=== PATIENT | female | born 1930 | race Caucasian/White ===

== ENCOUNTER 2017-02-22 18:59 | Emergency (ER) | payer MEDICARE ==
[2017-02-22] MEDS ORDERED: ASPIRIN CHEW 81 MG TABLET PO STA (19:37)
[2017-02-22] MEDS ORDERED: IPRATROPIUM/ALBUTEROL 3 ML NEB INH STA (19:37)
[2017-02-22] MEDS ORDERED: IPRATROPIUM/ALBUTEROL 3 ML NEB INH ONE (19:45)
[2017-02-22] MEDS ORDERED: ASPIRIN CHEW 81 MG TABLET ONE (19:50)
[2017-02-22] MEDS ORDERED: ALBUTEROL 8 GM INHALER INH STA (21:01)
[2017-02-22] MEDS ORDERED: ALBUTEROL 8 GM INHALER INH ONE (21:07)
== END 2017-02-22 21:19 | disposition home or self-care (01) ==
DX: J40 Bronchitis, not specified as acute or chronic (principal); I10 Essential (primary) hypertension; E78.00 Pure hypercholesterolemia, unspecified; I25.10 Atherosclerotic heart disease of native coronary artery without angina pectoris; Z95.5 Presence of coronary angioplasty implant and graft; Z79.82 Long term (current) use of aspirin
CPT/HCPCS: 36415; 71020; 80053; 81003; 83690; 83880; 84484; 85025; 93005; 93010; 94640; 94664; 99284; A9270; J7620

== ENCOUNTER 2017-04-05 08:57 | Emergency (ER) | payer MEDICARE ==
[2017-04-05 09:05] VITALS: BP 126/64
== END 2017-04-05 09:36 | disposition left against medical advice (07) ==
LOC: ED 08:57
DX: Z53.21 Procedure and treatment not carried out due to patient leaving prior to being seen by health care provider (principal)

== ENCOUNTER 2017-07-07 16:44 | Emergency (ER) | payer MEDICARE ==
[2017-07-07 17:36] LABS: BASOPHILS % (AUTO) 0.4 %; EOSINOPHILS # (AUTO) 0.1 10^3/uL (0.0-0.7); EOSINOPHILS % (AUTO) 0.5 %; HCT - HEMATOCRIT 38.8 % (37.0-47.0); HGB - HEMOGLOBIN 12.9 g/dL (12.0-16.0); LYMPHOCYTES % (AUTO) 7.6 %; MEAN CORPUSCULAR HEMOGLOBIN 31.8 pg (27.0-31.0); MEAN CORPUSCULAR HGB CONC 33.3 g/dL (32.0-36.0); MEAN CORPUSCULAR VOLUME 95.5 fL (81.0-99.0); MONOCYTES # (AUTO) 0.6 10^3/uL (0.0-1.0); MONOCYTES % (AUTO) 4.5 %; RED BLOOD COUNT 4.06 10^6/uL (4.20-5.40); UNCORRECTED WHITE BLOOD COUNT 12.7 x10^3/uL; WHITE BLOOD COUNT 12.7 x10^3/uL (4.8-10.8)
[2017-07-07 17:47] LABS: ALBUMIN/GLOBULIN RATIO 1.4 (1.0-2.2); BILIRUBIN,TOTAL 0.8 mg/dL (0.2-1.0); CALCIUM 9.4 mg/dL (8.5-10.3); CREATININE 1.2 mg/dL (0.4-1.0); POTASSIUM 4.1 mmol/L (3.5-5.0); TOTAL PROTEIN 7.4 g/dL (6.7-8.2)
--- NOTE | 2017-07-07 19:36 | ED Physician Documentation ---
History of Present Illness - Stated complaint Stated Complaint: ABD PX N/V - Chief complaint Chief Complaint: Abd Pain - Additonal information Additional information: hx from pt 87 f pshx appy c sections hyst multiple ventral hernias today noon having a BM and developed severe diffuse abd pain with NV no diarrhea no blood in vomit or BM no urinary sx no fever cough Review of Systems Constitutional: denies: Fever, Chills Cardiac: denies: Chest pain / pressure Respiratory: denies: Dyspnea GI: reports: Abdominal Pain, Nausea, Vomiting. 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, Hysterectomy Cardiovascular: Coronary stent - Present Medications Home Medications: Ambulatory Orders Medication Instructions Recorded Confirmed Aspirin [Aspir 81] 81 mg PO DAILY 01/11/14 04/05/17 Fluoxetine HCl 20 mg PO DAILY 01/11/14 04/05/17 Gabapentin [Neurontin] 300 mg PO DAILY 01/11/14 04/05/17 Metoprolol Tartrate [Lopressor] 25 mg PO DAILY 01/11/14 04/05/17 Pantoprazole Sodium [Protonix] 40 mg PO DAILY 01/11/14 04/05/17 Simvastatin 20 mg PO DAILY 01/11/14 04/05/17 amLODIPine [Norvasc] 10 mg PO ONCE 01/11/14 04/05/17 Doxazosin [Cardura] 1 mg PO DAILY 02/22/17 04/05/17 Isosorbide Dinitrate 30 mg PO DAILY 04/05/17 04/05/17 Losartan Potassium 100 mg PO DAILY 04/05/17 04/05/17 Methocarbamol 500 mg PO DAILY 04/05/17 04/05/17 Simvastatin 20 mg PO DAILY 04/05/17 04/05/17 Spironolactone 25 mg PO DAILY 04/05/17 04/05/17 Amox/Clav 500/125 [Augmentin] 1 each PO Q12H #19 tablet 07/07/17 Docusate Sodium 250Mg Capsule 250 mg PO DAILY #30 capsule 07/07/17 [Colace 250Mg Capsule] - Allergies Allergies/Adverse Reactions: Allergies Allergy/AdvReac Type Severity Reaction Status Date / Time codeine AdvReac Nausea Verified 07/07/17 16:50 - Social History Does the pt smoke?: No Smoking Status: Never smoker Does the pt drink ETOH?: No Does the pt have substance abuse?: No - Immunizations Immunizations are current?: Yes - POLST Patient has POLST: Yes POLST Status: Limited Interventions PD ED PE NORMAL - Vitals Vital signs reviewed: Yes - Cardiac Cardiac: RRR - Respiratory Respiratory: No respiratory distress, Clear bilaterally - Abdomen Abdomen: Other (dec BS, multiple scars, TTP LLQ, distended, no inguinal hernia appreciated) - Neuro Neuro: Alert and oriented X 3, No motor deficit, No sensory deficit Results - Vitals Vitals: Vital Signs - 24 hr 07/07/17 07/07/17 07/07/17 16:48 20:09 22:34 Temperature 36.1 C L 36.5 C Heart Rate 61 56 L 68 Respiratory 16 18 14 Rate Blood Pressure 100/56 L 126/60 128/62 O2 Saturation 99 100 95 Oxygen O2 Source Room air - Labs Labs: Laboratory Tests 07/07/17 07/07/17 07/07/17 17:27 17:27 20:35 WBC 12.7 H RBC 4.06 L Hgb 12.9 Hct 38.8 MCV 95.5 MCH 31.8 H MCHC 33.3 RDW 13.0 Plt Count 305 MPV 8.0 Neut # 11.0 H Lymph # 1.0 L [place] # 0.6 Eos # 0.1 Baso # 0.0 Absolute Nucleated RBC 0.00 Nucleated RBCs 0.0 Sodium 136 Potassium 4.1 Chloride 103 Carbon Dioxide 25 Anion Gap 8.0 BUN 18 Creatinine 1.2 H Estimated GFR (MDRD) 43 L Glucose 135 H Calcium 9.4 Total Bilirubin 0.8 AST 26 ALT 22 Alkaline Phosphatase 85 Total Protein 7.4 Albumin 4.3 Globulin 3.1 Albumin/Globulin Ratio 1.4 Lipase 25 Urine Color DARK YELLOW Urine Clarity HAZY Urine pH 5.5 Ur Specific [place] 1.025 Urine Protein TRACE Urine Glucose (UA) NEGATIVE Urine Ketones NEGATIVE Urine Occult Blood NEGATIVE Urine Nitrite POSITIVE H Urine Bilirubin NEGATIVE Urine Urobilinogen 1 (NORMAL) Ur Leukocyte Esterase TRACE H Urine RBC 0-5 Urine WBC 4-5 Ur Squamous Epith Cells MANY Squamous H Urine Bacteria Few Ur Microscopic Review INDICATED Urine Culture Comments NOT INDICATED - Rads (name of study) CT abd pelvis Radiology: See rad report (mild sigmoid diverticulitis) PD MEDICAL DECISION MAKING - ED course ED course: UA not a clean catch - doubt UTI, augmentin would cover anyway Departure - Departure Disposition: 01 Home, Self Care Clinical Impression: Diverticulitis of gastrointestinal tract Condition: Good Instructions: ED Diverticulitis Follow-Up: Robert Otoole MD [Primary Care Provider] - Prescriptions: Amox/Clav 500/125 [Augmentin] 1 each PO Q12H #19 tablet Docusate Sodium 250Mg Capsule [Colace 250Mg Capsule] 250 mg PO DAILY #30 capsule Comments: Your labs looked fine except for some mild renal insufficiency The CT scan showed you have a colon infection called diverticulitis Your case is not too severe - there is no perforation or abscess So it is OK to try and treat this at home as an outpatient with oral antibiotics I recommend a clear liquid diet for the next two days to rest your bowel while it starts to heal - if you get too hungry you can have BOOST or Ensure as well After that may advance your diet but start with easy to digest foods and avoid anything with small crunchy bits like popcorn and raw carrots and seeds Please follow up with your PMD for a recheck before the end of the week Some cased of diverticulitis - even if treated in the hospital with IV antibiotics - get worse and progress to a perforation or abscess. So if you feel worse, have more pain, develop a fever or see blood in your BMs, please come back to the ER
[2017-07-07 20:41] LABS: PH,URINE 5.5 PH (5.0-7.5)
[2017-07-07 20:46] LABS: BILIRUBIN,URINE NEGATIVE (NEGATIVE); UA w/ MICROSCOPIC CHARGE YES
[2017-07-07 20:55] LABS: UR CULTURE IF IND NOT INDICATED
--- NOTE | 2017-07-07 21:20 | CT Preliminary Report ---
Exam: CT Abdomen/Pelvis W/O IMPRESSION: 1. Mild sigmoid colon diverticulitis. [facility] SITE ID: [id number]
--- NOTE | 2017-07-07 21:23 | CT Report ---
EXAM: CT ABDOMEN AND PELVIS (CT KUB) EXAM DATE: 07/07/2017 09:01 PM. CLINICAL HISTORY: LLQ abd pain and distension. COMPARISONS: 12/28/2014 CT. TECHNIQUE: Routine axial helical CT imaging was performed through the abdomen and pelvis without IV c ontrast. Reconstructions: Coronal and sagittal. In accordance with CT protocol optimization, one or more of the following dose reduction techniques w ere utilized for this exam: automated exposure control, adjustment of mA and/or KV based on patient s ize, or use of iterative reconstructive technique. FINDINGS: Lung Bases: Unremarkable. Right Kidney/Ureter: No stones, hydronephrosis, or hydroureter. No perinephric fat stranding. Left Kidney/Ureter: No stones, hydronephrosis, or hydroureter. No perinephric fat stranding. Other Solid Organs: Noncontrast images of the solid organs are grossly unremarkable. Gallbladder/Bile Ducts: Unremarkable. Peritoneal Cavity: There is extensive left colon diverticulosis. Slightly increased attenuation in th e fat planes surrounding the sigmoid colon. No perforation or fluid collections. No evidence of appen dicitis. Pelvic Organs: The uterus has been removed. Urinary bladder is normal. No pelvic lymphadenopathy, mas s or fluid collections. Vasculature: Unremarkable. Other: None. IMPRESSION: 1. Mild sigmoid colon diverticulitis. [facility] Referring Provider Line: [phone] SITE ID: [id number]
[2017-07-07] MEDS ORDERED: SODIUM CHLORIDE FLUSH 0.9% 10 ML SYRINGE IVP ONE (21:30)
[2017-07-07] MEDS: SODIUM CHLORIDE 0.9% 1,000 ML IV ONE (21:35)
[2017-07-07 22:36] VITALS: BP 128/62
[2017-07-07] MEDS: AMOX/CLAV 875 MG/125 MG TABLET PO STA (22:45)
[2017-07-07] MEDS ORDERED: AMOX/CLAV 875 MG/125 MG TABLET PO ONE (22:46)
[2017-07-07] MEDS: HYDROcod/ACETAM 5/325 MG TABLET PO STA (23:15)
[2017-07-07] MEDS ORDERED: HYDROcod/ACETAM 5/325 MG TABLET ONE (23:17)
== END 2017-07-07 23:32 | disposition home or self-care (01) ==
LOC: ED 16:44
DX: K57.92 Diverticulitis of intestine, part unspecified, without perforation or abscess without bleeding (principal); I25.10 Atherosclerotic heart disease of native coronary artery without angina pectoris; I10 Essential (primary) hypertension; Z95.5 Presence of coronary angioplasty implant and graft; Z79.82 Long term (current) use of aspirin
CPT/HCPCS: 36415; 74176; 80053; 81001; 83690; 85025; 99283; 99284; A9270; 81003; 87086

== ENCOUNTER 2018-08-12 11:47 | Outpatient (CLI) | payer MEDICARE ==
--- NOTE | 2018-08-12 16:03 | XRAY Report ---
Reason: PERSISTENT L SIDED SUPIACLAVICLAR PAIN Procedure Date: 08/12/2018 Accession Number: [id number] / [id number] Procedure: XR - Chest 2 View X-Ray CPT Code: 76193 FULL RESULT: EXAM: CHEST RADIOGRAPHY EXAM DATE: 08/12/2018 12:21 PM. CLINICAL HISTORY: PERSISTENT L SIDED SUPRACLAVICULAR PAIN. COMPARISON: None. TECHNIQUE: 2 views. FINDINGS: Lungs/Pleura: No focal opacities evident. No pleural effusion. No pneumothorax. Normal volumes. Mediastinum: Heart and mediastinal contours are unremarkable. IMPRESSION: No evidence of acute thoracic process [facility]
== END 2018-08-12 11:48 | disposition home or self-care (01) ==
LOC: DI 11:47
PROVIDERS: ATTEND Internal Medicine
DX: M25.512 Pain in left shoulder (principal)
CPT/HCPCS: 71046

== ENCOUNTER 2018-10-19 21:23 | Emergency (ER) | payer MEDICARE ==
--- NOTE | 2018-10-19 22:11 | ED Physician Documentation ---
History of Present Illness - Stated complaint Stated Complaint: PAIN IN BACK SOA WEAK SHAKY - Chief complaint Chief Complaint: General - History obtained from History obtained from: Patient, Family - History of Present Illness Timing: How many weeks ago (1) - Additonal information Additional information: 88-year-old previously well female with a history of hypertension has not been feeling well over the past week. She reports feeling weak and fatigued as well as some shortness of breath and chest pressure. She has not been sick with nausea vomiting or diarrhea and she feels that she has been drinking fluids. She has been off of her diuretics. She has been checking her blood pressure over the last week and it has been elevated and today it was elevated more than she was comfortable with and she is come to the emergency department for evaluation. She denies any swelling of her extremities she does have some shortness of breath as well. Review of Systems Constitutional: reports: Fatigue. denies: Fever, Chills, Myalgias Eyes: denies: Decreased vision Ears: denies: Ear pain Nose: denies: Rhinorrhea / runny nose, Congestion Throat: denies: Sore throat Cardiac: reports: Chest pain / pressure. denies: Palpitations, Pedal edema, Calf pain Respiratory: reports: Dyspnea, Wheezing. denies: Cough GI: denies: Abdominal Pain, Nausea, Vomiting : reports: Dysuria (similar to always). denies: Frequency Skin: denies: Rash Musculoskeletal: reports: Back pain. denies: Neck pain, Extremity pain, Extremity swelling Neurologic: reports: Generalized weakness, Headache. 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, Hysterectomy Cardiovascular: Coronary stent - Present Medications Home Medications: Ambulatory Orders Medication Instructions Recorded Confirmed Aspirin [Aspir 81] 81 mg PO DAILY 01/11/14 04/05/17 Fluoxetine HCl 20 mg PO DAILY 01/11/14 04/05/17 Gabapentin [Neurontin] 300 mg PO DAILY 01/11/14 04/05/17 Metoprolol Tartrate [Lopressor] 25 mg PO DAILY 01/11/14 04/05/17 Pantoprazole Sodium [Protonix] 40 mg PO DAILY 01/11/14 04/05/17 Simvastatin 20 mg PO DAILY 01/11/14 04/05/17 amLODIPine [Norvasc] 10 mg PO ONCE 01/11/14 04/05/17 Doxazosin [Cardura] 1 mg PO DAILY 02/22/17 04/05/17 Isosorbide Dinitrate 30 mg PO DAILY 04/05/17 04/05/17 Losartan Potassium 100 mg PO DAILY 04/05/17 04/05/17 Methocarbamol 500 mg PO DAILY 04/05/17 04/05/17 Simvastatin 20 mg PO DAILY 04/05/17 04/05/17 Spironolactone 25 mg PO DAILY 04/05/17 04/05/17 Amox/Clav 500/125 [Augmentin] 1 each PO Q12H #19 tablet 07/07/17 Docusate Sodium 250Mg Capsule 250 mg PO DAILY #30 capsule 07/07/17 [Colace 250Mg Capsule] HYDROcod/ACETAM 5/325 [[place] 5/325] 1 ea PO Q6H PRN #10 tablet 07/07/17 - Allergies Allergies/Adverse Reactions: Allergies Allergy/AdvReac Type Severity Reaction Status Date / Time No Known Drug Allergies Allergy Verified 10/19/18 21:30 - Social History Does the pt smoke?: No Smoking Status: Never smoker Does the pt drink ETOH?: No Does the pt have substance abuse?: No - Immunizations Immunizations are current?: Yes - POLST Patient has POLST: Yes POLST Status: Limited Interventions PD ED PE NORMAL - Vitals Vital signs reviewed: Yes (marked systolic hypertension) - General General: Alert and oriented X 3, No acute distress, Well developed/nourished - HEENT HEENT: Atraumatic, PERRL, EOMI, Pharynx benign, Other (cerumen bilaterally dry mucous membranes ) - Neck Neck: Supple, no meningeal sign - Cardiac Cardiac: RRR, No murmur - Respiratory Respiratory: No respiratory distress, Clear bilaterally - Abdomen Abdomen: Soft, Non tender, Other (well healed surgical scars. 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, No motor deficit, No sensory deficit, Normal speech Eye Opening: Spontaneous Motor: Obeys Commands Verbal: Oriented GCS Score: 15 - Psych Psych: Normal mood, Normal affect Results - Vitals Vitals: Vital Signs - 24 hr 10/19/18 10/19/18 10/20/18 21:25 23:37 00:42 Temperature 36.3 C L Heart Rate 64 76 60 Respiratory 20 25 H 16 Rate Blood Pressure 226/81 H 172/88 H 171/77 H O2 Saturation 99 92 96 10/20/18 01:23 Temperature Heart Rate 59 L Respiratory 15 Rate Blood Pressure 163/86 H O2 Saturation 97 Oxygen O2 Source Room air - EKG (time done) 2138 Rate: Rate (enter#) (62) Rhythm: NSR Ischemia: Q waves Compare to prior EKG: Unchanged from prior EKG (02-22-17) Computer interpretation: Agree with computer - Labs Labs: Laboratory Tests 10/19/18 10/19/18 10/19/18 21:45 21:45 21:45 WBC 5.2 RBC 4.31 Hgb 13.6 Hct 40.2 MCV 93.3 MCH 31.5 H MCHC 33.8 RDW 13.7 Plt Count 261 MPV 8.2 Neut # (Auto) 2.8 Lymph # (Auto) 1.7 [place] # (Auto) 0.5 Eos # (Auto) 0.2 Baso # (Auto) 0.0 Absolute Nucleated RBC 0.00 Nucleated RBC % 0.0 Sodium 136 Potassium 3.6 Chloride 102 Carbon Dioxide 26 Anion Gap 8.0 BUN 9 Creatinine 1.0 Estimated GFR (MDRD) 53 L Glucose 105 H Calcium 9.1 Total Bilirubin 0.9 AST 24 ALT 22 Alkaline Phosphatase 104 Troponin I < 0.04 Total Protein 7.4 Albumin 4.3 Globulin 3.1 Albumin/Globulin Ratio 1.4 Lipase 24 Urine Color Urine Clarity Urine pH Ur Specific [place] Urine Protein Urine Glucose (UA) Urine Ketones Urine Occult Blood Urine Nitrite Urine Bilirubin Urine Urobilinogen Ur Leukocyte Esterase Ur Microscopic Review Urine Culture Comments 10/19/18 22:31 WBC RBC Hgb Hct MCV MCH MCHC RDW Plt Count MPV Neut # (Auto) Lymph # (Auto) [place] # (Auto) Eos # (Auto) Baso # (Auto) Absolute Nucleated RBC Nucleated RBC % Sodium Potassium Chloride Carbon Dioxide Anion Gap BUN Creatinine Estimated GFR (MDRD) Glucose Calcium Total Bilirubin AST ALT Alkaline Phosphatase Troponin I Total Protein Albumin Globulin Albumin/Globulin Ratio Lipase Urine Color YELLOW Urine Clarity CLEAR Urine pH 7.0 Ur Specific [place] 1.010 Urine Protein NEGATIVE Urine Glucose (UA) NEGATIVE Urine Ketones NEGATIVE Urine Occult Blood NEGATIVE Urine Nitrite NEGATIVE Urine Bilirubin NEGATIVE Urine Urobilinogen 0.2 (NORMAL) Ur Leukocyte Esterase NEGATIVE Ur Microscopic Review NOT INDICATED Urine Culture Comments NOT INDICATED - Rads (name of study) 1 view chest Radiology: Prelim report reviewed (Impression: Normal single view chest.), EMP read indepedently, See rad report Procedures - IVC sono (time) 2202 Bedside IVC sono: IVC measures (cm) (0.68), IVC collapsed c insp (cm) (complete), Significant dehydration (est 3 liter deficit) PD MEDICAL DECISION MAKING - ED course Complexity details: reviewed old records, reviewed results, re-evaluated patient, considered differential, d/w patient, d/w family ED course: 88-year-old female with a history of coronary disease with stenting and a historyof hypertension has developed symptoms over the past week of not feeling well with an elevated blood pressure and chest pressure associated with this. She is not currently having pain, her blood pressure is markedly elevated and she appears to have fornical organ reflex. She is found to be dehydrated on interrogation of the inferior vena cava and this amount of dehydration appears significant. She will need 2-3 L of saline to improve her volume and I suspect her blood pressure will respond by reducing. She has been taken off of her diuretics. She does have the predicted response. Her blood pressure comes down and she feels much improved. We were not, however, able to demonstrate that she was on diuretics. She denies use of diuretics and the last recorded diuretic use was Spironolactone. She has dilute urine and this does not make sense with the level of dehydration she has. Unless she was on a diuretic. I discussed these findings with the patient and she will go home and review her medications again. At the conclusion of the visit she felt that the fall she had in her head had resolved and she felt much improved. Departure - Departure Disposition: 01 Home, Self Care Clinical Impression: Dehydration Condition: Stable Instructions: ED Dehydration Follow-Up: Donell Miranda MD [Primary Care Provider] - Comments: Today it appears your symptoms were due to dehydration. It seems like you may be taking a diuretic. The medication we have listed is spironolactone. If you are taking this stop. Discharge Date/Time: 10/20/18 01:45
[2018-10-19 22:17] LABS: BASOPHILS % (AUTO) 0.8 %; EOSINOPHILS # (AUTO) 0.2 10^3/uL (0.0-0.7); EOSINOPHILS % (AUTO) 3.8 %; HGB - HEMOGLOBIN 13.6 g/dL (12.0-16.0); LYMPHOCYTES # (AUTO) 1.7 10^3/uL (1.5-3.5); LYMPHOCYTES % (AUTO) 32.5 %; MEAN CORPUSCULAR HEMOGLOBIN 31.5 pg (27.0-31.0); MEAN CORPUSCULAR HGB CONC 33.8 g/dL (32.0-36.0); MEAN CORPUSCULAR VOLUME 93.3 fL (81.0-99.0); MEAN PLATELET VOLUME 8.2 fL (7.9-10.8); MONOCYTES # (AUTO) 0.5 10^3/uL (0.0-1.0); MONOCYTES % (AUTO) 10.1 %; NEUTROPHILS # (AUTO) 2.8 10^3/uL (1.5-6.6); NEUTROPHILS % (AUTO) 52.8 %; PLT - PLATELET COUNT 261 10^3/uL (130-450); RED BLOOD COUNT 4.31 10^6/uL (4.20-5.40); RED CELL DISTRIBUTION WIDTH 13.7 % (12.0-15.0); WHITE BLOOD COUNT 5.2 x10^3/uL (4.8-10.8)
[2018-10-19 22:30] LABS: ALBUMIN 4.3 g/dL (3.2-5.5); ALBUMIN/GLOBULIN RATIO 1.4 (1.0-2.2); BILIRUBIN,TOTAL 0.9 mg/dL (0.2-1.0); CALCIUM 9.1 mg/dL (8.5-10.3); TOTAL PROTEIN 7.4 g/dL (6.7-8.2)
[2018-10-19] MEDS: SODIUM CHLORIDE 0.9% 1,000 ML IV ONE (22:31)
[2018-10-19 22:35] LABS: BILIRUBIN,URINE NEGATIVE (NEGATIVE); GLUCOSE, URINE (UA) NEGATIVE (NEGATIVE); KETONES,URINE (UA) NEGATIVE (NEGATIVE); LEUKOCYTE ESTERASE, URINE NEGATIVE (NEGATIVE); NITRITE,URINE NEGATIVE (NEGATIVE); OCCULT BLOOD,URINE NEGATIVE (NEGATIVE); PROTEIN,URINE NEGATIVE (NEGATIVE); UROBILINOGEN,URINE 0.2 (NORMAL) E.U./dL (NORMAL)
[2018-10-19 22:38] LABS: CLARITY,URINE CLEAR (CLEAR)
--- NOTE | 2018-10-19 22:41 | XRAY Report ---
Reason: chest pain Procedure Date: 10/19/2018 Accession Number: [id number] / [id number] Procedure: XR - Chest 1 View X-Ray CPT Code: 66545 FULL RESULT: EXAM: CHEST RADIOGRAPHY EXAM DATE: 10/19/2018 10:23 PM. CLINICAL HISTORY: Chest pain. COMPARISON: CHEST 2 VIEW 08/12/2018 12:12 PM. TECHNIQUE: 1 view. FINDINGS: Lungs/Pleura: No focal opacities evident. No pleural effusion. No pneumothorax. Mediastinum: Within exam limitations, the cardiomediastinal contour is normal. Other: None. IMPRESSION: Normal single view chest. [facility]
[2018-10-20] MEDS: SODIUM CHLORIDE 0.9% 1,000 ML IV ONE (00:15)
[2018-10-20 01:25] VITALS: BP 163/86
== END 2018-10-20 01:45 | disposition home or self-care (01) ==
LOC: ED 21:23
DX: E86.0 Dehydration (principal); I10 Essential (primary) hypertension; I25.10 Atherosclerotic heart disease of native coronary artery without angina pectoris; Z95.5 Presence of coronary angioplasty implant and graft
CPT/HCPCS: 36415; 71045; 80053; 81001; 81003; 83690; 84484; 85025; 87086; 93005; 96360; 96361; 99284

== ENCOUNTER 2019-05-31 19:37 | Outpatient (CLI) | payer MEDICARE | END 2019-05-31 19:38 | disposition critical access hospital (66) | LOC: EMS 19:37 | PROVIDERS: ATTEND Surgery | DX: R06.00 Dyspnea, unspecified (principal) | CPT/HCPCS: A0425; A0427 ==

== ENCOUNTER 2019-05-31 19:41 | Emergency (ER) | payer MEDICARE ==
[2019-05-31 20:08] LABS: BASOPHILS % (AUTO) 0.3 %; EOSINOPHILS # (AUTO) 0.2 10^3/uL (0.0-0.7); EOSINOPHILS % (AUTO) 2.5 %; HGB - HEMOGLOBIN 12.3 g/dL (12.0-16.0); LYMPHOCYTES # (AUTO) 1.1 10^3/uL (1.5-3.5); LYMPHOCYTES % (AUTO) 12.9 %; MEAN CORPUSCULAR HEMOGLOBIN 32.5 pg (27.0-31.0); MEAN CORPUSCULAR HGB CONC 33.8 g/dL (32.0-36.0); MEAN CORPUSCULAR VOLUME 96.3 fL (81.0-99.0); MEAN PLATELET VOLUME 9.9 fL (7.9-10.8); MONOCYTES # (AUTO) 0.6 10^3/uL (0.0-1.0); MONOCYTES % (AUTO) 7.3 %; NEUTROPHILS # (AUTO) 6.6 10^3/uL (1.5-6.6); NEUTROPHILS % (AUTO) 76.7 %; PLT - PLATELET COUNT 279 10^3/uL (130-450); RED BLOOD COUNT 3.78 10^6/uL (4.20-5.40); WHITE BLOOD COUNT 8.7 x10^3/uL (4.8-10.8)
[2019-05-31 20:23] LABS: ALBUMIN 3.9 g/dL (3.2-5.5); ALBUMIN/GLOBULIN RATIO 1.3 (1.0-2.2); CALCIUM 8.6 mg/dL (8.5-10.3); CREATININE 0.8 mg/dL (0.4-1.0)
--- NOTE | 2019-05-31 20:27 | ED Physician Documentation ---
PD HPI DYSPNEA - Stated complaint Stated Complaint: DYSPNEA - Chief complaint Chief Complaint: Resp - History obtained from History obtained from: Patient - History of Present Illness Timing - onset: Yesterday Timing - details: Gradual onset, Waxing and waning Pain level now: 3 (only when coughing) Worsened by: Coughing Associated symptoms: Cough, Chest pain / discomfort. No: Fever, Hemoptysis, Wheezing, Palpitations, Diaphoresis, Bilateral edema, Unilateral edema Recently seen: Admitted - Additional information Additional information: patient's chief complaint is cough since yesterday. Patient was discharged yesterday from [facility]. She was diagnosed with new-onset atrial fibrillation which was found on a w/u that was prompted by shortness of breath, ABPTISTE, fatigue, dizziness when standing and ambulating, and chest heaviness. She had EDUARDO which revealed a clot and thus she was started on Pradaxa with plan to reevaluate for electrocardioversion in a few weeks. While in the hospital, she also underwent cardiac angio which showed her 2 stents were patent as well as a 60% lesion which was deemed not significant (this information is per patient's daughter, who is present at bedside and ED). Patient's symptoms have all been present since before she was hospitalized and are thus not new nor worse. She is chiefly concerned about the dry cough she developed since being discharged yesterday; specifically, she is worried about possible infection as well as any detrimental effect the cough might have on her other medical problems such as the atrial fibrillation and the clot found on EDUARDO Review of Systems Constitutional: reports: Fatigue. denies: Fever, Chills, Sweats Cardiac: reports: Chest pain / pressure (with coughing). denies: Palpitations, Pedal edema, Calf pain Respiratory: reports: Dyspnea, Cough. 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: section, Hysterectomy Cardiovascular: Coronary stent - Present Medications Home Medications: Ambulatory Orders Medication Instructions Recorded Confirmed Aspirin [Aspir 81] 81 mg PO DAILY 01/11/14 05/31/19 Fluoxetine HCl 20 mg PO DAILY 01/11/14 05/31/19 Gabapentin [Neurontin] 600 mg PO BID 01/11/14 05/31/19 Metoprolol Tartrate [Lopressor] 25 mg PO DAILY 01/11/14 05/31/19 Pantoprazole Sodium [Protonix] 40 mg PO DAILY 01/11/14 05/31/19 amLODIPine [Norvasc] 10 mg PO ONCE 01/11/14 05/31/19 Losartan Potassium 50 mg PO BID 04/05/17 05/31/19 Methocarbamol 500 mg PO DAILY 04/05/17 05/31/19 Docusate Sodium 250Mg Capsule 250 mg PO DAILY #30 capsule 07/07/17 05/31/19 [Colace 250Mg Capsule] Atorvastatin Calcium 1 tab PO DAILY 05/31/19 05/31/19 Carvedilol [Coreg] 0.5 tab PO BID 05/31/19 05/31/19 Clobetasol 0.05% Oint [Temovate 05/31/19 0.05% Oint] Estrogens, Conjugated Cream 05/31/19 [Premarin Cream] Levalbuterol [Xopenex] 1 puffs INH Q4-6H #1 inhaler 05/31/19 guaiFENesin/CODEINE [Robitussin AC] 5 ml PO Q8HR PRN #30 udc 05/31/19 - Allergies Allergies/Adverse Reactions: Allergies Allergy/AdvReac Type Severity Reaction Status Date / Time No Known Drug Allergies Allergy Verified 05/31/19 19:46 - Social History Does the pt smoke?: No Smoking Status: Never smoker Does the pt drink ETOH?: No Does the pt have substance abuse?: No - Immunizations Immunizations are current?: Yes - POLST Patient has POLST: Yes POLST Status: Limited Interventions PD ED PE NORMAL - Vitals Vital signs reviewed: Yes - General General: Alert and oriented X 3, No acute distress, Well developed/nourished, Other (occasional dry cough during H+P) - HEENT HEENT: Moist mucous membranes - Neck Neck: Supple, no meningeal sign - Cardiac Cardiac: No murmur - Respiratory Respiratory: No respiratory distress, Clear bilaterally - Abdomen Abdomen: Soft, Non tender - Derm Derm: Normal color, Warm and dry - Extremities Extremities: Other (flat echymosis right wrist (cardiac cath site) without swelling or tenderness) Results - Vitals Vitals: Vital Signs - 24 hr 05/31/19 05/31/19 05/31/19 20:39 21:05 21:17 Temperature Heart Rate 80 85 84 Respiratory 30 H 14 25 H Rate Blood Pressure 142/89 H O2 Saturation 99 05/31/19 05/31/19 05/31/19 21:19 21:53 22:24 Temperature 36.6 C Heart Rate 81 83 20 L Respiratory 15 22 19 Rate Blood Pressure 154/87 H 157/91 H 139/85 H O2 Saturation 98 100 94 05/31/19 23:04 Temperature Heart Rate 91 Respiratory 18 Rate Blood Pressure 150/97 H O2 Saturation 97 Oxygen O2 Source Room air Oxygen Flow Rate 4 - EKG (time done) No standard instances Rate: Rate (enter#) (69) Rhythm: Atrial fibrillation [place]: Normal QRS: Normal Ischemia: Non specific changes (biphasic T waves V2-V5) Compare to prior EKG: Changed from prior EKG (compared to previous (10/19/18), the biphasic T waves and atrial fibrillation are new) - Labs Labs: Laboratory Tests 05/31/19 05/31/19 05/31/19 20:03 20:03 20:03 WBC 8.7 RBC 3.78 L Hgb 12.3 Hct 36.4 L MCV 96.3 MCH 32.5 H MCHC 33.8 RDW 13.0 Plt Count 279 MPV 9.9 Neut # (Auto) 6.6 Lymph # (Auto) 1.1 L [place] # (Auto) 0.6 Eos # (Auto) 0.2 Baso # (Auto) 0.0 Absolute Nucleated RBC 0.00 Nucleated RBC % 0.0 Sodium 135 Potassium 4.1 Chloride 102 Carbon Dioxide 22 Anion Gap 11.0 BUN 15 Creatinine 0.8 Estimated GFR (MDRD) 68 L Glucose 90 Calcium 8.6 Total Bilirubin 1.0 AST 19 ALT 21 Alkaline Phosphatase 112 Troponin I 0.04 B-Natriuretic Peptide Total Protein 7.0 Albumin 3.9 Globulin 3.1 Albumin/Globulin Ratio 1.3 Lipase 25 05/31/19 20:03 WBC RBC Hgb Hct MCV MCH MCHC RDW Plt Count MPV Neut # (Auto) Lymph # (Auto) [place] # (Auto) Eos # (Auto) Baso # (Auto) Absolute Nucleated RBC Nucleated RBC % Sodium Potassium Chloride Carbon Dioxide Anion Gap BUN Creatinine Estimated GFR (MDRD) Glucose Calcium Total Bilirubin AST ALT Alkaline Phosphatase Troponin I B-Natriuretic Peptide 488 H Total Protein Albumin Globulin Albumin/Globulin Ratio Lipase - Rads (name of study) chest xray Radiology: Prelim report reviewed, See rad report PD MEDICAL DECISION MAKING - ED course Complexity details: reviewed results, re-evaluated patient, considered differential, d/w patient, d/w family ED course: Elevated BNP is significantly improved compared to when she was inpatient at [facility] (records faxed and I reviewed them; BNP was over 1999). Her symptoms are not new and were the reason for her recent, extensive w/u; the exception is her cough, and there are no findings to suggest infectious source nor other emergent cause such as fluid overload or pneumothorax. Patient and family are reassured with these results and are comfortable with d/c home Departure - Departure Disposition: 01 Home, Self Care Clinical Impression: Cough Condition: Good Health Concerns: cough, shortness of breath, chest pain Plan of Treatment: continue current medications. can start albuterol as prescribed as well as cough syrup with codeine as prescribed Care Goals: control of symptoms Assessment: see diagnoses Instructions: ED Dyspnea Shortness of Breath Follow-Up: Robert Otoole MD [Primary Care Provider] - Prescriptions: guaiFENesin/CODEINE [Robitussin AC] 5 ml PO Q8HR PRN #30 udc PRN Reason: Cough Levalbuterol [Xopenex] 1 puffs INH Q4-6H #1 inhaler Discharge Date/Time: 05/31/19 23:24
--- NOTE | 2019-05-31 20:42 | XRAY Report ---
Reason: dyspnea Procedure Date: 05/31/2019 Accession Number: [id number] / [id number] Procedure: XR - Chest 1 View X-Ray CPT Code: 28898 FULL RESULT: EXAM: CHEST RADIOGRAPHY EXAM DATE: 05/31/2019 08:25 PM. CLINICAL HISTORY: Dyspnea. COMPARISON: XR CHEST 1 VIEW AP/PA 05/26/2019 1:10 PM. TECHNIQUE: 1 view. FINDINGS: Lungs/Pleura: No focal opacities evident. No pleural effusion. No pneumothorax. Mediastinum: Within exam limitations, the cardiomediastinal contour is normal. Other: None. IMPRESSION: No focal consolidation. RADIA
[2019-05-31] MEDS ORDERED: LEVALBUTEROL 1.25 MG/3 ML NEB INH STA (20:57)
[2019-05-31 23:06] VITALS: BP 150/97
[2019-05-31] MEDS ORDERED: guaiFENesin/CODEINE 5 ML UDC PO STA (23:17)
== END 2019-05-31 23:24 | disposition home or self-care (01) ==
LOC: EDUNIT# → ED 19:41
DX: R05 Cough (principal); I48.91 Unspecified atrial fibrillation; I45.81 Long QT syndrome; I25.10 Atherosclerotic heart disease of native coronary artery without angina pectoris; Z95.5 Presence of coronary angioplasty implant and graft; I10 Essential (primary) hypertension; Z79.82 Long term (current) use of aspirin
CPT/HCPCS: 36415; 71045; 80053; 83690; 83880; 84484; 85025; 93005; 94640; 99283; 99285; A9270

== ENCOUNTER 2019-06-27 14:35 | Outpatient (CLI) | payer MEDICARE | END 2019-06-27 14:36 | disposition home or self-care (01) | LOC: LAB 14:35 | PROVIDERS: ATTEND Emergency Medicine | DX: I48.91 Unspecified atrial fibrillation (principal) | CPT/HCPCS: 85610 ==

== ENCOUNTER 2019-06-30 12:55 | Outpatient (CLI) | payer MEDICARE | END 2019-06-30 12:56 | disposition home or self-care (01) | LOC: LAB 12:55 | PROVIDERS: ATTEND Emergency Medicine | DX: I48.91 Unspecified atrial fibrillation (principal) | CPT/HCPCS: 85610 ==

== ENCOUNTER 2019-07-05 13:03 | Outpatient (CLI) | payer MEDICARE | END 2019-07-05 13:04 | disposition home or self-care (01) | LOC: LAB 13:03 | PROVIDERS: ATTEND Emergency Medicine | DX: I48.91 Unspecified atrial fibrillation (principal) | CPT/HCPCS: 85610 ==

== ENCOUNTER 2019-07-11 12:56 | Outpatient (CLI) | payer MEDICARE | END 2019-07-11 12:57 | disposition home or self-care (01) | LOC: LAB 12:56 | PROVIDERS: ATTEND Emergency Medicine | DX: I48.91 Unspecified atrial fibrillation (principal) | CPT/HCPCS: 85610 ==

== ENCOUNTER 2019-07-18 10:36 | Outpatient (CLI) | payer MEDICARE | END 2019-07-18 10:37 | disposition home or self-care (01) | LOC: LAB 10:36 | PROVIDERS: ATTEND Emergency Medicine | DX: I48.91 Unspecified atrial fibrillation (principal) | CPT/HCPCS: 85610 ==

== ENCOUNTER 2019-07-26 11:48 | Outpatient (CLI) | payer MEDICARE | END 2019-07-26 11:49 | disposition home or self-care (01) | LOC: LAB 11:48 | PROVIDERS: ATTEND Emergency Medicine | DX: I48.91 Unspecified atrial fibrillation (principal) | CPT/HCPCS: 85610 ==

== ENCOUNTER 2019-08-02 11:12 | Outpatient (CLI) | payer MEDICARE | END 2019-08-02 11:13 | disposition home or self-care (01) | LOC: LAB 11:12 | PROVIDERS: ATTEND Emergency Medicine | DX: I48.91 Unspecified atrial fibrillation (principal) | CPT/HCPCS: 85610 ==

== ENCOUNTER 2019-08-09 10:54 | Outpatient (CLI) | payer MEDICARE | END 2019-08-09 10:55 | disposition home or self-care (01) | LOC: LAB 10:54 | PROVIDERS: ATTEND Emergency Medicine | DX: I48.91 Unspecified atrial fibrillation (principal) | CPT/HCPCS: 85610 ==

== ENCOUNTER 2019-08-16 14:22 | Outpatient (CLI) | payer MEDICARE | END 2019-08-16 14:23 | disposition home or self-care (01) | LOC: LAB 14:22 | PROVIDERS: ATTEND Emergency Medicine | DX: I48.91 Unspecified atrial fibrillation (principal) | CPT/HCPCS: 85610 ==

== ENCOUNTER 2019-08-23 10:57 | Outpatient (CLI) | payer MEDICARE | END 2019-08-23 10:58 | disposition home or self-care (01) | LOC: LAB 10:57 | PROVIDERS: ATTEND Emergency Medicine | DX: I48.91 Unspecified atrial fibrillation (principal) | CPT/HCPCS: 85610 ==

== ENCOUNTER 2019-08-30 14:14 | Outpatient (CLI) | payer MEDICARE | END 2019-08-30 14:15 | disposition home or self-care (01) | LOC: LAB 14:14 | PROVIDERS: ATTEND Emergency Medicine | DX: I48.91 Unspecified atrial fibrillation (principal) | CPT/HCPCS: 85610 ==

== ENCOUNTER 2019-09-06 11:00 | Outpatient (CLI) | payer MEDICARE | END 2019-09-06 11:01 | disposition home or self-care (01) | LOC: LAB 11:00 | PROVIDERS: ATTEND Emergency Medicine | DX: I48.91 Unspecified atrial fibrillation (principal) | CPT/HCPCS: 85610 ==

== ENCOUNTER 2019-09-20 15:36 | Outpatient (CLI) | payer MEDICARE | END 2019-09-20 15:37 | disposition home or self-care (01) | LOC: LAB 15:36 | PROVIDERS: ATTEND Emergency Medicine | DX: I48.91 Unspecified atrial fibrillation (principal) | CPT/HCPCS: 85610 ==

== ENCOUNTER 2019-09-27 12:33 | Outpatient (CLI) | payer MEDICARE | END 2019-09-27 12:34 | disposition home or self-care (01) | LOC: LAB 12:33 | PROVIDERS: ATTEND Emergency Medicine | DX: I48.91 Unspecified atrial fibrillation (principal) | CPT/HCPCS: 85610 ==

== ENCOUNTER 2019-11-01 15:25 | Outpatient (CLI) | payer MEDICARE | END 2019-11-01 15:26 | disposition home or self-care (01) | LOC: LAB 15:25 | PROVIDERS: ATTEND Emergency Medicine | DX: I48.91 Unspecified atrial fibrillation (principal) | CPT/HCPCS: 85610 ==

== ENCOUNTER 2019-11-17 09:18 | Outpatient (CLI) | payer MEDICARE | END 2019-11-17 09:19 | disposition home or self-care (01) | LOC: LAB 09:18 | PROVIDERS: ATTEND Emergency Medicine | DX: I48.91 Unspecified atrial fibrillation (principal) | CPT/HCPCS: 85610 ==

== ENCOUNTER 2019-12-05 16:28 | Outpatient (CLI) | payer MEDICARE | END 2019-12-05 16:29 | disposition home or self-care (01) | LOC: LAB 16:28 | PROVIDERS: ATTEND Emergency Medicine | DX: I48.91 Unspecified atrial fibrillation (principal) | CPT/HCPCS: 85610 ==

== ENCOUNTER 2019-12-12 11:47 | Outpatient (CLI) | payer MEDICARE | END 2019-12-12 11:48 | disposition home or self-care (01) | LOC: LAB 11:47 | PROVIDERS: ATTEND Emergency Medicine | DX: I48.91 Unspecified atrial fibrillation (principal) | CPT/HCPCS: 85610 ==

== ENCOUNTER 2019-12-20 15:23 | Outpatient (CLI) | payer MEDICARE | END 2019-12-20 15:24 | disposition home or self-care (01) | LOC: LAB 15:23 | PROVIDERS: ATTEND Emergency Medicine | DX: I48.91 Unspecified atrial fibrillation (principal) | CPT/HCPCS: 85610 ==

== ENCOUNTER 2019-12-23 15:51 | Outpatient (CLI) | payer MEDICARE | END 2019-12-23 15:52 | disposition home or self-care (01) | LOC: LAB 15:51 | PROVIDERS: ATTEND Emergency Medicine | DX: I48.91 Unspecified atrial fibrillation (principal) | CPT/HCPCS: 85610 ==

== ENCOUNTER 2019-12-27 13:38 | Outpatient (CLI) | payer MEDICARE | END 2019-12-27 13:39 | disposition home or self-care (01) | LOC: LAB 13:38 | PROVIDERS: ATTEND Emergency Medicine | DX: I48.91 Unspecified atrial fibrillation (principal) | CPT/HCPCS: 85610 ==

== ENCOUNTER 2019-12-30 10:23 | Outpatient (CLI) | payer MEDICARE | END 2019-12-30 10:24 | disposition home or self-care (01) | LOC: LAB 10:23 | PROVIDERS: ATTEND Emergency Medicine | DX: I48.91 Unspecified atrial fibrillation (principal) | CPT/HCPCS: 85610 ==

== ENCOUNTER 2019-12-31 15:04 | Outpatient (CLI) | payer MEDICARE ==
[2019-12-31 15:24] LABS: BASOPHILS # (AUTO) 0.1 10^3/uL (0.0-0.1); BASOPHILS % (AUTO) 0.7 %; EOSINOPHILS # (AUTO) 0.2 10^3/uL (0.0-0.7); EOSINOPHILS % (AUTO) 3.1 %; LYMPHOCYTES # (AUTO) 1.2 10^3/uL (1.5-3.5); MEAN CORPUSCULAR HEMOGLOBIN 32.1 pg (27.0-31.0); MEAN CORPUSCULAR HGB CONC 33.3 g/dL (32.0-36.0); MEAN CORPUSCULAR VOLUME 96.4 fL (81.0-99.0); MEAN PLATELET VOLUME 9.6 fL (7.9-10.8); MONOCYTES # (AUTO) 0.7 10^3/uL (0.0-1.0); MONOCYTES % (AUTO) 10.8 %; NEUTROPHILS # (AUTO) 4.6 10^3/uL (1.5-6.6); NEUTROPHILS % (AUTO) 67.1 %; PLT - PLATELET COUNT 341 10^3/uL (130-450); RED BLOOD COUNT 4.67 10^6/uL (4.20-5.40); RED CELL DISTRIBUTION WIDTH 13.8 % (12.0-15.0); WHITE BLOOD COUNT 6.8 x10^3/uL (4.8-10.8)
[2019-12-31 15:32] LABS: CREATININE 1.2 mg/dL (0.4-1.0)
[2019-12-31 15:36] LABS: PT - PROTHROMBIN TIME 53.4 secs (9.9-12.6)
[2019-12-31 15:54] LABS: INR 5.1 (0.8-1.2)
== END 2019-12-31 15:05 | disposition home or self-care (01) ==
LOC: LAB 15:04
PROVIDERS: ATTEND Nurse Practitioner Family
DX: R30.9 Painful micturition, unspecified (principal); I48.91 Unspecified atrial fibrillation
CPT/HCPCS: 36415; 80048; 85025; 85610; 87086

== ENCOUNTER 2020-01-05 11:28 | Outpatient (CLI) | payer MEDICARE | END 2020-01-05 11:29 | disposition home or self-care (01) | LOC: LAB 11:28 | PROVIDERS: ATTEND Emergency Medicine | DX: I48.91 Unspecified atrial fibrillation (principal) | CPT/HCPCS: 85610 ==

== ENCOUNTER 2020-01-10 11:16 | Outpatient (CLI) | payer MEDICARE | END 2020-01-10 11:17 | disposition home or self-care (01) | LOC: LAB 11:16 | PROVIDERS: ATTEND Emergency Medicine | DX: I48.91 Unspecified atrial fibrillation (principal) | CPT/HCPCS: 85610 ==

== ENCOUNTER 2020-01-17 11:24 | Outpatient (CLI) | payer MEDICARE | END 2020-01-17 11:25 | disposition home or self-care (01) | LOC: LAB 11:24 | PROVIDERS: ATTEND Emergency Medicine | DX: I48.91 Unspecified atrial fibrillation (principal) | CPT/HCPCS: 85610 ==

== ENCOUNTER 2020-01-24 13:33 | Outpatient (CLI) | payer MEDICARE | END 2020-01-24 13:34 | disposition home or self-care (01) | LOC: LAB 13:33 | PROVIDERS: ATTEND Emergency Medicine | DX: I48.91 Unspecified atrial fibrillation (principal) | CPT/HCPCS: 85610 ==

== ENCOUNTER 2020-01-25 20:31 | Observation (INO) | payer MEDICARE ==
--- NOTE | 2020-01-25 20:56 | ED Physician Documentation ---
History of Present Illness - Stated complaint Stated Complaint: RECTAL BLEEDING - Chief complaint Chief Complaint: Abd Pain - History obtained from History obtained from: Patient - History of Present Illness Quality: DULL Radiates to: NONE Improved by: NOTHING Worsened by: NOTHING - Additonal information Additional information: 89 YEAR OLD FEMALE WITH HX OF ATRIAL FIBRILLATION ON COUAMDIN, HX OF DIVERTICULOSIS, IBS WHO TAKES MIRALAX EVERY OTHER DAY, PRESENTS TO THE ED WITH BRIGHT RED BLOOD PER RECTUM SINCE 5:30 PM. SHE REPORTED OF ASSOCIATED LEFT LOWER QUADRANT ABDOMINAL PAIN. SHE DENIES ANY NAUSEA, VOMITING. SHE WAS PASSING SOME BLOOD CLOTS WELL. PATIENT DENIES CHEST PAIN, SHORTNESS OF BREATH, DIZZINESS, SYNCOPE OR NEAR SYNCOPE. PATIENT AND DAUGHTER REPORTED THAT THE PATIENT HAD A SIMILAR EPISODE ABOUT 2 YEARS AGO AND WAS FLOWN TO [facility] FOR TREATMENT. IT WAS UNCLEAR IF THE PATIENT HAD A COLONOSCOPY DONE AT THAT TIME PER PATIENT AND DAUGHTER. Review of Systems Constitutional: denies: Fever, Chills Eyes: denies: Discharge, Irritation Nose: denies: Rhinorrhea / runny nose, Foreign Body Cardiac: denies: Chest pain / pressure, Palpitations Respiratory: denies: Dyspnea, Cough GI: reports: Abdominal Pain, Bloody / black stool Skin: denies: Rash Musculoskeletal: denies: Neck pain, Back pain, Extremity pain PD PAST MEDICAL HISTORY - Past Medical History Cardiovascular: Hypertension, High cholesterol, Coronary artery disease, Atrial fibrillation Respiratory: Sleep apnea Neuro: Peripheral neuropathy GI: GI bleed, Diverticulitis : None HEENT: None Psych: Depression Musculoskeletal: Fatigue, Other - Past Surgical History Past Surgical History: Yes General: Appendectomy, Hiatal hernia 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, Hysterectomy Cardiovascular: Coronary stent - Present Medications Home Medications: Ambulatory Orders Medication Instructions Recorded Confirmed Aspirin [Aspir 81] 81 mg PO DAILY 01/11/14 05/31/19 Fluoxetine HCl 20 mg PO DAILY 01/11/14 05/31/19 Gabapentin [Neurontin] 600 mg PO BID 01/11/14 05/31/19 Metoprolol Tartrate [Lopressor] 25 mg PO DAILY 01/11/14 05/31/19 Pantoprazole Sodium [Protonix] 40 mg PO DAILY 01/11/14 05/31/19 amLODIPine [Norvasc] 10 mg PO ONCE 01/11/14 05/31/19 Losartan Potassium 50 mg PO BID 04/05/17 05/31/19 methocarbamoL [Methocarbamol] 500 mg PO DAILY 04/05/17 05/31/19 Docusate Sodium 250Mg Capsule 250 mg PO DAILY #30 capsule 07/07/17 05/31/19 [Colace 250Mg Capsule] Atorvastatin Calcium 1 tab PO DAILY 05/31/19 05/31/19 Carvedilol [Coreg] 0.5 tab PO BID 05/31/19 05/31/19 Clobetasol 0.05% Oint [Temovate 05/31/19 0.05% Oint] Estrogens, Conjugated Cream 05/31/19 [Premarin Cream] Levalbuterol [Xopenex] 1 puffs INH Q4-6H #1 inhaler 05/31/19 guaiFENesin/CODEINE [Robitussin AC] 5 ml PO Q8HR PRN #30 udc 05/31/19 - Allergies Allergies/Adverse Reactions: Allergies Allergy/AdvReac Type Severity Reaction Status Date / Time No Known Drug Allergies Allergy Verified 01/25/20 20:36 - Social History Does the pt smoke?: No Smoking Status: Never smoker Does the pt drink ETOH?: No Does the pt have substance abuse?: No - Immunizations Immunizations are current?: Yes - POLST Patient has POLST: Yes POLST Status: Limited Interventions PD ED PE NORMAL - Vitals Vital signs reviewed: Yes - General General: Alert and oriented X 3 - HEENT HEENT: Atraumatic - Neck Neck: Supple, no meningeal sign - Cardiac Cardiac: RRR - Respiratory Respiratory: No respiratory distress - Abdomen Abdomen: Normal bowel sounds, Soft, Non distended, Other (MILD LEFT LOWER QUADRANT TENDERNESS WITHOUT REBOUND OR GUARDING. ) - Derm Derm: Normal color, Warm and dry, No rash - Extremities Extremities: No deformity, No tenderness to palpate, Normal ROM s pain, No edema, No calf tenderness / cord - Neuro Neuro: Alert and oriented X 3, No motor deficit, No sensory deficit Eye Opening: Spontaneous Motor: Obeys Commands Verbal: Oriented GCS Score: 15 Results - Vitals Vitals: Vital Signs - 24 hr 01/25/20 01/25/20 20:36 21:22 Temperature 36.5 C Heart Rate 106 H 101 H Respiratory 14 19 Rate Blood Pressure 166/100 H 158/102 H O2 Saturation 100 96 Oxygen O2 Source Room air - EKG (time done) 3 Rate: Rate (enter#) (92) Rhythm: Atrial fibrillation Intervals: Prolonged QT, Wide QRS QRS: LVH Ischemia: Non specific changes - Labs Labs: Laboratory Tests 01/25/20 01/25/20 01/25/20 20:57 20:57 20:57 WBC 8.9 RBC 4.11 L Hgb 13.1 Hct 39.7 MCV 96.6 MCH 31.9 H MCHC 33.0 RDW 13.4 Plt Count 322 MPV 9.7 Neut # (Auto) 6.8 H Lymph # (Auto) 1.2 L [place] # (Auto) 0.7 Eos # (Auto) 0.3 Baso # (Auto) 0.0 Absolute Nucleated RBC 0.00 Nucleated RBC % 0.0 PT 25.4 H INR 2.3 H APTT 40.4 H Sodium 134 L Potassium 4.2 Chloride 99 L Carbon Dioxide 24 Anion Gap 11.0 BUN 16 Creatinine 1.2 H Estimated GFR (MDRD) 42 L Glucose 124 H Calcium 8.7 Total Bilirubin 1.0 AST 23 ALT 21 Alkaline Phosphatase 112 Total Protein 7.1 Albumin 3.8 Globulin 3.3 Albumin/Globulin Ratio 1.2 Lipase 25 Blood Type Antibody Screen 01/25/20 21:15 WBC RBC Hgb Hct MCV MCH MCHC RDW Plt Count MPV Neut # (Auto) Lymph # (Auto) [place] # (Auto) Eos # (Auto) Baso # (Auto) Absolute Nucleated RBC Nucleated RBC % PT INR APTT Sodium Potassium Chloride Carbon Dioxide Anion Gap BUN Creatinine Estimated GFR (MDRD) Glucose Calcium Total Bilirubin AST ALT Alkaline Phosphatase Total Protein Albumin Globulin Albumin/Globulin Ratio Lipase Blood Type A POSITIVE Antibody Screen NEGATIVE PD MEDICAL DECISION MAKING - ED course Complexity details: re-evaluated patient, d/w patient ED course: 89 YEAR OLD FEMALE PRESENTS TO THE EMERGENCY DEPARTMENT BECAUSE OF BRIGHT RED BLOOD PER RECTUM. SHE HAS A HX OF ATRIAL FIBRILLATION AND TAKES COUMADIN. INR WAS 2.3 TODAY. PATIENT REMAINED HEMODYNAMICALLY STABLE. PATIENT PASSED ABOUT 6- 7 MAROON COLORED CLOTS. ABDOMINAL EXAM REMAINED BENIGH. CASE WAS DISCUSSED WITH DR. AQUINO, GENERAL SURGEON. SHE REOCMMENDED TO HOLD COUMADIN AND WAIT FOR THE INR TO COME DOWN. SHE WILL PLAN ON PERFORMING A COLONOSCOPY ON THE PATIENT DURING THIS HOSPITALIZATION. CASE WAS DISCUSSED WITH HOSPITALIST WHO HAS ACCEPTED THE PATIENT FOR ADMISSION. PATIENT WAS KEPT NPO. Departure - Departure Disposition: 66 [facility] DC/Xfer Clinical Impression: Abdominal pain, Lower gastrointestinal bleed Condition: Serious Discharge Date/Time: 01/25/20 23:02
[2020-01-25 21:05] LABS: BASOPHILS % (AUTO) 0.4 %; EOSINOPHILS # (AUTO) 0.3 10^3/uL (0.0-0.7); HGB - HEMOGLOBIN 13.1 g/dL (12.0-16.0); LYMPHOCYTES # (AUTO) 1.2 10^3/uL (1.5-3.5); LYMPHOCYTES % (AUTO) 12.9 %; MEAN CORPUSCULAR HEMOGLOBIN 31.9 pg (27.0-31.0); MEAN CORPUSCULAR VOLUME 96.6 fL (81.0-99.0); MEAN PLATELET VOLUME 9.7 fL (7.9-10.8); MONOCYTES # (AUTO) 0.7 10^3/uL (0.0-1.0); MONOCYTES % (AUTO) 7.6 %; NEUTROPHILS # (AUTO) 6.8 10^3/uL (1.5-6.6); NEUTROPHILS % (AUTO) 75.8 %; PLT - PLATELET COUNT 322 10^3/uL (130-450); RED BLOOD COUNT 4.11 10^6/uL (4.20-5.40); RED CELL DISTRIBUTION WIDTH 13.4 % (12.0-15.0); WHITE BLOOD COUNT 8.9 x10^3/uL (4.8-10.8)
[2020-01-25 21:09] LABS: INR 2.3 (0.8-1.2); PT - PROTHROMBIN TIME 25.4 secs (9.9-12.6)
[2020-01-25 21:17] LABS: PARTIAL THROMBOPLASTIN TIME 40.4 secs (24.9-33.3)
[2020-01-25 21:18] LABS: ALBUMIN 3.8 g/dL (3.2-5.5); ALBUMIN/GLOBULIN RATIO 1.2 (1.0-2.2); CALCIUM 8.7 mg/dL (8.5-10.3); CREATININE 1.2 mg/dL (0.4-1.0); TOTAL PROTEIN 7.1 g/dL (6.7-8.2)
--- NOTE | 2020-01-25 21:32 | XRAY Report ---
Reason: Chest Pain Procedure Date: 01/25/2020 Accession Number: [id number] / [id number] Procedure: XR - Chest 1 View X-Ray CPT Code: 51534 Final Report FULL RESULT: EXAM: CHEST RADIOGRAPHY EXAM DATE: 01/25/2020 09:27 PM. CLINICAL HISTORY: Chest Pain. COMPARISON: CHEST 1 VIEW 05/31/2019 8:13 PM. TECHNIQUE: 1 view. FINDINGS: Lungs/Pleura: No change. No consolidative process or focal airspace opacity. Negative for pulmonary edema and pneumothorax. Mediastinum: Within exam limitations, the cardiomediastinal contour is normal. Other: None. IMPRESSION: Negative for an acute cardiopulmonary abnormality. RADIA
--- NOTE | 2020-01-25 22:34 | HISTORY & PHYSICAL EXAMINATION ---
Chief Complaint - Chief Complaint Chief Complaint: GI Bleed History of Present Illness - Admitted From Admitted From:: [facility] - History Obtained From Records Reviewed: yes History obtained from: patient and her daughter - History of Present Illness HPI Comment/Other: Patient is an 89 y/o female with Hx of atrial fibrillation on coumadin who pres ented to the ED with complain of bright red blood per rectum. This started around 5pm. From onset to time of presentation to the ED she had changed 5 diapers. She denied any black stools. She had a non-bloody diarrhea the previous day. Prior to experiencing diarrhea she had been constipated and took some miralax. She reports a previous episode of GI bleed three years ago for which she was airlifted to [place] and transfused 5 units of PRBC. It is unclear if she underwent a colonoscopy then. Records have been requested from [place] and are pending. She denied dizziness, chest pain, dyspnea, fever or chills. She complains of left lower quadrant abdominal pain. The patient has undergone cardioversions X2 with the last one being in April of 2019. They have been unsuccessful. She was told that her INR goal is in a range of 2.5 to 3.5. It is reported that she was on pradaxa for a couple weeks but was found to have a clot in her heart which did not change despite 2 weeks of pradaxa so she was changed to coumadin by her human resources executive assistant Dr Eduin Cates with [facility]. She is also on carvedilol 3.125mg bid and amiodarone 20mg daily. She has been using amiodarone for about 1 month now. She used to be on diltiazem which was discontinue around time the time of her last cardioversion. Her hemoglobin in the ED was 13 and her INR was 2.3. As a result of her presentation she is being admitted for further evaluation and management. Dr Flores was contacted by the ED physician and is agreeable to see the patient. 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, Hysterectomy Cardiovascular: reports: Coronary stent, Other (EDUARDO) - Family & Social History Family History: Mother: , MA, Parkinson's Disease, Father: , [place] Social History Notes: She denies alcohol, tobacco or illicit drug use - POLST Patient has POLST: Yes POLST Status: Full Code Meds/Allgy - Home Medications Home Medications: Ambulatory Orders Medication Instructions Recorded Confirmed Aspirin [Aspir 81] 81 mg PO DAILY 01/11/14 05/31/19 Fluoxetine HCl 20 mg PO DAILY 01/11/14 05/31/19 Gabapentin [Neurontin] 600 mg PO BID 01/11/14 05/31/19 Metoprolol Tartrate [Lopressor] 25 mg PO DAILY 01/11/14 05/31/19 Pantoprazole Sodium [Protonix] 40 mg PO DAILY 01/11/14 05/31/19 amLODIPine [Norvasc] 10 mg PO ONCE 01/11/14 05/31/19 Losartan Potassium 50 mg PO BID 04/05/17 05/31/19 methocarbamoL [Methocarbamol] 500 mg PO DAILY 04/05/17 05/31/19 Docusate Sodium 250Mg Capsule 250 mg PO DAILY #30 capsule 07/07/17 05/31/19 [Colace 250Mg Capsule] Atorvastatin Calcium 1 tab PO DAILY 05/31/19 05/31/19 Carvedilol [Coreg] 0.5 tab PO BID 05/31/19 05/31/19 Clobetasol 0.05% Oint [Temovate 05/31/19 0.05% Oint] Estrogens, Conjugated Cream 05/31/19 [Premarin Cream] Levalbuterol [Xopenex] 1 puffs INH Q4-6H #1 inhaler 05/31/19 guaiFENesin/CODEINE [Robitussin AC] 5 ml PO Q8HR PRN #30 udc 05/31/19 - Allergies Allergies/Adverse Reactions: Allergies Allergy/AdvReac Type Severity Reaction Status Date / Time No Known Drug Allergies Allergy Verified 01/25/20 20:36 Review of Systems - Constitutional Constitutional: denies: Fatigue, Fever, Chills - Eyes Eyes: denies: Blurred vision, Dipolpia - Ears, Nose & Throat Ears, Nose & Throat: denies: Vertigo, Sore throat - Cardiovascular Cariovascular: reports: Irregular heart rate. denies: Chest pain, Edema, Lightheadedness, Exertional dyspnea, Decr. exercise tolerance - Respiratory Respiratory: denies: Cough, Wheezing, Hemoptysis, Orthopnea, SOB at rest, SOB with exertion - Gastrointestinal Gastrointestinal: reports: Abdominal pain, Constipation, Diarrhea, Rectal bleeding, Bloody stools, Reflux/heartburn. denies: Abdominal distention, Black stools, Nausea, Vomiting, Bile emesis, [place] blood emesis, Coffee grounds emesis - Genitourinary Genitourinary: denies: Dysuria, Frequency, Urgency, Hematuria - Musculoskeletal Musculoskeletal: denies: Muscle pain, Back pain, Muscle aches, Stiffness - Integumentary Integumentary: denies: Rash, Pruritis, Lesions, Dryness - Neurological Neurological: denies: General weakness, Focal weakness, Headache, Dizziness - Psychiatric Psychiatric: denies: Depression, Anxiety - Endocrine Endocrine: denies: Polyuria, Polydypsia - Hematologic/Lymphatic Hematologic/Lymphatic: denies: Anemia, Bruising, Petechiae Prior Level of Functionality: She is independent of activities of daily living Exam - Vital Signs Vital Signs: Vital Signs x48h Temp Pulse Resp BP Pulse Ox 01/25/20 21:22 101 H 19 158/102 H 96 01/25/20 20:36 36.5 C 106 H 14 166/100 H 100 - Physical Exam General Appearance: positive: Alert, Mild distress Eyes Bilateral: positive: Normal inspection, PERRL, EOMI ENT: positive: ENT inspection nml, No signs of dehydration Neck: positive: Nml inspection, No JVD, Trachea midline Respiratory: positive: Chest non-tender, No respiratory distress, Breath sounds nml. negative: Wheezes, Rales, Rhonchi Cardiovascular: positive: Irregularly irregular Abdomen: positive: No organomegaly, No distention, Tenderness (left lower quadrant). negative: Guarding, Rebound Rectal: positive: Bloody stool Back: positive: Nml inspection Skin: positive: Color nml, No rash, Warm, Dry Extremities: positive: Non-tender, Full ROM, Nml appearance, No pedal edema Neurologic/Psychiatric: positive: Oriented x3, CN's nml (2-12), Motor nml, Sensation nml, Mood/affect nml Conclusion/Plan - Problem List (1) Lower gastrointestinal bleed Conclusion/Plan: ?2/2 coumadin vs divertivular bleed vs AVM Will hold coumadin. Monitor INR. Trend H&H q8hrs Patient type and screened IV hydration with normal saline. NPO except for meds, chip and sips Dr Flores consulted (2) Atrial fibrillation Conclusion/Plan: On amiodarone and carvedilol Will resume once verified Coumadin held Qualifiers: Atrial fibrillation type: unspecified chronic Qualified Code(s): I48.20 - Chronic atrial fibrillation, unspecified; I48.2 - Chronic atrial fibrillation (3) Hypertension Conclusion/Plan: On carvedilol and losartan (4) Hyperlipidemia Conclusion/Plan: On atorvastatin (5) Peripheral neuropathy Conclusion/Plan: On gabapentin (6) Depression Conclusion/Plan: On effexor (7) GERD (gastroesophageal reflux disease) Conclusion/Plan: On protonix - Lab Results Fish Bones: 01/25/20 22:43 01/25/20 20:57 Core Measures - Anticipated LOS I expect patient to be DC'd or transferred within 96 hours.: Yes - DVT/VTE - Prophylaxis VTE/DVT Device ordered at admit?: Yes VTE/DVT Prophylaxis med ordered at admit?: No Not Ordered - Medical Reason: Contraindicated
[2020-01-25 22:48] LABS: BASOPHILS % (AUTO) 0.5 %; EOSINOPHILS # (AUTO) 0.3 10^3/uL (0.0-0.7); EOSINOPHILS % (AUTO) 3.4 %; HGB - HEMOGLOBIN 12.3 g/dL (12.0-16.0); LYMPHOCYTES % (AUTO) 12.5 %; MEAN CORPUSCULAR HEMOGLOBIN 31.7 pg (27.0-31.0); MEAN CORPUSCULAR HGB CONC 32.5 g/dL (32.0-36.0); MEAN CORPUSCULAR VOLUME 97.4 fL (81.0-99.0); MEAN PLATELET VOLUME 9.7 fL (7.9-10.8); MONOCYTES # (AUTO) 0.7 10^3/uL (0.0-1.0); MONOCYTES % (AUTO) 8.1 %; NEUTROPHILS # (AUTO) 6.1 10^3/uL (1.5-6.6); NEUTROPHILS % (AUTO) 75.1 %; PLT - PLATELET COUNT 315 10^3/uL (130-450); RED BLOOD COUNT 3.88 10^6/uL (4.20-5.40); RED CELL DISTRIBUTION WIDTH 13.5 % (12.0-15.0); WHITE BLOOD COUNT 8.1 x10^3/uL (4.8-10.8)
[2020-01-25] MEDS: SODIUM CHLORIDE 0.9% 1,000 ML IV SCH (23:21)
[2020-01-25] MEDS: SODIUM CHLORIDE FLUSH 0.9% 10 ML SYRINGE IVP SCH (23:21)
[2020-01-25] MEDS: PANTOPRAZOLE 40 MG VIAL IVP SCH (23:21)
[2020-01-26] MEDS ORDERED: GABAPENTIN 400 MG CAPSULE PO SCH (00:36)
[2020-01-26] MEDS: traZODone 50 MG TABLET PO SCH ×2 (01:11→20:36)
[2020-01-26] MEDS: GABAPENTIN 400 MG CAPSULE PO SCH ×2 (01:11→20:35)
[2020-01-26 05:10] LABS: BASOPHILS % (AUTO) 0.5 %; EOSINOPHILS # (AUTO) 0.3 10^3/uL (0.0-0.7); EOSINOPHILS % (AUTO) 3.6 %; HGB - HEMOGLOBIN 11.6 g/dL (12.0-16.0); LYMPHOCYTES # (AUTO) 1.8 10^3/uL (1.5-3.5); LYMPHOCYTES % (AUTO) 23.2 %; MEAN CORPUSCULAR HEMOGLOBIN 30.9 pg (27.0-31.0); MEAN CORPUSCULAR HGB CONC 32.3 g/dL (32.0-36.0); MEAN CORPUSCULAR VOLUME 95.7 fL (81.0-99.0); MEAN PLATELET VOLUME 10.2 fL (7.9-10.8); MONOCYTES # (AUTO) 0.6 10^3/uL (0.0-1.0); MONOCYTES % (AUTO) 7.4 %; NEUTROPHILS # (AUTO) 5.1 10^3/uL (1.5-6.6); NEUTROPHILS % (AUTO) 64.9 %; PLT - PLATELET COUNT 326 10^3/uL (130-450); RED BLOOD COUNT 3.75 10^6/uL (4.20-5.40); RED CELL DISTRIBUTION WIDTH 13.6 % (12.0-15.0); WHITE BLOOD COUNT 7.8 x10^3/uL (4.8-10.8)
[2020-01-26 05:16] LABS: CALCIUM 8.5 mg/dL (8.5-10.3); CREATININE 1.1 mg/dL (0.4-1.0)
[2020-01-26 05:40] LABS: INR 2.4 (0.8-1.2); PT - PROTHROMBIN TIME 25.6 secs (9.9-12.6)
[2020-01-26] MEDS ORDERED: LEVALBUTEROL 1.25 MG/3 ML NEB INH PRN (07:37)
[2020-01-26] MEDS: SODIUM CHLORIDE FLUSH 0.9% 10 ML SYRINGE IVP SCH ×2 (07:47→16:00)
[2020-01-26] MEDS: VENLAFAXINE ER 75 MG CAPSULE PO SCH (08:37)
[2020-01-26] MEDS: SODIUM CHLORIDE 0.9% 1,000 ML IV SCH ×2 (08:37→18:54)
[2020-01-26] MEDS: PANTOPRAZOLE 40 MG VIAL IVP SCH ×2 (08:37→20:36)
[2020-01-26] MEDS: AMIODARONE 200 MG TABLET PO SCH (08:37)
[2020-01-26] MEDS: SODIUM CHLORIDE FLUSH 0.9% 10 ML SYRINGE IVP PRN (08:38)
[2020-01-26] MEDS ORDERED: LOSARTAN 50 MG TABLET PO SCH ×2 (09:00)
[2020-01-26] MEDS ORDERED: carvediloL 3.125 MG TABLET PO SCH (09:00)
--- NOTE | 2020-01-26 10:19 | CONSULTATION NOTE ---
Referring Provider Name of Referring Provider:: Dr. Nevin Rivera Consult Date: 01/26/20 Chief Complaint - Chief Complaint Chief Complaint: Abdominal pain and rectal bleeding History of Present Illness - Admitted From Admitted From:: Emergency department - History Obtained From Records Reviewed: Providers notes History obtained from: Patient Exam Limitations: None - History of Present Illness HPI Comment/Other: Carey is a very pleasant 89-year-old lady who presented the emergency room last evening complaining of abdominal pain and rectal bleeding. She has a personal history of diverticulitis and she was reports that she had a similar episode associated with bleeding and pain approximately 3 years ago. She says she takes MiraLAX every other day or every third day to be sure she has a soft bowel movement. Over the last 2 weeks she has been on varying doses of amiodarone in preparation for cardioversion which was just completed. She says that she was warned that amiodarone would constipate her but she did not anticipate the degree to which it would be a problem. She reports that she became very constipated and subsequently developed this pain in her left side associated with bleeding. Since her admission, she is only had one additional bowel m ovement. Her biggest concern is that she has significant abdominal pain. She does not have any fever now nor did she have any at home. She does not desire narcotic pain medications currently.Been asked to evaluate her regarding the possibility of a colonoscopy.In addition, she is on Coumadin for atrial fibrillation and her INR this morning was 2.4. History - Past Medical History Cardiovascular: reports: Hypertension, High cholesterol, Coronary artery disease, Atrial fibrillation Respiratory: reports: Sleep apnea Neuro: reports: Peripheral neuropathy GI: reports: GI bleed, Diverticulitis : reports: None HEENT: reports: None Psych: reports: Depression Musculoskeletal: reports: Fatigue, Other MRSA Hx?: No Other Past Medical History: PNA, rheumatic fever as child - Past Surgical History General: reports: Appendectomy, Hiatal hernia repair /VARIETY [employer]: reports: section, Hysterectomy Cardiovascular: reports: Coronary stent Derm: reports: Skin cancer surgery - Family & Social History Family History: Mother: , [place], Parkinson's Disease, Father: , [place] Social History Notes: She denies alcohol, tobacco or illicit drug use - POLST Patient has POLST: Yes POLST Status: Limited Interventions Meds/Allgy - Home Medications Home Medications: Ambulatory Orders Medication Instructions Recorded Confirmed Aspirin [Aspir 81] 81 mg PO DAILY 01/11/14 05/31/19 Fluoxetine HCl 20 mg PO DAILY 01/11/14 05/31/19 Gabapentin [Neurontin] 600 mg PO BID 01/11/14 05/31/19 Metoprolol Tartrate [Lopressor] 25 mg PO DAILY 01/11/14 05/31/19 Pantoprazole Sodium [Protonix] 40 mg PO DAILY 01/11/14 05/31/19 amLODIPine [Norvasc] 10 mg PO ONCE 01/11/14 05/31/19 Losartan Potassium 50 mg PO BID 04/05/17 05/31/19 methocarbamoL [Methocarbamol] 500 mg PO DAILY 04/05/17 05/31/19 Docusate Sodium 250Mg Capsule 250 mg PO DAILY #30 capsule 07/07/17 05/31/19 [Colace 250Mg Capsule] Atorvastatin Calcium 1 tab PO DAILY 05/31/19 05/31/19 Carvedilol [Coreg] 0.5 tab PO BID 05/31/19 05/31/19 Clobetasol 0.05% Oint [Temovate 05/31/19 0.05% Oint] Estrogens, Conjugated Cream 05/31/19 [Premarin Cream] Levalbuterol [Xopenex] 1 puffs INH Q4-6H #1 inhaler 05/31/19 guaiFENesin/CODEINE [Robitussin AC] 5 ml PO Q8HR PRN #30 udc 05/31/19 - Allergies Allergies/Adverse Reactions: Allergies Allergy/AdvReac Type Severity Reaction Status Date / Time No Known Drug Allergies Allergy Verified 01/25/20 20:36 Review of Systems - Constitutional Constitutional: reports: Fatigue, Malaise, Poor appetite. denies: Fever, Chills - Eyes Eyes: denies: Pain, Irritation, Blurred vision - Ears, Nose & Throat Ears, Nose & Throat: denies: Hearing loss, Hearing aids, Tinnitus, Vertigo - Cardiovascular Cariovascular: reports: Irregular heart rate (See history of present illness), Decr. exercise tolerance. denies: Chest pain - Respiratory Respiratory: denies: Cough, Sputum production, Wheezing, Snoring - Gastrointestinal Gastrointestinal: reports: Abdominal pain, Constipation, Rectal bleeding. denies: Nausea, Vomiting - Genitourinary Genitourinary: denies: Dysuria - Musculoskeletal Musculoskeletal: reports: Muscle pain, Stiffness. denies: Back pain - Neurological Neurological: denies: Focal weakness - Hematologic/Lymphatic Hematologic/Lymphatic: denies: Anemia, Bruising - All Other Systems All Other Systems: reports: Reviewed and negative Exam - Vital Signs Reviewed Vital Signs: Yes Vital Signs: Vital Signs x48h Temp Pulse Pulse Resp BP Pulse Ox 01/26/20 08:03 36.7 C 89 17 115/67 98 01/26/20 04:50 77 119/70 96 01/26/20 04:47 36.3 C L 76 17 95 01/26/20 04:26 76 17 109/55 L 95 01/26/20 04:22 36.3 C L 80 18 97/53 L 96 - Physical Exam General Appearance: positive: Alert, Mild distress Eyes Bilateral: positive: Normal inspection, PERRL, EOMI ENT: positive: ENT inspection nml, Pharynx nml, No signs of dehydration Neck: positive: Nml inspection, Thyroid nml, No JVD, Trachea midline, Thyromegaly Respiratory: positive: Chest non-tender, No respiratory distress, Breath sounds nml Cardiovascular: positive: Regular rate & rhythm, No murmur Peripheral Pulses: positive: 0 Abdomen: positive: Tenderness (Tender to palpation in the left lower quadrant with voluntary guarding. No true peritoneal signs.), Guarding, Rebound, Other (Hypoactive bowel tones) Rectal: positive: Bloody stool Skin: positive: Color nml Neurologic/Psychiatric: positive: Oriented x3 Conclusion and Plan - Lab Results Laboratory Results 01/26/20 04:20: Sodium 139, Potassium 4.2, Chloride 106, Carbon Dioxide 23, Anion Gap 10.0, BUN 16, Creatinine 1.1 H, Estimated GFR (MDRD) 47 L, Glucose 117 H, Calcium 8.5 01/26/20 04:20: PT 25.6 H, INR 2.4 H 01/26/20 04:20: WBC 7.8, RBC 3.75 L, Hgb 11.6 L, Hct 35.9 L, MCV 95.7, MCH 30.9, MCHC 32.3, RDW 13.6, Plt Count 326, MPV 10.2, Neut # (Auto) 5.1, Lymph # (Auto) 1.8, [place] # (Auto) 0.6, Eos # (Auto) 0.3, Baso # (Auto) 0.0, Absolute Nucleated RBC 0.00, Nucleated RBC % 0.0 01/25/20 22:43: WBC 8.1, RBC 3.88 L, Hgb 12.3, Hct 37.8, MCV 97.4, MCH 31.7 H, MCHC 32.5, RDW 13.5, Plt Count 315, MPV 9.7, Neut # (Auto) 6.1, Lymph # (Auto) 1.0 L, [place] # (Auto) 0.7, Eos # (Auto) 0.3, Baso # (Auto) 0.0, Absolute Nucleated RBC 0.00, Nucleated RBC % 0.0 01/25/20 21:15: Blood Type A POSITIVE, Antibody Screen NEGATIVE 01/25/20 20:57: Sodium 134 L, Potassium 4.2, Chloride 99 L, Carbon Dioxide 24, Anion Gap 11.0, BUN 16, Creatinine 1.2 H, Estimated GFR (MDRD) 42 L, Glucose 124 H, Calcium 8.7, Total Bilirubin 1.0, AST 23, ALT 21, Alkaline Phosphatase 112, Total Protein 7.1, Albumin 3.8, Globulin 3.3, Albumin/Globulin Ratio 1.2, Lipase 25 01/25/20 20:57: PT 25.4 H, INR 2.3 H, APTT 40.4 H 01/25/20 20:57: WBC 8.9, RBC 4.11 L, Hgb 13.1, Hct 39.7, MCV 96.6, MCH 31.9 H, MCHC 33.0, RDW 13.4, Plt Count 322, MPV 9.7, Neut # (Auto) 6.8 H, Lymph # (Auto) 1.2 L, [place] # (Auto) 0.7, Eos # (Auto) 0.3, Baso # (Auto) 0.0, Absolute Nucleated RBC 0.00, Nucleated RBC % 0.0 - Diagnostic Imaging Results Diagnostic Imaging Results Comments: No CT done during this admission - Diagnosis Diagnosis: Recurrent diverticulitis in the setting of an 89-year-old lady with a history of the same. This is been associated with rectal bleeding. She is on Coumadin for atrial fibrillation but has been recently cardioverted. I have discussed all of the above with the patient and her family as well as the hospitalist service. I have recommended IV antibiotic therapy for the current inflammatory process. She should be scheduled for an outpatient colonoscopy when the acute infection has resolved. From a surgical perspective she can stay on her Coumadin unless the bleeding does not stop in which case that should be held until her pain resolves and then can be restarted.
[2020-01-26] MEDS: AMOX/CLAV 500 MG/125 MG TABLET PO SCH ×3 (11:31→21:06)
[2020-01-26] MEDS: oxyCODONE 5 MG TABLET PO PRN ×2 (11:31→16:00)
--- NOTE | 2020-01-26 11:41 | ADVANCE CARE PLANNING NOTE ---
Advance Care Planning - Planning Encounter Date: 01/26/20 Time: 11:30 Purpose: To explain specific question she has as she and daughter are completing the POLST form. Parties in Attendance: I spoke to the patient in her room, and daughter was at bedside. Decisional Capacity of the Patient: She has full decisional capacity. - Diagnosis for Encounter (1) Acute diverticulitis Summary: The diagnosis and plan were discussed. - Encounter Subjective/Patient's Story: This patient has a history of atrial fibrillation and has undergone several unsuccessful cardioversions. She had been on a DOAC but a clot was found by [facility]UARDO and DOAC was changed to Coumadin. She is also now on amiodarone. She has a history of CHF and is on Coreg and Losartan. Patient has a history of 5 prior ER visits/hospitalizations for diverticuli or lower GI bleeding. With one of the ER visits, she needed to be airlifted to [facility] and needed blood transfusion, we do not have the records to know the final diagnosis or findings on colonoscopy. Objective/Medical Story: Patient presented to the hospital yesterday with clots passed in her bowel movements. She has been placed in observation for managing her diverticulitis, GI blood loss anemia and low blood pressures which started today. Goals of Care: If she has a cardiac arrest she wants to be resuscitated with all measures used but then if she is in a vegetative state she would want support withdrawn. Plan: I helped explain the different locations on the POLST form to indicate the above. A new POLST form will be signed by the patient and/or DPOA and by myself today. Code Status: Attempt Resuscitation Time spent on advance care plannin min
[2020-01-26 13:16] LABS: BASOPHILS % (AUTO) 0.3 %; EOSINOPHILS # (AUTO) 0.2 10^3/uL (0.0-0.7); EOSINOPHILS % (AUTO) 4.1 %; HGB - HEMOGLOBIN 10.4 g/dL (12.0-16.0); LYMPHOCYTES # (AUTO) 1.4 10^3/uL (1.5-3.5); LYMPHOCYTES % (AUTO) 23.1 %; MEAN CORPUSCULAR HEMOGLOBIN 30.5 pg (27.0-31.0); MEAN CORPUSCULAR HGB CONC 31.4 g/dL (32.0-36.0); MEAN CORPUSCULAR VOLUME 97.1 fL (81.0-99.0); MONOCYTES # (AUTO) 0.4 10^3/uL (0.0-1.0); MONOCYTES % (AUTO) 6.5 %; NEUTROPHILS # (AUTO) 3.8 10^3/uL (1.5-6.6); NEUTROPHILS % (AUTO) 65.7 %; PLT - PLATELET COUNT 289 10^3/uL (130-450); RED BLOOD COUNT 3.41 10^6/uL (4.20-5.40); RED CELL DISTRIBUTION WIDTH 13.6 % (12.0-15.0); WHITE BLOOD COUNT 5.8 x10^3/uL (4.8-10.8)
[2020-01-26 15:32] LABS: HGB - HEMOGLOBIN 10.9 g/dL (12.0-16.0)
--- NOTE | 2020-01-26 16:13 | PROVIDER PROGRESS NOTE ---
Assessment/Plan - Problem List (1) Acute diverticulitis Assessment/Plan: The exam and the history is most consistent with diverticulitis. The patient and daughter at bedside reprt that the pt has had about 5 bouts of diverticulitis in her l;angie, and gets bloody diarrhea. Her bloody BMs have decreased to have just trace blood. Consult from surgeon appreciated. No colonoscopy to be done during acute divert iculitis. Start antibiotics, will use Augmentin tid. Add meds for pain control. Resume a low-fiber diet. (2) Orthostatic dizziness Assessment/Plan: Her systolic BP is 98-105 today, in a patient who was admitted with BP 160/100, despite no Losartan and no Coreg given today. At 0430, when she got up to bedside commode, she was near-syncopal, per the RN entry. She was put back to bed. She is borderline orthostatic this afternoon, despite iv saline going at 100 cc/hr sinbce admissionb and NPO was cancelled and she can eat and drink. Will not discharge today. This was discussed with the patient and daughter, and the patient agrees since she feels "wiped out". Continue volume replacement, follow H/H to see if she needs a blood transfusion, continue to hold BP meds (3) Atrial fibrillation Qualifiers: Atrial fibrillation type: unspecified chronic Qualified Code(s): I48.20 - Chronic atrial fibrillation, unspecified; I48.2 - Chronic atrial fibrillation Assessment/Plan: Rate is controlled. Will continue Amio As per the surgical consult, will restart Coumadin. Follow INR daily. (4) Hyperlipidemia Assessment/Plan: On atorvastatin (5) Peripheral neuropathy Assessment/Plan: On gabapentin (6) Depression Assessment/Plan: On Effexor (7) GERD (gastroesophageal reflux disease) Assessment/Plan: On protonix (8) CKD (chronic kidney disease), stage III Assessment/Plan: Her creat was 1.2 in the past and GFR is in the 40's. - Current Meds Current Meds: Current Medications Generic Name Dose Route Start Last Admin Trade Name Freq PRN Reason Stop Dose Admin Amiodarone HCl 200 mg 01/26/20 09:00 01/26/20 08:37 Pacerone PO 200 mg DAILY RAISA Administration Amoxicillin/Clavulanate Potassium 1 tab 01/26/20 10:30 01/26/20 16:00 Augmentin 500/125 PO 1 tab TID RAISA Administration Gabapentin 400 mg 01/26/20 01:00 01/26/20 01:11 Neurontin PO 400 mg QPM RAISA Administration Sodium Chloride 1,000 mls @ 100 mls/hr 01/25/20 23:00 01/26/20 08:37 Normal Saline 0.9% IV 100 mls/hr .Q10H RAISA Administration Oxycodone HCl 5 mg 01/26/20 11:26 01/26/20 16:00 Roxicodone PO 5 mg Q6HR PRN Administration PAIN Pantoprazole Sodium 40 mg 01/25/20 23:00 01/26/20 08:37 Protonix IVP 40 mg BID RAISA Administration Sodium Chloride 10 ml 01/25/20 22:25 01/26/20 08:38 Normal Saline Flush 0.9% IVP 10 ml PRN PRN Administration NEEDED PER PROVIDER ORDERS Sodium Chloride 10 ml 01/26/20 01:00 01/26/20 16:00 Normal Saline Flush 0.9% IVP Not Given 0100,0900,1700 RAISA Trazodone HCl 50 mg 01/26/20 00:35 01/26/20 01:11 Desyrel PO 50 mg QPM RAISA Administration Venlafaxine HCl 75 mg 01/26/20 09:00 01/26/20 08:37 Effexor Er PO 75 mg DAILY RAISA Administration - Lab Result Fish Bone Diagrams: 01/26/20 15:20 01/26/20 04:20 - Additional Planning My Orders: My Active Orders 01/26/20 10:30 Amox/Clav 500/125 [Augmentin 500/125] 1 tab PO TID 01/26/20 11:26 oxyCODONE [Roxicodone] 5 mg PO Q6HR PRN 01/26/20 13:57 Orthostatic [Vital Signs - Orthostatic] [RC] QSHIFT 01/26/20 17:00 Warfarin [Coumadin] 1.25 mg PO 1700 01/26/20 Lunch DIET [Soft (Low Fiber) Diet] [DIET] Subjective - Subjective Patient Reports: Pain (7/10 LLQ pain, only improved to 5/10 after oxycodone) Objective Vital Signs: Vital Signs - 24 hr 0201/25/20 01/25/20 20:36 21:22 22:43 Temperature 36.5 C Heart Rate 106 H 101 H 93 Heart Rate [ Brachial] Heart Rate [ Sitting (After 1 Minute)] Heart Rate [ Standing (After 1 Minute)] Heart Rate [ Supine] Respiratory 14 19 16 Rate Blood Pressure 166/100 H 158/102 H 153/94 H Blood Pressure [Right Brachial artery] Blood Pressure [Sitting (After 1 Minute)] Blood Pressure [Standing ( After 1 Minute) ] Blood Pressure [Supine] O2 Saturation 100 96 100 01/25/20 01/26/20 01/26/20 23:30 04:22 04:26 Temperature 36.4 C L 36.3 C L Heart Rate Heart Rate [ 100 80 76 Brachial] Heart Rate [ Sitting (After 1 Minute)] Heart Rate [ Standing (After 1 Minute)] Heart Rate [ Supine] Respiratory 20 18 17 Rate Blood Pressure Blood Pressure 160/95 H 97/53 L 109/55 L [Right Brachial artery] Blood Pressure [Sitting (After 1 Minute)] Blood Pressure [Standing ( After 1 Minute) ] Blood Pressure [Supine] O2 Saturation 98 96 95 01/26/20 01/26/20 01/26/20 04:47 04:50 08:03 Temperature 36.3 C L 36.7 C Heart Rate 76 Heart Rate [ 77 89 Brachial] Heart Rate [ Sitting (After 1 Minute)] Heart Rate [ Standing (After 1 Minute)] Heart Rate [ Supine] Respiratory 17 17 Rate Blood Pressure Blood Pressure 119/70 115/67 [Right Brachial artery] Blood Pressure [Sitting (After 1 Minute)] Blood Pressure [Standing ( After 1 Minute) ] Blood Pressure [Supine] O2 Saturation 95 96 98 01/26/20 01/26/20 01/26/20 13:00 13:30 15:00 Temperature 36.3 C L 36.5 C Heart Rate Heart Rate [ 85 88 88 Brachial] Heart Rate [ Sitting (After 1 Minute)] Heart Rate [ Standing (After 1 Minute)] Heart Rate [ Supine] Respiratory 17 18 Rate Blood Pressure Blood Pressure 93/64 102/62 107/55 L [Right Brachial artery] Blood Pressure [Sitting (After 1 Minute)] Blood Pressure [Standing ( After 1 Minute) ] Blood Pressure [Supine] O2 Saturation 93 93 01/26/20 01/26/20 15:51 15:53 Temperature 36.4 C L Heart Rate Heart Rate [ 84 Brachial] Heart Rate [ 86 Sitting (After 1 Minute)] Heart Rate [ 95 Standing (After 1 Minute)] Heart Rate [ 79 Supine] Respiratory 16 Rate Blood Pressure Blood Pressure 119/58 L [Right Brachial artery] Blood Pressure 112/62 [Sitting (After 1 Minute)] Blood Pressure 98/61 [Standing ( After 1 Minute) ] Blood Pressure 112/63 [Supine] O2 Saturation 95 Oxygen O2 Source Room air I&O (Last 24 Hrs): Intake and Output Totals x24h 01/24/20 01/25/20 01/26/20 23:59 23:59 23:59 Intake Total 1166.667 Output Total 400 Balance 766.667 General: Alert, Oriented x3 HEENT: Mucous membr. moist/pink Neck: Supple, No JVD Neuro: Alert, Non Focal Cardiovascular: No murmurs, Other (Irreg) Respiratory: No respiratory distress, Breath sounds nml Abdomen: Normal bowel sounds, Soft, Other (Tender in LLQ, no guarding or r ebound) Extremities: No edema - Results Results: Laboratory Results WBC 5.8 x10^3/uL (4.8-10.8) 01/26/20 13:07 RBC 3.41 10^6/uL (4.20-5.40) L 01/26/20 13:07 Hgb 10.9 g/dL (12.0-16.0) L 01/26/20 15:20 Hct 33.5 % (37.0-47.0) L 01/26/20 15:20 MCV 97.1 fL (81.0-99.0) 01/26/20 13:07 MCH 30.5 pg (27.0-31.0) 01/26/20 13:07 MCHC 31.4 g/dL (32.0-36.0) L 01/26/20 13:07 RDW 13.6 % (12.0-15.0) 01/26/20 13:07 Plt Count 289 10^3/uL (130-450) 01/26/20 13:07 MPV 10.0 fL (7.9-10.8) 01/26/20 13:07 Neut # (Auto) 3.8 10^3/uL (1.5-6.6) 01/26/20 13:07 Lymph # (Auto) 1.4 10^3/uL (1.5-3.5) L 01/26/20 13:07 [place] # (Auto) 0.4 10^3/uL (0.0-1.0) 01/26/20 13:07 Eos # (Auto) 0.2 10^3/uL (0.0-0.7) 01/26/20 13:07 Baso # (Auto) 0.0 10^3/uL (0.0-0.1) 01/26/20 13:07 Absolute Nucleated RBC 0.00 x10^3/uL 01/26/20 13:07 Nucleated RBC % 0.0 /100WBC 01/26/20 13:07 PT 25.6 secs (9.9-12.6) H 01/26/20 04:20 INR 2.4 (0.8-1.2) H 01/26/20 04:20 APTT 40.4 secs (24.9-33.3) H 01/25/20 20:57 Sodium 139 mmol/L (135-145) 01/26/20 04:20 Potassium 4.2 mmol/L (3.5-5.0) 01/26/20 04:20 Chloride 106 mmol/L (101-111) 01/26/20 04:20 Carbon Dioxide 23 mmol/L (21-32) 01/26/20 04:20 Anion Gap 10.0 (6-13) 01/26/20 04:20 BUN 16 mg/dL (6-20) 01/26/20 04:20 Creatinine 1.1 mg/dL (0.4-1.0) H 01/26/20 04:20 Estimated GFR (MDRD) 47 (>89) L 01/26/20 04:20 Glucose 117 mg/dL (70-100) H 01/26/20 04:20 Calcium 8.5 mg/dL (8.5-10.3) 01/26/20 04:20 Total Bilirubin 1.0 mg/dL (0.2-1.0) 01/25/20 20:57 AST 23 IU/L (10-42) 01/25/20 20:57 ALT 21 IU/L (10-60) 01/25/20 20:57 Alkaline Phosphatase 112 IU/L (42-121) 01/25/20 20:57 Total Protein 7.1 g/dL (6.7-8.2) 01/25/20 20:57 Albumin 3.8 g/dL (3.2-5.5) 01/25/20 20:57 Globulin 3.3 g/dL (2.1-4.2) 01/25/20 20:57 Albumin/Globulin Ratio 1.2 (1.0-2.2) 01/25/20 20:57 Lipase 25 U/L (22-51) 01/25/20 20:57 Blood Type A POSITIVE 01/25/20 21:15 Antibody Screen NEGATIVE 01/25/20 21:15
[2020-01-26] MEDS: WARFARIN 2.5 MG TABLET PO SCH (16:47)
[2020-01-26] MEDS: HYDROmorphone 0.5 MG/0.5 ML SYRINGE IVP PRN ×2 (17:12→20:36)
[2020-01-26] MEDS: ATORVASTATIN 40 MG TABLET PO SCH (20:35)
[2020-01-26 21:29] LABS: BASOPHILS % (AUTO) 0.4 %; EOSINOPHILS # (AUTO) 0.3 10^3/uL (0.0-0.7); HGB - HEMOGLOBIN 10.5 g/dL (12.0-16.0); LYMPHOCYTES # (AUTO) 1.2 10^3/uL (1.5-3.5); LYMPHOCYTES % (AUTO) 12.4 %; MEAN CORPUSCULAR HEMOGLOBIN 32.2 pg (27.0-31.0); MEAN CORPUSCULAR HGB CONC 32.4 g/dL (32.0-36.0); MEAN CORPUSCULAR VOLUME 99.4 fL (81.0-99.0); MEAN PLATELET VOLUME 9.6 fL (7.9-10.8); MONOCYTES # (AUTO) 0.9 10^3/uL (0.0-1.0); MONOCYTES % (AUTO) 9.2 %; NEUTROPHILS # (AUTO) 7.1 10^3/uL (1.5-6.6); NEUTROPHILS % (AUTO) 74.6 %; PLT - PLATELET COUNT 288 10^3/uL (130-450); RED BLOOD COUNT 3.26 10^6/uL (4.20-5.40); RED CELL DISTRIBUTION WIDTH 13.6 % (12.0-15.0); WHITE BLOOD COUNT 9.5 x10^3/uL (4.8-10.8)
[2020-01-27] MEDS: SODIUM CHLORIDE FLUSH 0.9% 10 ML SYRINGE IVP SCH ×3 (01:21→17:54)
[2020-01-27] MEDS: SODIUM CHLORIDE 0.9% 1,000 ML IV SCH ×2 (04:42→19:26)
[2020-01-27 04:43] LABS: BASOPHILS % (AUTO) 0.4 %; EOSINOPHILS # (AUTO) 0.2 10^3/uL (0.0-0.7); HGB - HEMOGLOBIN 10.2 g/dL (12.0-16.0); MEAN CORPUSCULAR HEMOGLOBIN 31.9 pg (27.0-31.0); MEAN CORPUSCULAR HGB CONC 31.8 g/dL (32.0-36.0); MEAN CORPUSCULAR VOLUME 100.3 fL (81.0-99.0); MONOCYTES # (AUTO) 0.7 10^3/uL (0.0-1.0); MONOCYTES % (AUTO) 9.6 %; NEUTROPHILS # (AUTO) 5.6 10^3/uL (1.5-6.6); NEUTROPHILS % (AUTO) 73.6 %; PLT - PLATELET COUNT 265 10^3/uL (130-450); RED CELL DISTRIBUTION WIDTH 13.8 % (12.0-15.0); WHITE BLOOD COUNT 7.6 x10^3/uL (4.8-10.8)
[2020-01-27 04:47] LABS: INR 2.9 (0.8-1.2); PT - PROTHROMBIN TIME 30.7 secs (9.9-12.6)
[2020-01-27 04:52] LABS: CREATININE 1.1 mg/dL (0.4-1.0)
[2020-01-27] MEDS: AMOX/CLAV 500 MG/125 MG TABLET PO SCH ×3 (05:31→21:33)
[2020-01-27 08:20] LABS: % IRON SATURATION 10 % (20-50); IRON 31 ug/dL (28-170); TOTAL IRON BINDING CAPACITY 322 ug/dL (250-450); TRANSFERRIN 230 mg/dL (192-382)
[2020-01-27 08:45] LABS: FOLATE 7.63 ng/mL (5.90 - >24.8)
[2020-01-27] MEDS: AMIODARONE 200 MG TABLET PO SCH (10:13)
[2020-01-27] MEDS: oxyCODONE 5 MG TABLET PO PRN (10:13)
[2020-01-27] MEDS: VENLAFAXINE ER 75 MG CAPSULE PO SCH (10:13)
[2020-01-27] MEDS: PANTOPRAZOLE 40 MG VIAL IVP SCH ×2 (10:14→21:33)
--- NOTE | 2020-01-27 10:40 | PROVIDER PROGRESS NOTE ---
Assessment/Plan - Problem List (1) Acute diverticulitis Assessment/Plan: She continues to have uncontrolled pain but states that the Dilaudid was better than the oxycodone. She has increased gas today. Diarrhea with blood has stopped, the last BM was 18 hours ago. Will try to start walking with PT later today (after blood transfusion) to improve gassiness. Will increase her Dilaudid dose slightly for pain control. Continue with p.o. Augmentin. Continue to watch for diarrhea and blood in the stools. Continue with IV hydration. Continue with low fiber diet which she tolerates, has no nausea. (2) Orthostatic hypotension Assessment/Plan: 2 nights ago the patient had a marked hypotensive drop when she was standing to go to the bedside commode. She was put immediately in bed and blood pressure documented was 87 systolic and she was put in Trendelenburg. Yesterday her blood pressure has been "soft". Yesterday her Losartan and Coreg were put on hold. The only med she gets that drops her blood pressure is amiodarone. Today she has a 20 mmHg drop in BP with standing with a compensatory tachycardia. Continue checking orthostatic vital signs every shift. Continue with IV hydration, NS at 100 cc/hr. Because of symptomatic low blood pressure, will treat the underlying cause which is her GI blood loss anemia, with a transfusion. She is not ready for [facility] home today. (3) Anemia due to GI blood loss Assessment/Plan: Because of symptomatic low blood pressure, will treat the underlying cause which is her GI blood loss anemia, with a transfusion. Start daily Iron replacement Follow CBC q12h. Watch for recurrence of bleeding in stools. (4) Atrial fibrillation Qualifiers: Atrial fibrillation type: unspecified chronic Qualified Code(s): I48.20 - Chronic atrial fibrillation, unspecified; I48.2 - Chronic atrial fibrillation Assessment/Plan: Amiodarone is being continued since her Correction Officer Head had made various recent adjustments, probably to see if she could be pharmacologically cardioverted with oral Amio. The Coumadin continues, since bloody diarrhea stopped, and since no colonoscopy is planned. At home she gets Coumadin at dinnertime, 2.5 mg alternating with 1.25 mg daily. The target INR is 2.5-3.5, according to the admission notes, because a clot was seen on EDUARDO. Follow INR daily. (5) Hx of essential hypertension Assessment/Plan: She has low BP, despite her Losartan and Coreg being on hold for 2 days. (6) CKD (chronic kidney disease), stage III Assessment/Plan: Stable GFR. Continue iv hydration. (7) Depression Assessment/Plan: Continue her home meds (8) GERD (gastroesophageal reflux disease) Assessment/Plan: Continue her home meds - Current Meds Current Meds: Current Medications Generic Name Dose Route Start Last Admin Trade Name Freq PRN Reason Stop Dose Admin Amiodarone HCl 200 mg 01/26/20 09:00 01/27/20 10:13 Pacerone PO 200 mg DAILY RAISA Administration Amoxicillin/Clavulanate Potassium 1 tab 01/26/20 10:30 01/27/20 05:31 Augmentin 500/125 PO 1 tab TID RAISA Administration Atorvastatin Calcium 20 mg 01/26/20 21:00 01/26/20 20:35 Lipitor PO 20 mg QPM RAISA Administration Gabapentin 400 mg 01/26/20 01:00 01/26/20 20:35 Neurontin PO 400 mg QPM RAISA Administration Sodium Chloride 1,000 mls @ 100 mls/hr 01/25/20 23:00 01/27/20 04:42 Normal Saline 0.9% IV 100 mls/hr .Q10H RAISA Administration Oxycodone HCl 5 mg 01/26/20 11:26 01/27/20 10:13 Roxicodone PO 5 mg Q6HR PRN Administration PAIN Pantoprazole Sodium 40 mg 01/25/20 23:00 01/27/20 10:14 Protonix IVP 40 mg BID RAISA Administration Sodium Chloride 10 ml 01/25/20 22:25 01/26/20 08:38 Normal Saline Flush 0.9% IVP 10 ml PRN PRN Administration NEEDED PER PROVIDER ORDERS Sodium Chloride 10 ml 01/26/20 01:00 01/27/20 10:14 Normal Saline Flush 0.9% IVP 10 ml 0100,0900,1700 RAISA Administration Trazodone HCl 50 mg 01/26/20 00:35 01/26/20 20:36 Desyrel PO 50 mg QPM RAISA Administration Venlafaxine HCl 75 mg 01/26/20 09:00 01/27/20 10:13 Effexor Er PO 75 mg DAILY RAISA Administration Warfarin Sodium 1.25 mg 01/26/20 17:00 01/26/20 16:47 Coumadin PO 1.25 mg 1700 RAISA Administration - Lab Result Fish Bone Diagrams: 01/27/20 04:20 01/27/20 04:20 - Additional Planning My Orders: My Active Orders 01/26/20 10:30 Amox/Clav 500/125 [Augmentin 500/125] 1 tab PO TID 01/26/20 11:26 oxyCODONE [Roxicodone] 5 mg PO Q6HR PRN 01/26/20 13:57 Orthostatic [Vital Signs - Orthostatic] [RC] Q4H 01/26/20 17:00 Warfarin [Coumadin] 1.25 mg PO 1700 01/26/20 Lunch DIET [Soft (Low Fiber) Diet] [DIET] 01/27/20 RBC, LEUKOREDUCED Stat TYPE AND SCREEN Stat 01/27/20 10:33 Transfuse RBCs Leukoreduced [RC] .ONCE 01/27/20 10:36 HYDROmorphone INJ SYRINGE [Dilaudid Inj Syringe] 1 mg IVP Q3H PRN 01/27/20 12:00 Ferrous Gluconate [Fergon] 324 mg PO DAILYWM 01/27/20 18:00 HEMOGLOBIN AND HEMATOCRIT [HEME] Timed Subjective - Subjective Patient Reports: Pain, Other (Last BM was yesterday afternoon, had no bloody BMs since then. Yesterday, was passing gas. Abdomen is more distended today.) Objective Vital Signs: Vital Signs - 24 hr 01/26/20 01/26/20 01/26/20 13:00 13:30 15:00 Temperature 36.3 C L 36.5 C Heart Rate [ 85 88 88 Brachial] Heart Rate [ Sitting (After 1 Minute)] Heart Rate [ Standing (After 1 Minute)] Heart Rate [ Supine] Respiratory 17 18 Rate Blood Pressure 93/64 102/62 107/55 L [Right Brachial artery] Blood Pressure [Sitting (After 1 Minute)] Blood Pressure [Standing ( After 1 Minute) ] Blood Pressure [Supine] O2 Saturation 93 93 01/26/20 01/26/20 01/26/20 15:51 15:53 16:50 Temperature 36.4 C L 36.3 C L Heart Rate [ 84 90 Brachial] Heart Rate [ 86 Sitting (After 1 Minute)] Heart Rate [ 95 Standing (After 1 Minute)] Heart Rate [ 79 Supine] Respiratory 16 18 Rate Blood Pressure 119/58 L 127/68 [Right Brachial artery] Blood Pressure 112/62 [Sitting (After 1 Minute)] Blood Pressure 98/61 [Standing ( After 1 Minute) ] Blood Pressure 112/63 [Supine] O2 Saturation 95 96 01/26/20 01/26/20 01/26/20 18:57 21:00 22:53 Temperature 36.4 C L 36.5 C 36.5 C Heart Rate [ 94 101 H 88 Brachial] Heart Rate [ Sitting (After 1 Minute)] Heart Rate [ Standing (After 1 Minute)] Heart Rate [ Supine] Respiratory 16 16 14 Rate Blood Pressure 106/60 130/75 102/64 [Right Brachial artery] Blood Pressure [Sitting (After 1 Minute)] Blood Pressure [Standing ( After 1 Minute) ] Blood Pressure [Supine] O2 Saturation 95 94 92 01/27/20 01/27/20 01/27/20 00:44 03:00 04:56 Temperature 36.8 C 36.6 C 36.8 C Heart Rate [ 94 95 92 Brachial] Heart Rate [ 98 Sitting (After 1 Minute)] Heart Rate [ 123 H Standing (After 1 Minute)] Heart Rate [ 92 Supine] Respiratory 16 20 16 Rate Blood Pressure 97/66 107/63 123/64 [Right Brachial artery] Blood Pressure 93/71 [Sitting (After 1 Minute)] Blood Pressure 107/63 [Standing ( After 1 Minute) ] Blood Pressure 123/64 [Supine] O2 Saturation 94 94 92 01/27/20 01/27/20 06:54 09:00 Temperature 36.7 C 36.4 C L Heart Rate [ 97 78 Brachial] Heart Rate [ Sitting (After 1 Minute)] Heart Rate [ Standing (After 1 Minute)] Heart Rate [ Supine] Respiratory 16 16 Rate Blood Pressure 107/64 126/69 [Right Brachial artery] Blood Pressure [Sitting (After 1 Minute)] Blood Pressure [Standing ( After 1 Minute) ] Blood Pressure [Supine] O2 Saturation 94 94 Oxygen O2 Source Room air I&O (Last 24 Hrs): Intake and Output Totals x24h 01/25/20 01/26/20 01/27/20 23:59 23:59 23:59 Intake Total 2867.000 800 Output Total 550 800 Balance 2317.000 0 General: Alert, Oriented x3 HEENT: Mucous membr. moist/pink, Other (Pale lips) Neck: Supple, No JVD Neuro: Alert, Non Focal Cardiovascular: No murmurs, Other (Irreg) Respiratory: No respiratory distress, Breath sounds nml Abdomen: Other (Distended, firm, hypertympanic in all quadrants, no tenderness) Extremities: No edema - Results Results: Laboratory Results WBC 7.6 x10^3/uL (4.8-10.8) 01/27/20 04:20 RBC 3.20 10^6/uL (4.20-5.40) L 01/27/20 04:20 Hgb 10.2 g/dL (12.0-16.0) L 01/27/20 04:20 Hct 32.1 % (37.0-47.0) L 01/27/20 04:20 MCV 100.3 fL (81.0-99.0) H 01/27/20 04:20 MCH 31.9 pg (27.0-31.0) H 01/27/20 04:20 MCHC 31.8 g/dL (32.0-36.0) L 01/27/20 04:20 RDW 13.8 % (12.0-15.0) 01/27/20 04:20 Plt Count 265 10^3/uL (130-450) 01/27/20 04:20 MPV 10.0 fL (7.9-10.8) 01/27/20 04:20 Neut # (Auto) 5.6 10^3/uL (1.5-6.6) 01/27/20 04:20 Lymph # (Auto) 1.0 10^3/uL (1.5-3.5) L 01/27/20 04:20 Knott # (Auto) 0.7 10^3/uL (0.0-1.0) 01/27/20 04:20 Eos # (Auto) 0.2 10^3/uL (0.0-0.7) 01/27/20 04:20 Baso # (Auto) 0.0 10^3/uL (0.0-0.1) 01/27/20 04:20 Absolute Nucleated RBC 0.00 x10^3/uL 01/27/20 04:20 Nucleated RBC % 0.0 /100WBC 01/27/20 04:20 PT 30.7 secs (9.9-12.6) H 01/27/20 04:20 INR 2.9 (0.8-1.2) H 01/27/20 04:20 APTT 40.4 secs (24.9-33.3) H 01/25/20 20:57 Sodium 137 mmol/L (135-145) 01/27/20 04:20 Potassium 4.2 mmol/L (3.5-5.0) 01/27/20 04:20 Chloride 108 mmol/L (101-111) 01/27/20 04:20 Carbon Dioxide 24 mmol/L (21-32) 01/27/20 04:20 Anion Gap 5.0 (6-13) L 01/27/20 04:20 BUN 14 mg/dL (6-20) 01/27/20 04:20 Creatinine 1.1 mg/dL (0.4-1.0) H 01/27/20 04:20 Estimated GFR (MDRD) 47 (>89) L 01/27/20 04:20 Glucose 120 mg/dL (70-100) H 01/27/20 04:20 Calcium 8.0 mg/dL (8.5-10.3) L 01/27/20 04:20 Iron 31 ug/dL (28-170) 01/27/20 04:25 TIBC 322 ug/dL (250-450) 01/27/20 04:25 % Saturation 10 % (20-50) L 01/27/20 04:25 Transferrin 230 mg/dL (192-382) 01/27/20 04:25 Total Bilirubin 1.0 mg/dL (0.2-1.0) 01/25/20 20:57 AST 23 IU/L (10-42) 01/25/20 20:57 ALT 21 IU/L (10-60) 01/25/20 20:57 Alkaline Phosphatase 112 IU/L (42-121) 01/25/20 20:57 Total Protein 7.1 g/dL (6.7-8.2) 01/25/20 20:57 Albumin 3.8 g/dL (3.2-5.5) 01/25/20 20:57 Globulin 3.3 g/dL (2.1-4.2) 01/25/20 20:57 Albumin/Globulin Ratio 1.2 (1.0-2.2) 01/25/20 20:57 Lipase 25 U/L (22-51) 01/25/20 20:57 Vitamin B12 160 pg/mL (180-914) L 01/27/20 04:25 Folate 7.63 ng/mL (5.90 - >24.8) 01/27/20 04:25 Blood Type A POSITIVE 01/25/20 21:15 Antibody Screen NEGATIVE 01/25/20 21:15
[2020-01-27] MEDS ORDERED: SODIUM CHLORIDE 0.9% 500 ML ONE (13:01)
[2020-01-27] MEDS: FERROUS GLUCONATE 324 MG TABLET PO SCH (14:01)
[2020-01-27] MEDS: HYDROmorphone 1 MG/ML SYRINGE IVP PRN ×2 (17:51→21:33)
[2020-01-27] MEDS: WARFARIN 2.5 MG TABLET PO SCH (17:52)
[2020-01-27 18:34] LABS: HGB - HEMOGLOBIN 11.6 g/dL (12.0-16.0)
[2020-01-27] MEDS: SODIUM CHLORIDE FLUSH 0.9% 10 ML SYRINGE IVP PRN (21:33)
[2020-01-27] MEDS: GABAPENTIN 400 MG CAPSULE PO SCH (21:33)
[2020-01-27] MEDS: ATORVASTATIN 40 MG TABLET PO SCH (21:33)
[2020-01-27] MEDS: traZODone 50 MG TABLET PO SCH (21:34)
[2020-01-27] MEDS ORDERED: SIMETHICONE CHEW 80 MG TABLET PO PRN (22:44)
[2020-01-28] MEDS: SODIUM CHLORIDE FLUSH 0.9% 10 ML SYRINGE IVP SCH ×2 (03:12→08:27)
[2020-01-28] MEDS: AMOX/CLAV 500 MG/125 MG TABLET PO SCH (05:07)
[2020-01-28] MEDS: SODIUM CHLORIDE 0.9% 1,000 ML IV SCH (05:09)
[2020-01-28 05:23] LABS: BASOPHILS % (AUTO) 0.3 %; EOSINOPHILS # (AUTO) 0.3 10^3/uL (0.0-0.7); EOSINOPHILS % (AUTO) 3.5 %; HGB - HEMOGLOBIN 10.5 g/dL (12.0-16.0); LYMPHOCYTES % (AUTO) 12.8 %; MEAN CORPUSCULAR HEMOGLOBIN 30.7 pg (27.0-31.0); MEAN CORPUSCULAR VOLUME 95.9 fL (81.0-99.0); MEAN PLATELET VOLUME 10.2 fL (7.9-10.8); MONOCYTES # (AUTO) 0.8 10^3/uL (0.0-1.0); MONOCYTES % (AUTO) 10.1 %; NEUTROPHILS # (AUTO) 5.7 10^3/uL (1.5-6.6); PLT - PLATELET COUNT 239 10^3/uL (130-450); RED BLOOD COUNT 3.42 10^6/uL (4.20-5.40); RED CELL DISTRIBUTION WIDTH 15.4 % (12.0-15.0); WHITE BLOOD COUNT 7.8 x10^3/uL (4.8-10.8)
[2020-01-28 05:31] LABS: CALCIUM 8.1 mg/dL (8.5-10.3); CREATININE 1.1 mg/dL (0.4-1.0); INR 3.7 (0.8-1.2); PT - PROTHROMBIN TIME 39.2 secs (9.9-12.6)
[2020-01-28] MEDS: AMIODARONE 200 MG TABLET PO SCH (08:26)
[2020-01-28] MEDS: VENLAFAXINE ER 75 MG CAPSULE PO SCH (08:26)
[2020-01-28] MEDS: PANTOPRAZOLE 40 MG VIAL IVP SCH (08:26)
[2020-01-28] MEDS: FERROUS GLUCONATE 324 MG TABLET PO SCH (08:26)
[2020-01-28] MEDS: oxyCODONE 5 MG TABLET PO PRN (08:35)
[2020-01-28] MEDS ORDERED: carvediloL 3.125 MG TABLET PO SCH (10:00)
--- NOTE | 2020-01-28 11:41 | Discharge Plan ---
Discharge Plan Problem Reviewed?: Yes Disposition: Home, Self Care Condition: Stable Prescriptions: Amox/Clav 500/125 [Augmentin 500/125] 1 tab PO TID #12 tablet Ferrous Gluconate 240 mg PO DAILY #30 tablet Oxycodone HCl/Acetaminophen [Oxycodone-Acetaminophen 5-325] 1 each PO Q12H PRN #6 tablet PRN Reason: Severe Pain Diet: Regular (Avoid high-fiber food, avoid nuts, avoid ground beef.) Activity Restrictions: Activity as Tolerated Shower Restrictions: No Instruction Topics: Diverticulosis Diverticulitis, Constipation Ch Health Concerns: You were in the hospital for bleeding related to acute diverticulitis and the anemia from the bleeding, plus diarrhea, caused volume depletion and low blood pressures. You did not need a colonoscopy. You did need a blood transfusion. Some of your medications have been changed. Follow the new list of medications to take now. Take your warfarin 1.25 mg for the next several days until you have your INR checked this coming Thursday. After that check with your PCP or Vendor Relationship Manager regarding dosing. Finish the oral antibiotic Augmentin for the diverticulitis. A prescription for several narcotic pills is being ordered in case of severe abdominal pain. If possible, take just Tylenol to control pain. A new prescription for daily iron replacement has been ordered. Since that may make you constipated, use MiraLAX every single day, at least for the next week. Resume all your other locations except do not take Losartan, because of your low blood pressure. You should see your PCP in the next 5 to 10 days for hospital follow-up, for adjustment of medications, and any lab tests. The Physical Therapist advised that you attend outpatient physical therapy for muscle strengthening. The referral to Physical Therapy should come from your PCP. We have Physical [facility] available [facility] at [facility] Plan of Treatment: As above. All your new prescriptions were electronically sent to your pharmacyAll your new prescriptions were electronically sent to your [facility] pharmacy in [place]. Care Goals: Improvement in symptoms and stabilization of the goals. Assessment: Patient and daughter agree and understand the plan. Additional Instructions or Follow Up instructions: If you have new or worsening symptoms, call your PCP for advice or come to the ER. Follow-Up Care: Outpatient Rehab - PT No Smoking: If you smoke, Please STOP! Call for help. Follow-up with: Robert Otoole MD [Primary Care Provider] -
--- NOTE | 2020-01-28 11:55 | DISCHARGE SUMMARY ---
Discharge Summary Admit Date: 01/25/20 Discharge Date: 01/28/20 Discharging Provider: Dr Nevin Gordon Primary Care Provider: Dr Taz Otoole Code Status: Attempt Resuscitation Condition at Discharge: Stable Discharge Disposition: 01 Home, Self Care - DIAGNOSES Admission Diagnoses: (1) Lower gastrointestinal bleed (2) Atrial fibrillation (3) Hypertension (4) Hyperlipidemia (5) Peripheral neuropathy (6) Depression (7) GERD (gastroesophageal reflux disease) Discharge Diagnoses with Status of Each Condition: See below - HPI History of Present Illness: From the admission H&P of Dr. Asia Dempsey: Patient is an 89 y/o female with Hx of atrial fibrillation on coumadin who presented to the ED with complain of bright red blood per rectum. This started around 5pm. From onset to time of presentation to the ED she had changed 5 diapers. She denied any black stools. She had a non-bloody diarrhea the previous day. Prior to experiencing diarrhea she had been constipated and took some miralax. She reports a previous episode of GI bleed three years ago for which she was airlifted to [place] and transfused 5 units of PRBC. It is unclear if she underwent a colonoscopy then. Records have been requested from [place] and are pending. She denied dizziness, chest pain, dyspnea, fever or chills. She complains of left lower quadrant abdominal pain. The patient has undergone cardioversions X2 with the last one being in April of 2019. They have been unsuccessful. She was told that her INR goal is in a range of 2.5 to 3.5. It is reported that she was on pradaxa for a couple weeks but was found to have a clot in her heart which did not change despite 2 weeks of pradaxa so she was changed to coumadin by her planning and analysis manager Dr Eduin Cates with [facility]. She is also on carvedilol 3.125mg bid and amiodarone 20mg daily. She has been using amiodarone for about 1 month now. She used to be on diltiazem which was discontinue around time the time of her last cardioversion. Her hemoglobin in the ED was 13 and her INR was 2.3. As a result of her presentation she is being admitted for further evaluation and management. Dr Flores was contacted by the ED physician and is agreeable to see the patient. - CONSULTS | PROCEDURES Consultations: Dr Janneth Flores on 01/26/20 - HOSPITAL COURSE Hospital Course: (1) Acute diverticulitis She was seen in consult by the General Surgeon who's impression was that the patient was having a bout of acute diverticulitis, and that she did not need a colonoscopy. The daughter reported there have been 4 previous very similar events. The bloody diarrhea stopped after 1 and a half days. The patient was treated with iv hydration, slow advancement of her diet to a low-fiber diet, oral Augmentin antibiotic, and required iv Dilaudid for pain management and was discharged with several tablets of oxycodone. (2) Orthostatic hypotension During one night, the patient had a marked hypotensive drop when she was standing to go to the bedside commode. She was put immediately in bed and blood pressure documented was 87 systolic and she was put in Trendelenburg. Following that, her blood pressure was "soft" and her Losartan and Coreg were put on hold. Orthostatic vital sign checks showed a 20 mmHg drop in BP during standing with a compensatory tachycardia. She continued to get IV hydration with NS at 100 cc/hr. Because of symptomatic low blood pressure, she received a blood transfusion. At the time of discharge, she was advised to remain off Losartan, until seen by her PCP in hospital follow-up. (3) Anemia due to GI blood loss After 1 and a half days, her BMs were no longer bloody. The Hgb was followed and went from 13.1>> 12.3>> 11.6>> 10.4>> 10.2. Because of symptomatic low blood pressure even after stopping her Coreg and Losartan and giving iv fluids, we treated the underlying cause which was her GI blood loss anemia, with a transfusion of 1U of packed red cells. The Hgb improved to 11.6 and she felt better. At discharge, the Hgb was 10.5 and she was prescribed oral Iron replacement. (4) Atrial fibrillation Amiodarone was continued while here, since her Sheet Rock Installation Helper had made various recent adjustments, probably to see if she could be pharmacologically cardioverted with oral Amio. The Coumadin was resumed after 1 day off, since bloody diarrhea stopped, and since no colonoscopy is planned. (5) Hx of essential hypertension She had low BP, despite her Losartan and Coreg being on hold for 2 days, likely due to blood loss/volume depletion. (6) CKD (chronic kidney disease), stage III Stable GFR. Continue iv hydration. (7) Depression She was continued her home meds (8) GERD (gastroesophageal reflux disease) She was continued her home meds - ALLERGIES Allergies/Adverse Reactions: Allergies Allergy/AdvReac Type Severity Reaction Status Date / Time No Known Drug Allergies Allergy Verified 01/25/20 20:36 - MEDICATIONS Home Medications: Ambulatory Orders Medication Instructions Recorded Confirmed Aspirin [Aspir 81] 81 mg PO DAILY 01/11/14 01/26/20 Pantoprazole Sodium [Protonix] 40 mg PO DAILY 01/11/14 01/26/20 Docusate Sodium 250Mg Capsule 250 mg PO DAILY #30 capsule 07/07/17 01/26/20 [Colace 250Mg Capsule] Atorvastatin Calcium 20 tab PO QPM 05/31/19 01/26/20 Carvedilol [Coreg] 6.25 mg PO BID 05/31/19 05/31/19 Estrogens, Conjugated Cream 0.5 g VG .[id number] 05/31/19 01/26/20 [Premarin Cream] Amiodarone [Pacerone] 200 mg PO DAILY 01/26/20 01/26/20 Diltiazem HCl [Diltiazem 24Hr ER] 120 mg PO DAILY 01/26/20 Gabapentin [Neurontin] 600 mg PO BID 01/26/20 01/26/20 Levalbuterol [Xopenex] 2 puffs INH Q4H PRN 01/26/20 01/26/20 Venlafaxine ER [Effexor ER] 75 mg PO DAILY 01/26/20 01/26/20 carvediloL [Coreg] 3.125 mg PO BID 01/26/20 01/26/20 Amox/Clav 500/125 [Augmentin 1 tab PO TID #12 tablet 01/28/20 500/125] Ferrous Gluconate 240 mg PO DAILY #30 tablet 01/28/20 Oxycodone HCl/Acetaminophen 1 each PO Q12H PRN #6 tablet 01/28/20 [Oxycodone-Acetaminophen 5-325] Warfarin [Coumadin] 1.25 mg PO 1700 tablet 01/28/20 Warfarin [Coumadin] 2.5 mg PO SUWEFR #0 01/28/20 - PHYSICAL EXAM AT DISCHARGE General Appearance: positive: No acute distress, Alert Eyes Bilateral: positive: Normal inspection, EOMI ENT: positive: ENT inspection nml, No signs of dehydration Neck: positive: Nml inspection, No JVD Respiratory: positive: No respiratory distress, Breath sounds nml Cardiovascular: positive: No murmur, Irregularly irregular Abdomen: positive: Non-tender, No distention Extremities: positive: Non-tender, No pedal edema Neurologic/Psychiatric: positive: Oriented x3 - LABS Result Diagrams: 01/28/20 04:25 01/28/20 04:25 - DIAGNOSTIC IMAGING Diagnostic Imaging Results: Final report reviewed - FOLLOW UP Follow Up: See PCP in 5-7 days for a hospital follow-up. - TIME SPENT Time Spent in Discharge (Minutes): 60
[2020-01-28 12:01] VITALS: BP 132/74
== END 2020-01-28 12:42 | disposition home or self-care (01) ==
LOC: ED 20:31 → INTOOBSV 22:25 → MS2 22:25 → UNDOADMOB 22:25 → MS2 01-26 08:55
PROVIDERS: ADMIT Internal Medicine; ATTEND Internal Medicine
DX: K57.33 Diverticulitis of large intestine without perforation or abscess with bleeding (principal); I95.1 Orthostatic hypotension; D50.0 Iron deficiency anemia secondary to blood loss (chronic); I48.20 Chronic atrial fibrillation, unspecified; I12.9 Hypertensive chronic kidney disease with stage 1 through stage 4 chronic kidney disease, or unspecified chronic kidney disease; K59.00 Constipation, unspecified; N18.3 Chronic kidney disease, stage 3 (moderate); F32.9 Major depressive disorder, single episode, unspecified; K21.9 Gastro-esophageal reflux disease without esophagitis; G62.9 Polyneuropathy, unspecified; E78.5 Hyperlipidemia, unspecified; I25.10 Atherosclerotic heart disease of native coronary artery without angina pectoris; G47.30 Sleep apnea, unspecified; H53.8 Other visual disturbances; H91.90 Unspecified hearing loss, unspecified ear; Z95.5 Presence of coronary angioplasty implant and graft; Z79.82 Long term (current) use of aspirin
CPT/HCPCS: 36415; 36430; 71045; 80048; 80053; 82607; 82746; 83540; 83690; 84466; 85014; 85018; 85025; 85610; 85730; 86850; 86900; 86901; 86920; 93005; 96361; 96374; 96375; 96376; 97162; 99284; 99285; A9270; G0378; J1170; P9016

== ENCOUNTER 2020-01-31 15:40 | Outpatient (CLI) | payer MEDICARE | END 2020-01-31 15:41 | disposition home or self-care (01) | LOC: LAB 15:40 | PROVIDERS: ATTEND Emergency Medicine | DX: I48.91 Unspecified atrial fibrillation (principal) | CPT/HCPCS: 85610 ==

== ENCOUNTER 2020-02-07 09:38 | Outpatient (CLI) | payer MEDICARE ==
[2020-02-07 10:12] LABS: BASOPHILS % (AUTO) 0.5 %; EOSINOPHILS # (AUTO) 0.4 10^3/uL (0.0-0.7); EOSINOPHILS % (AUTO) 4.5 %; HGB - HEMOGLOBIN 11.7 g/dL (12.0-16.0); LYMPHOCYTES # (AUTO) 1.1 10^3/uL (1.5-3.5); LYMPHOCYTES % (AUTO) 14.3 %; MEAN CORPUSCULAR HEMOGLOBIN 31.3 pg (27.0-31.0); MEAN CORPUSCULAR HGB CONC 32.3 g/dL (32.0-36.0); MEAN CORPUSCULAR VOLUME 96.8 fL (81.0-99.0); MEAN PLATELET VOLUME 9.1 fL (7.9-10.8); MONOCYTES # (AUTO) 0.6 10^3/uL (0.0-1.0); MONOCYTES % (AUTO) 8.1 %; NEUTROPHILS # (AUTO) 5.6 10^3/uL (1.5-6.6); NEUTROPHILS % (AUTO) 72.2 %; PLT - PLATELET COUNT 424 10^3/uL (130-450); RED BLOOD COUNT 3.74 10^6/uL (4.20-5.40); RED CELL DISTRIBUTION WIDTH 14.3 % (12.0-15.0); WHITE BLOOD COUNT 7.8 x10^3/uL (4.8-10.8)
== END 2020-02-07 09:39 | disposition home or self-care (01) ==
LOC: LAB 09:38
PROVIDERS: ATTEND Emergency Medicine
DX: K92.2 Gastrointestinal hemorrhage, unspecified (principal); I48.91 Unspecified atrial fibrillation
CPT/HCPCS: 36415; 85025; 85610

== ENCOUNTER 2020-02-15 10:17 | Outpatient (CLI) | payer MEDICARE | END 2020-02-15 10:18 | disposition home or self-care (01) | LOC: LAB 10:17 | PROVIDERS: ATTEND Emergency Medicine | DX: I48.91 Unspecified atrial fibrillation (principal) | CPT/HCPCS: 85610 ==

== ENCOUNTER 2020-02-29 12:36 | Outpatient (CLI) | payer MEDICARE | END 2020-02-29 12:37 | disposition home or self-care (01) | LOC: LAB 12:36 | PROVIDERS: ATTEND Emergency Medicine | DX: I48.91 Unspecified atrial fibrillation (principal) | CPT/HCPCS: 85610 ==

== ENCOUNTER 2020-03-20 19:43 | Inpatient (IN) | payer MEDICARE ==
--- NOTE | 2020-03-20 20:15 | ED Physician Documentation ---
History of Present Illness - Stated complaint Stated Complaint: FEMALE - Chief complaint Chief Complaint: Abd Pain - Additonal information Additional information: This is an 89-year-old female presents with left lower quadrant pain and bright red blood per rectum. Patient has a history of atrial fibrillation on warfarin, she has also had past lower GI bleeds which have been caused by diverticulosis/diverticulitis. She was admitted on 01/25/2020 and discharged on 01/28/2020 with a lower GI bleed which was thought to be due to diverticulitis, she was monitored and her bloody diarrhea stopped, she was transfused 1 unit of packed red blood cells during that stay for symptomatic anemia. She states that the most recent episode began several days ago began with some left lower quadrant pain and then she began having diarrhea and in the last 24 hours she began passing bloody clots and bright red blood with each of her bowel movements. She denies any chest pain, fever, vomiting. She states this feels identical to her last episodes of diverticulitis. She has had hernia repairs with mesh, and sections in the past. Review of Systems Constitutional: denies: Fever Nose: denies: Rhinorrhea / runny nose Throat: denies: Dental pain / toothache Cardiac: denies: Chest pain / pressure Respiratory: denies: Dyspnea GI: reports: Abdominal Pain Skin: denies: Rash Neurologic: denies: Generalized weakness Immunocompromised: denies: Immunocompromised PD PAST MEDICAL HISTORY - Past Medical History Cardiovascular: Hypertension, High cholesterol, Coronary artery disease, Atrial fibrillation Respiratory: Sleep apnea Neuro: Peripheral neuropathy GI: GI bleed, Diverticulitis : None HEENT: None Psych: Depression Musculoskeletal: Fatigue, Other - Past Surgical History Past Surgical History: Yes General: Appendectomy, 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, Hysterectomy Cardiovascular: Coronary stent Derm: Skin cancer surgery - Present Medications Home Medications: Ambulatory Orders Medication Instructions Recorded Confirmed Aspirin [Aspir 81] 81 mg PO DAILY 01/11/14 03/20/20 Pantoprazole Sodium [Protonix] 40 mg PO DAILY 01/11/14 03/20/20 Docusate Sodium 250Mg Capsule 250 mg PO DAILY #30 capsule 07/07/17 03/20/20 [Colace 250Mg Capsule] Atorvastatin Calcium 20 tab PO QPM 05/31/19 03/20/20 Carvedilol [Coreg] 6.25 mg PO BID 05/31/19 03/20/20 Estrogens, Conjugated Cream 0.5 g VG .3XWEEKLY 05/31/19 03/20/20 [Premarin Cream] Amiodarone [Pacerone] 200 mg PO DAILY 01/26/20 03/20/20 Diltiazem HCl [Diltiazem 24Hr ER] 120 mg PO DAILY 01/26/20 03/20/20 Gabapentin [Neurontin] 600 mg PO BID 01/26/20 03/20/20 Levalbuterol [Xopenex] 2 puffs INH Q4H PRN 01/26/20 03/20/20 Venlafaxine ER [Effexor ER] 75 mg PO DAILY 01/26/20 03/20/20 carvediloL [Coreg] 3.125 mg PO BID 01/26/20 03/20/20 Amox/Clav 500/125 [Augmentin 1 tab PO TID #12 tablet 01/28/20 03/20/20 500/125] Ferrous Gluconate 240 mg PO DAILY #30 tablet 01/28/20 03/20/20 Oxycodone HCl/Acetaminophen 1 each PO Q12H PRN #6 tablet 01/28/20 03/20/20 [Oxycodone-Acetaminophen 5-325] Warfarin [Coumadin] 1.25 mg PO 1700 tablet 01/28/20 03/20/20 Warfarin [Coumadin] 2.5 mg PO SUWEFR #0 01/28/20 03/20/20 - Allergies Allergies/Adverse Reactions: Allergies Allergy/AdvReac Type Severity Reaction Status Date / Time No Known Drug Allergies Allergy Verified 03/20/20 20:06 - Social History Does the pt smoke?: No Smoking Status: Never smoker Does the pt drink ETOH?: No Does the pt have substance abuse?: No - Immunizations Immunizations are current?: Yes - POLST Patient has POLST: Yes POLST Status: Limited Interventions PD ED PE NORMAL - Vitals Vital signs reviewed: Yes - General General: Alert and oriented X 3, No acute distress - HEENT HEENT: PERRL - Neck Neck: Supple, no meningeal sign - Cardiac Cardiac: No murmur, Other (Irregularly irregular rhythm, normal rate) - Respiratory Respiratory: Clear bilaterally - Abdomen Abdomen: Normal bowel sounds, Soft, Non distended, Other (Well-healed vertical incisional scar as well as the right lower quadrant incisional scar. Focal left lower quadrant tenderness to palpation. ) - Rectal Rectal: Other (Chaperoned by NICHOLAS Palomino. There is dried blood around the rectum and legs, there is bright red blood on rectal exam, no hemorrhoids or external abnormalities.) - Derm Derm: Warm and dry - Extremities Extremities: No deformity - Neuro Neuro: Alert and oriented X 3 - Psych Psych: Normal mood, Normal affect Results - Vitals Vitals: Vital Signs - 24 hr 03/20/20 03/20/20 03/20/20 19:57 20:06 20:46 Temperature 36.3 C L Heart Rate 106 H 90 86 Respiratory 20 16 22 Rate Blood Pressure 145/78 H 157/84 H 126/76 O2 Saturation 91 L 98 98 Oxygen O2 Source [With Activity] Room air O2 Source Room air - Labs Labs: Laboratory Tests 03/20/20 03/20/20 03/20/20 20:06 20:06 20:06 WBC 9.0 RBC 4.11 L Hgb 12.3 Hct 38.3 MCV 93.2 MCH 29.9 MCHC 32.1 RDW 13.5 Plt Count 427 MPV 9.3 Neut # (Auto) 7.3 H Lymph # (Auto) 1.0 L Mcmullen # (Auto) 0.5 Eos # (Auto) 0.2 Baso # (Auto) 0.0 Absolute Nucleated RBC 0.00 Nucleated RBC % 0.0 PT 36.1 H INR 3.4 H Sodium 130 L Potassium 3.5 Chloride 96 L Carbon Dioxide 25 Anion Gap 9.0 BUN 17 Creatinine 1.3 H Estimated GFR (MDRD) 39 L Glucose 143 H Calcium 8.9 Total Bilirubin 0.9 AST 18 ALT 12 Alkaline Phosphatase 124 H Total Protein 7.6 Albumin 3.7 Globulin 3.9 Albumin/Globulin Ratio 0.9 L Lipase 22 Blood Type Antibody Screen 03/20/20 20:06 WBC RBC Hgb Hct MCV MCH MCHC RDW Plt Count MPV Neut # (Auto) Lymph # (Auto) Mcmullen # (Auto) Eos # (Auto) Baso # (Auto) Absolute Nucleated RBC Nucleated RBC % PT INR Sodium Potassium Chloride Carbon Dioxide Anion Gap BUN Creatinine Estimated GFR (MDRD) Glucose Calcium Total Bilirubin AST ALT Alkaline Phosphatase Total Protein Albumin Globulin Albumin/Globulin Ratio Lipase Blood Type A POSITIVE Antibody Screen NEGATIVE - Rads (name of study) Ct abd/pelvis W Radiology: Other (Moderate severity proximal sigmoid diverticulitis, severe sigmoid colonic and moderate descending colonic diverticulosis, moderate to large amount of retained colonic fecal matter suggesting constipation) PD MEDICAL DECISION MAKING - ED course Complexity details: considered differential (Hemorrhoids, diverticulosis, diverticulitis, colitis, coagulopathy, supratherapeutic INR, anemia, upper GI bleed, electrolyte abnormality, bowel perforation, abscess) ED course: On arrival patient has mild tachycardia which resolved spontaneously. She has focal tenderness in the left lower quadrant of her abdomen, and she had vladislav red blood on rectal exam. Her labs show a normal hemoglobin, a INR within her goal range at 3.4, hyponatremia of 130, and mildly elevated creatinine at 1.3, her baseline appears to be 1.1-1.2. Given her abdominal pain CT was performed and shows diverticulitis along with diverticulosis, no perforation or abscess. She was started on Zosyn IV. After pain meds and antibiotics patient is feeling somewhat improved. Given that she is having gastrointestinal bleeding while on a blood thinner, she Does require observation in the hospital. This is likely from her diverticulitis, she has had multiple episodes of very similar presentations. Given her stable hemoglobin we will hold her warfarin for now, I do not see an indication for emergent reversal with FFP or PCC. Further anticoagulation reversal will be deferred to the admitting hospitalist team. Pt's blood pressure and heart rate are stable, she is well-appearing at the time of admission Departure - Departure Disposition: ED Place in Observation Clinical Impression: Warfarin anticoagulation, Diverticulitis GI bleed Qualifiers: GI bleed type/associated pathology: diverticulosis Qualified Code(s): K57.91 - Diverticulosis of intestine, part unspecified, without perforation or abscess with bleeding Condition: Stable Discharge Date/Time: 03/20/20 23:20
[2020-03-20] MEDS ORDERED: MORPHINE 2 MG/ML CARPUJECT IVP STA (20:16)
[2020-03-20 20:18] LABS: BASOPHILS % (AUTO) 0.4 %; EOSINOPHILS # (AUTO) 0.2 10^3/uL (0.0-0.7); EOSINOPHILS % (AUTO) 2.3 %; HGB - HEMOGLOBIN 12.3 g/dL (12.0-16.0); LYMPHOCYTES % (AUTO) 11.1 %; MEAN CORPUSCULAR HEMOGLOBIN 29.9 pg (27.0-31.0); MEAN CORPUSCULAR HGB CONC 32.1 g/dL (32.0-36.0); MEAN CORPUSCULAR VOLUME 93.2 fL (81.0-99.0); MEAN PLATELET VOLUME 9.3 fL (7.9-10.8); MONOCYTES # (AUTO) 0.5 10^3/uL (0.0-1.0); MONOCYTES % (AUTO) 5.4 %; NEUTROPHILS # (AUTO) 7.3 10^3/uL (1.5-6.6); NEUTROPHILS % (AUTO) 80.5 %; PLT - PLATELET COUNT 427 10^3/uL (130-450); RED BLOOD COUNT 4.11 10^6/uL (4.20-5.40); RED CELL DISTRIBUTION WIDTH 13.5 % (12.0-15.0)
[2020-03-20 20:23] LABS: INR 3.4 (0.8-1.2); PT - PROTHROMBIN TIME 36.1 secs (9.9-12.6)
[2020-03-20 20:31] LABS: ALBUMIN 3.7 g/dL (3.2-5.5); ALBUMIN/GLOBULIN RATIO 0.9 (1.0-2.2); BILIRUBIN,TOTAL 0.9 mg/dL (0.2-1.0); CALCIUM 8.9 mg/dL (8.5-10.3); CREATININE 1.3 mg/dL (0.4-1.0); TOTAL PROTEIN 7.6 g/dL (6.7-8.2)
[2020-03-20] MEDS ORDERED: IOVERSOL 320 100 ML VIAL IVP ONE ×2 (20:57→21:26)
--- NOTE | 2020-03-20 22:01 | CT Report ---
Reason: LLQ abdominal pain and BRB per rectum Procedure Date: 03/20/2020 Accession Number: [id number] / [id number] Procedure: CT - Abdomen/Pelvis W CPT Code: Final Report FULL RESULT: EXAM: CT ABDOMEN AND PELVIS EXAM DATE: 03/20/2020 09:22 PM. CLINICAL HISTORY: Left lower quadrant abdominal pain, bright red blood per rectum. COMPARISONS: ABDOMEN/PELVIS W/O 07/07/2017 8:56 PM. TECHNIQUE: Routine helical CT imaging was performed through the abdomen and pelvis. IV contrast: Opti 320 90 mL. Enteric contrast: No. Reconstructions: Coronal and sagittal. In accordance with CT protocol optimization, one or more of the following dose reduction techniques were utilized for this exam: automated exposure control, adjustment of mA and/or KV based on patient size, or use of iterative reconstructive technique. FINDINGS: ABDOMEN: Liver: No significant abnormality. Stomach/Distal Esophagus: Prior hiatal hernia repair. Gallbladder: No significant abnormality. Bile Ducts: No significant abnormality. Pancreas: No significant abnormality. Spleen: No significant abnormality. Kidneys: No suspicious solid appearing lesion. No hydronephrosis. Adrenals: No significant abnormality. Bowel: Short segment wall thickening as well as moderate pericolic inflammatory stranding noted around the proximal sigmoid colon. There is severe sigmoid colonic diverticulosis. No pericolonic fluid collection noted. Moderate descending as well as mild pancolonic diverticulosis noted. There is moderate to large amount of retained colonic fecal matter, suggesting constipation in the appropriate clinical setting. Appendix: The appendix could not be identified with certainty. However, there are no secondary signs of appendicitis demonstrated at this time. Lymph Nodes: No pathologically enlarged nodes. Vasculature: Normal caliber aorta. Fluid: No significant free fluid. Abdominal Wall: No significant abnormality. Other: No significant abnormality. PELVIS: Uterus and Ovaries: Surgically absent uterus. Ovaries are not visualized, possibly surgically absent as well. Bladder: No significant abnormality. Lymph Nodes: No pathologically enlarged nodes. Fluid: No significant free fluid. Other: None. BONES: No suspicious bony lesions. However, bones are moderate to severely osteopenic. This reduces exam sensitivity and specificity for detection of subtle bony lesions and/or fractures. Degenerative appearing stable slight retrolisthesis of L4 relative to L5. LOWER CHEST: No significant consolidation or effusion. IMPRESSION: 1. Moderate severity proximal sigmoid diverticulitis. This is in a similar location compared to the prior study. 2. Severe sigmoid colonic and moderate descending colonic diverticulosis. Mild proximal pancolonic diverticulosis. 3. Moderate to large amount of retained colonic fecal matter, suggesting constipation. RADIA
[2020-03-20] MEDS ORDERED: PIPERACILLIN/TAZOBACTAM 3.375 GM in SODIUM CHLORIDE 0.9% MINIBAG 100 ML IV STA (22:20)
[2020-03-20] MEDS ORDERED: PROCHLORPERAZINE 10 MG/2 ML VIAL IVP PRN (22:29)
[2020-03-20] MEDS ORDERED: ONDANSETRON 4 MG/2 ML VIAL IVP PRN (22:29)
[2020-03-20] MEDS ORDERED: LEVALBUTEROL 1.25 MG/3 ML NEB INH STA (22:35)
--- NOTE | 2020-03-20 23:08 | HISTORY & PHYSICAL EXAMINATION ---
Chief Complaint - Chief Complaint Chief Complaint: Bright red blood per rectum GI Bleed Admit Template - Admitted From Admitted from: ED - History Obtained From Records Reviewed: RN notes reviewed, Old records reviewed History obtained from: Patient Exam limitations: No limitations - History of Present Illness Severity at the worst: reports: Moderate Bleeding quality: reports: Taran blood stool Context-bleeding started w/: reports: Bowel movement Timing: reports: Abrupt onset Duration: reports: Days: (4) Improved with: reports: Nothing Worsened by: reports: Nothing Associated symptoms: reports: Nausea, Other (Left lower quadrant abdominal pain) HPI Comment/Other: Patient had a similar episode of lower GI bleed and was admitted on 01/26/2020. Previous to that she also had 4 other episodes of bright red blood per rectum. In each case, it appears that it has been associated with acute diverticulitis, and certainly on the last hospital admission this is the clinical picture with which she presented. She was treated conservatively with medical management for the treatment of acute diverticulitis, during which time the GI bleed with self- limiting and although surgical consult was obtained, no procedures were p erformed and the patient was discharged home in stable medical condition. 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 She had 1 daughter who 1 month ago who is her primary caregiver, and now gets help from another daughter.She does not drive but is otherwise fairly independent and does not require the assistance of a device for ambulati on.) - Social History Does the pt smoke?: No Smoking Status: Never smoker Does the pt drink ETOH?: No Does the pt have substance abuse?: No - POLST Patient has POLST: Yes POLST Status: DNR - Family History Family History Comment/Other: Patient states that everyone in her family has heart disease Meds/Allgy - Home Medications Home Medications: Ambulatory Orders Medication Instructions Recorded Confirmed Aspirin [Aspir 81] 81 mg PO DAILY 01/11/14 03/20/20 Pantoprazole Sodium [Protonix] 40 mg PO DAILY 01/11/14 03/20/20 Docusate Sodium 250Mg Capsule 250 mg PO DAILY #30 capsule 07/07/17 03/20/20 [Colace 250Mg Capsule] Atorvastatin Calcium 20 tab PO QPM 05/31/19 03/20/20 Carvedilol [Coreg] 6.25 mg PO BID 05/31/19 03/20/20 Estrogens, Conjugated Cream 0.5 g VG .3XWEEKLY 05/31/19 03/20/20 [Premarin Cream] Amiodarone [Pacerone] 200 mg PO DAILY 01/26/20 03/20/20 Diltiazem HCl [Diltiazem 24Hr ER] 120 mg PO DAILY 01/26/20 03/20/20 Gabapentin [Neurontin] 600 mg PO BID 01/26/20 03/20/20 Levalbuterol [Xopenex] 2 puffs INH Q4H PRN 01/26/20 03/20/20 Venlafaxine ER [Effexor ER] 75 mg PO DAILY 01/26/20 03/20/20 carvediloL [Coreg] 3.125 mg PO BID 01/26/20 03/20/20 Amox/Clav 500/125 [Augmentin 1 tab PO TID #12 tablet 01/28/20 03/20/20 500/125] Ferrous Gluconate 240 mg PO DAILY #30 tablet 01/28/20 03/20/20 Oxycodone HCl/Acetaminophen 1 each PO Q12H PRN #6 tablet 01/28/20 03/20/20 [Oxycodone-Acetaminophen 5-325] Warfarin [Coumadin] 1.25 mg PO 1700 tablet 01/28/20 03/20/20 Warfarin [Coumadin] 2.5 mg PO SUWEFR #0 01/28/20 03/20/20 - Allergies Allergies/Adverse Reactions: Allergies Allergy/AdvReac Type Severity Reaction Status Date / Time No Known Drug Allergies Allergy Verified 03/20/20 20:06 Review of Systems - Constitutional Constitutional: reports: Fatigue. 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 denies: Vomiting - Genitourinary Genitourinary: denies: Dysuria - Musculoskeletal Musculoskeletal: reports: Back pain - Neurological Neurological: reports: General weakness Prior Level of Functionality: Patient lives alone, gets assistance from 1 of her adult daughters. She does not require a device for ambulation, but she does not drive. Exam - Vital Signs Reviewed Vital Signs: Yes Vital Signs: Vital Signs x48h Temp Pulse Resp BP Pulse Ox 03/20/20 22:54 82 16 157/97 H 99 03/20/20 20:46 86 22 126/76 98 03/20/20 20:06 90 16 157/84 H 98 03/20/20 19:57 36.3 C L 106 H 20 145/78 H 91 L - Physical Exam General Appearance: positive: No acute distress Eyes Bilateral: positive: Normal inspection Neck: positive: Nml inspection, Thyroid nml, No JVD Respiratory: positive: Chest non-tender, No respiratory distress, Breath sounds nml Cardiovascular: positive: No murmur, No gallop, Irregularly irregular Peripheral Pulses: positive: 2+ Abdomen: positive: Tenderness (Moderately distended, left lower quadrant tenderness, mild suprapubic tenderness). negative: No distention, Guarding Skin: positive: Color nml, No rash Extremities: positive: Nml appearance, No pedal edema Neurologic/Psychiatric: positive: Oriented x3, CN's nml (2-12) Results - Lab Results Lab results reviewed: Yes Fish Bones: 03/20/20 20:06 03/20/20 20:06 Other Lab Results: Lab Results x24hrs 03/20/20 03/20/20 03/20/20 Range/Units 20:06 20:06 20:06 WBC (4.8-10.8) x10^3/uL RBC (4.20-5.40) 10^6/uL Hgb (12.0-16.0) g/dL Hct (37.0-47.0) % MCV (81.0-99.0) fL MCH (27.0-31.0) pg MCHC (32.0-36.0) g/dL RDW (12.0-15.0) % Plt Count (130-450) 10^3/uL MPV (7.9-10.8) fL Neut # (Auto) (1.5-6.6) 10^3/uL Lymph # (Auto) (1.5-3.5) 10^3/uL [place] # (Auto) (0.0-1.0) 10^3/uL Eos # (Auto) (0.0-0.7) 10^3/uL Baso # (Auto) (0.0-0.1) 10^3/uL Absolute Nucleated RBC x10^3/uL Nucleated RBC % /100WBC PT 36.1 H (9.9-12.6) secs INR 3.4 H (0.8-1.2) Sodium 130 L (135-145) mmol/L Potassium 3.5 (3.5-5.0) mmol/L Chloride 96 L (101-111) mmol/L Carbon Dioxide 25 (21-32) mmol/L Anion Gap 9.0 (6-13) BUN 17 (6-20) mg/dL Creatinine 1.3 H (0.4-1.0) mg/dL Estimated GFR (MDRD) 39 L (>89) Glucose 143 H (70-100) mg/dL Calcium 8.9 (8.5-10.3) mg/dL Total Bilirubin 0.9 (0.2-1.0) mg/dL AST 18 (10-42) IU/L ALT 12 (10-60) IU/L Alkaline Phosphatase 124 H (42-121) IU/L Total Protein 7.6 (6.7-8.2) g/dL Albumin 3.7 (3.2-5.5) g/dL Globulin 3.9 (2.1-4.2) g/dL Albumin/Globulin Ratio 0.9 L (1.0-2.2) Lipase 22 (22-51) U/L Blood Type A POSITIVE Antibody Screen NEGATIVE 03/20/20 Range/Units 20:06 WBC 9.0 (4.8-10.8) x10^3/uL RBC 4.11 L (4.20-5.40) 10^6/uL Hgb 12.3 (12.0-16.0) g/dL Hct 38.3 (37.0-47.0) % MCV 93.2 (81.0-99.0) fL MCH 29.9 (27.0-31.0) pg MCHC 32.1 (32.0-36.0) g/dL RDW 13.5 (12.0-15.0) % Plt Count 427 (130-450) 10^3/uL MPV 9.3 (7.9-10.8) fL Neut # (Auto) 7.3 H (1.5-6.6) 10^3/uL Lymph # (Auto) 1.0 L (1.5-3.5) 10^3/uL [place] # (Auto) 0.5 (0.0-1.0) 10^3/uL Eos # (Auto) 0.2 (0.0-0.7) 10^3/uL Baso # (Auto) 0.0 (0.0-0.1) 10^3/uL Absolute Nucleated RBC 0.00 x10^3/uL Nucleated RBC % 0.0 /100WBC PT (9.9-12.6) secs INR (0.8-1.2) Sodium (135-145) mmol/L Potassium (3.5-5.0) mmol/L Chloride (101-111) mmol/L Carbon Dioxide (21-32) mmol/L Anion Gap (6-13) BUN (6-20) mg/dL Creatinine (0.4-1.0) mg/dL Estimated GFR (MDRD) (>89) Glucose (70-100) mg/dL Calcium (8.5-10.3) mg/dL Total Bilirubin (0.2-1.0) mg/dL AST (10-42) IU/L ALT (10-60) IU/L Alkaline Phosphatase (42-121) IU/L Total Protein (6.7-8.2) g/dL Albumin (3.2-5.5) g/dL Globulin (2.1-4.2) g/dL Albumin/Globulin Ratio (1.0-2.2) Lipase (22-51) U/L Blood Type Antibody Screen - Diagnostic Imaging Results Diagnostic Imaging Results: positive: Final report reviewed Sepsis Event Note (H) - Evaluation Current Stage of Sepsis: Ruled out Impression/Plan - Problem List Problem List: 1. Lower GI bleed with bright red blood per rectum Clinically stable, no shortness of breath, no chest pain Hemodynamically stable, normal blood pressure, initially mildly tachycardic, now resolved H&H within normal limits I suspect this is related to the acute diverticulitis, in the setting of anti coagulation with warfarin. Likely she will have a similar hospital course as she did last month, with conservative management allowing for temporary cessation of anticoagulation to allow spontaneous resolution of the GI bleed. However, we will keep her monitored closely with H&H in the morning, monitoring vital signs, evaluating for further bleeding, and pending clinical course consider GI consult for colonoscopy versus continued medical management. 2. Acute diverticulitis Reviewed CT scan, showing sigmoid diverticulitis and moderate severity. No abscess, no perforation visible on CT scan. Initiate antibiotic therapy with IV Zosyn, could potentially transition to oral antibiotics within 24 hours if she shows clinical improvement given that she has a normal white count, afebrile, and has not had vomiting. Seems to be associated with constipation, so we will provide MiraLAX and bowel regimen. 3. Atrial fibrillation on oral anticoagulation INR is 3.4, slightly supratherapeutic. Hold warfarin given acute lower GI bleed. We will have to determine risk-benefit ratio with patient given the recurrence of her GI bleeds, not sure if she would be a candidate for a watchman procedure given her advanced age but this could be potentially entertained with her building drafting officer given that she has failed multiple cardioversions. Most likely, will continue anticoagulation at discharge and further decision making to be made by patient's building drafting officer 4. Hypertension Blood pressure fairly well controlled, continue home medications watching closely for hypotension given the setting of acute GI bleed. 5. Hyperlipidemia Continue home medications 6. Chronic low back pain Continue oral PRN medication, oxycodone and gabapentin 7. Peripheral neuropathy Continue gabapentin 8. Asthma No sign of respiratory distress PRN Xopenex 9. GERD Protonix IV, consider switching to p.o. if clinically improved tomorrow 10. Depression Continue home Effexor I did ask and patient would like to be DO NOT RESUSCITATE DO NOT INTUBATE Core Measures - Anticipated LOS I expect patient to be DC'd or transferred within 96 hours.: Yes - DVT/VTE - Prophylaxis VTE/DVT Prophylaxis med ordered at admit?: No Not Ordered - Medical Reason: Contraindicated (Supratherapeutic INR with a lower GI bleed)
[2020-03-20] MEDS ORDERED: polyethylene glycoL 3350 17 GM PACKET PO PRN (23:11)
[2020-03-21] MEDS: SODIUM CHLORIDE FLUSH 0.9% 10 ML SYRINGE IVP SCH ×4 (02:02→23:43)
[2020-03-21 05:40] LABS: BILIRUBIN,URINE NEGATIVE (NEGATIVE); GLUCOSE, URINE (UA) NEGATIVE (NEGATIVE); KETONES,URINE (UA) NEGATIVE (NEGATIVE); LEUKOCYTE ESTERASE, URINE TRACE (NEGATIVE); NITRITE,URINE NEGATIVE (NEGATIVE); OCCULT BLOOD,URINE MODERATE (NEGATIVE); PH,URINE 6.5 PH (5.0-7.5); PROTEIN,URINE NEGATIVE (NEGATIVE); UROBILINOGEN,URINE 0.2 (NORMAL) E.U./dL (NORMAL)
[2020-03-21 05:47] LABS: BACTERIA,URINE Few /HPF (None Seen); CLARITY,URINE CLEAR (CLEAR); RBC,URINE 0-5 /HPF (0-5); SQUAMOUS EPITHELIAL CELL,UR FEW Squamous (<= Few)
[2020-03-21 05:49] LABS: HGB - HEMOGLOBIN 10.8 g/dL (12.0-16.0); MEAN CORPUSCULAR HEMOGLOBIN 30.3 pg (27.0-31.0); MEAN CORPUSCULAR HGB CONC 32.6 g/dL (32.0-36.0); MEAN PLATELET VOLUME 9.5 fL (7.9-10.8); RED BLOOD COUNT 3.56 10^6/uL (4.20-5.40); RED CELL DISTRIBUTION WIDTH 13.4 % (12.0-15.0); WHITE BLOOD COUNT 9.1 x10^3/uL (4.8-10.8)
[2020-03-21 05:58] LABS: CALCIUM 8.8 mg/dL (8.5-10.3); CREATININE 1.2 mg/dL (0.4-1.0)
[2020-03-21] MEDS: PANTOPRAZOLE 40 MG VIAL IVP SCH (06:12)
[2020-03-21] MEDS: PIPERACILLIN/TAZOBACTAM 3.375 GM in SODIUM CHLORIDE 0.9% MINIBAG 100 ML IV SCH ×3 (06:18→22:43)
[2020-03-21] MEDS: MORPHINE 2 MG/ML CARPUJECT IVP PRN ×3 (06:20→21:01)
--- NOTE | 2020-03-21 07:39 | PROVIDER PROGRESS NOTE ---
Assessment/Plan - Problem List (1) GI bleed Qualifiers: GI bleed type/associated pathology: diverticulosis Qualified Code(s): K57.91 - Diverticulosis of intestine, part unspecified, without perforation or abscess with bleeding Assessment/Plan: Stable. Patient has not had any episodes of bright red blood per rectum since admission. This is likely related to her diverticulitis. Her Coumadin has been held. Her INR this morning was 2.6. Patient was recently admitted with similar presentation. At the time the decision for a colonoscopy was deferred. (2) Acute diverticulitis Assessment/Plan: We will continue Zosyn. (3) Atrial fibrillation Qualifiers: Atrial fibrillation type: unspecified chronic Qualified Code(s): I48.20 - Chronic atrial fibrillation, unspecified; I48.2 - Chronic atrial fibrillation Assessment/Plan: INR today is 2.6. Coumadin is on hold due to GI bleed. We will continue patient's home medications which include diltiazem, amiodarone and Coreg (4) Chest pain Assessment/Plan: Etiology undetermined. Patient was given nitroglycerin sublingual which did not relief her pain. She reported improvement in the pain when morphine was given. EKG showed atrial fibrillation. There was no significant change when compared to an EKG done in December 2019. Patient's initial troponin was 14.1 which was in the normal range. Will trend . BNP was 164. Patient's INR is 2.6 Suspicion for coronary event is low. We will also administer Tums as needed in the event that this is as a result of acid reflux. (5) Hypertension Assessment/Plan: Patient was hypotensive after administration of nitroglycerin. We will monitor blood pressure closely. We will continue Coreg and diltiazem when safe to do so (6) Hyperlipidemia Assessment/Plan: We will continue atorvastatin (7) Depression Assessment/Plan: On Effexor - Current Meds Current Meds: Current Medications Generic Name Dose Route Start Last Admin Trade Name Freq PRN Reason Stop Dose Admin Piperacillin Sod/Tazobactam 100 mls @ 25 mls/hr 03/21/20 06:00 03/21/20 06:18 Sod 3.375 gm/ Sodium Chloride IV 25 mls/hr Q8H RAISA Administration Morphine Sulfate 2 mg 03/20/20 22:29 03/21/20 06:20 Morphine (Carpuject) IVP 2 mg Q2HR PRN Administration Pain 8 to 10 Ondansetron HCl 4 mg 03/20/20 22:29 03/21/20 06:07 Zofran Inj IVP 4 mg Q6HR PRN Administration Nausea / Vomiting Pantoprazole Sodium 40 mg 03/21/20 07:00 03/21/20 06:12 Protonix IVP 40 mg QDAC RAISA Administration Sodium Chloride 10 ml 03/21/20 01:00 03/21/20 02:02 Normal Saline Flush 0.9% IVP Not Given 0100,0900,1700 RAISA - Lab Result Fish Bone Diagrams: 03/21/20 05:15 03/21/20 05:15 Subjective - Subjective Patient Reports: Other (Singh seen and examined this morning. She was awake yet to be comfortable at the time of my exam. She has not had any more episodes of bright red blood per rectum today. She denied any significant abdominal pain. A couple of hours after seeing her this morning he was brought to my attention by the nurse that she was experiencing substernal chest pain with radiation to her back. She was given sublingual nitroglycerin and then morphine. She reported improvement in the pain. EKG shows NSR, no ST elevation or depression, and no arrhythmias. No significant T-wave inversions. , Troponin and BNP levels were ordered.) Objective Vital Signs: Vital Signs - 24 hr 03/20/20 03/20/20 03/20/20 19:57 20:06 20:46 Temperature 36.3 C L Heart Rate 106 H 90 86 Heart Rate [ Brachial] Respiratory 20 16 22 Rate Blood Pressure 145/78 H 157/84 H 126/76 Blood Pressure [Right Brachial artery] O2 Saturation 91 L 98 98 03/20/20 03/21/20 03/21/20 22:54 00:00 05:40 Temperature 36.3 C L 36.7 C Heart Rate 82 Heart Rate [ 88 85 Brachial] Respiratory 16 20 18 Rate Blood Pressure 157/97 H Blood Pressure 145/82 H 146/90 H [Right Brachial artery] O2 Saturation 99 100 98 Oxygen O2 Source [With Activity] Room air O2 Source Room air I&O (Last 24 Hrs): Intake and Output Totals x24h 03/19/20 03/20/20 03/21/20 23:59 23:59 23:59 Intake Total 100 Output Total 700 450 Balance -700 -350 General: Alert, Oriented x3, Mild distress HEENT: PERRLA, EOMI Neck: Supple, No JVD Neuro: Alert, Oriented Times 3 Cardiovascular: Other (irregularly irregular) Abdomen: Normal bowel sounds, Soft, No tenderness Extremities: No clubbing, No cyanosis, No edema Skin: No rashes - Results Results: Laboratory Results WBC 9.1 x10^3/uL (4.8-10.8) 03/21/20 05:15 RBC 3.56 10^6/uL (4.20-5.40) L 03/21/20 05:15 Hgb 10.8 g/dL (12.0-16.0) L 03/21/20 05:15 Hct 33.1 % (37.0-47.0) L 03/21/20 05:15 MCV 93.0 fL (81.0-99.0) 03/21/20 05:15 MCH 30.3 pg (27.0-31.0) 03/21/20 05:15 MCHC 32.6 g/dL (32.0-36.0) 03/21/20 05:15 RDW 13.4 % (12.0-15.0) 03/21/20 05:15 Plt Count 374 10^3/uL (130-450) 03/21/20 05:15 MPV 9.5 fL (7.9-10.8) 03/21/20 05:15 Neut # (Auto) 7.3 10^3/uL (1.5-6.6) H 03/20/20 20:06 Lymph # (Auto) 1.0 10^3/uL (1.5-3.5) L 03/20/20 20:06 [place] # (Auto) 0.5 10^3/uL (0.0-1.0) 03/20/20 20:06 Eos # (Auto) 0.2 10^3/uL (0.0-0.7) 03/20/20 20:06 Baso # (Auto) 0.0 10^3/uL (0.0-0.1) 03/20/20 20:06 Absolute Nucleated RBC 0.00 x10^3/uL 03/20/20 20:06 Nucleated RBC % 0.0 /100WBC 03/20/20 20:06 PT 36.1 secs (9.9-12.6) H 03/20/20 20:06 INR 3.4 (0.8-1.2) H 03/20/20 20:06 Sodium 135 mmol/L (135-145) 03/21/20 05:15 Potassium 4.3 mmol/L (3.5-5.0) 03/21/20 05:15 Chloride 99 mmol/L (101-111) L 03/21/20 05:15 Carbon Dioxide 26 mmol/L (21-32) 03/21/20 05:15 Anion Gap 10.0 (6-13) 03/21/20 05:15 BUN 16 mg/dL (6-20) 03/21/20 05:15 Creatinine 1.2 mg/dL (0.4-1.0) H 03/21/20 05:15 Estimated GFR (MDRD) 42 (>89) L 03/21/20 05:15 Glucose 106 mg/dL (70-100) H 03/21/20 05:15 Calcium 8.8 mg/dL (8.5-10.3) 03/21/20 05:15 Total Bilirubin 0.9 mg/dL (0.2-1.0) 03/20/20 20:06 AST 18 IU/L (10-42) 03/20/20 20:06 ALT 12 IU/L (10-60) 03/20/20 20:06 Alkaline Phosphatase 124 IU/L (42-121) H 03/20/20 20:06 Total Protein 7.6 g/dL (6.7-8.2) 03/20/20 20:06 Albumin 3.7 g/dL (3.2-5.5) 03/20/20 20:06 Globulin 3.9 g/dL (2.1-4.2) 03/20/20 20:06 Albumin/Globulin Ratio 0.9 (1.0-2.2) L 03/20/20 20:06 Lipase 22 U/L (22-51) 03/20/20 20:06 Urine Color YELLOW 03/21/20 05:04 Urine Clarity CLEAR (CLEAR) 03/21/20 05:04 Urine pH 6.5 PH (5.0-7.5) 03/21/20 05:04 Ur Specific [place] <=1.005 (1.002-1.030) 03/21/20 05:04 Urine Protein NEGATIVE mg/dL (NEGATIVE) 03/21/20 05:04 Urine Glucose (UA) NEGATIVE mg/dL (NEGATIVE) 03/21/20 05:04 Urine Ketones NEGATIVE mg/dL (NEGATIVE) 03/21/20 05:04 Urine Occult Blood MODERATE (NEGATIVE) H 03/21/20 05:04 Urine Nitrite NEGATIVE (NEGATIVE) 03/21/20 05:04 Urine Bilirubin NEGATIVE (NEGATIVE) 03/21/20 05:04 Urine Urobilinogen 0.2 (NORMAL) E.U./dL (NORMAL) 03/21/20 05:04 Ur Leukocyte Esterase TRACE (NEGATIVE) H 03/21/20 05:04 Urine RBC 0-5 /HPF (0-5) 03/21/20 05:04 Urine WBC 4-5 /HPF (0-5) 03/21/20 05:04 Ur Squamous Epith Cells FEW Squamous (<= Few) 03/21/20 05:04 Urine Bacteria Few /HPF (None Seen) 03/21/20 05:04 Ur Microscopic Review INDICATED 03/21/20 05:04 Urine Culture Comments INDICATED 03/21/20 05:04 Blood Type A POSITIVE 03/20/20 20:06 Antibody Screen NEGATIVE 03/20/20 20:06 Sepsis Event Note (H) - Evaluation Current Stage of Sepsis: Ruled out ABX Reporting Has patient been on IV antibiotics over the past 48 hours?: Yes
[2020-03-21] MEDS: GABAPENTIN 300 MG CAPSULE PO SCH ×2 (08:33→20:41)
[2020-03-21] MEDS: FERROUS GLUCONATE 324 MG TABLET PO SCH (08:33)
[2020-03-21] MEDS: AMIODARONE 200 MG TABLET PO SCH (08:33)
[2020-03-21] MEDS: carvediloL 3.125 MG TABLET PO SCH ×2 (08:33→20:41)
[2020-03-21] MEDS: diltiaZEM CD 120 MG CAPSULE PO SCH (08:34)
[2020-03-21] MEDS: VENLAFAXINE ER 75 MG CAPSULE PO SCH (08:34)
[2020-03-21] MEDS: SODIUM CHLORIDE FLUSH 0.9% 10 ML SYRINGE IVP PRN ×4 (10:36→21:02)
[2020-03-21] MEDS ORDERED: MORPHINE 2 MG/ML CARPUJECT IVP PRN (11:34)
[2020-03-21] MEDS: NITROGLYCERIN SL 0.4 MG TABLET SL PRN ×2 (11:37→11:42)
--- NOTE | 2020-03-21 12:47 | PHARMACY PROGRESS NOTE ---
- Best Possible Medication History Admit Date and Time: 03/20/202228 Processed by: Nursing Medication History completed: Yes Patient Interview: Completed As the person ultimately responsible for medication therapy, providers are able to order a medication from an existing home medication list in [facility] via the "Reconcile Routine" prior to Confirmation of that medication by ground crewman aircraft support. Such practice is discouraged except when the physician, in their clinical judg ment, deems that a medical need exists for a medication without regard to previous use.
[2020-03-21] MEDS: CALCIUM CARBONATE CHEW 500 MG TABLET PO PRN ×2 (16:15→23:46)
[2020-03-21] MEDS: ACETAMINOPHEN 325 MG TABLET PO PRN (16:15)
[2020-03-21] MEDS ORDERED: SODIUM CHLORIDE 0.9% 500 ML IV ONE (17:34)
[2020-03-21] MEDS ORDERED: IOVERSOL 320 100 ML VIAL IVP ONE (17:39)
[2020-03-21] MEDS: ATORVASTATIN 10 MG TABLET PO SCH (20:41)
[2020-03-21] MEDS: ESTROGENS CONJUGATED VG SCH (20:41)
--- NOTE | 2020-03-21 20:56 | CT Report ---
Reason: substernal chest pain w rad to back ?Dissection,PE Procedure Date: 03/21/2020 Accession Number: [id number] / [id number] Procedure: CT - ANGIO CHEST W/WO CPT Code: Final Report FULL RESULT: EXAM: CT ANGIOGRAM CHEST EXAM DATE: 03/21/2020 06:50 PM. CLINICAL HISTORY: Substernal chest pain w rad to back ?Dissection, PE. COMPARISON: CHEST ANGIO 07/04/2016 6:07 PM ABDOMEN/PELVIS W/O 07/07/2017 8:56 PM CHEST 1 VIEW 01/25/2020 9:08 PM. TECHNIQUE: Routine helical imaging was performed through the chest in the pulmonary arterial phase. IV Contrast: 80 mL of Optiray 320.. Reconstructions: Coronal 3-D MIP reconstructions. Sagittal and coronal. In accordance with CT protocol optimization, one or more of the following dose reduction techniques were utilized for this exam: automated exposure control, adjustment of mA and/or KV based on patient size, or use of iterative reconstructive technique. FINDINGS: Pulmonary Arteries: Diagnostic quality: Adequate through the segmental arteries. No evidence for acute or chronic pulmonary emboli. RV/LV is within normal limits. There is no interventricular septal bowing. There is no reflux of contrast material in the IVC. Lungs/Pleura: Biapical scarring. No infiltrates. No pleural effusions or pneumothorax. No suspicious masses or nodules. Mediastinum: Mild cardiomegaly. No currently effusions. No mediastinal or hilar lymphadenopathy. Thoracic Aorta: Unremarkable. Upper Abdomen: Please see dedicated CT scan of the abdomen/pelvis or abdominal/pelvic findings. Other: None. IMPRESSION: 1. No acute findings in the chest including no evidence of pulmonary embolism or aortic dissection. 2. Mild cardiomegaly. 3. Please see dedicated CT scan of the abdomen/pelvis report for abdominal/pelvic findings. RADIA
[2020-03-22 04:38] LABS: HGB - HEMOGLOBIN 9.5 g/dL (12.0-16.0); MEAN CORPUSCULAR HGB CONC 30.9 g/dL (32.0-36.0); MEAN CORPUSCULAR VOLUME 96.8 fL (81.0-99.0); MEAN PLATELET VOLUME 9.4 fL (7.9-10.8); RED BLOOD COUNT 3.17 10^6/uL (4.20-5.40); RED CELL DISTRIBUTION WIDTH 13.7 % (12.0-15.0); WHITE BLOOD COUNT 10.7 x10^3/uL (4.8-10.8)
[2020-03-22 04:45] LABS: CALCIUM 8.5 mg/dL (8.5-10.3); CREATININE 1.1 mg/dL (0.4-1.0)
[2020-03-22] MEDS: PIPERACILLIN/TAZOBACTAM 3.375 GM in SODIUM CHLORIDE 0.9% MINIBAG 100 ML IV SCH ×3 (05:56→21:11)
[2020-03-22] MEDS: SODIUM CHLORIDE FLUSH 0.9% 10 ML SYRINGE IVP PRN (05:56)
[2020-03-22] MEDS: PANTOPRAZOLE 40 MG VIAL IVP SCH (05:56)
[2020-03-22] MEDS: AMIODARONE 200 MG TABLET PO SCH (09:06)
[2020-03-22] MEDS: diltiaZEM CD 120 MG CAPSULE PO SCH (09:06)
[2020-03-22] MEDS: carvediloL 3.125 MG TABLET PO SCH ×2 (09:06→21:11)
[2020-03-22] MEDS: FERROUS GLUCONATE 324 MG TABLET PO SCH (09:06)
[2020-03-22] MEDS: VENLAFAXINE ER 75 MG CAPSULE PO SCH (09:06)
[2020-03-22] MEDS: GABAPENTIN 300 MG CAPSULE PO SCH ×2 (09:06→21:11)
[2020-03-22] MEDS: SODIUM CHLORIDE FLUSH 0.9% 10 ML SYRINGE IVP SCH ×2 (09:07→19:49)
--- NOTE | 2020-03-22 10:44 | PROVIDER PROGRESS NOTE ---
Assessment/Plan - Problem List (1) Anemia due to GI blood loss Assessment/Plan: Hgb has dropped since admission from 12 to 10.8 to 9.5. Follow H/H q 12-24 h. Transfuse if Hgb <7. Continue oral Iron replacement. (2) GI bleed Qualifiers: GI bleed type/associated pathology: diverticulosis Qualified Code(s): K57.91 - Diverticulosis of intestine, part unspecified, without perforation or abscess with bleeding Assessment/Plan: No scope since this is very likely a recurrence of diverticulitis, per imaging. Hold Coumadin until bleeding stops. (3) Acute diverticulitis Assessment/Plan: Continue Zosyn Continue clear liquid diet for bowel rest. (4) Atrial fibrillation Qualifiers: Atrial fibrillation type: unspecified chronic Qualified Code(s): I48.20 - Chronic atrial fibrillation, unspecified; I48.2 - Chronic atrial fibrillation Assessment/Plan: HR is controlled on home doses of Amio, Dilt and B-mandie. Coumadin is on hold until bleeding stops, but no vitamin K was given. Following INR daily. (5) Atypical chest pain Assessment/Plan: Two sl NTG gave no relief last evening. Trops were neg x2 yesterday. A CT of chest was done last night and this was essentially unremarkable. Presumptive Dx is referred pain from abdomen. (6) Hypertension Assessment/Plan: Stable on current meds (7) Hyperlipidemia Assessment/Plan: Continue home meds (8) Depression Assessment/Plan: Pt on Effexor - Current Meds Current Meds: Current Medications Generic Name Dose Route Start Last Admin Trade Name Freq PRN Reason Stop Dose Admin Acetaminophen 650 mg 03/20/20 22:29 03/21/20 16:15 Tylenol PO 650 mg Q4HR PRN Administration Pain 1 to 4 Amiodarone HCl 200 mg 03/21/20 09:00 03/22/20 09:06 Pacerone PO 200 mg DAILY RAISA Administration Atorvastatin Calcium 20 mg 03/21/20 21:00 03/21/20 20:41 Lipitor PO 20 mg QPM RAISA Administration Calcium Carbonate/Glycine 500 mg 03/21/20 11:29 03/21/20 23:46 Tums PO 500 mg TID PRN Administration Heartburn Carvedilol 3.125 mg 03/21/20 09:00 03/22/20 09:06 Coreg PO 3.125 mg BID RAISA Administration Diltiazem HCl 120 mg 03/21/20 09:00 03/22/20 09:06 Cardizem Cd PO 120 mg DAILY RAISA Administration Ferrous Gluconate 324 mg 03/21/20 08:00 03/22/20 09:06 Fergon PO Not Given DAILYWM RAISA Gabapentin 600 mg 03/21/20 09:00 03/22/20 09:06 Neurontin PO 600 mg BID RAISA Administration Piperacillin Sod/Tazobactam 100 mls @ 25 mls/hr 03/21/20 06:00 03/22/20 10:04 Sod 3.375 gm/ Sodium Chloride IV Infused Q8H RAISA Infusion Morphine Sulfate 2 mg 03/20/20 22:29 03/21/20 21:01 Morphine (Carpuject) IVP 2 mg Q2HR PRN Administration Pain 8 to 10 Morphine Sulfate 2 mg 03/21/20 11:34 03/21/20 11:51 Morphine (Carpuject) IVP 03/28/20 11:33 2 mg ONCE PRN Administration Chest Pain Nitroglycerin 0.4 mg 03/21/20 11:33 03/21/20 11:42 Nitrostat SL 0.4 mg Q5MIN PRN Administration Chest Pain Non-Formulary Medication 0.5 g 03/21/20 21:00 03/21/20 20:41 Estrogens, Conjugated Cream [Premarin Cream] VG Not Given [id number] [facility] Ondansetron HCl 4 mg 03/20/20 22:29 03/21/20 06:07 Zofran Inj IVP 4 mg Q6HR PRN Administration Nausea / Vomiting Pantoprazole Sodium 40 mg 03/21/20 07:00 03/22/20 05:56 Protonix IVP 40 mg QDAC RAISA Administration Sodium Chloride 10 ml 03/20/20 22:29 03/22/20 05:56 Normal Saline Flush 0.9% IVP 10 ml PRN PRN Administration NEEDED PER PROVIDER ORDERS Sodium Chloride 10 ml 03/21/20 01:00 03/22/20 09:07 Normal Saline Flush 0.9% IVP 10 ml 0100,0900,1700 RAISA Administration Venlafaxine HCl 75 mg 03/21/20 09:00 03/22/20 09:06 Effexor Er PO 75 mg DAILY RAISA Administration - Lab Result Fish Bone Diagrams: 03/22/20 04:15 03/22/20 04:15 Subjective - Subjective Patient Reports: Feeling Better Nursing Reports: Other (Small clot with morning stool) Objective Vital Signs: Vital Signs - 24 hr 03/21/20 03/21/20 03/21/20 11:36 11:37 11:42 Temperature Heart Rate 78 84 Heart Rate [ 78 Brachial] Respiratory Rate Blood Pressure 120/74 114/71 Blood Pressure 120/74 [Right Brachial artery] O2 Saturation 03/21/20 03/21/20 03/21/20 11:48 12:09 12:13 Temperature Heart Rate Heart Rate [ 80 80 83 Brachial] Respiratory Rate Blood Pressure Blood Pressure 100/54 L 75/48 L 92/50 L [Right Brachial artery] O2 Saturation 03/21/20 03/21/20 03/21/20 13:00 16:00 20:11 Temperature 36.5 C 36.5 C Heart Rate Heart Rate [ 77 84 65 Brachial] Respiratory 18 16 Rate Blood Pressure Blood Pressure 103/54 L 120/60 132/67 H [Right Brachial artery] O2 Saturation 94 99 03/21/20 03/22/20 03/22/20 23:41 04:58 07:50 Temperature 36.4 C L 36.6 C 36.5 C Heart Rate Heart Rate [ 68 81 90 Brachial] Respiratory 17 18 16 Rate Blood Pressure Blood Pressure 136/73 H 125/62 118/73 [Right Brachial artery] O2 Saturation 98 93 92 Oxygen O2 Source [With Activity] Room air O2 Source Room air I&O (Last 24 Hrs): Intake and Output Totals x24h 03/20/20 03/21/20 03/22/20 23:59 23:59 23:59 Intake Total 1662 1360 Output Total 700 750 750 Balance -700 912 610 General: Alert, Oriented x3 HEENT: Mucous membr. moist/pink Neck: Supple Neuro: Alert, Non Focal Cardiovascular: Regular rate Respiratory: No respiratory distress Abdomen: Soft Extremities: No edema - Results Results: Laboratory Results WBC 10.7 x10^3/uL (4.8-10.8) 03/22/20 04:15 RBC 3.17 10^6/uL (4.20-5.40) L 03/22/20 04:15 Hgb 9.5 g/dL (12.0-16.0) L 03/22/20 04:15 Hct 30.7 % (37.0-47.0) L 03/22/20 04:15 MCV 96.8 fL (81.0-99.0) 03/22/20 04:15 MCH 30.0 pg (27.0-31.0) 03/22/20 04:15 MCHC 30.9 g/dL (32.0-36.0) L 03/22/20 04:15 RDW 13.7 % (12.0-15.0) 03/22/20 04:15 Plt Count 345 10^3/uL (130-450) 03/22/20 04:15 MPV 9.4 fL (7.9-10.8) 03/22/20 04:15 Neut # (Auto) 7.3 10^3/uL (1.5-6.6) H 03/20/20 20:06 Lymph # (Auto) 1.0 10^3/uL (1.5-3.5) L 03/20/20 20:06 [place] # (Auto) 0.5 10^3/uL (0.0-1.0) 03/20/20 20:06 Eos # (Auto) 0.2 10^3/uL (0.0-0.7) 03/20/20 20:06 Baso # (Auto) 0.0 10^3/uL (0.0-0.1) 03/20/20 20:06 Absolute Nucleated RBC 0.00 x10^3/uL 03/20/20 20:06 Nucleated RBC % 0.0 /100WBC 03/20/20 20:06 PT 36.1 secs (9.9-12.6) H 03/20/20 20:06 INR 3.4 (0.8-1.2) H 03/20/20 20:06 Whole Blood INR 3.4 (0.8-1.2) H 03/22/20 09:00 Sodium 133 mmol/L (135-145) L 03/22/20 04:15 Potassium 4.2 mmol/L (3.5-5.0) 03/22/20 04:15 Chloride 99 mmol/L (101-111) L 03/22/20 04:15 Carbon Dioxide 26 mmol/L (21-32) 03/22/20 04:15 Anion Gap 8.0 (6-13) 03/22/20 04:15 BUN 15 mg/dL (6-20) 03/22/20 04:15 Creatinine 1.1 mg/dL (0.4-1.0) H 03/22/20 04:15 Estimated GFR (MDRD) 47 (>89) L 03/22/20 04:15 Glucose 126 mg/dL (70-100) H 03/22/20 04:15 Calcium 8.5 mg/dL (8.5-10.3) 03/22/20 04:15 Total Bilirubin 0.9 mg/dL (0.2-1.0) 03/20/20 20:06 AST 18 IU/L (10-42) 03/20/20 20:06 ALT 12 IU/L (10-60) 03/20/20 20:06 Alkaline Phosphatase 124 IU/L (42-121) H 03/20/20 20:06 Troponin I High Sens 15.4 ng/L (2.3-14.8) H* 03/21/20 23:35 B-Natriuretic Peptide 191 pg/mL (5-100) H 03/21/20 11:45 Total Protein 7.6 g/dL (6.7-8.2) 03/20/20 20:06 Albumin 3.7 g/dL (3.2-5.5) 03/20/20 20:06 Globulin 3.9 g/dL (2.1-4.2) 03/20/20 20:06 Albumin/Globulin Ratio 0.9 (1.0-2.2) L 03/20/20 20:06 Lipase 22 U/L (22-51) 03/20/20 20:06 Urine Color YELLOW 03/21/20 05:04 Urine Clarity CLEAR (CLEAR) 03/21/20 05:04 Urine pH 6.5 PH (5.0-7.5) 03/21/20 05:04 Ur Specific [place] <=1.005 (1.002-1.030) 03/21/20 05:04 Urine Protein NEGATIVE mg/dL (NEGATIVE) 03/21/20 05:04 Urine Glucose (UA) NEGATIVE mg/dL (NEGATIVE) 03/21/20 05:04 Urine Ketones NEGATIVE mg/dL (NEGATIVE) 03/21/20 05:04 Urine Occult Blood MODERATE (NEGATIVE) H 03/21/20 05:04 Urine Nitrite NEGATIVE (NEGATIVE) 03/21/20 05:04 Urine Bilirubin NEGATIVE (NEGATIVE) 03/21/20 05:04 Urine Urobilinogen 0.2 (NORMAL) E.U./dL (NORMAL) 03/21/20 05:04 Ur Leukocyte Esterase TRACE (NEGATIVE) H 03/21/20 05:04 Urine RBC 0-5 /HPF (0-5) 03/21/20 05:04 Urine WBC 4-5 /HPF (0-5) 03/21/20 05:04 Ur Squamous Epith Cells FEW Squamous (<= Few) 03/21/20 05:04 Urine Bacteria Few /HPF (None Seen) 03/21/20 05:04 Ur Microscopic Review INDICATED 03/21/20 05:04 Urine Culture Comments INDICATED 03/21/20 05:04 Blood Type A POSITIVE 03/20/20 20:06 Antibody Screen NEGATIVE 03/20/20 20:06 Sepsis Event Note (H) - Evaluation Current Stage of Sepsis: Ruled out
[2020-03-22] MEDS: ACETAMINOPHEN 325 MG TABLET PO PRN (16:27)
[2020-03-22] MEDS: CALCIUM CARBONATE CHEW 500 MG TABLET PO PRN (16:27)
[2020-03-22] MEDS: ATORVASTATIN 10 MG TABLET PO SCH (21:11)
[2020-03-23] MEDS: SODIUM CHLORIDE FLUSH 0.9% 10 ML SYRINGE IVP SCH ×3 (01:06→16:21)
[2020-03-23 05:36] LABS: MEAN CORPUSCULAR HEMOGLOBIN 30.2 pg (27.0-31.0); MEAN CORPUSCULAR HGB CONC 31.8 g/dL (32.0-36.0); MEAN PLATELET VOLUME 9.8 fL (7.9-10.8); RED BLOOD COUNT 2.98 10^6/uL (4.20-5.40); RED CELL DISTRIBUTION WIDTH 13.4 % (12.0-15.0); WHITE BLOOD COUNT 10.5 x10^3/uL (4.8-10.8)
[2020-03-23 05:47] LABS: CALCIUM 8.6 mg/dL (8.5-10.3)
[2020-03-23] MEDS: PIPERACILLIN/TAZOBACTAM 3.375 GM in SODIUM CHLORIDE 0.9% MINIBAG 100 ML IV SCH ×3 (06:02→21:18)
[2020-03-23] MEDS: PANTOPRAZOLE 40 MG VIAL IVP SCH (06:02)
[2020-03-23] MEDS: VENLAFAXINE ER 75 MG CAPSULE PO SCH (08:39)
[2020-03-23] MEDS: FERROUS GLUCONATE 324 MG TABLET PO SCH (08:39)
[2020-03-23] MEDS: GABAPENTIN 300 MG CAPSULE PO SCH ×2 (08:39→21:18)
[2020-03-23] MEDS: diltiaZEM CD 120 MG CAPSULE PO SCH (08:39)
[2020-03-23] MEDS: carvediloL 3.125 MG TABLET PO SCH ×2 (08:39→21:18)
[2020-03-23] MEDS: AMIODARONE 200 MG TABLET PO SCH (08:40)
--- NOTE | 2020-03-23 12:43 | PROVIDER PROGRESS NOTE ---
Assessment/Plan - Problem List (1) Anemia due to GI blood loss Assessment/Plan: Hgb stable at 8 for several days, after transfused at admission Follow H/H daily (2) GI bleed Qualifiers: GI bleed type/associated pathology: diverticulosis Qualified Code(s): K57.91 - Diverticulosis of intestine, part unspecified, without perforation or a bscess with bleeding Assessment/Plan: Bright red blood per rectum seeemed to have stopped this morning, with a brown BM, then she had a large bloody BM this afternoon. The Coumadin has been on hold since admission. INR today is excessive at 5.1. Will give po vitamin K due to active bleeding still happening. She is not stable for [facility], will make her an Inpatient. (3) Acute diverticulitis Assessment/Plan: She still has mild abdominal pain, but less than at admission. Will start to advance diet from clears this evening, and decrease IV fluid rate. Continue iv antibx. Continue prn pain meds. Will start more OOB with PT and OT. She still needs hospitalization, therefore will admit to Inpatient status from Observation status. (4) Atrial fibrillation Qualifiers: Atrial fibrillation type: unspecified chronic Qualified Code(s): I48.20 - Chronic atrial fibrillation, unspecified; I48.2 - Chronic atrial fibrillation Assessment/Plan: HR is controlled on her home meds. INR is excessive today at 5.1; will give vitamin K po today, due to recurrence of bloody BMs. Follow INR daily. (5) Atypical chest pain Assessment/Plan: Resolved, it was likely radfiating pain from abdomen. (6) Hypertension Assessment/Plan: Controlled on home meds (7) Hyperlipidemia Assessment/Plan: On her home med (8) Depression Assessment/Plan: Her home Effexor dose continues - Current Meds Current Meds: Current Medications Generic Name Dose Route Start Last Admin Trade Name Freq PRN Reason Stop Dose Admin Acetaminophen 650 mg 03/20/20 22:29 03/22/20 16:27 Tylenol PO 650 mg Q4HR PRN Administration Pain 1 to 4 Amiodarone HCl 200 mg 03/21/20 09:00 03/23/20 08:40 Pacerone PO 200 mg DAILY RAISA Administration Atorvastatin Calcium 20 mg 03/21/20 21:00 03/22/20 21:11 Lipitor PO 20 mg QPM RAISA Administration Calcium Carbonate/Glycine 500 mg 03/21/20 11:29 03/22/20 16:27 Tums PO 500 mg TID PRN Administration Heartburn Carvedilol 3.125 mg 03/21/20 09:00 03/23/20 08:39 Coreg PO 3.125 mg BID RAISA Administration Diltiazem HCl 120 mg 03/21/20 09:00 03/23/20 08:39 Cardizem Cd PO 120 mg DAILY RAISA Administration Ferrous Gluconate 324 mg 03/21/20 08:00 03/23/20 08:39 Fergon PO 324 mg DAILYWM RAISA Administration Gabapentin 600 mg 03/21/20 09:00 03/23/20 08:39 Neurontin PO 600 mg BID [facility] Administration Piperacillin Sod/Tazobactam 100 mls @ 25 mls/hr 03/21/20 06:00 03/23/20 10:53 Sod 3.375 gm/ Sodium Chloride IV Infused Q8H [facility] Infusion Morphine Sulfate 2 mg 03/20/20 22:29 03/21/20 21:01 Morphine (Carpuject) IVP 2 mg Q2HR PRN Administration Pain 8 to 10 Morphine Sulfate 2 mg 03/21/20 11:34 03/21/20 11:51 Morphine (Carpuject) IVP 03/28/20 11:33 2 mg ONCE PRN Administration Chest Pain Nitroglycerin 0.4 mg 03/21/20 11:33 03/21/20 11:42 Nitrostat SL 0.4 mg Q5MIN PRN Administration Chest Pain Non-Formulary Medication 0.5 g 03/21/20 21:00 03/21/20 20:41 Estrogens, Conjugated Cream [Premarin Cream] VG Not Given MoWeFr@2100 [facility] Ondansetron HCl 4 mg 03/20/20 22:29 03/21/20 06:07 Zofran Inj IVP 4 mg Q6HR PRN Administration Nausea / Vomiting Pantoprazole Sodium 40 mg 03/21/20 07:00 03/23/20 06:02 Protonix IVP 40 mg QDAC RAISA Administration Sodium Chloride 10 ml 03/20/20 22:29 03/22/20 05:56 Normal Saline Flush 0.9% IVP 10 ml PRN PRN Administration NEEDED PER PROVIDER ORDERS Sodium Chloride 10 ml 03/21/20 01:00 03/23/20 08:43 Normal Saline Flush 0.9% IVP 10 ml 0100,0900,1700 RAISA Administration Venlafaxine HCl 75 mg 03/21/20 09:00 03/23/20 08:39 Effexor Er PO 75 mg DAILY RAISA Administration - Lab Result Fish Bone Diagrams: 03/23/20 04:40 03/23/20 04:40 - Additional Planning My Orders: My Active Orders 03/23/20 Evaluate and Treat OT [OT] Routine Evaluate and Treat PT [PT] Routine Subjective - Subjective Patient Reports: Other (Less abdominal distension and abdomen is softer she reports, no further epigastric pain radiating to chest) Nursing Reports: Other (Had a tiny, formed, brown BM) Objective Vital Signs: Vital Signs - 24 hr 03/22/20 03/22/20 03/23/20 15:47 21:00 01:00 Temperature 36.7 C 36.6 C 36.2 C L Heart Rate [ 91 83 86 Brachial] Respiratory 18 14 16 Rate Blood Pressure 102/58 L [Left Brachial artery] Blood Pressure 120/64 114/60 [Right Brachial artery] O2 Saturation 85 L 93 97 03/23/20 03/23/20 04:41 08:18 Temperature 37.1 C 36.9 C Heart Rate [ 97 90 Brachial] Respiratory 16 18 Rate Blood Pressure [Left Brachial artery] Blood Pressure 109/58 L 130/60 [Right Brachial artery] O2 Saturation 98 97 Oxygen O2 Source [With Activity] Room air O2 Source Room air I&O (Last 24 Hrs): Intake and Output Totals x24h 03/21/20 03/22/20 03/23/20 23:59 23:59 23:59 Intake Total 1662 2560 780 Output Total 750 1450 675 Balance 912 1110 105 General: Alert, Oriented x3 HEENT: Mucous membr. moist/pink Neck: Supple Neuro: Alert, Non Focal Cardiovascular: Regular rate Respiratory: No respiratory distress Abdomen: Soft, No tenderness, Other (Distended, less than yesterday) Extremities: No edema - Results Results: Laboratory Results WBC 10.5 x10^3/uL (4.8-10.8) 03/23/20 04:40 RBC 2.98 10^6/uL (4.20-5.40) L 03/23/20 04:40 Hgb 9.0 g/dL (12.0-16.0) L 03/23/20 04:40 Hct 28.3 % (37.0-47.0) L 03/23/20 04:40 MCV 95.0 fL (81.0-99.0) 03/23/20 04:40 MCH 30.2 pg (27.0-31.0) 03/23/20 04:40 MCHC 31.8 g/dL (32.0-36.0) L 03/23/20 04:40 RDW 13.4 % (12.0-15.0) 03/23/20 04:40 Plt Count 319 10^3/uL (130-450) 03/23/20 04:40 MPV 9.8 fL (7.9-10.8) 03/23/20 04:40 Neut # (Auto) 7.3 10^3/uL (1.5-6.6) H 03/20/20 20:06 Lymph # (Auto) 1.0 10^3/uL (1.5-3.5) L 03/20/20 20:06 [place] # (Auto) 0.5 10^3/uL (0.0-1.0) 03/20/20 20:06 Eos # (Auto) 0.2 10^3/uL (0.0-0.7) 03/20/20 20:06 Baso # (Auto) 0.0 10^3/uL (0.0-0.1) 03/20/20 20:06 Absolute Nucleated RBC 0.00 x10^3/uL 03/20/20 20:06 Nucleated RBC % 0.0 /100WBC 03/20/20 20:06 PT 36.1 secs (9.9-12.6) H 03/20/20 20:06 INR 3.4 (0.8-1.2) H 03/20/20 20:06 Whole Blood INR 3.4 (0.8-1.2) H 03/22/20 09:00 Sodium 135 mmol/L (135-145) 03/23/20 04:40 Potassium 3.9 mmol/L (3.5-5.0) 03/23/20 04:40 Chloride 99 mmol/L (101-111) L 03/23/20 04:40 Carbon Dioxide 27 mmol/L (21-32) 03/23/20 04:40 Anion Gap 9.0 (6-13) 03/23/20 04:40 BUN 13 mg/dL (6-20) 03/23/20 04:40 Creatinine 1.0 mg/dL (0.4-1.0) 03/23/20 04:40 Estimated GFR (MDRD) 52 (>89) L 03/23/20 04:40 Glucose 120 mg/dL (70-100) H 03/23/20 04:40 Calcium 8.6 mg/dL (8.5-10.3) 03/23/20 04:40 Total Bilirubin 0.9 mg/dL (0.2-1.0) 03/20/20 20:06 AST 18 IU/L (10-42) 03/20/20 20:06 ALT 12 IU/L (10-60) 03/20/20 20:06 Alkaline Phosphatase 124 IU/L (42-121) H 03/20/20 20:06 Troponin I High Sens 15.4 ng/L (2.3-14.8) H* 03/21/20 23:35 B-Natriuretic Peptide 191 pg/mL (5-100) H 03/21/20 11:45 Total Protein 7.6 g/dL (6.7-8.2) 03/20/20 20:06 Albumin 3.7 g/dL (3.2-5.5) 03/20/20 20:06 Globulin 3.9 g/dL (2.1-4.2) 03/20/20 20:06 Albumin/Globulin Ratio 0.9 (1.0-2.2) L 03/20/20 20:06 Lipase 22 U/L (22-51) 03/20/20 20:06 Urine Color YELLOW 03/21/20 05:04 Urine Clarity CLEAR (CLEAR) 03/21/20 05:04 Urine pH 6.5 PH (5.0-7.5) 03/21/20 05:04 Ur Specific [place] <=1.005 (1.002-1.030) 03/21/20 05:04 Urine Protein NEGATIVE mg/dL (NEGATIVE) 03/21/20 05:04 Urine Glucose (UA) NEGATIVE mg/dL (NEGATIVE) 03/21/20 05:04 Urine Ketones NEGATIVE mg/dL (NEGATIVE) 03/21/20 05:04 Urine Occult Blood MODERATE (NEGATIVE) H 03/21/20 05:04 Urine Nitrite NEGATIVE (NEGATIVE) 03/21/20 05:04 Urine Bilirubin NEGATIVE (NEGATIVE) 03/21/20 05:04 Urine Urobilinogen 0.2 (NORMAL) E.U./dL (NORMAL) 03/21/20 05:04 Ur Leukocyte Esterase TRACE (NEGATIVE) H 03/21/20 05:04 Urine RBC 0-5 /HPF (0-5) 03/21/20 05:04 Urine WBC 4-5 /HPF (0-5) 03/21/20 05:04 Ur Squamous Epith Cells FEW Squamous (<= Few) 03/21/20 05:04 Urine Bacteria Few /HPF (None Seen) 03/21/20 05:04 Ur Microscopic Review INDICATED 03/21/20 05:04 Urine Culture Comments INDICATED 03/21/20 05:04 Blood Type A POSITIVE 03/20/20 20:06 Antibody Screen NEGATIVE 03/20/20 20:06 Sepsis Event Note (H) - Evaluation Current Stage of Sepsis: Ruled out
[2020-03-23 14:05] LABS: INR 5.1 (0.8-1.2)
[2020-03-23] MEDS ORDERED: PHYTONADIONE 10 MG/ML AMP PO SCH (14:48)
[2020-03-23] MEDS ORDERED: CHERRY SYRUP 10 ML UDC PO SCH (14:48)
[2020-03-23] MEDS: ATORVASTATIN 10 MG TABLET PO SCH (21:18)
[2020-03-23] MEDS: ESTROGENS CONJUGATED VG SCH (21:18)
[2020-03-24] MEDS: SODIUM CHLORIDE FLUSH 0.9% 10 ML SYRINGE IVP SCH ×3 (01:30→17:13)
[2020-03-24 05:16] LABS: BASOPHILS % (AUTO) 0.2 %; EOSINOPHILS # (AUTO) 0.2 10^3/uL (0.0-0.7); EOSINOPHILS % (AUTO) 1.8 %; HGB - HEMOGLOBIN 8.7 g/dL (12.0-16.0); LYMPHOCYTES % (AUTO) 11.6 %; MEAN CORPUSCULAR HEMOGLOBIN 29.9 pg (27.0-31.0); MEAN CORPUSCULAR HGB CONC 31.8 g/dL (32.0-36.0); MEAN CORPUSCULAR VOLUME 94.2 fL (81.0-99.0); MEAN PLATELET VOLUME 9.6 fL (7.9-10.8); MONOCYTES # (AUTO) 0.7 10^3/uL (0.0-1.0); MONOCYTES % (AUTO) 8.3 %; NEUTROPHILS # (AUTO) 6.4 10^3/uL (1.5-6.6); NEUTROPHILS % (AUTO) 77.7 %; PLT - PLATELET COUNT 323 10^3/uL (130-450); RED BLOOD COUNT 2.91 10^6/uL (4.20-5.40); RED CELL DISTRIBUTION WIDTH 13.7 % (12.0-15.0); WHITE BLOOD COUNT 8.2 x10^3/uL (4.8-10.8)
[2020-03-24 05:19] LABS: INR 2.1 (0.8-1.2)
[2020-03-24 05:24] LABS: CALCIUM 8.6 mg/dL (8.5-10.3); CREATININE 0.9 mg/dL (0.4-1.0)
[2020-03-24] MEDS: PANTOPRAZOLE 40 MG VIAL IVP SCH (06:06)
[2020-03-24] MEDS: SODIUM CHLORIDE FLUSH 0.9% 10 ML SYRINGE IVP PRN ×2 (06:07→06:22)
[2020-03-24] MEDS: PIPERACILLIN/TAZOBACTAM 3.375 GM in SODIUM CHLORIDE 0.9% MINIBAG 100 ML IV SCH ×3 (06:22→21:17)
[2020-03-24] MEDS: GABAPENTIN 300 MG CAPSULE PO SCH ×2 (10:06→21:17)
[2020-03-24] MEDS: FERROUS GLUCONATE 324 MG TABLET PO SCH (10:06)
[2020-03-24] MEDS: AMIODARONE 200 MG TABLET PO SCH (10:07)
[2020-03-24] MEDS: carvediloL 3.125 MG TABLET PO SCH ×3 (10:07→21:24)
[2020-03-24] MEDS: VENLAFAXINE ER 75 MG CAPSULE PO SCH (10:07)
[2020-03-24] MEDS: diltiaZEM CD 120 MG CAPSULE PO SCH (10:07)
[2020-03-24] MEDS: MORPHINE 2 MG/ML CARPUJECT IVP PRN ×2 (12:52→16:44)
--- NOTE | 2020-03-24 14:09 | PROVIDER PROGRESS NOTE ---
Assessment/Plan - Problem List (1) Anemia due to GI blood loss Assessment/Plan: Slight drop in Hgb to 8.7 today, but VSS. Continue to watch CBC daily (2) GI bleed Qualifiers: GI bleed type/associated pathology: diverticulitis Qualified Code(s): K57.93 - Diverticulitis of intestine, part unspecified, without perforation or abscess with bleeding Assessment/Plan: Etiology is her acute diverticulitis which is being treated. Yesterday she needed 1 dose of oral vitamin K because of a large bloody BM Coumadin is on hold (3) Acute diverticulitis Assessment/Plan: She is not on empiric antibiotics IV and bowel rest. She has had very slow improvement in her symptoms of bloating and abdominal discomfort Will slowly start to advance her diet. (4) Atrial fibrillation Qualifiers: Atrial fibrillation type: unspecified chronic Qualified Code(s): I48.20 - Chronic atrial fibrillation, unspecified; I48.2 - Chronic atrial fibrillation Assessment/Plan: Heart rate is under good control on her home management of amiodarone, Cardizem and beta-mandie. The Coumadin is still on hold because she had a large bloody BM yesterday, when INR was 5. Follow INR daily (5) Hypertension Assessment/Plan: Stable on current meds (6) Hyperlipidemia Assessment/Plan: She remains on her statin (7) Depression Assessment/Plan: Stable on Effexor (8) Atypical chest pain Assessment/Plan: Resolved. This was referred pain from the abdomen. Troponins were flat and her EKG was unremarkable. - Current Meds Current Meds: Current Medications Generic Name Dose Route Start Last Admin Trade Name Sanjayq PRN Reason Stop Dose Admin Acetaminophen 650 mg 03/20/20 22:29 03/22/20 16:27 Tylenol PO 650 mg Q4HR PRN Administration Pain 1 to 4 Amiodarone HCl 200 mg 03/21/20 09:00 03/24/20 10:07 Pacerone PO 200 mg DAILY RAISA Administration Atorvastatin Calcium 20 mg 03/21/20 21:00 03/23/20 21:18 Lipitor PO 20 mg QPM RAISA Administration Calcium Carbonate/Glycine 500 mg 03/21/20 11:29 03/22/20 16:27 Tums PO 500 mg TID PRN Administration Heartburn Carvedilol 3.125 mg 03/21/20 09:00 03/24/20 10:07 Coreg PO 3.125 mg BID RAISA Administration Diltiazem HCl 120 mg 03/21/20 09:00 03/24/20 10:07 Cardizem Cd PO 120 mg DAILY RAISA Administration Ferrous Gluconate 324 mg 03/21/20 08:00 03/24/20 10:06 Fergon PO 324 mg DAILYWM RAISA Administration Gabapentin 600 mg 03/21/20 09:00 03/24/20 10:06 Neurontin PO 600 mg BID RAISA Administration Piperacillin Sod/Tazobactam 100 mls @ 25 mls/hr 03/21/20 06:00 03/24/20 12:53 Sod 3.375 gm/ Sodium Chloride IV 25 mls/hr Q8H RAISA Administration Morphine Sulfate 2 mg 03/20/20 22:29 03/24/20 12:52 Morphine (Carpuject) IVP 2 mg Q2HR PRN Administration Pain 8 to 10 Morphine Sulfate 2 mg 03/21/20 11:34 03/21/20 11:51 Morphine (Carpuject) IVP 03/28/20 11:33 2 mg ONCE PRN Administration Chest Pain Nitroglycerin 0.4 mg 03/21/20 11:33 03/21/20 11:42 Nitrostat SL 0.4 mg Q5MIN PRN Administration Chest Pain Non-Formulary Medication 0.5 g 03/21/20 21:00 03/23/20 21:18 Estrogens, Conjugated Cream [Premarin Cream] VG Not Given MoWeFr@2100 RAISA Ondansetron HCl 4 mg 03/20/20 22:29 03/21/20 06:07 Zofran Inj IVP 4 mg Q6HR PRN Administration Nausea / Vomiting Pantoprazole Sodium 40 mg 03/21/20 07:00 03/24/20 06:06 Protonix IVP 40 mg QDAC RAISA Administration Sodium Chloride 10 ml 03/20/20 22:29 03/24/20 06:22 Normal Saline Flush 0.9% IVP 10 ml PRN PRN Administration NEEDED PER PROVIDER ORDERS Sodium Chloride 10 ml 03/21/20 01:00 03/24/20 10:08 Normal Saline Flush 0.9% IVP 10 ml 0100,0900,1700 RAISA Administration Venlafaxine HCl 75 mg 03/21/20 09:00 03/24/20 10:07 Effexor Er PO 75 mg DAILY RAISA Administration - Lab Result Fish Bone Diagrams: 03/24/20 04:40 03/24/20 04:40 - Additional Planning My Orders: My Active Orders 03/24/20 Dinner DIET [Soft (Low Fiber) Diet] [DIET] 03/25/20 05:00 BMP - BASIC METABOLIC PANEL [CHEM] DAILYLAB CBC - COMP BLD CT W/AUTO DIFF [HEME] DAILYLAB PT WITH INR [COAG] DAILYLAB 03/26/20 05:00 BMP - BASIC METABOLIC PANEL [CHEM] DAILYLAB CBC - COMP BLD CT W/AUTO DIFF [HEME] DAILYLAB PT WITH INR [COAG] DAILYLAB 03/27/20 05:00 PT WITH INR [COAG] DAILYLAB Subjective - Subjective Patient Reports: Other (Gassiness continues. She can hear abdominal "gurgling" she states) Nursing Reports: Other (She had a brown BM today) Objective Vital Signs: Vital Signs - 24 hr 03/23/20 03/23/20 03/23/20 16:10 21:00 23:40 Temperature 36.9 C 36.8 C 36.9 C Heart Rate [ 82 83 77 Brachial] Respiratory 18 18 16 Rate Blood Pressure 122/62 141/66 H 120/59 L [Right Brachial artery] O2 Saturation 95 96 95 03/24/20 03/24/20 03/24/20 04:45 07:55 12:10 Temperature 36.6 C 36.5 C 36.3 C L Heart Rate [ 76 71 70 Brachial] Respiratory 16 16 16 Rate Blood Pressure 131/57 H 117/56 L 113/59 L [Right Brachial artery] O2 Saturation 97 93 94 Oxygen O2 Source [With Activity] Room air O2 Source Room air I&O (Last 24 Hrs): Intake and Output Totals x24h 03/22/20 03/23/20 03/24/20 23:59 23:59 23:59 Intake Total 2560 1150 800 Output Total 1450 1325 1500 Balance 1110 -175 -700 General: Alert, Oriented x3 HEENT: Mucous membr. moist/pink Neck: Supple Neuro: Alert, Non Focal Cardiovascular: No murmurs Respiratory: No respiratory distress Abdomen: Soft, Other (Mildly distended, diminished but present bowel sounds) Extremities: No edema - Results Results: Laboratory Results WBC 8.2 x10^3/uL (4.8-10.8) 03/24/20 04:40 RBC 2.91 10^6/uL (4.20-5.40) L 03/24/20 04:40 Hgb 8.7 g/dL (12.0-16.0) L 03/24/20 04:40 Hct 27.4 % (37.0-47.0) L 03/24/20 04:40 MCV 94.2 fL (81.0-99.0) 03/24/20 04:40 MCH 29.9 pg (27.0-31.0) 03/24/20 04:40 MCHC 31.8 g/dL (32.0-36.0) L 03/24/20 04:40 RDW 13.7 % (12.0-15.0) 03/24/20 04:40 Plt Count 323 10^3/uL (130-450) 03/24/20 04:40 MPV 9.6 fL (7.9-10.8) 03/24/20 04:40 Neut # (Auto) 6.4 10^3/uL (1.5-6.6) 03/24/20 04:40 Lymph # (Auto) 1.0 10^3/uL (1.5-3.5) L 03/24/20 04:40 [place] # (Auto) 0.7 10^3/uL (0.0-1.0) 03/24/20 04:40 Eos # (Auto) 0.2 10^3/uL (0.0-0.7) 03/24/20 04:40 Baso # (Auto) 0.0 10^3/uL (0.0-0.1) 03/24/20 04:40 Absolute Nucleated RBC 0.00 x10^3/uL 03/24/20 04:40 Nucleated RBC % 0.0 /100WBC 03/24/20 04:40 PT 23.0 secs (9.9-12.6) H 03/24/20 04:40 INR 2.1 (0.8-1.2) H 03/24/20 04:40 Whole Blood INR 3.4 (0.8-1.2) H 03/22/20 09:00 Sodium 137 mmol/L (135-145) 03/24/20 04:40 Potassium 3.6 mmol/L (3.5-5.0) 03/24/20 04:40 Chloride 102 mmol/L (101-111) 03/24/20 04:40 Carbon Dioxide 25 mmol/L (21-32) 03/24/20 04:40 Anion Gap 10.0 (6-13) 03/24/20 04:40 BUN 12 mg/dL (6-20) 03/24/20 04:40 Creatinine 0.9 mg/dL (0.4-1.0) 03/24/20 04:40 Estimated GFR (MDRD) 59 (>89) L 03/24/20 04:40 Glucose 111 mg/dL (70-100) H 03/24/20 04:40 Calcium 8.6 mg/dL (8.5-10.3) 03/24/20 04:40 Total Bilirubin 0.9 mg/dL (0.2-1.0) 03/20/20 20:06 AST 18 IU/L (10-42) 03/20/20 20:06 ALT 12 IU/L (10-60) 03/20/20 20:06 Alkaline Phosphatase 124 IU/L (42-121) H 03/20/20 20:06 Troponin I High Sens 15.4 ng/L (2.3-14.8) H* 03/21/20 23:35 B-Natriuretic Peptide 191 pg/mL (5-100) H 03/21/20 11:45 Total Protein 7.6 g/dL (6.7-8.2) 03/20/20 20:06 Albumin 3.7 g/dL (3.2-5.5) 03/20/20 20:06 Globulin 3.9 g/dL (2.1-4.2) 03/20/20 20:06 Albumin/Globulin Ratio 0.9 (1.0-2.2) L 03/20/20 20:06 Lipase 22 U/L (22-51) 03/20/20 20:06 Urine Color YELLOW 03/21/20 05:04 Urine Clarity CLEAR (CLEAR) 03/21/20 05:04 Urine pH 6.5 PH (5.0-7.5) 03/21/20 05:04 Ur Specific [place] <=1.005 (1.002-1.030) 03/21/20 05:04 Urine Protein NEGATIVE mg/dL (NEGATIVE) 03/21/20 05:04 Urine Glucose (UA) NEGATIVE mg/dL (NEGATIVE) 03/21/20 05:04 Urine Ketones NEGATIVE mg/dL (NEGATIVE) 03/21/20 05:04 Urine Occult Blood MODERATE (NEGATIVE) H 03/21/20 05:04 Urine Nitrite NEGATIVE (NEGATIVE) 03/21/20 05:04 Urine Bilirubin NEGATIVE (NEGATIVE) 03/21/20 05:04 Urine Urobilinogen 0.2 (NORMAL) E.U./dL (NORMAL) 03/21/20 05:04 Ur Leukocyte Esterase TRACE (NEGATIVE) H 03/21/20 05:04 Urine RBC 0-5 /HPF (0-5) 03/21/20 05:04 Urine WBC 4-5 /HPF (0-5) 03/21/20 05:04 Ur Squamous Epith Cells FEW Squamous (<= Few) 03/21/20 05:04 Urine Bacteria Few /HPF (None Seen) 03/21/20 05:04 Ur Microscopic Review INDICATED 03/21/20 05:04 Urine Culture Comments INDICATED 03/21/20 05:04 Blood Type A POSITIVE 03/20/20 20:06 Antibody Screen NEGATIVE 03/20/20 20:06 Sepsis Event Note (H) - Evaluation Current Stage of Sepsis: Ruled out
[2020-03-24] MEDS ORDERED: IOVERSOL 320 100 ML VIAL IVP ONE ×2 (18:20→18:53)
--- NOTE | 2020-03-24 20:21 | CT Report ---
Reason: F/U diverticulitis, worse abd pain Procedure Date: 03/24/2020 Accession Number: [id number] / [id number] Procedure: CT - Abdomen/Pelvis W CPT Code: Final Report FULL RESULT: EXAM: CT ABDOMEN AND PELVIS EXAM DATE: 03/24/2020 06:55 PM. CLINICAL HISTORY: Diverticulitis. Worse abdomen pain. COMPARISONS: ABDOMEN/PELVIS W 03/20/2020 9:10 PM. TECHNIQUE: Routine helical CT imaging was performed through the abdomen and pelvis. IV contrast: 90 cc of OPTIRAY 320. Enteric contrast: No. Reconstructions: Coronal and sagittal. In accordance with CT protocol optimization, one or more of the following dose reduction techniques were utilized for this exam: automated exposure control, adjustment of mA and/or KV based on patient size, or use of iterative reconstructive technique. FINDINGS: Lung Bases: Hiatal hernia repair noted. Liver: Normal. No masses. Gallbladder/Bile Ducts: Distended gallbladder with dilated ducts. No calcified stones identified. Spleen: Normal. Pancreas: Normal. Adrenal Glands: Normal. Kidneys: Normal. No masses or hydronephrosis. Peritoneal Cavity/Bowel: Diverticulosis with persistent wall thickening and adjacent fat stranding involving the upper sigmoid colon. No free fluid, free air or adenopathy. No masses. Nonvisualized appendix. Pelvic Organs: Hysterectomy. Unremarkable bladder. Vasculature: No aortic dilatation. Mild atherosclerotic calcification. Bones: Degenerative disk disease at L4-L5. Other: None. IMPRESSION: 1. Persistent sigmoid diverticulitis without complication. 2. Distended gallbladder with dilated ducts. RADIA
[2020-03-24] MEDS: ATORVASTATIN 10 MG TABLET PO SCH (21:17)
[2020-03-25] MEDS: SODIUM CHLORIDE FLUSH 0.9% 10 ML SYRINGE IVP SCH ×3 (00:49→15:45)
[2020-03-25 05:12] LABS: BASOPHILS % (AUTO) 0.3 %; EOSINOPHILS # (AUTO) 0.2 10^3/uL (0.0-0.7); EOSINOPHILS % (AUTO) 1.5 %; HGB - HEMOGLOBIN 8.5 g/dL (12.0-16.0); LYMPHOCYTES # (AUTO) 1.1 10^3/uL (1.5-3.5); LYMPHOCYTES % (AUTO) 10.4 %; MEAN CORPUSCULAR HEMOGLOBIN 29.5 pg (27.0-31.0); MEAN CORPUSCULAR HGB CONC 30.9 g/dL (32.0-36.0); MEAN CORPUSCULAR VOLUME 95.5 fL (81.0-99.0); MEAN PLATELET VOLUME 9.4 fL (7.9-10.8); MONOCYTES # (AUTO) 0.9 10^3/uL (0.0-1.0); MONOCYTES % (AUTO) 7.9 %; NEUTROPHILS # (AUTO) 8.7 10^3/uL (1.5-6.6); NEUTROPHILS % (AUTO) 79.5 %; PLT - PLATELET COUNT 328 10^3/uL (130-450); RED BLOOD COUNT 2.88 10^6/uL (4.20-5.40); RED CELL DISTRIBUTION WIDTH 13.9 % (12.0-15.0); WHITE BLOOD COUNT 10.9 x10^3/uL (4.8-10.8)
[2020-03-25 05:21] LABS: CALCIUM 8.6 mg/dL (8.5-10.3); INR 1.4 (0.8-1.2); PT - PROTHROMBIN TIME 15.2 secs (9.9-12.6)
[2020-03-25] MEDS: PANTOPRAZOLE 40 MG VIAL IVP SCH (05:47)
[2020-03-25] MEDS: SODIUM CHLORIDE FLUSH 0.9% 10 ML SYRINGE IVP PRN ×2 (05:47→21:31)
[2020-03-25] MEDS: PIPERACILLIN/TAZOBACTAM 3.375 GM in SODIUM CHLORIDE 0.9% MINIBAG 100 ML IV SCH (05:48)
[2020-03-25 08:31] LABS: ALBUMIN 2.8 g/dL (3.2-5.5); BILIRUBIN,DIRECT 0.2 mg/dL (0.1-0.5); BILIRUBIN,TOTAL 0.5 mg/dL (0.2-1.0); TOTAL PROTEIN 6.5 g/dL (6.7-8.2)
[2020-03-25] MEDS: AMIODARONE 200 MG TABLET PO SCH (08:56)
[2020-03-25] MEDS: FERROUS GLUCONATE 324 MG TABLET PO SCH (08:56)
[2020-03-25] MEDS: carvediloL 3.125 MG TABLET PO SCH ×2 (08:56→21:31)
[2020-03-25] MEDS: GABAPENTIN 300 MG CAPSULE PO SCH ×2 (08:56→21:31)
[2020-03-25] MEDS: VENLAFAXINE ER 75 MG CAPSULE PO SCH (08:56)
[2020-03-25] MEDS: diltiaZEM CD 120 MG CAPSULE PO SCH (08:58)
[2020-03-25] MEDS: metroNIDAZOLE 500 MG/100 ML 500 MG/100 ML BAG IV SCH ×2 (09:04→15:45)
[2020-03-25] MEDS: CIPROFLOXACIN 400 MG/200 ML 400 MG/200 ML BAG IV SCH ×2 (10:41→21:31)
--- NOTE | 2020-03-25 15:36 | PROVIDER PROGRESS NOTE ---
Assessment/Plan - Problem List (1) Anemia due to GI blood loss Assessment/Plan: The hemoglobin has drifted down to 8.5 today, 8.7 yesterday, 9.0 previous day. This is likely from hemodilution since she is still requiring IV fluids. Follow CBC daily (2) GI bleed Qualifiers: GI bleed type/associated pathology: diverticulitis Qualified Code(s): K57.93 - Diverticulitis of intestine, part unspecified, without perforation or abscess with bleeding Assessment/Plan: She has had brown BMs for the last 2 days. Will resume Coumadin today, let it build up to a therapeutic INR in the next 48 to 72 hours. (3) Acute diverticulitis Assessment/Plan: Yesterday's abdominal pain was worse requiring more morphine, therefore she underwent a CT of the abdomen last evening. This showed unchanged findings of diverticulitis, no improvement was reported, but no abscess or perforation. We will change her antibiotic coverage since there has been no significant improvement clinically: will start iv Flagyl and iv Cipro and stop Zosyn. Continue with the clear liquid diet for bowel rest. (4) Atrial fibrillation Qualifiers: Atrial fibrillation type: unspecified chronic Qualified Code(s): I48.20 - Chronic atrial fibrillation, unspecified; I48.2 - Chronic atrial fibrillation Assessment/Plan: Heart rate is controlled on her home combination of meds. INR is 1.4 today. Brown BMs for the last 2 days therefore we will start Coumadin back up to let it slowly return to a therapeutic range in the next 48 to 72 hours. (5) Hypertension Assessment/Plan: BP controlled on current combination of meds (6) Hyperlipidemia Assessment/Plan: She is on her home statin dose (7) Depression Assessment/Plan: She is on her home Effexor dose - Current Meds Current Meds: Current Medications Generic Name Dose Route Start Last Admin Trade Name Freq PRN Reason Stop Dose Admin Acetaminophen 650 mg 03/20/20 22:29 03/22/20 16:27 Tylenol PO 650 mg Q4HR PRN Administration Pain 1 to 4 Amiodarone HCl 200 mg 03/21/20 09:00 03/25/20 08:56 Pacerone PO 200 mg DAILY RAISA Administration Atorvastatin Calcium 20 mg 03/21/20 21:00 03/24/20 21:17 Lipitor PO 20 mg QPM RAISA Administration Calcium Carbonate/Glycine 500 mg 03/21/20 11:29 03/22/20 16:27 Tums PO 500 mg TID PRN Administration Heartburn Carvedilol 3.125 mg 03/21/20 09:00 03/25/20 08:56 Coreg PO 3.125 mg BID RAISA Administration Diltiazem HCl 120 mg 03/21/20 09:00 03/25/20 08:58 Cardizem Cd PO 120 mg DAILY RAISA Administration Ferrous Gluconate 324 mg 03/21/20 08:00 03/25/20 08:56 Fergon PO 324 mg DAILYWM RAISA Administration Gabapentin 600 mg 03/21/20 09:00 03/25/20 08:56 Neurontin PO 600 mg BID RAISA Administration Metronidazole 500 mg in 100 mls @ 100 mls/hr 03/25/20 08:00 03/25/20 10:44 Flagyl 500 Mg/100 Ml IV Infused Q8H RAISA Infusion Ciprofloxacin 400 mg in 200 mls @ 200 mls/hr 03/25/20 09:00 03/25/20 12:01 Cipro 400 Mg/200 Ml IV Infused Q12H RAISA Infusion Morphine Sulfate 2 mg 03/20/20 22:29 03/24/20 16:44 Morphine (Carpuject) IVP 2 mg Q2HR PRN Administration Pain 8 to 10 Morphine Sulfate 2 mg 03/21/20 11:34 03/21/20 11:51 Morphine (Carpuject) IVP 03/28/20 11:33 2 mg ONCE PRN Administration Chest Pain Nitroglycerin 0.4 mg 03/21/20 11:33 03/21/20 11:42 Nitrostat SL 0.4 mg Q5MIN PRN Administration Chest Pain Non-Formulary Medication 0.5 g 03/21/20 21:00 03/23/20 21:18 Estrogens, Conjugated Cream [Premarin Cream] VG Not Given [id number]@2100 RAISA Ondansetron HCl 4 mg 03/20/20 22:29 03/21/20 06:07 Zofran Inj IVP 4 mg Q6HR PRN Administration Nausea / Vomiting Pantoprazole Sodium 40 mg 03/21/20 07:00 03/25/20 05:47 Protonix IVP 40 mg QDAC RAISA Administration Sodium Chloride 10 ml 03/20/20 22:29 03/25/20 05:47 Normal Saline Flush 0.9% IVP 10 ml PRN PRN Administration NEEDED PER PROVIDER ORDERS Sodium Chloride 10 ml 03/21/20 01:00 03/25/20 10:41 Normal Saline Flush 0.9% IVP 10 ml 0100,0900,1700 RAISA Administration Venlafaxine HCl 75 mg 03/21/20 09:00 03/25/20 08:56 Effexor Er PO 75 mg DAILY RAISA Administration - Lab Result Fish Bone Diagrams: 03/25/20 04:45 03/25/20 04:45 - Additional Planning My Orders: My Active Orders 03/25/20 08:00 metroNIDAZOLE 500 MG/100 ML [Flagyl 500 mg/100 ml] 500 mg in 100 ml IV Q8H 03/25/20 09:00 Ciprofloxacin 400 mg/200 ml [Cipro 400 mg/200 ml] 400 mg in 200 ml IV Q12H 03/25/20 Breakfast Clear Liquid Diet [DIET] 03/26/20 05:00 BMP - BASIC METABOLIC PANEL [CHEM] DAILYLAB CBC - COMP BLD CT W/AUTO DIFF [HEME] DAILYLAB PT WITH INR [COAG] DAILYLAB 03/27/20 05:00 PT WITH INR [COAG] DAILYLAB Subjective - Subjective Patient Reports: Other (Her abdominal pain, distention and gassiness and "gurgling" is always worse in the afternoon, she feels better every morning for the last 3 days.) Objective Vital Signs: Vital Signs - 24 hr 03/24/20 03/24/20 03/24/20 15:36 21:00 23:35 Temperature 37.0 C 37.0 C 36.9 C Heart Rate [ 71 79 75 Brachial] Respiratory 18 18 16 Rate Blood Pressure 108/58 L 121/70 118/63 [Right Brachial artery] O2 Saturation 95 94 92 03/25/20 03/25/20 03/25/20 04:30 08:52 12:07 Temperature 36.8 C 36.5 C 36.3 C L Heart Rate [ 83 75 69 Brachial] Respiratory 16 18 18 Rate Blood Pressure 106/58 L 108/76 125/68 [Right Brachial artery] O2 Saturation 94 97 98 Oxygen O2 Source [With Activity] Room air O2 Source Room air I&O (Last 24 Hrs): Intake and Output Totals x24h 03/23/20 03/24/20 03/25/20 23:59 23:59 23:59 Intake Total 1150 1400 961.66 Output Total 1325 1575 1000 Balance -175 -175 -38.34 General: Other (Currently sleeping) HEENT: Mucous membr. moist/pink Neck: Supple, No JVD Neuro: Non Focal Cardiovascular: Regular rate Respiratory: No respiratory distress Abdomen: Normal bowel sounds, Soft Extremities: No edema - Results Results: Laboratory Results WBC 10.9 x10^3/uL (4.8-10.8) H 03/25/20 04:45 RBC 2.88 10^6/uL (4.20-5.40) L 03/25/20 04:45 Hgb 8.5 g/dL (12.0-16.0) L 03/25/20 04:45 Hct 27.5 % (37.0-47.0) L 03/25/20 04:45 MCV 95.5 fL (81.0-99.0) 03/25/20 04:45 MCH 29.5 pg (27.0-31.0) 03/25/20 04:45 MCHC 30.9 g/dL (32.0-36.0) L 03/25/20 04:45 RDW 13.9 % (12.0-15.0) 03/25/20 04:45 Plt Count 328 10^3/uL (130-450) 03/25/20 04:45 MPV 9.4 fL (7.9-10.8) 03/25/20 04:45 Neut # (Auto) 8.7 10^3/uL (1.5-6.6) H 03/25/20 04:45 Lymph # (Auto) 1.1 10^3/uL (1.5-3.5) L 03/25/20 04:45 [place] # (Auto) 0.9 10^3/uL (0.0-1.0) 03/25/20 04:45 Eos # (Auto) 0.2 10^3/uL (0.0-0.7) 03/25/20 04:45 Baso # (Auto) 0.0 10^3/uL (0.0-0.1) 03/25/20 04:45 Absolute Nucleated RBC 0.00 x10^3/uL 03/25/20 04:45 Nucleated RBC % 0.0 /100WBC 03/25/20 04:45 PT 15.2 secs (9.9-12.6) H 03/25/20 04:45 INR 1.4 (0.8-1.2) H 03/25/20 04:45 Whole Blood INR 3.4 (0.8-1.2) H 03/22/20 09:00 Sodium 134 mmol/L (135-145) L 03/25/20 04:45 Potassium 3.3 mmol/L (3.5-5.0) L 03/25/20 04:45 Chloride 97 mmol/L (101-111) L 03/25/20 04:45 Carbon Dioxide 28 mmol/L (21-32) 03/25/20 04:45 Anion Gap 9.0 (6-13) 03/25/20 04:45 BUN 10 mg/dL (6-20) 03/25/20 04:45 Creatinine 1.0 mg/dL (0.4-1.0) 03/25/20 04:45 Estimated GFR (MDRD) 52 (>89) L 03/25/20 04:45 Glucose 109 mg/dL (70-100) H 03/25/20 04:45 Calcium 8.6 mg/dL (8.5-10.3) 03/25/20 04:45 Total Bilirubin 0.5 mg/dL (0.2-1.0) 03/25/20 04:45 Direct Bilirubin 0.2 mg/dL (0.1-0.5) 03/25/20 04:45 AST 14 IU/L (10-42) 03/25/20 04:45 ALT 13 IU/L (10-60) 03/25/20 04:45 Alkaline Phosphatase 112 IU/L (42-121) 03/25/20 04:45 Troponin I High Sens 15.4 ng/L (2.3-14.8) H* 03/21/20 23:35 B-Natriuretic Peptide 191 pg/mL (5-100) H 03/21/20 11:45 Total Protein 6.5 g/dL (6.7-8.2) L 03/25/20 04:45 Albumin 2.8 g/dL (3.2-5.5) L 03/25/20 04:45 Globulin 3.7 g/dL (2.1-4.2) 03/25/20 04:45 Albumin/Globulin Ratio 0.9 (1.0-2.2) L 03/20/20 20:06 Lipase 22 U/L (22-51) 03/20/20 20:06 Urine Color YELLOW 03/21/20 05:04 Urine Clarity CLEAR (CLEAR) 03/21/20 05:04 Urine pH 6.5 PH (5.0-7.5) 03/21/20 05:04 Ur Specific [place] <=1.005 (1.002-1.030) 03/21/20 05:04 Urine Protein NEGATIVE mg/dL (NEGATIVE) 03/21/20 05:04 Urine Glucose (UA) NEGATIVE mg/dL (NEGATIVE) 03/21/20 05:04 Urine Ketones NEGATIVE mg/dL (NEGATIVE) 03/21/20 05:04 Urine Occult Blood MODERATE (NEGATIVE) H 03/21/20 05:04 Urine Nitrite NEGATIVE (NEGATIVE) 03/21/20 05:04 Urine Bilirubin NEGATIVE (NEGATIVE) 03/21/20 05:04 Urine Urobilinogen 0.2 (NORMAL) E.U./dL (NORMAL) 03/21/20 05:04 Ur Leukocyte Esterase TRACE (NEGATIVE) H 03/21/20 05:04 Urine RBC 0-5 /HPF (0-5) 03/21/20 05:04 Urine WBC 4-5 /HPF (0-5) 03/21/20 05:04 Ur Squamous Epith Cells FEW Squamous (<= Few) 03/21/20 05:04 Urine Bacteria Few /HPF (None Seen) 03/21/20 05:04 Ur Microscopic Review INDICATED 03/21/20 05:04 Urine Culture Comments INDICATED 03/21/20 05:04 Blood Type A POSITIVE 03/20/20 20:06 Antibody Screen NEGATIVE 03/20/20 20:06 Sepsis Event Note (H) - Evaluation Current Stage of Sepsis: Ruled out
[2020-03-25] MEDS: WARFARIN 2.5 MG TABLET PO SCH (15:50)
[2020-03-25] MEDS: ATORVASTATIN 10 MG TABLET PO SCH (21:31)
[2020-03-26] MEDS: SODIUM CHLORIDE FLUSH 0.9% 10 ML SYRINGE IVP SCH ×4 (00:02→23:57)
[2020-03-26] MEDS: metroNIDAZOLE 500 MG/100 ML 500 MG/100 ML BAG IV SCH ×4 (00:02→23:55)
[2020-03-26 05:48] LABS: BASOPHILS % (AUTO) 0.3 %; EOSINOPHILS # (AUTO) 0.1 10^3/uL (0.0-0.7); EOSINOPHILS % (AUTO) 1.4 %; HGB - HEMOGLOBIN 8.4 g/dL (12.0-16.0); LYMPHOCYTES # (AUTO) 0.7 10^3/uL (1.5-3.5); LYMPHOCYTES % (AUTO) 9.1 %; MEAN CORPUSCULAR HEMOGLOBIN 29.4 pg (27.0-31.0); MEAN CORPUSCULAR HGB CONC 31.2 g/dL (32.0-36.0); MEAN CORPUSCULAR VOLUME 94.1 fL (81.0-99.0); MEAN PLATELET VOLUME 9.2 fL (7.9-10.8); MONOCYTES # (AUTO) 0.6 10^3/uL (0.0-1.0); MONOCYTES % (AUTO) 7.5 %; NEUTROPHILS # (AUTO) 6.4 10^3/uL (1.5-6.6); NEUTROPHILS % (AUTO) 81.3 %; PLT - PLATELET COUNT 344 10^3/uL (130-450); RED BLOOD COUNT 2.86 10^6/uL (4.20-5.40); RED CELL DISTRIBUTION WIDTH 13.8 % (12.0-15.0); WHITE BLOOD COUNT 7.9 x10^3/uL (4.8-10.8)
[2020-03-26 05:56] LABS: INR 1.4 (0.8-1.2); PT - PROTHROMBIN TIME 15.2 secs (9.9-12.6)
[2020-03-26 05:58] LABS: CALCIUM 8.5 mg/dL (8.5-10.3); CREATININE 0.8 mg/dL (0.4-1.0)
[2020-03-26] MEDS: PANTOPRAZOLE 40 MG VIAL IVP SCH (06:04)
[2020-03-26] MEDS: SODIUM CHLORIDE FLUSH 0.9% 10 ML SYRINGE IVP PRN ×2 (06:05→06:11)
[2020-03-26] MEDS: AMIODARONE 200 MG TABLET PO SCH (08:58)
[2020-03-26] MEDS: VENLAFAXINE ER 75 MG CAPSULE PO SCH (08:58)
[2020-03-26] MEDS: diltiaZEM CD 120 MG CAPSULE PO SCH (08:58)
[2020-03-26] MEDS: carvediloL 3.125 MG TABLET PO SCH ×2 (08:58→20:48)
[2020-03-26] MEDS: FERROUS GLUCONATE 324 MG TABLET PO SCH (08:58)
[2020-03-26] MEDS: GABAPENTIN 300 MG CAPSULE PO SCH ×2 (08:58→20:49)
[2020-03-26] MEDS: CIPROFLOXACIN 400 MG/200 ML 400 MG/200 ML BAG IV SCH ×2 (10:05→22:16)
[2020-03-26] MEDS: LORazepam 2 MG/ML VIAL IVP PRN ×2 (10:32→20:49)
[2020-03-26] MEDS: WARFARIN 2.5 MG TABLET PO SCH (16:38)
--- NOTE | 2020-03-26 17:07 | PROVIDER PROGRESS NOTE ---
Assessment/Plan - Problem List (1) Anemia due to GI blood loss Assessment/Plan: Her hemoglobin has trended down very slowly secondary to hemodilution. Hgb is plateauting at 8.5. She has had brown BMs for the last 3 days. Continue to treat the diverticulitis with antibiotics and a slow advancement of diet and pain meds as needed. Coumadin was restarted yesterday with the plan to have it slowly go up into a therapeutic INR range. (2) GI bleed Qualifiers: GI bleed type/associated pathology: diverticulitis Qualified Code(s): K57.93 - Diverticulitis of intestine, part unspecified, without perforation or abscess with bleeding Assessment/Plan: Brown BMs for 3 days. Coumadin restarted yesterday. Watch for recurrence of bleeding as the INR becomes therapeutic. (3) Acute diverticulitis Assessment/Plan: She was first put on Zosyn. She had continued distention and diffuse abdominal pain for approximately 5 days. Re: Imaging CT showed no changes at all, no improvement but no areas of abscesses. Her antibiotics were changed to Flagyl and Cipro yesterday. Today she reports passing a lot of gas which is giving her relief from the bloating and abdominal distention. Has been on clear liquid diet and reports today being hungry. Will slowly advance her diet, next to a pured diet. (4) Depression Assessment/Plan: She is on her home antidepressant dose. Ativan today added as needed for anxiety. Social work consult requested regarding possible anxiety related to grief reaction, she experienced of her daughter about 3 weeks ago. (5) Hypokalemia Assessment/Plan: Will give potassium runners. Will avoid p.o. potassium replacement since this may cause stomach upset. Follow BMP daily. (6) Atrial fibrillation Qualifiers: Atrial fibrillation type: unspecified chronic Qualified Code(s): I48.20 - Chronic atrial fibrillation, unspecified; I48.2 - Chronic atrial fibrillation Assessment/Plan: She has been on her home meds for rate control. There is a chance her Amiodarone could be discontinued, since it is not maintaining normal sinus rhythm. Coumadin restarted as described above. Her [employer] did not want her on a NOAC, she told me today (7) Hypertension Assessment/Plan: BP is stable on current combination of medicines. (8) Hyperlipidemia Assessment/Plan: She is on her home statin dose - Current Meds Current Meds: Current Medications Generic Name Dose Route Start Last Admin Trade Name Freq PRN Reason Stop Dose Admin Acetaminophen 650 mg 03/20/20 22:29 03/22/20 16:27 Tylenol PO 650 mg Q4HR PRN Administration Pain 1 to 4 Amiodarone HCl 200 mg 03/21/20 09:00 03/26/20 08:58 Pacerone PO 200 mg DAILY RAISA Administration Atorvastatin Calcium 20 mg 03/21/20 21:00 03/25/20 21:31 Lipitor PO 20 mg QPM RAISA Administration Calcium Carbonate/Glycine 500 mg 03/21/20 11:29 03/22/20 16:27 Tums PO 500 mg TID PRN Administration Heartburn Carvedilol 3.125 mg 03/21/20 09:00 03/26/20 08:58 Coreg PO 3.125 mg BID RAISA Administration Diltiazem HCl 120 mg 03/21/20 09:00 03/26/20 08:58 Cardizem Cd PO 120 mg DAILY RAISA Administration Ferrous Gluconate 324 mg 03/21/20 08:00 03/26/20 08:58 Fergon PO 324 mg DAILYWM RAISA Administration Gabapentin 600 mg 03/21/20 09:00 03/26/20 08:58 Neurontin PO 600 mg BID RAISA Administration Metronidazole 500 mg in 100 mls @ 100 mls/hr 03/25/20 08:00 03/26/20 16:37 Flagyl 500 Mg/100 Ml IV 100 mls/hr Q8H RAISA Administration Ciprofloxacin 400 mg in 200 mls @ 200 mls/hr 03/25/20 09:00 03/26/20 11:06 Cipro 400 Mg/200 Ml IV Infused Q12H RAISA Infusion Lorazepam 0.5 mg 03/26/20 10:17 03/26/20 10:32 Ativan Inj (Vial) IVP 0.5 mg Q3H PRN Administration Anxiety Morphine Sulfate 2 mg 03/20/20 22:29 03/24/20 16:44 Morphine (Carpuject) IVP 2 mg Q2HR PRN Administration Pain 8 to 10 Morphine Sulfate 2 mg 03/21/20 11:34 03/21/20 11:51 Morphine (Carpuject) IVP 03/28/20 11:33 2 mg ONCE PRN Administration Chest Pain Nitroglycerin 0.4 mg 03/21/20 11:33 03/21/20 11:42 Nitrostat SL 0.4 mg Q5MIN PRN Administration Chest Pain Non-Formulary Medication 0.5 g 03/21/20 21:00 03/23/20 21:18 Estrogens, Conjugated Cream [Premarin Cream] VG Not Given [id number] [facility] Ondansetron HCl 4 mg 03/20/20 22:29 03/21/20 06:07 Zofran Inj IVP 4 mg Q6HR PRN Administration Nausea / Vomiting Pantoprazole Sodium 40 mg 03/21/20 07:00 03/26/20 06:04 Protonix IVP 40 mg QDAC RAISA Administration Sodium Chloride 10 ml 03/20/20 22:29 03/26/20 06:11 Normal Saline Flush 0.9% IVP 10 ml PRN PRN Administration NEEDED PER PROVIDER ORDERS Sodium Chloride 10 ml 03/21/20 01:00 03/26/20 16:37 Normal Saline Flush 0.9% IVP 10 ml 0100,0900,1700 RAISA Administration Venlafaxine HCl 75 mg 03/21/20 09:00 03/26/20 08:58 Effexor Er PO 75 mg DAILY RAISA Administration Warfarin Sodium 2.5 mg 03/25/20 16:00 03/26/20 16:38 Coumadin PO 2.5 mg 1600 RAISA Administration - Lab Result Fish Bone Diagrams: 03/26/20 05:30 03/26/20 05:30 - Additional Planning My Orders: My Active Orders 03/26/20 Social Work Consult [CONS] Routine 03/26/20 10:17 LORazepam INJ [Ativan Inj (Vial)] 0.5 mg IVP Q3H PRN 03/26/20 Dinner DIET [Dysphagia Puree Diet] [DIET] 03/27/20 05:00 PT WITH INR [COAG] DAILYLAB Subjective - Subjective Patient Reports: Other (Feels very anxious since last night and this morning, after she started thinking about how she is not making any progress, and also that since her last hospitalization for the same problem, her daughter .) Objective Vital Signs: Vital Signs - 24 hr 03/25/20 03/25/20 03/26/20 21:00 23:45 05:40 Temperature 36.9 C 36.7 C 36.8 C Heart Rate [ 83 76 83 Brachial] Respiratory 16 16 16 Rate Blood Pressure 140/69 H 135/77 H 149/66 H [Right Brachial artery] O2 Saturation 93 97 96 03/26/20 03/26/20 03/26/20 08:12 12:40 15:41 Temperature 36.7 C 36.8 C 36.9 C Heart Rate [ 85 83 82 Brachial] Respiratory 18 20 16 Rate Blood Pressure 150/74 H 111/62 140/69 H [Right Brachial artery] O2 Saturation 95 94 96 Oxygen O2 Source [With Activity] Room air O2 Source Room air I&O (Last 24 Hrs): Intake and Output Totals x24h 03/24/20 03/25/20 03/26/20 23:59 23:59 23:59 Intake Total 1400 1761.66 1220 Output Total 1575 1000 Balance -175 761.66 1220 General: Alert, Oriented x3 HEENT: Mucous membr. moist/pink Neck: Supple, No JVD Neuro: Alert, Non Focal Cardiovascular: No murmurs Respiratory: No respiratory distress Abdomen: Soft, Other (Slightly distended, less tympanic than the last 3 days, no rebound.) Extremities: No edema - Results Results: Laboratory Results WBC 7.9 x10^3/uL (4.8-10.8) 03/26/20 05:30 RBC 2.86 10^6/uL (4.20-5.40) L 03/26/20 05:30 Hgb 8.4 g/dL (12.0-16.0) L 03/26/20 05:30 Hct 26.9 % (37.0-47.0) L 03/26/20 05:30 MCV 94.1 fL (81.0-99.0) 03/26/20 05:30 MCH 29.4 pg (27.0-31.0) 03/26/20 05:30 MCHC 31.2 g/dL (32.0-36.0) L 03/26/20 05:30 RDW 13.8 % (12.0-15.0) 03/26/20 05:30 Plt Count 344 10^3/uL (130-450) 03/26/20 05:30 MPV 9.2 fL (7.9-10.8) 03/26/20 05:30 Neut # (Auto) 6.4 10^3/uL (1.5-6.6) 03/26/20 05:30 Lymph # (Auto) 0.7 10^3/uL (1.5-3.5) L 03/26/20 05:30 [place] # (Auto) 0.6 10^3/uL (0.0-1.0) 03/26/20 05:30 Eos # (Auto) 0.1 10^3/uL (0.0-0.7) 03/26/20 05:30 Baso # (Auto) 0.0 10^3/uL (0.0-0.1) 03/26/20 05:30 Absolute Nucleated RBC 0.00 x10^3/uL 03/26/20 05:30 Nucleated RBC % 0.0 /100WBC 03/26/20 05:30 PT 15.2 secs (9.9-12.6) H 03/26/20 05:30 INR 1.4 (0.8-1.2) H 03/26/20 05:30 Whole Blood INR 3.4 (0.8-1.2) H 03/22/20 09:00 Sodium 137 mmol/L (135-145) 03/26/20 05:30 Potassium 3.2 mmol/L (3.5-5.0) L 03/26/20 05:30 Chloride 101 mmol/L (101-111) 03/26/20 05:30 Carbon Dioxide 27 mmol/L (21-32) 03/26/20 05:30 Anion Gap 9.0 (6-13) 03/26/20 05:30 BUN 8 mg/dL (6-20) 03/26/20 05:30 Creatinine 0.8 mg/dL (0.4-1.0) 03/26/20 05:30 Estimated GFR (MDRD) 68 (>89) L 03/26/20 05:30 Glucose 107 mg/dL (70-100) H 03/26/20 05:30 Calcium 8.5 mg/dL (8.5-10.3) 03/26/20 05:30 Total Bilirubin 0.5 mg/dL (0.2-1.0) 03/25/20 04:45 Direct Bilirubin 0.2 mg/dL (0.1-0.5) 03/25/20 04:45 AST 14 IU/L (10-42) 03/25/20 04:45 ALT 13 IU/L (10-60) 03/25/20 04:45 Alkaline Phosphatase 112 IU/L (42-121) 03/25/20 04:45 Troponin I High Sens 15.4 ng/L (2.3-14.8) H* 03/21/20 23:35 B-Natriuretic Peptide 191 pg/mL (5-100) H 03/21/20 11:45 Total Protein 6.5 g/dL (6.7-8.2) L 03/25/20 04:45 Albumin 2.8 g/dL (3.2-5.5) L 03/25/20 04:45 Globulin 3.7 g/dL (2.1-4.2) 03/25/20 04:45 Albumin/Globulin Ratio 0.9 (1.0-2.2) L 03/20/20 20:06 Lipase 22 U/L (22-51) 03/20/20 20:06 Urine Color YELLOW 03/21/20 05:04 Urine Clarity CLEAR (CLEAR) 03/21/20 05:04 Urine pH 6.5 PH (5.0-7.5) 03/21/20 05:04 Ur Specific [place] <=1.005 (1.002-1.030) 03/21/20 05:04 Urine Protein NEGATIVE mg/dL (NEGATIVE) 03/21/20 05:04 Urine Glucose (UA) NEGATIVE mg/dL (NEGATIVE) 03/21/20 05:04 Urine Ketones NEGATIVE mg/dL (NEGATIVE) 03/21/20 05:04 Urine Occult Blood MODERATE (NEGATIVE) H 03/21/20 05:04 Urine Nitrite NEGATIVE (NEGATIVE) 03/21/20 05:04 Urine Bilirubin NEGATIVE (NEGATIVE) 03/21/20 05:04 Urine Urobilinogen 0.2 (NORMAL) E.U./dL (NORMAL) 03/21/20 05:04 Ur Leukocyte Esterase TRACE (NEGATIVE) H 03/21/20 05:04 Urine RBC 0-5 /HPF (0-5) 03/21/20 05:04 Urine WBC 4-5 /HPF (0-5) 03/21/20 05:04 Ur Squamous Epith Cells FEW Squamous (<= Few) 03/21/20 05:04 Urine Bacteria Few /HPF (None Seen) 03/21/20 05:04 Ur Microscopic Review INDICATED 03/21/20 05:04 Urine Culture Comments INDICATED 03/21/20 05:04 Blood Type A POSITIVE 03/20/20 20:06 Antibody Screen NEGATIVE 03/20/20 20:06 Sepsis Event Note (H) - Evaluation Current Stage of Sepsis: Ruled out
[2020-03-26] MEDS: POTASSIUM CHLOR 10 MEQ/100 ML 10 MEQ/100 ML BAG IV SCH ×3 (18:07→20:58)
[2020-03-26] MEDS: ATORVASTATIN 10 MG TABLET PO SCH (20:48)
[2020-03-26] MEDS: ESTROGENS CONJUGATED VG SCH (20:49)
[2020-03-27 05:56] LABS: BASOPHILS % (AUTO) 0.2 %; EOSINOPHILS # (AUTO) 0.1 10^3/uL (0.0-0.7); EOSINOPHILS % (AUTO) 0.6 %; HGB - HEMOGLOBIN 8.2 g/dL (12.0-16.0); LYMPHOCYTES # (AUTO) 0.6 10^3/uL (1.5-3.5); MEAN CORPUSCULAR HEMOGLOBIN 29.8 pg (27.0-31.0); MEAN CORPUSCULAR HGB CONC 31.9 g/dL (32.0-36.0); MEAN CORPUSCULAR VOLUME 93.5 fL (81.0-99.0); MEAN PLATELET VOLUME 9.3 fL (7.9-10.8); MONOCYTES # (AUTO) 0.7 10^3/uL (0.0-1.0); MONOCYTES % (AUTO) 7.6 %; NEUTROPHILS # (AUTO) 7.6 10^3/uL (1.5-6.6); NEUTROPHILS % (AUTO) 84.2 %; PLT - PLATELET COUNT 349 10^3/uL (130-450); RED BLOOD COUNT 2.75 10^6/uL (4.20-5.40); RED CELL DISTRIBUTION WIDTH 13.8 % (12.0-15.0)
[2020-03-27 06:01] LABS: INR 1.5 (0.8-1.2); PT - PROTHROMBIN TIME 16.2 secs (9.9-12.6)
[2020-03-27 06:05] LABS: CALCIUM 8.4 mg/dL (8.5-10.3); CREATININE 0.8 mg/dL (0.4-1.0)
[2020-03-27] MEDS: PANTOPRAZOLE 40 MG VIAL IVP SCH (06:14)
[2020-03-27] MEDS: SODIUM CHLORIDE FLUSH 0.9% 10 ML SYRINGE IVP PRN ×2 (06:14→06:17)
[2020-03-27] MEDS ORDERED: POTASSIUM CHLORIDE 20 MEQ TABLET PO SCH (08:02)
[2020-03-27 08:19] LABS: ABSOLUTE RETICS # AUTO 0.07 10^6/uL (0.020-0.110); RED BLOOD COUNT 2.74 10^6/uL (4.20-5.40)
[2020-03-27 08:53] LABS: % IRON SATURATION 6 % (20-50); FERRITIN 43.5 ng/mL (11.0-306.8); IRON 17 ug/dL (28-170); TOTAL IRON BINDING CAPACITY 276 ug/dL (250-450); TRANSFERRIN 197 mg/dL (192-382)
[2020-03-27] MEDS: GABAPENTIN 300 MG CAPSULE PO SCH ×2 (09:10→21:23)
[2020-03-27] MEDS: FERROUS GLUCONATE 324 MG TABLET PO SCH (09:10)
[2020-03-27] MEDS: carvediloL 3.125 MG TABLET PO SCH ×2 (09:10→21:24)
[2020-03-27] MEDS: AMIODARONE 200 MG TABLET PO SCH (09:10)
[2020-03-27] MEDS: diltiaZEM CD 120 MG CAPSULE PO SCH (09:11)
[2020-03-27] MEDS: VENLAFAXINE ER 75 MG CAPSULE PO SCH (09:11)
[2020-03-27] MEDS: SODIUM CHLORIDE FLUSH 0.9% 10 ML SYRINGE IVP SCH ×2 (09:11→15:54)
[2020-03-27] MEDS: metroNIDAZOLE 500 MG/100 ML 500 MG/100 ML BAG IV SCH ×2 (09:11→15:54)
[2020-03-27] MEDS: CIPROFLOXACIN 400 MG/200 ML 400 MG/200 ML BAG IV SCH ×2 (09:11→21:24)
[2020-03-27] MEDS ORDERED: WARFARIN 2.5 MG TABLET PO ONE (11:00)
[2020-03-27] MEDS ORDERED: CYANOCOBALAMIN 1,000 MCG/ML VIAL IM ONE (11:00)
--- NOTE | 2020-03-27 11:03 | PROVIDER PROGRESS NOTE ---
Subjective - Prog Note Date Prog Note Date: 03/27/20 - Subjective Pt reports feeling: Improved Subjective: pt report she still feel some discomfort to his abdomen but is better than before. she state she had "really meal" on yesterday. she still feel weakness. she denies GI bleed, rectal bleeding," I always check my stool first, no blood, and normal". she denies fever, chill, shortness of breath, chest pain. pt's HGB is 8.2, slight down from yesterday 8.4. will order anemia test. her INR is still low 1.5 today, consideration of her GI bleed before, which was likely from diverticulitis, antibiotic usage now, but also no GI bleeding. will add 2.5 mg Coumadin once. continue check PT/INR. Current Medications - Current Medications Current Medications: Active Medications Acetaminophen (Tylenol) 650 mg PO Q4HR PRN PRN Reason: Pain 1 to 4 Last Admin: 03/22/20 16:27 Dose: 650 mg Amiodarone HCl (Pacerone) 200 mg PO DAILY [facility] Last Admin: 03/27/20 09:10 Dose: 200 mg Atorvastatin Calcium (Lipitor) 20 mg PO QPM [facility] Last Admin: 03/26/20 20:48 Dose: 20 mg Calcium Carbonate/Glycine (Tums) 500 mg PO TID PRN PRN Reason: Heartburn Last Admin: 03/22/20 16:27 Dose: 500 mg Carvedilol (Coreg) 3.125 mg PO BID [facility] Last Admin: 03/27/20 09:10 Dose: 3.125 mg Diltiazem HCl (Cardizem Cd) 120 mg PO DAILY [facility] Last Admin: 03/27/20 09:11 Dose: 120 mg Ferrous Gluconate (Fergon) 324 mg PO DAILYWM [facility] Last Admin: 03/27/20 09:10 Dose: 324 mg Gabapentin (Neurontin) 600 mg PO BID [facility] Last Admin: 03/27/20 09:10 Dose: 600 mg Metronidazole (Flagyl 500 Mg/100 Ml) 500 mg in 100 mls @ 100 mls/hr IV Q8H [facility] Last Admin: 03/27/20 09:11 Dose: 100 mls/hr Ciprofloxacin (Cipro 400 Mg/200 Ml) 400 mg in 200 mls @ 200 mls/hr IV Q12H [facility] Last Admin: 03/27/20 09:11 Dose: 200 mls/hr Lorazepam (Ativan Inj (Vial)) 0.5 mg IVP Q3H PRN PRN Reason: Anxiety Last Admin: 03/26/20 20:49 Dose: 0.5 mg Morphine Sulfate (Morphine (Carpuject)) 2 mg IVP Q2HR PRN PRN Reason: Pain 8 to 10 Last Admin: 03/24/20 16:44 Dose: 2 mg Morphine Sulfate (Morphine (Carpuject)) 2 mg IVP ONCE PRN PRN Reason: Chest Pain Stop: 03/28/20 11:33 Last Admin: 03/21/20 11:51 Dose: 2 mg Nitroglycerin (Nitrostat) 0.4 mg SL Q5MIN PRN PRN Reason: Chest Pain Last Admin: 03/21/20 11:42 Dose: 0.4 mg Non-Formulary Medication (Estrogens, Conjugated Cream [Premarin Cream]) 0.5 g VG [id number]@2100 [facility] Last Admin: 03/26/20 20:49 Dose: Not Given Ondansetron HCl (Zofran Inj) 4 mg IVP Q6HR PRN PRN Reason: Nausea / Vomiting Last Admin: 03/21/20 06:07 Dose: 4 mg Pantoprazole Sodium (Protonix) 40 mg IVP QDAC [facility] Last Admin: 03/27/20 06:14 Dose: 40 mg Polyethylene Glycol (Miralax) 17 gm PO DAILY PRN PRN Reason: Bowel Protocol Prochlorperazine Edisylate (Compazine Inj) 10 mg IVP Q6HR PRN PRN Reason: Nausea / Vomiting Sodium Chloride (Normal Saline Flush 0.9%) 10 ml IVP PRN PRN PRN Reason: NEEDED PER PROVIDER ORDERS Last Admin: 03/27/20 06:17 Dose: 10 ml Sodium Chloride (Normal Saline Flush 0.9%) 10 ml IVP 0100,0900,1700 [facility] Last Admin: 03/27/20 09:11 Dose: 10 ml Venlafaxine HCl (Effexor Er) 75 mg PO DAILY [facility] Last Admin: 03/27/20 09:11 Dose: 75 mg Warfarin Sodium (Coumadin) 2.5 mg PO 1600 [facility] Last Admin: 03/26/20 16:38 Dose: 2.5 mg Aspirin [Aspir 81] 81 mg PO DAILY 01/11/14 Pantoprazole Sodium [Protonix] 40 mg PO DAILY 01/11/14 Atorvastatin Calcium 20 tab PO QPM 05/31/19 Carvedilol [Coreg] 6.25 mg PO BID 05/31/19 Estrogens, Conjugated Cream [Premarin Cream] 0.5 g VG .3XWEEKLY 05/31/19 Amiodarone [Pacerone] 200 mg PO DAILY 01/26/20 Diltiazem HCl [Diltiazem 24Hr ER] 120 mg PO DAILY 01/26/20 Gabapentin [Neurontin] 600 mg PO BID 01/26/20 Levalbuterol [Xopenex] 2 puffs INH Q4H PRN 01/26/20 Venlafaxine ER [Effexor ER] 75 mg PO DAILY 01/26/20 carvediloL [Coreg] 3.125 mg PO BID 01/26/20 Objective - Vital Signs/Intake & Output Vital Signs: Vital Signs x48h Temp Pulse Resp BP Pulse Ox 03/27/20 09:00 36.5 C 86 18 139/70 H 97 03/27/20 03:55 37.1 C 87 17 127/77 93 Intake & Output: Intake & Output 03/24/20 03/25/20 03/26/20 03/27/20 23:59 23:59 23:59 23:59 Intake Total 1400 1761.66 2260 370 Output Total 1575 1000 Balance -175 761.66 2260 370 - Objective General Appearance: positive: No acute distress, Alert. negative: Lethargic Eyes Bilateral: positive: Normal inspection, PERRL, No lid inflammation ENT: positive: ENT inspection nml, Pharynx nml, No signs of dehydration. negative: Dry mucous membranes Neck: positive: Nml inspection, Thyroid nml, Trachea midline. negative: Thyromegaly, Stiff neck, Tracheal deviation Respiratory: positive: Chest non-tender, No respiratory distress, Breath sounds nml. negative: Wheezes, Rales, Rhonchi Cardiovascular: positive: No murmur, No gallop, Irregularly irregular. nega tive: Extrasystoles, Tachycardia, Bradycardia, Systolic murmur, Diastolic murmur Peripheral Pulses: 2+ Radial (R), 2+ Radial (L), 2+ Dorsalis pedis (R), 2+ Dorsalis pedis (L) Abdomen: positive: Non-tender, Nml bowel sounds, No distention. negative: Tenderness, Guarding, Rebound Back: positive: Nml inspection. negative: CVA tenderness (R), CVA tenderness (L) Skin: positive: Color nml, No rash, Warm, Dry. negative: Cyanosis, Diaphoresis, Pallor Extremities: positive: Non-tender, Full ROM, Nml appearance. negative: Calf tenderness, Sarah's sign/cords Neurologic/Psychiatric: positive: Oriented x3, Motor nml, Sensation nml. negative: Weakness, Sensory loss, Facial droop, Slurred/abnml speech, Depressed mood/affect - Lab Results Fish Bones: 03/27/20 05:12 03/27/20 05:12 Other Labs: Lab Results x24hrs 03/27/20 03/27/20 03/27/20 Range/Units 05:12 05:12 05:12 WBC (4.8-10.8) x10^3/uL RBC (4.20-5.40) 10^6/uL Hgb (12.0-16.0) g/dL Hct (37.0-47.0) % MCV (81.0-99.0) fL MCH (27.0-31.0) pg MCHC (32.0-36.0) g/dL RDW (12.0-15.0) % Plt Count (130-450) 10^3/uL MPV (7.9-10.8) fL Reticulocyte % (Auto) (0.5-2.3) % Neut # (Auto) (1.5-6.6) 10^3/uL Lymph # (Auto) (1.5-3.5) 10^3/uL [place] # (Auto) (0.0-1.0) 10^3/uL Eos # (Auto) (0.0-0.7) 10^3/uL Baso # (Auto) (0.0-0.1) 10^3/uL Absolute Nucleated RBC x10^3/uL Nucleated RBC % /100WBC Absolute Retic (0.020-0.110) 10^6/uL PT (9.9-12.6) secs INR (0.8-1.2) Sodium (135-145) mmol/L Potassium (3.5-5.0) mmol/L Chloride (101-111) mmol/L Carbon Dioxide (21-32) mmol/L Anion Gap (6-13) BUN (6-20) mg/dL Creatinine (0.4-1.0) mg/dL Estimated GFR (MDRD) (>89) Glucose (70-100) mg/dL Calcium (8.5-10.3) mg/dL Iron 17 L (28-170) ug/dL TIBC 276 (250-450) ug/dL % Saturation 6 L (20-50) % Transferrin 197 (192-382) mg/dL Ferritin 43.5 (11.0-306.8) ng/mL Lactate Dehydrogenase 117 (91-225) IU/L Vitamin B12 173 L (180-914) pg/mL 03/27/20 03/27/20 03/27/20 Range/Units 05:12 05:12 05:12 WBC 9.0 (4.8-10.8) x10^3/uL RBC 2.74 L 2.75 L (4.20-5.40) 10^6/uL Hgb 8.2 L (12.0-16.0) g/dL Hct 25.7 L (37.0-47.0) % MCV 93.5 (81.0-99.0) fL MCH 29.8 (27.0-31.0) pg MCHC 31.9 L (32.0-36.0) g/dL RDW 13.8 (12.0-15.0) % Plt Count 349 (130-450) 10^3/uL MPV 9.3 (7.9-10.8) fL Reticulocyte % (Auto) 2.54 H (0.5-2.3) % Neut # (Auto) 7.6 H (1.5-6.6) 10^3/uL Lymph # (Auto) 0.6 L (1.5-3.5) 10^3/uL [place] # (Auto) 0.7 (0.0-1.0) 10^3/uL Eos # (Auto) 0.1 (0.0-0.7) 10^3/uL Baso # (Auto) 0.0 (0.0-0.1) 10^3/uL Absolute Nucleated RBC 0.00 x10^3/uL Nucleated RBC % 0.0 /100WBC Absolute Retic 0.070 (0.020-0.110) 10^6/uL PT (9.9-12.6) secs INR (0.8-1.2) Sodium 134 L (135-145) mmol/L Potassium 3.4 L (3.5-5.0) mmol/L Chloride 98 L (101-111) mmol/L Carbon Dioxide 24 (21-32) mmol/L Anion Gap 12.0 (6-13) BUN 8 (6-20) mg/dL Creatinine 0.8 (0.4-1.0) mg/dL Estimated GFR (MDRD) 68 L (>89) Glucose 130 H (70-100) mg/dL Calcium 8.4 L (8.5-10.3) mg/dL Iron (28-170) ug/dL TIBC (250-450) ug/dL % Saturation (20-50) % Transferrin (192-382) mg/dL Ferritin (11.0-306.8) ng/mL Lactate Dehydrogenase (91-225) IU/L Vitamin B12 (180-914) pg/mL 03/27/20 Range/Units 05:12 WBC (4.8-10.8) x10^3/uL RBC (4.20-5.40) 10^6/uL Hgb (12.0-16.0) g/dL Hct (37.0-47.0) % MCV (81.0-99.0) fL MCH (27.0-31.0) pg MCHC (32.0-36.0) g/dL RDW (12.0-15.0) % Plt Count (130-450) 10^3/uL MPV (7.9-10.8) fL Reticulocyte % (Auto) (0.5-2.3) % Neut # (Auto) (1.5-6.6) 10^3/uL Lymph # (Auto) (1.5-3.5) 10^3/uL [place] # (Auto) (0.0-1.0) 10^3/uL Eos # (Auto) (0.0-0.7) 10^3/uL Baso # (Auto) (0.0-0.1) 10^3/uL Absolute Nucleated RBC x10^3/uL Nucleated RBC % /100WBC Absolute Retic (0.020-0.110) 10^6/uL PT 16.2 H (9.9-12.6) secs INR 1.5 H (0.8-1.2) Sodium (135-145) mmol/L Potassium (3.5-5.0) mmol/L Chloride (101-111) mmol/L Carbon Dioxide (21-32) mmol/L Anion Gap (6-13) BUN (6-20) mg/dL Creatinine (0.4-1.0) mg/dL Estimated GFR (MDRD) (>89) Glucose (70-100) mg/dL Calcium (8.5-10.3) mg/dL Iron (28-170) ug/dL TIBC (250-450) ug/dL % Saturation (20-50) % Transferrin (192-382) mg/dL Ferritin (11.0-306.8) ng/mL Lactate Dehydrogenase (91-225) IU/L Vitamin B12 (180-914) pg/mL ABX Reporting Has patient been on IV antibiotics over the past 48 hours?: Yes Sepsis Event Note (H) - Evaluation Current Stage of Sepsis: Ruled out Assessment/Plan - Problem List (1) Diverticulitis Impression: pt report her abdominal pain is better, still mild discomfort, denies N/V/D. her WBC is normal, and no fever, chill. pt was switched to new antibiotics before. continue Cipro and Flagyl keep puree diet, slowly advance her diet (2) Anemia pt denies GI bleed for couples of days. pt did not have colonoscopy or EGD in this hospital stay. anemia study reveals pt is iron deficiency plus low B12. continue iron pill and order B12 IM once continue CBC, and watch if pt has GI bleed (3) GI bleed pt report Brown BMs for 4 days. today pt report she has no GI bleed Coumadin restarted before yesterday. Since pt has no GI bleed, add Coumadin 2.5 mg once. pt is in hospital for 7 days. we will closely Watch for recurrence of bleeding as the INR becomes therapeutic. (4) Depression Assessment/Plan: stable, continue current management plan, continue home antidepressant, ativan PRN. continue Social work consult requested regarding possible anxiety related to grief reaction, she experienced of her daughter about 3 weeks ago. (5) Hypokalemia Assessment/Plan: add once potassium Follow BMP daily. (6) Atrial fibrillation stable, continue home meds Coreg, cardizem and Amiodarone. 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 continue tele and vital monitor continue PT/INR check (7) Hypertension Assessment/Plan: BP is stable on current combination of medicines. (8) Hyperlipidemia Assessment/Plan: She is on her home statin dose
[2020-03-27] MEDS: WARFARIN 2.5 MG TABLET PO SCH (12:06)
[2020-03-27] MEDS: ATORVASTATIN 10 MG TABLET PO SCH (21:23)
[2020-03-27 22:11] LABS: HGB - HEMOGLOBIN 8.6 g/dL (12.0-16.0)
[2020-03-27] MEDS: ACETAMINOPHEN 325 MG TABLET PO PRN (22:26)
[2020-03-28] MEDS: metroNIDAZOLE 500 MG/100 ML 500 MG/100 ML BAG IV SCH ×3 (00:21→16:23)
[2020-03-28] MEDS: SODIUM CHLORIDE FLUSH 0.9% 10 ML SYRINGE IVP SCH ×3 (00:22→16:23)
[2020-03-28 05:00] LABS: BASOPHILS % (AUTO) 0.4 %; EOSINOPHILS # (AUTO) 0.2 10^3/uL (0.0-0.7); EOSINOPHILS % (AUTO) 1.8 %; HGB - HEMOGLOBIN 8.2 g/dL (12.0-16.0); LYMPHOCYTES # (AUTO) 0.9 10^3/uL (1.5-3.5); LYMPHOCYTES % (AUTO) 10.9 %; MEAN CORPUSCULAR HEMOGLOBIN 28.7 pg (27.0-31.0); MEAN CORPUSCULAR HGB CONC 30.6 g/dL (32.0-36.0); MEAN CORPUSCULAR VOLUME 93.7 fL (81.0-99.0); MEAN PLATELET VOLUME 9.1 fL (7.9-10.8); MONOCYTES # (AUTO) 0.7 10^3/uL (0.0-1.0); MONOCYTES % (AUTO) 8.2 %; NEUTROPHILS # (AUTO) 6.6 10^3/uL (1.5-6.6); NEUTROPHILS % (AUTO) 78.2 %; PLT - PLATELET COUNT 365 10^3/uL (130-450); RED BLOOD COUNT 2.86 10^6/uL (4.20-5.40); WHITE BLOOD COUNT 8.4 x10^3/uL (4.8-10.8)
[2020-03-28 05:07] LABS: CALCIUM 8.4 mg/dL (8.5-10.3); CREATININE 0.9 mg/dL (0.4-1.0)
[2020-03-28] MEDS: PANTOPRAZOLE 40 MG VIAL IVP SCH (06:55)
[2020-03-28] MEDS ORDERED: POTASSIUM CHLORIDE 20 MEQ TABLET PO SCH (07:12)
[2020-03-28] MEDS: FERROUS GLUCONATE 324 MG TABLET PO SCH (08:13)
[2020-03-28] MEDS: carvediloL 3.125 MG TABLET PO SCH ×2 (08:14→20:42)
[2020-03-28] MEDS: AMIODARONE 200 MG TABLET PO SCH (08:14)
[2020-03-28] MEDS: VENLAFAXINE ER 75 MG CAPSULE PO SCH (08:14)
[2020-03-28] MEDS: GABAPENTIN 300 MG CAPSULE PO SCH ×2 (08:15→20:42)
[2020-03-28] MEDS: diltiaZEM CD 120 MG CAPSULE PO SCH (08:16)
[2020-03-28 08:34] LABS: INR 1.8 (0.8-1.2)
[2020-03-28] MEDS: CIPROFLOXACIN 400 MG/200 ML 400 MG/200 ML BAG IV SCH ×2 (10:37→20:43)
[2020-03-28] MEDS ORDERED: GI COCKTAIL 120 ML BOTTLE PO PRN (11:29)
[2020-03-28] MEDS ORDERED: IOVERSOL 320 50 ML VIAL ONE (11:31)
[2020-03-28] MEDS ORDERED: IOVERSOL 320 100 ML VIAL IVP ONE ×2 (11:31→14:15)
--- NOTE | 2020-03-28 13:33 | PROVIDER PROGRESS NOTE ---
Subjective - Prog Note Date Prog Note Date: 03/28/20 - Subjective Pt reports feeling: Improved Subjective: pt report chest pain, located at upper gastric area. pt denies shortness of breath, nausea or vomiting, diaphoresis. pt still complain of left lower quadrant pain, but she report it is better than before. I called pt's daughter Payton Evans at [phone]. she hope pt continue to have Coumadin in hospital. I explained the reason why we hold Coumadin, pt is still positive for GI bleeding, occult test is still positive, and slightly reduced HGB to 8.2 today from 8.6 on yesterday. I explained to pt and pt's daughter. pt can be assessed again to resume Coumadin by her PCP or carriage dogger when pt is discharged from hospital. Now she has GI bleeding, having Coumadin now is contraindication to her GI bleeding. I explained the benefit and risk to have Coumadin now. Pt and her daughter agreed to hold Coumadin now. pt refuse to have EGD or colonoscopy. pt state her carriage dogger did not recommend she has EGD or Colonoscopy. pt also report she had a bad experience in previous, she did not want to have it again. Current Medications - Current Medications Current Medications: Active Medications Acetaminophen (Tylenol) 650 mg PO Q4HR PRN PRN Reason: Pain 1 to 4 Last Admin: 03/27/20 22:26 Dose: 650 mg Amiodarone HCl (Pacerone) 200 mg PO DAILY [facility] Last Admin: 03/28/20 08:14 Dose: 200 mg Atorvastatin Calcium (Lipitor) 20 mg PO QPM [facility] Last Admin: 03/27/20 21:23 Dose: 20 mg Calcium Carbonate/Glycine (Tums) 500 mg PO TID PRN PRN Reason: Heartburn Last Admin: 03/22/20 16:27 Dose: 500 mg Carvedilol (Coreg) 3.125 mg PO BID [facility] Last Admin: 03/28/20 08:14 Dose: 3.125 mg Diltiazem HCl (Cardizem Cd) 120 mg PO DAILY [facility] Last Admin: 03/28/20 08:16 Dose: 120 mg Ferrous Gluconate (Fergon) 324 mg PO DAILYWM [facility] Last Admin: 03/28/20 08:13 Dose: 324 mg Gabapentin (Neurontin) 600 mg PO BID [facility] Last Admin: 04/29/20 08:15 Dose: 600 mg Metronidazole (Flagyl 500 Mg/100 Ml) 500 mg in 100 mls @ 100 mls/hr IV Q8H [facility] Last Infusion: 03/28/20 10:38 Dose: Infused Ciprofloxacin (Cipro 400 Mg/200 Ml) 400 mg in 200 mls @ 200 mls/hr IV Q12H [facility] Last Infusion: 03/28/20 11:39 Dose: Infused Lorazepam (Ativan Inj (Vial)) 0.5 mg IVP Q3H PRN PRN Reason: Anxiety Last Admin: 03/26/20 20:49 Dose: 0.5 mg Morphine Sulfate (Morphine (Carpuject)) 2 mg IVP Q2HR PRN PRN Reason: Pain 8 to 10 Last Admin: 03/24/20 16:44 Dose: 2 mg Multi-Ingredient Mouthwash/Gargle () 30 ml PO Q4H PRN PRN Reason: Abdominal Pain Nitroglycerin (Nitrostat) 0.4 mg SL Q5MIN PRN PRN Reason: Chest Pain Last Admin: 03/21/20 11:42 Dose: 0.4 mg Non-Formulary Medication (Estrogens, Conjugated Cream [Premarin Cream]) 0.5 g VG MoWeFr@2100 [facility] Last Admin: 03/26/20 20:49 Dose: Not Given Ondansetron HCl (Zofran Inj) 4 mg IVP Q6HR PRN PRN Reason: Nausea / Vomiting Last Admin: 03/21/20 06:07 Dose: 4 mg Pantoprazole Sodium (Protonix) 40 mg IVP QDAC [facility] Last Admin: 03/28/20 06:55 Dose: 40 mg Polyethylene Glycol (Miralax) 17 gm PO DAILY PRN PRN Reason: Bowel Protocol Prochlorperazine Edisylate (Compazine Inj) 10 mg IVP Q6HR PRN PRN Reason: Nausea / Vomiting Sodium Chloride (Normal Saline Flush 0.9%) 10 ml IVP PRN PRN PRN Reason: NEEDED PER PROVIDER ORDERS Last Admin: 03/27/20 06:17 Dose: 10 ml Sodium Chloride (Normal Saline Flush 0.9%) 10 ml IVP 0100,0900,1700 [facility] Last Admin: 03/28/20 09:22 Dose: 10 ml Venlafaxine HCl (Effexor Er) 75 mg PO DAILY [facility] Last Admin: 03/28/20 08:14 Dose: 75 mg Aspirin [Aspir 81] 81 mg PO DAILY 01/11/14 Pantoprazole Sodium [Protonix] 40 mg PO DAILY 01/11/14 Atorvastatin Calcium 20 tab PO QPM 05/31/19 Carvedilol [Coreg] 6.25 mg PO BID 05/31/19 Estrogens, Conjugated Cream [Premarin Cream] 0.5 g VG .3XWEEKLY 05/31/19 Amiodarone [Pacerone] 200 mg PO DAILY 01/26/20 Diltiazem HCl [Diltiazem 24Hr ER] 120 mg PO DAILY 01/26/20 Gabapentin [Neurontin] 600 mg PO BID 01/26/20 Levalbuterol [Xopenex] 2 puffs INH Q4H PRN 01/26/20 Venlafaxine ER [Effexor ER] 75 mg PO DAILY 01/26/20 carvediloL [Coreg] 3.125 mg PO BID 01/26/20 Objective - Vital Signs/Intake & Output Vital Signs: Vital Signs x48h Temp Pulse Resp BP Pulse Ox 03/28/20 12:49 36.7 C 76 18 146/74 H 95 03/28/20 07:56 36.6 C 73 18 152/86 H 96 Intake & Output: Intake & Output 03/25/20 03/26/20 03/27/20 03/28/20 23:59 23:59 23:59 23:59 Intake Total 1761.66 2260 1841 640.000 Output Total 1000 Balance 761.66 2260 1841 640.000 - Objective General Appearance: positive: Alert, Mild distress. negative: Lethargic Eyes Bilateral: positive: Normal inspection, PERRL ENT: positive: ENT inspection nml, Pharynx nml, No signs of dehydration. negative: Purulent nasal drainage Neck: positive: Nml inspection, Thyroid nml, Trachea midline. negative: Thyromegaly, Stiff neck, Tracheal deviation Respiratory: positive: Chest non-tender, No respiratory distress, Breath sounds nml. negative: Wheezes, Rales, Rhonchi Cardiovascular: positive: No murmur, Irregularly irregular. negative: Tachycardia, Bradycardia, Systolic murmur, Diastolic murmur Peripheral Pulses: 2+ Radial (R), 2+ Radial (L) Abdomen: positive: Non-tender, No organomegaly, Nml bowel sounds, No distention. negative: Tenderness, Guarding, Rebound Back: positive: Nml inspection. negative: CVA tenderness (R), CVA tenderness (L) Skin: positive: Color nml, No rash, Warm, Dry. negative: Cyanosis, Diaphoresis, Pallor Extremities: positive: Non-tender, Nml appearance. negative: Calf tenderness, Sarah's sign/cords Neurologic/Psychiatric: positive: Oriented x3, Sensation nml. negative: Weakness, Sensory loss, Facial droop, Slurred/abnml speech, Depressed mood/affect - Lab Results Fish Bones: 03/28/20 04:35 03/28/20 04:35 Other Labs: Lab Results x24hrs 03/28/20 03/28/20 03/28/20 Range/Units 11:36 08:03 04:35 WBC (4.8-10.8) x10^3/uL RBC (4.20-5.40) 10^6/uL Hgb (12.0-16.0) g/dL Hct (37.0-47.0) % MCV (81.0-99.0) fL MCH (27.0-31.0) pg MCHC (32.0-36.0) g/dL RDW (12.0-15.0) % Plt Count (130-450) 10^3/uL MPV (7.9-10.8) fL Neut # (Auto) (1.5-6.6) 10^3/uL Lymph # (Auto) (1.5-3.5) 10^3/uL [place] # (Auto) (0.0-1.0) 10^3/uL Eos # (Auto) (0.0-0.7) 10^3/uL Baso # (Auto) (0.0-0.1) 10^3/uL Absolute Nucleated RBC x10^3/uL Nucleated RBC % /100WBC PT 20.0 H (9.9-12.6) secs INR 1.8 H (0.8-1.2) Sodium 134 L (135-145) mmol/L Potassium 3.3 L (3.5-5.0) mmol/L Chloride 100 L (101-111) mmol/L Carbon Dioxide 27 (21-32) mmol/L Anion Gap 7.0 (6-13) BUN 8 (6-20) mg/dL Creatinine 0.9 (0.4-1.0) mg/dL Estimated GFR (MDRD) 59 L (>89) Glucose 135 H (70-100) mg/dL Calcium 8.4 L (8.5-10.3) mg/dL Troponin I High Sens 19.4 H* (2.3-14.8) ng/L 03/28/20 03/27/20 Range/Units 04:35 22:05 WBC 8.4 (4.8-10.8) x10^3/uL RBC 2.86 L (4.20-5.40) 10^6/uL Hgb 8.2 L 8.6 L (12.0-16.0) g/dL Hct 26.8 L 26.6 L (37.0-47.0) % MCV 93.7 (81.0-99.0) fL MCH 28.7 (27.0-31.0) pg MCHC 30.6 L (32.0-36.0) g/dL RDW 14.0 (12.0-15.0) % Plt Count 365 (130-450) 10^3/uL MPV 9.1 (7.9-10.8) fL Neut # (Auto) 6.6 (1.5-6.6) 10^3/uL Lymph # (Auto) 0.9 L (1.5-3.5) 10^3/uL [place] # (Auto) 0.7 (0.0-1.0) 10^3/uL Eos # (Auto) 0.2 (0.0-0.7) 10^3/uL Baso # (Auto) 0.0 (0.0-0.1) 10^3/uL Absolute Nucleated RBC 0.00 x10^3/uL Nucleated RBC % 0.0 /100WBC PT (9.9-12.6) secs INR (0.8-1.2) Sodium (135-145) mmol/L Potassium (3.5-5.0) mmol/L Chloride (101-111) mmol/L Carbon Dioxide (21-32) mmol/L Anion Gap (6-13) BUN (6-20) mg/dL Creatinine (0.4-1.0) mg/dL Estimated GFR (MDRD) (>89) Glucose (70-100) mg/dL Calcium (8.5-10.3) mg/dL Troponin I High Sens (2.3-14.8) ng/L ABX Reporting Has patient been on IV antibiotics over the past 48 hours?: Yes Sepsis Event Note (H) - Evaluation Current Stage of Sepsis: Ruled out Assessment/Plan - Problem List (1) Chest pain Impression: 03/28 pt complain of chest pain, which located at upper gastric area. pt denies SOB, nausea, vomiting or diaphoresis. order troponin, EKG and ECHO order gastric-cock tail for GERD, it is more likely atypical (2) Diverticulitis 03/28 pt still complain of left lower quadrant abdomen pain. pt report she had this problem for long period of time, and every time it is the same location to have abdominal pain. Pt had a second CT of abdomen which did not show improved. order a new CT to r/o any obstruction, or other complications. continue antibiotics, continue pain control pt report her abdominal pain is better, still mild discomfort, denies N/V/D. her WBC is normal, and no fever, chill. pt was switched to new antibiotics before. continue Cipro and Flagyl keep puree diet, slowly advance her diet (3) GI bleed 03/28 occult test is positive. HGB is 8.2 today. discussed with pt and her family , agree to hold her Coumadin today, continue H&H. it is likely caused by her diverticulitis. pt refused to have EGD or colonoscopy. pt report Brown BMs for 4 days. today pt report she has no GI bleed Coumadin restarted before yesterday. Since pt has no GI bleed, add Coumadin 2.5 mg once. pt is in hospital for 7 days. we will closely Watch for recurrence of bleeding as the INR becomes therapeutic. (4) anemia 03/28 HGB is 8.2, it is likely caused acute blood loss plus iron deficiency. continue H&H, iron pill. pt was given IM of B12. pt denies GI bleed for couples of days. pt did not have colonoscopy or EGD in this hospital stay. anemia study reveals pt is iron deficiency plus low B12. continue iron pill and order B12 IM once continue CBC, and watch if pt has GI bleed (5) Depression Assessment/Plan: stable, continue current management plan, continue home antidepressant, ativan PRN. continue Social work consult requested regarding possible anxiety related to grief reaction, she experienced of her daughter about 3 weeks ago. (6) Hypokalemia Assessment/Plan: 03/28 p is 3.3 today, replacement of potassium and continue lab monitor add once potassium Follow BMP daily. (7) Atrial fibrillation stable, continue home meds Coreg, cardizem and Amiodarone. 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 continue tele and vital monitor continue PT/INR check (8) Hypertension Assessment/Plan: BP is stable on current combination of medicines. (9) Hyperlipidemia Assessment/Plan: She is on her home statin dose
[2020-03-28] MEDS ORDERED: IOVERSOL 320 50 ML VIAL PO ONE (14:16)
--- NOTE | 2020-03-28 15:16 | CT Report ---
Reason: persistent left lower abdomen pain Procedure Date: 03/28/2020 Accession Number: [id number] / [id number] Procedure: CT - Abdomen/Pelvis W CPT Code: Final Report FULL RESULT: EXAM: CT ABDOMEN AND PELVIS EXAM DATE: 03/28/2020 01:54 PM. CLINICAL HISTORY: Persistent left lower abdomen pain. COMPARISONS: ABDOMEN/PELVIS W 03/24/2020 6:47 PM. TECHNIQUE: Routine helical CT imaging was performed through the abdomen and pelvis. IV contrast: 100 cc OPTIRAY 320. Enteric contrast: No. Reconstructions: Coronal and sagittal. In accordance with CT protocol optimization, one or more of the following dose reduction techniques were utilized for this exam: automated exposure control, adjustment of mA and/or KV based on patient size, or use of iterative reconstructive technique. FINDINGS: Lung Bases: Small bilateral pleural effusions and bilateral dependent atelectasis and scarring. As Liver: Normal. No masses. Gallbladder/Bile Ducts: Unremarkable. Spleen: Normal. Pancreas: Normal. Adrenal Glands: Normal. Kidneys: Normal. No masses or hydronephrosis. Peritoneal Cavity/Bowel: Diffuse diverticulosis noted involving sigmoid colon. There is suggestion of asymmetrical wall thickening involving proximal sigmoid colon (image 55 and series 5). This asymmetric thickening measures 1.8 x 1.2 cm. Underlying colonic mass cannot be excluded. Very faint pericolonic fat stranding is noted as well, early colonic diverticulitis with abscess formation is also included in the differentials. To be correlated clinically. Appendix is not visualized in right lower quadrant, however there is no inflammation in right lower quadrant. Pelvic Organs: Normal. The bladder and visualized pelvic organs are within normal limits. Vasculature: No aneurysms or other significant abnormality. Bones: Grade 1 retrolisthesis of L4 over L5. Other: None. IMPRESSION: Diffuse diverticulosis involving sigmoid colon with suggestion of asymmetric wall thickening involving proximal sigmoid colon, measuring 1.8 x 1.2 cm. Underlying colonic mass cannot be excluded. Very faint pericolonic fat stranding, early colonic diverticulitis with abscess formation is also included in the differentials. To be correlated clinically. [facility]
[2020-03-28] MEDS ORDERED: ZOLPIDEM 5 MG TABLET PO PRN (18:52)
[2020-03-28] MEDS ORDERED: LORazepam 0.5 MG TABLET PO PRN (18:53)
[2020-03-28 20:32] LABS: HGB - HEMOGLOBIN 8.9 g/dL (12.0-16.0)
[2020-03-28] MEDS: ATORVASTATIN 10 MG TABLET PO SCH (20:42)
[2020-03-28] MEDS: ESTROGENS CONJUGATED VG SCH (20:43)
[2020-03-29] MEDS: metroNIDAZOLE 500 MG/100 ML 500 MG/100 ML BAG IV SCH ×2 (00:56→07:53)
[2020-03-29] MEDS: SODIUM CHLORIDE FLUSH 0.9% 10 ML SYRINGE IVP SCH ×2 (00:57→06:22)
[2020-03-29] MEDS ORDERED: SODIUM CHLORIDE 0.9% 1,000 ML IV SCH (01:00)
[2020-03-29 05:03] LABS: BASOPHILS % (AUTO) 0.3 %; EOSINOPHILS # (AUTO) 0.2 10^3/uL (0.0-0.7); EOSINOPHILS % (AUTO) 2.6 %; HGB - HEMOGLOBIN 8.4 g/dL (12.0-16.0); LYMPHOCYTES # (AUTO) 0.8 10^3/uL (1.5-3.5); LYMPHOCYTES % (AUTO) 10.7 %; MEAN CORPUSCULAR HEMOGLOBIN 29.9 pg (27.0-31.0); MEAN CORPUSCULAR HGB CONC 31.6 g/dL (32.0-36.0); MEAN CORPUSCULAR VOLUME 94.7 fL (81.0-99.0); MEAN PLATELET VOLUME 8.9 fL (7.9-10.8); MONOCYTES # (AUTO) 0.5 10^3/uL (0.0-1.0); MONOCYTES % (AUTO) 7.4 %; NEUTROPHILS # (AUTO) 5.6 10^3/uL (1.5-6.6); NEUTROPHILS % (AUTO) 78.4 %; PLT - PLATELET COUNT 376 10^3/uL (130-450); RED BLOOD COUNT 2.81 10^6/uL (4.20-5.40); WHITE BLOOD COUNT 7.2 x10^3/uL (4.8-10.8)
[2020-03-29 05:09] LABS: CALCIUM 8.4 mg/dL (8.5-10.3); CREATININE 0.8 mg/dL (0.4-1.0)
[2020-03-29 05:13] LABS: INR 2.3 (0.8-1.2); PT - PROTHROMBIN TIME 24.7 secs (9.9-12.6)
[2020-03-29] MEDS: PANTOPRAZOLE 40 MG VIAL IVP SCH (06:22)
[2020-03-29] MEDS: FERROUS GLUCONATE 324 MG TABLET PO SCH (07:50)
[2020-03-29] MEDS: CIPROFLOXACIN 400 MG/200 ML 400 MG/200 ML BAG IV SCH (10:09)
[2020-03-29] MEDS: AMIODARONE 200 MG TABLET PO SCH (10:10)
[2020-03-29] MEDS: carvediloL 3.125 MG TABLET PO SCH (10:13)
--- NOTE | 2020-03-29 10:14 | CONSULTATION NOTE ---
Referring Provider Consult Date: 03/29/20 Chief Complaint - Chief Complaint Chief Complaint: Diverticulitis/GI bleed/abnormal CT abd History of Present Illness - History Obtained From Records Reviewed: current and past medical records History obtained from: patient, daughter Payton, and Hospitalist provider Exam Limitations: none - History of Present Illness HPI Comment/Other: Carey is a very pleasant 89 yo who has a sig PMH of heart diesase with clots and on chronic anti-coagulation was admitted for GI bleed and found to have diverticulitis on imaging. She was started on Zosyn and seem to not respond optimally and was switched to Cipro/flagyl. Since that time her GI bleed has been stable and her WBC and clinical status have improved. However repeat CT scan shows questionable mass/inflammation from diverticulitis and I was asked to consult to discuss possible colonoscopy. Carey reports she has been feeling better over the last few days but not back to herself and still has some soreness and discomfort as well as small amount of blood with some of her bowel movements. She also has little appetite and has a metallic like taste in her mouth and no food tastes or sounds good. Tolerates food/drink nothing is good. She is having bm's and passing gas and although she is tired over all feels better than upon admission. Her daughter Payton is at the bedside and confirms her history and adds that she has had short episodes of LLQ pain over the last 5 years, but not had the bleeding or this level of pain like on admission. History - Past Medical History Cardiovascular: reports: Hypertension, High cholesterol, Coronary artery disease, Atrial fibrillation Respiratory: reports: Sleep apnea Neuro: reports: Peripheral neuropathy GI: reports: GI bleed, Diverticulitis : reports: None HEENT: reports: None Psych: reports: Depression Musculoskeletal: reports: Fatigue, Other MRSA Hx?: No Other Past Medical History: GI bleed, diverticulitis, sleep apnea. - Past Surgical History General: reports: Appendectomy, Hiatal hernia repair /[employer]: reports: section, Hysterectomy Cardiovascular: reports: Coronary stent Derm: reports: Skin cancer surgery - Family & Social History Family History: Mother: , [place], Parkinson's Disease, Father: , [place] Living arrangement: At home Living Situation: Alone (She lives alone, but gets assistance from her daughter. She had 1 daughter who 1 month ago who is her primary caregiver, and now gets help from another daughter.She does not drive but is otherwise fairly independent and does not require the assistance of a device for ambulation.) Social History Notes: She denies alcohol, tobacco or illicit drug use - POLST Patient has POLST: Yes POLST Status: Limited Interventions Meds/Allgy - Home Medications Home Medications: Ambulatory Orders Medication Instructions Recorded Confirmed Aspirin [Aspir 81] 81 mg PO DAILY 01/11/14 03/20/20 Pantoprazole Sodium [Protonix] 40 mg PO DAILY 01/11/14 03/20/20 Docusate Sodium 250Mg Capsule 250 mg PO DAILY #30 capsule 07/07/17 03/20/20 [Colace 250Mg Capsule] Atorvastatin Calcium 20 tab PO QPM 05/31/19 03/20/20 Carvedilol [Coreg] 6.25 mg PO BID 05/31/19 03/20/20 Estrogens, Conjugated Cream 0.5 g VG .3XWEEKLY 05/31/19 03/20/20 [Premarin Cream] Amiodarone [Pacerone] 200 mg PO DAILY 01/26/20 03/20/20 Diltiazem HCl [Diltiazem 24Hr ER] 120 mg PO DAILY 01/26/20 03/20/20 Gabapentin [Neurontin] 600 mg PO BID 01/26/20 03/20/20 Levalbuterol [Xopenex] 2 puffs INH Q4H PRN 01/26/20 03/20/20 Venlafaxine ER [Effexor ER] 75 mg PO DAILY 01/26/20 03/20/20 carvediloL [Coreg] 3.125 mg PO BID 01/26/20 03/20/20 Amox/Clav 500/125 [Augmentin 1 tab PO TID #12 tablet 01/28/20 03/20/20 500/125] Ferrous Gluconate 240 mg PO DAILY #30 tablet 01/28/20 03/20/20 Oxycodone HCl/Acetaminophen 1 each PO Q12H PRN #6 tablet 01/28/20 03/20/20 [Oxycodone-Acetaminophen 5-325] Warfarin [Coumadin] 1.25 mg PO 1700 tablet 01/28/20 03/20/20 Warfarin [Coumadin] 2.5 mg PO SUWEFR #0 01/28/20 03/20/20 - Allergies Allergies/Adverse Reactions: Allergies Allergy/AdvReac Type Severity Reaction Status Date / Time No Known Drug Allergies Allergy Verified 03/20/20 20:06 Review of Systems - Constitutional Constitutional: reports: Fatigue, Poor appetite. denies: Fever, Chills - Eyes Eyes: denies: Pain, Irritation - Cardiovascular Cariovascular: denies: Irregular heart rate, Palpitations, Chest pain - Respiratory Respiratory: denies: Cough, Sputum production, Wheezing - Gastrointestinal Gastrointestinal: reports: Abdominal pain (per HPI) - Genitourinary Genitourinary: denies: Dysuria, Frequency - Musculoskeletal Musculoskeletal: reports: Muscle aches - Integumentary Integumentary: denies: Rash - Hematologic/Lymphatic Hematologic/Lymphatic: reports: Anemia, Blood clots (on chronic anti- coagulation) - All Other Systems All Other Systems: reports: Reviewed and negative Exam - Vital Signs Reviewed Vital Signs: Yes Vital Signs: Vital Signs x48h Temp Pulse Resp BP Pulse Ox 03/29/20 07:38 36.8 C 97 16 142/89 H 95 03/29/20 05:00 36.8 C 87 16 139/80 H 95 - Physical Exam General Appearance: positive: No acute distress (resting comfortably in bed able to move herself in the bed without discomfort or distress) Eyes Bilateral: positive: Normal inspection, No scleral icterus ENT: positive: ENT inspection nml Neck: positive: Nml inspection Respiratory: positive: No respiratory distress, Breath sounds nml Cardiovascular: positive: Irregularly irregular Abdomen: positive: Other (soft, non-distended, mild discomfort in the LLQ with deep palpation, no peritoneal signs no r/g/r BS present) Skin: positive: Color nml, No rash Extremities: positive: Full ROM, Nml appearance Neurologic/Psychiatric: positive: Oriented x3, Mood/affect nml Conclusion and Plan - Lab Results Microbiology Results 03/27/20 18:18 Stool Occult Blood - Final Laboratory Results 03/29/20 04:35: PT 24.7 H, INR 2.3 H 03/29/20 04:35: Sodium 133 L, Potassium 3.6, Chloride 101, Carbon Dioxide 23, Anion Gap 9.0, BUN 6, Creatinine 0.8, Estimated GFR (MDRD) 68 L, Glucose 118 H, Calcium 8.4 L 03/29/20 04:35: WBC 7.2, RBC 2.81 L, Hgb 8.4 L, Hct 26.6 L, MCV 94.7, MCH 29.9, MCHC 31.6 L, RDW 14.0, Plt Count 376, MPV 8.9, Neut # (Auto) 5.6, Lymph # (Auto) 0.8 L, [place] # (Auto) 0.5, Eos # (Auto) 0.2, Baso # (Auto) 0.0, Absolute Nucleated RBC 0.00, Nucleated RBC % 0.0 03/28/20 20:24: Hgb 8.9 L, Hct 27.6 L 03/28/20 18:18: Troponin I High Sens 17.9 H* 03/28/20 11:36: Troponin I High Sens 19.4 H* 03/28/20 08:03: PT 20.0 H, INR 1.8 H 03/28/20 04:35: Sodium 134 L, Potassium 3.3 L, Chloride 100 L, Carbon Dioxide 27, Anion Gap 7.0, BUN 8, Creatinine 0.9, Estimated GFR (MDRD) 59 L, Glucose 135 H, Calcium 8.4 L 03/28/20 04:35: WBC 8.4, RBC 2.86 L, Hgb 8.2 L, Hct 26.8 L, MCV 93.7, MCH 28.7, MCHC 30.6 L, RDW 14.0, Plt Count 365, MPV 9.1, Neut # (Auto) 6.6, Lymph # (Auto) 0.9 L, [place] # (Auto) 0.7, Eos # (Auto) 0.2, Baso # (Auto) 0.0, Absolute Nucleated RBC 0.00, Nucleated RBC % 0.0 03/27/20 22:05: Hgb 8.6 L, Hct 26.6 L - Diagnostic Imaging Results Diagnostic Imaging Results: positive: Final report reviewed, Read independently - Diagnosis Diagnosis: diverticulitis with associated GI bleed - Plan Plan: Carey is a very pleasant 89 yo WF with a-fib on chronic anti-coagulation who developed diverticulitis with associated GI bleed who is stable and responding well to IV cipro/flagyl with a CT scan that report is possible mass/ small abscess. In depth, discussion with the patient and her daughter Payton was held using drawings and pictures. We went through the normal anatomy and physiology; we then discussed the pathophysiology of the disease both of diverticulosis and diverticulitis and lastly the possible etiologies. We discussed their specific clinical, laboratory and imaging findings. We then went through the indications for the procedural intervention with endoscopy and preferred timing and the alternatives including repeat CT scan and observation. We reviewed the risks, the benefits and potential short term and long-term complications of each of the options. WE discussed the recommendation since she is currently responding well to treatment for 14 days abx and follow up in 6-8 weeks in outpatient setting to discuss at that time next step in care of repeat imaging to re-exam t his area of thickening, which is most likely secondary to the acute episode of diverticulitis with associated GI bleed; however, if it persists consideration of endoscopic evaluation at that time. The patient and her daughter understand this plan of care. Their questions were answered to their satisfaction. At this time the hospitalist team could consider transitioning to oral ABX and wean off IVF and if she tolerates and does well she would be ok to D/C home with outpatient follow up from a surgical perspective. All other healthcare issues per the hospitalist team. This was discussed with the RN, hospitalist team, patient and family. (48 minutes was spent with the patent and her daughter over 50% was counseling and coordination of care)
[2020-03-29] MEDS: diltiaZEM CD 120 MG CAPSULE PO SCH (10:24)
[2020-03-29] MEDS: GABAPENTIN 300 MG CAPSULE PO SCH (10:24)
[2020-03-29] MEDS: VENLAFAXINE ER 75 MG CAPSULE PO SCH (10:27)
--- NOTE | 2020-03-29 12:11 | Discharge Plan ---
Discharge Plan Problem Reviewed?: Yes Disposition: Home, Self Care Condition: Stable Prescriptions: Ciprofloxacin [Cipro] 500 mg PO BID #28 tablet metroNIDAZOLE [Flagyl] 250 mg PO Q8H 14 Days #42 tablet Diet: Soft Activity Restrictions: Activity as Tolerated Shower Restrictions: No (fall precaution) Instruction Topics: Diverticulosis Diverticulitis, Bleeding Gastrointestinal, Metronidazole tablets or capsules, Ciprofloxacin tablets, Coumadin Health Concerns: GI bleeding, acute on chronic diverticulosis/diverticulitis Plan of Treatment: Your HGB is stable. advise you hold your Coumadin now for your GI bleeding until you see your PCP to assess you, then determine if you will continue to use Coumadin. discussed with you and your daughter about the benefit and risk of using of Coumadin, and answered your questions and concerns. Surgeon recommended you continue to have antibiotics Cipro and Flagyl for 14 d ays, followup in 6-[address] of abdomen/pelvis to continue monitor. Antibiotics Cipro and Flagyl are prescribed for you. Care Goals: stabilization and improvement of your medical conditions Assessment: discussed with you an your daughter for the care plan, you understood. Additional Instructions or Follow Up instructions: you may followup your PCP in one week, may have CT of abdomen/pelvis in 6-8 week. Should your symptoms return or worsen, you may present ER or call 911 for help No Smoking: If you smoke, Please STOP! Call for help. Follow-up with: Robert Otoole MD [Primary Care Provider] -
--- NOTE | 2020-03-29 12:30 | DISCHARGE SUMMARY ---
"Discharge Summary Admit Date: 03/20/20 Discharge Date: 03/29/20 Discharging Provider: Uriah Braden Primary Care Provider: Robert Love Condition at Discharge: Stable Discharge Disposition: 01 Home, Self Care Discharge Facility Name: home - DIAGNOSES Admission Diagnoses: 1. Lower GI bleed with bright red blood per rectum 2. Acute diverticulitis 3. Atrial fibrillation on oral anticoagulation 4. Hypertension 5. Hyperlipidemia 6. Chronic low back pain 7. Peripheral neuropathy 8. Asthma 9. GERD 10. Depression 11 CKD Discharge Diagnoses with Status of Each Condition: 1. Acute on chronic diverticulitis stable/improved. pt report she felt better and ready to go to home. pt report she had diverticulitis/diverticulosis for her long period time. consulted with surgeon for pt's new CT, suspicious possible mass and abscess. surgeon recommend pt can be d/c to home with antibiotics for two weeks, followup PCP, and have CT scan in 6-8 weeks as out-pt to monitor the healing or determine if need EGD/Colonoscopy, or as early needed. pt is prescribed Cipro and Flagyl to finish the treatment course, continue home Protonix as scheduled 2. anemia stable. it is likely secondary to acute diverticulitis infection plus pt took Coumadin. pt and pt's daughter agreed to hold Coumadin now until pt is evaluated by her PCP in one week. discussed with pt and her daughter the benefit and risk to have Coumadin, they understood and agreed the care plan. continue home iron pill. 3. Atrial fibrillation stable/chronic 4. Hypertension stable/chronic 5. Hyperlipidemia stable/chronic 6. Chronic low back pain stable/chronic 7. Peripheral neuropathy stable/chronic 8. Asthma stable/chronic 9. GERD stable/chronic 10. Depression stable/chronic 11 CKD improved/stable 12 GI bleed HGB is stable. pt denies any more GI bleed, she state normal color stool. it is likely from pt's acute diverticulitis plus Coumadin intake. advise pt followup with her PCP in one week, evaluation again and determine if continue Coumadin. discussed with pt and her daughter the benefit and risk to have Coumadin, pt and pt's daughter agreed the care plan. - HPI History of Present Illness: refer from Dr. Dc's HPI on 03/20/2020 Patient had a similar episode of lower GI bleed and was admitted on 01/26/2020. Previous to that she also had 4 other episodes of bright red blood per rectum. In each case, it appears that it has been associated with acute diverticulitis, and certainly on the last hospital admission this is the clinical picture with which she presented. She was treated conservatively with medical management for the treatment of acute diverticulitis, during which time the GI bleed with self- limiting and although surgical consult was obtained, no procedures were performed and the patient was discharged home in stable medical condition. - CONSULTS | PROCEDURES Consultations: Dr. Coe Procedures: no procedure. - HOSPITAL COURSE Hospital Course: pt was admitted for GI bleed. pt was found to have acute on her chronic diverticulitis. pt was initially treated with Zosyn, it seems not working well. then pt's antibiotics was switched to Cipro and Flagyl. These regimen worked for pt. Pt's HGB has been stable now. pt and pt's daughter agreed to hold Coumadin now until pt is evaluated by her PCP in one week. discussed with pt and her daughter the benefit and risk to have Coumadin, they understood and agreed the care plan. Surgeon was consulted for pt's new image study which indicate possible mass and abscess. After surgeon's review, surgeon did not believe pt need urgent procedure, agreed to be d/c, and recommended [address] of abdomen/pelvis in 6-8weeks for followup as out-pt. The detail hospital course as the below. 1. Acute on chronic diverticulitis stable/improved. pt report she felt better and ready to go to home. pt report she had diverticulitis/diverticulosis for her long period time. consulted with surgeon for pt's new CT, suspicious possible mass and abscess. surgeon recommend pt can be d/c to home with antibiotics for two weeks, followup PCP, and have CT scan in 6-8 weeks as out-pt to monitor the healing or determine if need EGD/Colonoscopy, or as early needed. pt is prescribed Cipro and Flagyl to finish the treatment course, continue home Protonix as scheduled 2. anemia stable. it is likely secondary to acute diverticulitis infection plus pt took Coumadin. pt and pt's daughter agreed to hold Coumadin now until pt is evaluated by her PCP in one week. discussed with pt and her daughter the benefit and risk to have Coumadin, they understood and agreed the care plan. continue home iron pill. 3. Atrial fibrillation stable/chronic 4. Hypertension stable/chronic 5. Hyperlipidemia stable/chronic 6. Chronic low back pain stable/chronic 7. Peripheral neuropathy stable/chronic 8. Asthma stable/chronic 9. GERD stable/chronic 10. Depression stable/chronic 11 CKD improved/stable 12 GI bleed HGB is stable. pt denies any more GI bleed, she state normal color stool. it is likely from pt's acute diverticulitis plus Coumadin intake. advise pt followup with her PCP in one week, evaluation again and determine if continue Coumadin. discussed with pt and her daughter the benefit and risk to have Coumadin, pt and pt's daughter agreed the care plan. - ALLERGIES Allergies/Adverse Reactions: Allergies Allergy/AdvReac Type Severity Reaction Status Date / Time No Known Drug Allergies Allergy Verified 03/20/20 20:06 - MEDICATIONS Home Medications: Ambulatory Orders Medication Instructions Recorded Confirmed Aspirin [Aspir 81] 81 mg PO DAILY 01/11/14 03/20/20 Pantoprazole Sodium [Protonix] 40 mg PO DAILY 01/11/14 03/20/20 Docusate Sodium 250Mg Capsule 250 mg PO DAILY #30 capsule 07/07/17 03/20/20 [Colace 250Mg Capsule] Atorvastatin Calcium 20 tab PO QPM 05/31/19 03/20/20 Carvedilol [Coreg] 6.25 mg PO BID 05/31/19 03/20/20 Estrogens, Conjugated Cream 0.5 g VG .3XWEEKLY 05/31/19 03/20/20 [Premarin Cream] Amiodarone [Pacerone] 200 mg PO DAILY 01/26/20 03/20/20 Diltiazem HCl [Diltiazem 24Hr ER] 120 mg PO DAILY 01/26/20 03/20/20 Gabapentin [Neurontin] 600 mg PO BID 01/26/20 03/20/20 Levalbuterol [Xopenex] 2 puffs INH Q4H PRN 01/26/20 03/20/20 Venlafaxine ER [Effexor ER] 75 mg PO DAILY 01/26/20 03/20/20 carvediloL [Coreg] 3.125 mg PO BID 01/26/20 03/20/20 Amox/Clav 500/125 [Augmentin 1 tab PO TID #12 tablet 01/28/20 03/20/20 500/125] Ferrous Gluconate 240 mg PO DAILY #30 tablet 01/28/20 03/20/20 Oxycodone HCl/Acetaminophen 1 each PO Q12H PRN #6 tablet 01/28/20 03/20/20 [Oxycodone-Acetaminophen 5-325] Ciprofloxacin [Cipro] 500 mg PO BID #28 tablet 03/29/20 metroNIDAZOLE [Flagyl] 250 mg PO Q8H 14 Days #42 tablet 03/29/20 - PHYSICAL EXAM AT DISCHARGE General Appearance: positive: No acute distress, Alert. negative: Lethargic Eyes Bilateral: positive: Normal inspection, PERRL, No lid inflammation ENT: positive: ENT inspection nml, Pharynx nml, No signs of dehydration. negative: Purulent nasal drainage Neck: positive: Nml inspection, Thyroid nml, No JVD, Trachea midline. negative: Thyromegaly, Stiff neck, Tracheal deviation Respiratory: positive: Chest non-tender, No respiratory distress, Breath sounds nml. negative: Wheezes, Rales, Rhonchi Cardiovascular: positive: No murmur, No gallop, Irregularly irregular. neg ative: Tachycardia, Bradycardia, Systolic murmur, Diastolic murmur Peripheral Pulses: positive: 2+ Abdomen: positive: Non-tender, No organomegaly, Nml bowel sounds, No distention. negative: Tenderness, Guarding, Rebound Back: positive: Nml inspection. negative: CVA tenderness (R), CVA tenderness (L) Skin: positive: Color nml, No rash, Warm, Dry. negative: Cyanosis, Diaphoresis, Pallor Extremities: positive: Non-tender, Full ROM, Nml appearance. negative: Calf tenderness, Sarah's sign/cords Neurologic/Psychiatric: positive: Oriented x3, Motor nml, Sensation nml, Mood/affect nml. negative: Weakness, Sensory loss, Facial droop, Slurred/abnml speech, Depressed mood/affect - LABS Result Diagrams: 03/29/20 04:35 03/29/20 04:35 - SEPSIS Current Stage of Sepsis: Ruled out - FOLLOW UP Follow Up: Your HGB is stable. advise you hold your Coumadin now for your GI bleeding until you see your PCP to assess you, then determine if you will continue to use Coumadin. discussed with you and your daughter about the benefit and risk of using of Coumadin, and answered your questions and concerns. Surgeon recommended you continue to have antibiotics Cipro and Flagyl for 14 days, followup in 6-[address] of abdomen/pelvis to continue monitor. Antibiotics Cipro and Flagyl are prescribed for you. you may followup your PCP in one week, may have CT of abdomen/pelvis in 6-8 week. Should your symptoms return or worsen, you may present ER or call 911 for help - TIME SPENT Time Spent in Discharge (Minutes): 30"
[2020-03-29 12:49] VITALS: BP 121/76
[2020-03-29] MEDS ORDERED: metroNIDAZOLE 250 MG TABLET PO SCH (14:00)
[2020-03-29] MEDS ORDERED: CIPROFLOXACIN 250 MG TABLET PO SCH (21:00)
[2020-03-30] MEDS ORDERED: FERROUS GLUCONATE 324 MG TABLET PO SCH (12:00)
== END 2020-03-29 12:59 | disposition home or self-care (01) | DRG 813 ==
LOC: ED 19:43 → MS2 22:29 → OBSVTOIN 03-23 09:53
PROVIDERS: ADMIT Family Medicine Sports Medicine; ATTEND Nurse Practitioner Gerontology
DX: D68.32 Hemorrhagic disorder due to extrinsic circulating anticoagulants (principal); K57.33 Diverticulitis of large intestine without perforation or abscess with bleeding; I48.20 Chronic atrial fibrillation, unspecified; T45.515A Adverse effect of anticoagulants, initial encounter; Y92.009 Unspecified place in unspecified non-institutional (private) residence as the place of occurrence of the external cause; D50.0 Iron deficiency anemia secondary to blood loss (chronic); I12.9 Hypertensive chronic kidney disease with stage 1 through stage 4 chronic kidney disease, or unspecified chronic kidney disease; N18.9 Chronic kidney disease, unspecified; E87.6 Hypokalemia; R93.3 Abnormal findings on diagnostic imaging of other parts of digestive tract; R07.89 Other chest pain; E78.5 Hyperlipidemia, unspecified; G62.9 Polyneuropathy, unspecified; J45.909 Unspecified asthma, uncomplicated; K21.9 Gastro-esophageal reflux disease without esophagitis; F32.9 Major depressive disorder, single episode, unspecified; I25.10 Atherosclerotic heart disease of native coronary artery without angina pectoris; G47.30 Sleep apnea, unspecified; Z66 Do not resuscitate; H54.7 Unspecified visual loss; G89.29 Other chronic pain; M54.5 Low back pain; Z79.82 Long term (current) use of aspirin; Z79.891 Long term (current) use of opiate analgesic; Z95.5 Presence of coronary angioplasty implant and graft
CPT/HCPCS: 36415; 71275; 74177; 80048; 80053; 80076; 81001; 82272; 82607; 82728; 83540; 83615; 83690; 83880; 84466; 84484; 85014; 85018; 85025; 85027; 85045; 85610; 86850; 86900; 86901; 87086; 93005; 93306; 96361; 96365; 96366; 96375; 96376; 97116; 97161; 97166; 97530; 99284; 99285; A9270; G0378; J2060; Q9967; 81003

== ENCOUNTER 2020-04-24 14:51 | Outpatient (CLI) | payer MEDICARE | END 2020-04-24 14:52 | disposition home or self-care (01) | LOC: LAB 14:51 | PROVIDERS: ATTEND Emergency Medicine | DX: I48.91 Unspecified atrial fibrillation (principal) | CPT/HCPCS: 85610 ==

== ENCOUNTER 2020-06-19 12:06 | Emergency (ER) | payer MEDICARE ==
[2020-06-19 12:25] VITALS: BP 150/76
[2020-06-19 12:50] LABS: GLUCOSE, URINE (UA) NEGATIVE (NEGATIVE); KETONES,URINE (UA) TRACE mg/dL (NEGATIVE); LEUKOCYTE ESTERASE, URINE LARGE (NEGATIVE); NITRITE,URINE NEGATIVE (NEGATIVE); OCCULT BLOOD,URINE LARGE (NEGATIVE); PROTEIN,URINE 100 mg/dL (NEGATIVE); UROBILINOGEN,URINE 1 (NORMAL) E.U./dL (NORMAL)
[2020-06-19 13:04] LABS: BACTERIA,URINE None Seen /HPF (None Seen); BILIRUBIN,URINE NEGATIVE (NEGATIVE); CLARITY,URINE TURBID (CLEAR); ICTOTEST,URINE NEGATIVE; RBC,URINE TNTC /HPF (0-5); SQUAMOUS EPITHELIAL CELL,UR NONE SEEN (<= Few); WBC CLUMPS,URINE PRESENT
== END 2020-06-19 13:42 | disposition left against medical advice (07) ==
LOC: ED 12:06
DX: Z53.21 Procedure and treatment not carried out due to patient leaving prior to being seen by health care provider (principal)
CPT/HCPCS: 81001; 81003; 87086; 87181

== ENCOUNTER 2020-06-28 12:45 | Outpatient (CLI) | payer MEDICARE | END 2020-06-28 12:46 | disposition home or self-care (01) | LOC: LAB 12:45 | PROVIDERS: ATTEND Emergency Medicine | DX: I48.91 Unspecified atrial fibrillation (principal) | CPT/HCPCS: 36415; 85610 ==

== ENCOUNTER 2020-07-12 14:17 | Outpatient (CLI) | payer MEDICARE | END 2020-07-12 14:18 | disposition home or self-care (01) | LOC: LAB 14:17 | PROVIDERS: ATTEND Emergency Medicine | DX: I48.91 Unspecified atrial fibrillation (principal) | CPT/HCPCS: 85610 ==

== ENCOUNTER 2020-07-25 12:57 | Outpatient (CLI) | payer MEDICARE | END 2020-07-25 12:58 | disposition home or self-care (01) | LOC: LAB 12:57 | PROVIDERS: ATTEND Emergency Medicine | DX: I48.91 Unspecified atrial fibrillation (principal) | CPT/HCPCS: 85610 ==

== ENCOUNTER 2020-07-30 12:33 | Outpatient (CLI) | payer MEDICARE ==
[2020-07-30 13:02] LABS: CALCIUM 9.1 mg/dL (8.5-10.3); CREATININE 1.3 mg/dL (0.4-1.0)
== END 2020-07-30 12:34 | disposition home or self-care (01) ==
LOC: LAB 12:33
PROVIDERS: ATTEND Internal Medicine Cardiovascular Disease
DX: I10 Essential (primary) hypertension (principal)
CPT/HCPCS: 36415; 80048

== ENCOUNTER 2020-08-02 13:14 | Outpatient (CLI) | payer MEDICARE | END 2020-08-02 13:15 | disposition home or self-care (01) | LOC: LAB 13:14 | PROVIDERS: ATTEND Emergency Medicine | DX: I48.91 Unspecified atrial fibrillation (principal) | CPT/HCPCS: 85610 ==

== ENCOUNTER 2020-08-15 12:15 | Outpatient (CLI) | payer MEDICARE | END 2020-08-15 12:16 | disposition home or self-care (01) | LOC: LAB 12:15 | PROVIDERS: ATTEND Emergency Medicine | DX: I48.91 Unspecified atrial fibrillation (principal) | CPT/HCPCS: 85610 ==

== ENCOUNTER 2020-08-22 12:13 | Outpatient (CLI) | payer MEDICARE | END 2020-08-22 12:14 | disposition home or self-care (01) | LOC: LAB 12:13 | PROVIDERS: ATTEND Emergency Medicine | DX: I48.91 Unspecified atrial fibrillation (principal) | CPT/HCPCS: 85610 ==

== ENCOUNTER 2020-09-03 11:42 | Outpatient (CLI) | payer MEDICARE | END 2020-09-03 11:43 | disposition home or self-care (01) | LOC: LAB 11:42 | PROVIDERS: ATTEND Emergency Medicine | DX: I48.91 Unspecified atrial fibrillation (principal) | CPT/HCPCS: 85610 ==

== ENCOUNTER 2020-09-11 11:20 | Outpatient (CLI) | payer MEDICARE | END 2020-09-11 11:21 | disposition home or self-care (01) | LOC: LAB 11:20 | PROVIDERS: ATTEND Emergency Medicine | DX: I48.91 Unspecified atrial fibrillation (principal) | CPT/HCPCS: 85610 ==

== ENCOUNTER 2020-09-18 13:01 | Outpatient (CLI) | payer MEDICARE ==
[2020-09-18 13:22] LABS: BASOPHILS % (AUTO) 0.4 %; EOSINOPHILS # (AUTO) 0.2 10^3/uL (0.0-0.7); EOSINOPHILS % (AUTO) 2.8 %; HGB - HEMOGLOBIN 10.4 g/dL (12.0-16.0); LYMPHOCYTES # (AUTO) 0.7 10^3/uL (1.5-3.5); LYMPHOCYTES % (AUTO) 9.5 %; MEAN CORPUSCULAR VOLUME 83.4 fL (81.0-99.0); MEAN PLATELET VOLUME 9.2 fL (7.9-10.8); MONOCYTES # (AUTO) 0.9 10^3/uL (0.0-1.0); NEUTROPHILS # (AUTO) 5.8 10^3/uL (1.5-6.6); NEUTROPHILS % (AUTO) 74.9 %; PLT - PLATELET COUNT 355 10^3/uL (130-450); RED BLOOD COUNT 4.16 10^6/uL (4.20-5.40); RED CELL DISTRIBUTION WIDTH 17.3 % (12.0-15.0); WHITE BLOOD COUNT 7.8 x10^3/uL (4.8-10.8)
[2020-09-18 13:33] LABS: CREATININE 1.3 mg/dL (0.4-1.0)
== END 2020-09-18 13:02 | disposition home or self-care (01) ==
LOC: LAB 13:01
PROVIDERS: ATTEND Emergency Medicine
DX: I48.21 Permanent atrial fibrillation (principal)
CPT/HCPCS: 36415; 82565; 85025; 85610

== ENCOUNTER 2020-09-26 13:26 | Inpatient (IN) | payer MEDICARE ==
--- NOTE | 2020-09-26 13:52 | ED Physician Documentation ---
History of Present Illness - Stated complaint Stated Complaint: FEMALE - Chief complaint Chief Complaint: Abd Pain - History obtained from History obtained from: Patient - History of Present Illness Timing: How many weeks ago (1) - Additonal information Additional information: 89-year-old female presents to the emergency department for evaluation of abdominal pain and abdominal swelling. She reports that pain began on the left side of her belly about 1 week ago and she suspected it was likely a diverticulitis attack. However over the last week the pain has gotten progressively worse. She reports that last night she had bloody stools. She denies any fevers or persistent nausea. She reports vomiting one time. She denies dysuria, urgency or frequency. at baseline she has dyspnea, this is not new. She does report to me that her pcp has requested urology referral for her "lady parts" Patient is unsure why She does have a history of atrial fibrillation. She reports that last week her primary care provider took her off of the Coumadin and may have started her on Pradaxa. Patient is however unsure if Pradaxa is the anticoagulant she was pre scribed. She is also unsure of the routine prescriptions that she takes. Past surgical history includes ventral hernia repair. Patient does have a history of previous GI bleed associated with diverticulitis and was admitted to the hospital in January 2020 for similar Review of Systems Constitutional: denies: Fever Eyes: reports: Reviewed and negative Ears: reports: Reviewed and negative Cardiac: denies: Chest pain / pressure, Palpitations, Pedal edema, Calf pain Respiratory: reports: Dyspnea. denies: Cough, Hemoptysis, Wheezing GI: reports: Abdominal Pain, Abdominal Swelling, Vomiting, Bloody / black stool. denies: Nausea, Constipation, Diarrhea, Hematemesis : denies: Dysuria, Frequency Skin: reports: Reviewed and negative Musculoskeletal: reports: Reviewed and negative Neurologic: denies: Focal weakness, Syncope, Confused, Headache, LOC PD PAST MEDICAL HISTORY - Past Medical History Cardiovascular: Hypertension, High cholesterol, Coronary artery disease, Atrial fibrillation Respiratory: Sleep apnea Neuro: Peripheral neuropathy GI: GI bleed, Diverticulitis : None HEENT: None Psych: Depression Musculoskeletal: Fatigue, Other - Past Surgical History Past Surgical History: Yes General: Appendectomy, Hiatal hernia repair /NEUROLOGICAL SURGEON: section, Hysterectomy Cardiovascular: Coronary stent Derm: Skin cancer surgery - Present Medications Home Medications: Ambulatory Orders Medication Instructions Recorded Confirmed Aspirin [Aspir 81] 81 mg PO DAILY 01/11/14 03/20/20 Pantoprazole Sodium [Protonix] 40 mg PO DAILY 01/11/14 03/20/20 Docusate Sodium 250Mg Capsule 250 mg PO DAILY #30 capsule 07/07/17 03/20/20 [Colace 250Mg Capsule] Atorvastatin Calcium 20 tab PO QPM 05/31/19 03/20/20 Carvedilol [Coreg] 6.25 mg PO BID 05/31/19 03/20/20 Estrogens, Conjugated Cream 0.5 g VG .3XWEEKLY 05/31/19 03/20/20 [Premarin Cream] Amiodarone [Pacerone] 200 mg PO DAILY 01/26/20 03/20/20 Diltiazem HCl [Diltiazem 24Hr ER] 120 mg PO DAILY 01/26/20 03/20/20 Gabapentin [Neurontin] 600 mg PO BID 01/26/20 03/20/20 Levalbuterol [Xopenex] 2 puffs INH Q4H PRN 01/26/20 03/20/20 Venlafaxine ER [Effexor ER] 75 mg PO DAILY 01/26/20 03/20/20 carvediloL [Coreg] 3.125 mg PO BID 01/26/20 03/20/20 Amox/Clav 500/125 [Augmentin 1 tab PO TID #12 tablet 01/28/20 03/20/20 500/125] Ferrous Gluconate 240 mg PO DAILY #30 tablet 01/28/20 03/20/20 Oxycodone HCl/Acetaminophen 1 each PO Q12H PRN #6 tablet 01/28/20 03/20/20 [Oxycodone-Acetaminophen 5-325] Ciprofloxacin [Cipro] 500 mg PO BID #28 tablet 03/29/20 metroNIDAZOLE [Flagyl] 250 mg PO Q8H 14 Days #42 tablet 03/29/20 - Allergies Allergies/Adverse Reactions: Allergies Allergy/AdvReac Type Severity Reaction Status Date / Time No Known Drug Allergies Allergy Verified 09/26/20 13:39 - Social History Does the pt smoke?: No Smoking Status: Never smoker Does the pt drink ETOH?: No Does the pt have substance abuse?: No - Immunizations Immunizations are current?: Yes - POLST Patient has POLST: Yes POLST Status: Limited Interventions PD ED PE EXPANDED - General General: Alert, No acute distress - Cardiac Cardiac: Regular Rate, Irregularly irregular, Murmur Present, Radial strong equal, Pedal strong equal, Cap refill < 2 sec - Respiratory Respiratory: Clear to ausultation roger. No: Distress, Labored - Abdomen Abdomen: Generalized/diffuse, Surgical scars (Midline vertical incision well- healed), Other (Grossly distended abdomen with general tympany and tenderness mild guarding.) - Rectal Rectal: Normal Tone, Marquetry Worker present (Beth RN), Other (Moderate amount of loose brown stool without obvious blood seen) - Derm Derm: Normal color. No: Rash - Extremities Extremities: Normal, Pedal Pulses Present. No: Pedal edema bilateral - Neuro Neuro: Alert and Oriented X 3, CNII-XII intact - GCS Eye Opening: Spontaneous Motor: Obeys Commands Verbal: Oriented Total: 15 Results - Vitals Vitals: Vital Signs - 24 hr 09/26/20 09/26/20 13:31 15:13 Temperature 36.6 C 37 C Heart Rate 96 86 Respiratory 18 14 Rate Blood Pressure 114/92 H 136/66 H O2 Saturation 99 96 Oxygen O2 Source [] Room air O2 Source Room air - EKG (time done) 1358 Rate: Rate (enter#) (82) Rhythm: Atrial fibrillation Intervals: LBBB QRS: Normal Compare to prior EKG: Unchanged from prior EKG Computer interpretation: Agree with computer - Labs Labs: Microbiology 09/26/20 14:21 Occult Blood - Final Stool Laboratory Tests 09/26/20 09/26/20 09/26/20 14:05 14:05 14:05 WBC 13.0 H RBC 4.43 Hgb 11.0 L Hct 36.6 L MCV 82.6 MCH 24.8 L MCHC 30.1 L RDW 17.8 H Plt Count 418 MPV 9.8 Neut # (Auto) 11.2 H Lymph # (Auto) 0.8 L Treasure # (Auto) 0.8 Eos # (Auto) 0.1 Baso # (Auto) 0.0 Absolute Nucleated RBC 0.00 Nucleated RBC % 0.0 PT 38.7 H INR 3.8 H APTT 34.8 H Sodium 132 L Potassium 4.2 Chloride 87 L Carbon Dioxide 31 Anion Gap 14.0 H BUN 36 H Creatinine 2.1 H Estimated GFR (MDRD) 22 L Glucose 150 H Lactic Acid Calcium 8.9 Total Bilirubin 1.1 H AST 23 ALT 12 Alkaline Phosphatase 73 Troponin I High Sens Total Protein 7.1 Albumin 3.4 Globulin 3.7 Albumin/Globulin Ratio 0.9 L Lipase 25 Urine Color Urine Clarity Urine pH Ur Specific [place] Urine Protein Urine Glucose (UA) Urine Ketones Urine Occult Blood Urine Nitrite Urine Bilirubin Urine Urobilinogen Ur Leukocyte Esterase Urine RBC Urine WBC Ur Squamous Epith Cells Urine Bacteria Ur Microscopic Review Urine Culture Comments 09/26/20 09/26/20 09/26/20 14:05 14:05 14:21 WBC RBC Hgb Hct MCV MCH MCHC RDW Plt Count MPV Neut # (Auto) Lymph # (Auto) Treasure # (Auto) Eos # (Auto) Baso # (Auto) Absolute Nucleated RBC Nucleated RBC % PT INR APTT Sodium Potassium Chloride Carbon Dioxide Anion Gap BUN Creatinine Estimated GFR (MDRD) Glucose Lactic Acid 1.3 Calcium Total Bilirubin AST ALT Alkaline Phosphatase Troponin I High Sens 30.8 H* Total Protein Albumin Globulin Albumin/Globulin Ratio Lipase Urine Color YELLOW Urine Clarity CLOUDY Urine pH 7.0 Ur Specific [place] 1.015 Urine Protein TRACE Urine Glucose (UA) NEGATIVE Urine Ketones TRACE Urine Occult Blood LARGE H Urine Nitrite NEGATIVE Urine Bilirubin NEGATIVE Urine Urobilinogen 0.2 (NORMAL) Ur Leukocyte Esterase LARGE H Urine RBC 0-5 Urine WBC 4-5 Ur Squamous Epith Cells NONE SEEN Urine Bacteria Moderate H Ur Microscopic Review INDICATED Urine Culture Comments INDICATED - Rads (name of study) CT abd Radiology: Final report received (Ileus pattern within the small bowel and right colon, mechanical source of bowel distention is not seen. Note is made of sigmoid diverticulosis that is moderate and mild sigmoid acute diverticulitis appearing by mild edema in the pericolonic fat adjacent to the posterior third of the sigmoid bowel) PD MEDICAL DECISION MAKING - ED course Complexity details: reviewed old records, reviewed results, re-evaluated patient, considered differential, d/w patient ED course: 89-year-old female presents to the emergency department for evaluation of abdominal pain and swelling getting progressively worse over the last week. She does have a history of diverticulitis as well as GI bleed associated with this. Her last admission for similar was in January 2020 - Exam patient has a very distended abdomen that is generally tender. Her labs today reveal a mild leukocytosis of 13,000. Lactic acid is not elevated. She is normotensive without fever tachycardia. She does not present as septic or in septic shock. In addition patient has developed new renal insufficiency/ISABEL. Baseline creatinine seems to be less than 1.5 and today it is 2.1. Her GFR is less than 30. The CT of the abdomen reveals a small bowel ileus with associated diverticulitis of the sigmoid colon. Cipro and flagyl ordered empirically - 1541: I have spoken with Dr. Dayana Gottlieb hospitalist who has agreed to bring pt into the hospital for further management of her diverticulitis, ISABEL and small bowel illeus. - Departure - Departure Disposition: 66 [facility] DC/Xfer Clinical Impression: Diverticulitis, Dynamic ileus Acute renal failure Qualifiers: Acute renal failure type: unspecified Qualified Code(s): N17.9 - Acute kidney failure, unspecified
[2020-09-26] MEDS ORDERED: IOVERSOL 320 100 ML VIAL IVP ONE (14:02)
[2020-09-26 14:17] LABS: BASOPHILS % (AUTO) 0.3 %; EOSINOPHILS # (AUTO) 0.1 10^3/uL (0.0-0.7); EOSINOPHILS % (AUTO) 0.8 %; LYMPHOCYTES # (AUTO) 0.8 10^3/uL (1.5-3.5); LYMPHOCYTES % (AUTO) 5.8 %; MEAN CORPUSCULAR HEMOGLOBIN 24.8 pg (27.0-31.0); MEAN CORPUSCULAR HGB CONC 30.1 g/dL (32.0-36.0); MEAN CORPUSCULAR VOLUME 82.6 fL (81.0-99.0); MEAN PLATELET VOLUME 9.8 fL (7.9-10.8); MONOCYTES # (AUTO) 0.8 10^3/uL (0.0-1.0); MONOCYTES % (AUTO) 6.3 %; NEUTROPHILS # (AUTO) 11.2 10^3/uL (1.5-6.6); NEUTROPHILS % (AUTO) 86.2 %; PLT - PLATELET COUNT 418 10^3/uL (130-450); RED BLOOD COUNT 4.43 10^6/uL (4.20-5.40); RED CELL DISTRIBUTION WIDTH 17.8 % (12.0-15.0)
[2020-09-26] MEDS ORDERED: SODIUM CHLORIDE 0.9% 1,000 ML IV STA (14:21)
[2020-09-26 14:25] LABS: INR 3.8 (0.8-1.2); PT - PROTHROMBIN TIME 38.7 secs (9.9-12.6)
[2020-09-26 14:30] LABS: GLUCOSE, URINE (UA) NEGATIVE (NEGATIVE); KETONES,URINE (UA) TRACE mg/dL (NEGATIVE); LEUKOCYTE ESTERASE, URINE LARGE (NEGATIVE); NITRITE,URINE NEGATIVE (NEGATIVE); OCCULT BLOOD,URINE LARGE (NEGATIVE); PROTEIN,URINE TRACE mg/dL (NEGATIVE); UROBILINOGEN,URINE 0.2 (NORMAL) E.U./dL (NORMAL)
[2020-09-26 14:32] LABS: PARTIAL THROMBOPLASTIN TIME 34.8 secs (24.9-33.3)
[2020-09-26 14:33] LABS: ALBUMIN 3.4 g/dL (3.2-5.5); ALBUMIN/GLOBULIN RATIO 0.9 (1.0-2.2); BILIRUBIN,TOTAL 1.1 mg/dL (0.2-1.0); CALCIUM 8.9 mg/dL (8.5-10.3); CREATININE 2.1 mg/dL (0.4-1.0); TOTAL PROTEIN 7.1 g/dL (6.7-8.2)
[2020-09-26 14:34] LABS: BILIRUBIN,URINE NEGATIVE (NEGATIVE); CLARITY,URINE CLOUDY (CLEAR); ICTOTEST,URINE NEGATIVE
[2020-09-26 14:44] LABS: BACTERIA,URINE Moderate /HPF (None Seen); RBC,URINE 0-5 /HPF (0-5); SQUAMOUS EPITHELIAL CELL,UR NONE SEEN (<= Few)
--- NOTE | 2020-09-26 15:05 | CT Report ---
PROCEDURE: Abdomen/Pelvis WO INDICATIONS: diverticulitis; abdominal swelling TECHNIQUE: Noncontrast 5 mm thick sections acquired from the diaphragms to the symphysis. 5 mm coronal and sagi ttal reformats were then performed. For radiation dose reduction, the following was used: automated exposure control, adjustment of mA and/or kV according to patient size. COMPARISON: None. FINDINGS: Image quality: Reduced by the absence of both oral and intravenous contrast. ABDOMEN: Lung bases: Lung bases are clear. Heart size is normal. Solid organs: Liver and spleen are normal in size. Gallbladder is free of inflammation Pancreas is normal in contours. No adrenal nodules. Kidneys are normal in size, without hydronephrosis or neph rolithiasis. Peritoneum and bowel: Unenhanced small bowel loops demonstrate normal wall thickness but generally i ncreased caliber and this pattern extends to the cecum which also is fluid-filled and mildly distende d. The colon caliber tapers to a more normal value at the left colon, and there is diverticulosis inv olving the sigmoid colon. No free fluid or air. Nodes and vessels: No retroperitoneal or mesenteric adenopathy by size criteria. Aorta and inferior vena cava are normal in caliber. Miscellaneous: No ventral hernias. PELVIS: Genitourinary: Bladder wall thickness is normal. Miscellaneous: No inguinal hernias or adenopathy. Abnormal small bowel fluid moderate distention is present, and at the right colon inferiorly the cecum is fluid-filled and mildly distended with the d istention of the small bowel extending contiguously into this area. Independently, on the left, there is sigmoid diverticulosis and what appears to be focal acute diverticulitis that is mild, without pe ridiverticular abscess, within the right posterior cul-de-sac area near the rectosigmoid junction. Mi ld edema is present in this area of the pericolonic fat. Bones: No suspicious bony lesions. No vertebral body compression fractures. IMPRESSION: Ileus pattern within the small bowel and right colon, a mechanical source of bowel distention is not seen. Note is made of sigmoid diverticulosis that is moderate and mild sigmoid acute diverticulitis a ppears present as indicated by asymmetric mild edema in the pericolonic fat adjacent to the posterior third of the sigmoid bowel. A peridiverticular abscess is not suspected. Reviewed by: Robson Sheehan MD on 09/26/2020 3:04 PM PDT Approved by: Robson Sheehan MD on 09/26/2020 3:04 PM PDT Station ID: [id number]
[2020-09-26] MEDS ORDERED: metroNIDAZOLE 500 MG/100 ML 500 MG/100 ML BAG IV ONE (15:31)
[2020-09-26] MEDS ORDERED: CIPROFLOXACIN 400 MG/200 ML 400 MG/200 ML BAG IV STA (15:34)
[2020-09-26] MEDS ORDERED: CIPROFLOXACIN 400 MG/200 ML 400 MG/200 ML BAG IV SCH (16:00)
[2020-09-26] MEDS ORDERED: MORPHINE 2 MG/ML CARPUJECT IVP PRN ×3 (16:01→17:07)
[2020-09-26] MEDS ORDERED: SODIUM CHLORIDE FLUSH 0.9% 10 ML SYRINGE IVP PRN ×2 (16:01→17:07)
[2020-09-26] MEDS ORDERED: ACETAMINOPHEN 325 MG TABLET PO PRN ×2 (16:01→17:07)
[2020-09-26] MEDS ORDERED: oxyCODONE 5 MG TABLET PO PRN ×2 (16:01→17:07)
[2020-09-26] MEDS ORDERED: ONDANSETRON 4 MG/2 ML VIAL IVP PRN ×2 (16:01→17:07)
[2020-09-26] MEDS ORDERED: SODIUM CHLORIDE 0.9% 1,000 ML IV SCH ×2 (17:00)
[2020-09-26] MEDS ORDERED: SODIUM CHLORIDE FLUSH 0.9% 10 ML SYRINGE IVP SCH ×2 (17:00)
[2020-09-26] MEDS ORDERED: PANTOPRAZOLE 40 MG VIAL IVP SCH ×2 (17:00)
--- NOTE | 2020-09-26 17:13 | HISTORY & PHYSICAL EXAMINATION ---
Chief Complaint - Chief Complaint Chief Complaint: abdominal pain History of Present Illness - Admitted From Admitted From:: ER - History Obtained From Records Reviewed: [facility], note History obtained from: Pt Exam Limitations: no - History of Present Illness HPI Comment/Other: Patient is an 89 y/o female with Hx of atrial fibrillation on coumadin which was Switched to Pradaxa 7 days ago By her PCP, GI bleed, diverticulitis, hypertension, hyperlipidemia, CAD with coronary stent, atrial fibrillation, sleep apnea, peripheral neuropathy, who presented to the ED with complain of Abdominal pain. Patient reported she started to have abdominal pain on last Thursday then abdominal pain pain become worsening, not better. today morning she had nausea and vomiting, Watery diarrhea. Specially she had nausea and vomiting when she take the pills. also she report she had a one-time black stool on last night. She denied fever, cough, shortness of breathing, chest pain. Patient report she had a previous GI bleed associated with diverticulitis and she was admitted to the hospital in January 2020. CAT scan of the abdomen/pelvis Show ileus pattern in small bowel and right colon. There is sigmoid diverticulosis and mild acute sigmoid diverticulitis, peridiverticular abscess is not suspected. Routine laboratory tests show patient had a elevated WBC at 13, hemoglobin 11,BUN 36, creatinine 2.1, troponin of 31.Urinalysis indicated possible UTI. occult stool test is positive. GI surgeon was called and consulted. Discussed care goal with the patient, patient stated clearly she want to be DNR, she reported she always asked for DNR, she signed a new POLST form to state comfortable measure and DNR. History - Past Medical History Cardiovascular: reports: Hypertension, High cholesterol, Coronary artery disease, Atrial fibrillation Respiratory: reports: Sleep apnea Neuro: reports: Peripheral neuropathy GI: reports: GI bleed, Diverticulitis : reports: None HEENT: reports: None Psych: reports: Depression Musculoskeletal: reports: Fatigue, Other MRSA Hx?: No - Past Surgical History General: reports: Appendectomy, Hiatal hernia repair /IT SECURITY CONSULTANT: reports: section, Hysterectomy Cardiovascular: reports: Coronary stent Derm: reports: Skin cancer surgery - Family & Social History Family History: Mother: , [place], Parkinson's Disease, Father: , [place] Family History Comment/Other: Patient reported her father from heart attack at age 70. Her mother at age 94. Patient had a 2 girls, one at age 64 from heart attack, young daughter when she was 32 years old, she had heart attack but she managed well so far. Social History Notes: She denies alcohol, tobacco or illicit drug use - POLST Patient has POLST: Yes POLST Status: DNR Meds/Allgy - Home Medications Home Medications: Ambulatory Orders Medication Instructions Recorded Confirmed Aspirin [Aspir 81] 81 mg PO DAILY 01/11/14 03/20/20 Pantoprazole Sodium [Protonix] 40 mg PO DAILY 01/11/14 03/20/20 Docusate Sodium 250Mg Capsule 250 mg PO DAILY #30 capsule 07/07/17 03/20/20 [Colace 250Mg Capsule] Atorvastatin Calcium 20 tab PO QPM 05/31/19 03/20/20 Carvedilol [Coreg] 6.25 mg PO BID 05/31/19 03/20/20 Estrogens, Conjugated Cream 0.5 g VG .3XWEEKLY 05/31/19 03/20/20 [Premarin Cream] Amiodarone [Pacerone] 200 mg PO DAILY 01/26/20 03/20/20 Diltiazem HCl [Diltiazem 24Hr ER] 120 mg PO DAILY 01/26/20 03/20/20 Gabapentin [Neurontin] 600 mg PO BID 01/26/20 03/20/20 Levalbuterol [Xopenex] 2 puffs INH Q4H PRN 01/26/20 03/20/20 Venlafaxine ER [Effexor ER] 75 mg PO DAILY 01/26/20 03/20/20 carvediloL [Coreg] 3.125 mg PO BID 01/26/20 03/20/20 Amox/Clav 500/125 [Augmentin 1 tab PO TID #12 tablet 01/28/20 03/20/20 500/125] Ferrous Gluconate 240 mg PO DAILY #30 tablet 01/28/20 03/20/20 Oxycodone HCl/Acetaminophen 1 each PO Q12H PRN #6 tablet 01/28/20 03/20/20 [Oxycodone-Acetaminophen 5-325] Ciprofloxacin [Cipro] 500 mg PO BID #28 tablet 03/29/20 metroNIDAZOLE [Flagyl] 250 mg PO Q8H 14 Days #42 tablet 03/29/20 - Allergies Allergies/Adverse Reactions: Allergies Allergy/AdvReac Type Severity Reaction Status Date / Time No Known Drug Allergies Allergy Verified 09/26/20 13:39 Review of Systems - Constitutional Constitutional: denies: Fever, Chills, Diaphoresis, Night sweats - Eyes Eyes: denies: Pain, Blurred vision, Field loss, Vision loss - Ears, Nose & Throat Ears, Nose & Throat: denies: Ear pain, Nosebleeds, Nasal congestion, Bleeding gums - Cardiovascular Cariovascular: denies: Irregular heart rate, Palpitations, Chest pain, Light headedness, Syncope, Exertional dyspnea - Respiratory Respiratory: denies: Cough, Wheezing, Hemoptysis, Orthopnea, SOB at rest, SOB with exertion - Gastrointestinal Gastrointestinal: reports: Abdominal pain, Diarrhea, Black stools, Nausea, Vomiting. denies: Constipation, Rectal bleeding, Bloody stools, Taran blood emesis, Coffee grounds emesis - Genitourinary Genitourinary: denies: Dysuria, Incontinence, Flank pain - Musculoskeletal Musculoskeletal: denies: Muscle pain, Limited range of motion - Integumentary Integumentary: denies: Rash, Lumps - Neurological Neurological: denies: General weakness, Focal weakness, Headache, Dizziness, Numbness, Memory problems, Pre-existing deficit, Abnormal gait, Seizures, Incoordination, Slurred speech - Psychiatric Psychiatric: denies: Suicidal, Delusions, Hallucinations - Endocrine Endocrine: denies: Polyuria - Hematologic/Lymphatic Hematologic/Lymphatic: denies: Anemia, Petechiae Exam - Vital Signs Vital Signs: Vital Signs x48h Temp Pulse Resp BP Pulse Ox 09/26/20 16:30 80 12 143/84 H 96 09/26/20 16:00 80 16 144/130 H 09/26/20 15:30 78 12 128/76 96 09/26/20 15:13 37 C 86 14 136/66 H 96 09/26/20 13:31 36.6 C 96 18 114/92 H 99 - Physical Exam General Appearance: positive: No acute distress, Alert. negative: Lethargic Eyes Bilateral: positive: Normal inspection, PERRL, No lid inflammation ENT: positive: ENT inspection nml. negative: Purulent nasal drainage, Oral lesions Neck: positive: Nml inspection, Thyroid nml. negative: Thyromegaly, Swelling/bruising, Tracheal deviation Respiratory: positive: Chest non-tender, No respiratory distress, Breath sounds nml. negative: Wheezes, Rales, Rhonchi Cardiovascular: positive: Regular rate & rhythm, No murmur. negative: Tachycardia, Bradycardia, Systolic murmur, Diastolic murmur Peripheral Pulses: positive: 2+ Abdomen: positive: Non-tender, Nml bowel sounds. negative: Tenderness, Guarding, Rebound Back: positive: Nml inspection. negative: CVA tenderness (R), CVA tenderness (L) Skin: positive: Color nml, No rash, Warm, Dry. negative: Cyanosis, Diaphoresis, Pallor Extremities: positive: Non-tender, Nml appearance. negative: Calf tenderness Neurologic/Psychiatric: positive: Oriented x3, Motor nml, Sensation nml, Mood/affect nml. negative: Weakness, Sensory loss, Facial droop, Slurred/abnml speech, Depressed mood/affect Conclusion/Plan - Problem List (1) Acute diverticulitis Conclusion/Plan: Patient has a history of diverticulitis, patient presented abdominal pain, CAT scan showed patient had a acute mild diverticulitis, patient was give the Rocephin and Flagyl, Continue pain control (2) Black stool Conclusion/Plan: Patient reported she had a black stool, occult stool tested positive in the ER, patient had a hemoglobin 11.1 now. Patient reported she take Pradaxa in the home for her a fibrillation. will hold blood thinner Pradaxa, consult with general surgeon, H&H to monitor hemoglobin and Protonix intravenous. (3) ISABEL (acute kidney injury) Conclusion/Plan: Patient creatinine 2.1 on today from 1.3 a few days ago. It is likely from patient nausea, vomiting and diarrhea, dehydration. We will continue IVF, Continue civil laboratory technician (4) Ileus Conclusion/Plan: CAT scan of abdomen show ileus patter. Reduce opiates possible, Encourage patient ambulate safely as possible, Consult with GI surgeon. (5) Afib Conclusion/Plan: Patient has a history of H fibrillation, will resume home Coreg, continue telemetry, hold Pradaxa for GI bleed (6) Hypertension Conclusion/Plan: Stable, will resume patient home blood pressure medicine after confirmed, continue Coreg (7) UTI (urinary tract infection) Conclusion/Plan: Urinalysis indicated patient has UTI, patient is on Rocephin, urine culture is pending (8) Elevated troponin Conclusion/Plan: Patient had elevated troponin of 31, patient denies chest pain, EKG review left bundle branch block. Patient is hemodynamic stable now. It is possible from patient worsening kidney function. We will repeat troponin in 6 hours. - Lab Results Fish Bones: 09/26/20 14:05 09/26/20 14:05 Core Measures - Anticipated LOS I expect patient to be DC'd or transferred within 96 hours.: Yes - DVT/VTE - Prophylaxis VTE/DVT Device ordered at admit?: Yes VTE/DVT Prophylaxis med ordered at admit?: Yes
[2020-09-26] MEDS ORDERED: CIPROFLOXACIN 200 MG/100 ML 200 MG/100 ML BAG IV SCH (18:00)
[2020-09-26] MEDS ORDERED: metroNIDAZOLE 500 MG/100 ML 500 MG/100 ML BAG IV SCH (18:00)
[2020-09-26] MEDS: SODIUM CHLORIDE 0.9% 1,000 ML IV SCH (18:07)
[2020-09-26] MEDS: SODIUM CHLORIDE FLUSH 0.9% 10 ML SYRINGE IVP SCH (18:07)
--- NOTE | 2020-09-26 18:18 | ADVANCE CARE PLANNING NOTE ---
Advance Care Planning - Planning Encounter Date: 09/26/20 Time: 17:30 Purpose: Advance care planning for patient Parties in Attendance: Patient and me Decisional Capacity of the Patient: Patient is elevated, orientated plus 4, patient has a full capacity to make her own decision - Encounter Subjective/Patient's Story: Patient reported she had a similar symptoms with abdominal pain and GI bleeding with previous admission 3 times in this year. She reported she had twice marriage. She had two daughters. She has been very close to her 2 daughters. Unfortunately her old daughter at her age 64 When she had operation for her heart. Unfortunately she in the operation room From the complication at surgery. She was not recovery from this accident. she Denies that she has depression. We discussed care goal with her, she clearly state she always request for DNR. But her previous PLOST show she has full code status. Then a new PLOST need her signature to reflect her new need. She agree. Patient is alert, orientated plus 4. She voluntarily signed new PLOST form. she can sign the PLOST although her vision decreased per pt's report. New Plost form show pt choose DNR and comfort measure focus. Objective/Medical Story: pt is an 89 y/o female with Hx of atrial fibrillation on coumadin which was Switched to Pradaxa 7 days ago By her PCP, GI bleed, diverticulitis, hypertension, hyperlipidemia, CAD with coronary stent, atrial fibrillation, sleep apnea, peripheral neuropathy. Patient was admitted 3 times in this year, pt has hx of diverticulitis with GI bleed. Goals of Care: advance care planning for pt Plan: pt signed new PLOST forum which state DNR and comfort measure focus. Code Status: Do Not Attempt Resuscitation Time spent on advance care plannin
[2020-09-26] MEDS ORDERED: LEVALBUTEROL 1.25 MG/3 ML NEB INH PRN (18:30)
[2020-09-26] MEDS: cefTRIAXone 1 GM in SODIUM CHLORIDE 0.9% MINIBAG 100 ML IV SCH (19:04)
[2020-09-26] MEDS: ACETAMINOPHEN 325 MG TABLET PO PRN (19:04)
[2020-09-26] MEDS: PANTOPRAZOLE 40 MG VIAL IVP SCH (19:04)
[2020-09-26] MEDS: carvediloL 3.125 MG TABLET PO SCH (20:32)
[2020-09-26] MEDS ORDERED: carvediloL 3.125 MG TABLET PO SCH (21:00)
[2020-09-26] MEDS: metroNIDAZOLE 500 MG/100 ML 500 MG/100 ML BAG IV SCH (22:35)
[2020-09-27] MEDS: oxyCODONE 5 MG TABLET PO PRN (01:16)
[2020-09-27] MEDS: ACETAMINOPHEN 325 MG TABLET PO PRN (01:16)
[2020-09-27] MEDS: SODIUM CHLORIDE FLUSH 0.9% 10 ML SYRINGE IVP SCH ×3 (03:46→16:39)
[2020-09-27 04:47] LABS: BASOPHILS % (AUTO) 0.4 %; EOSINOPHILS # (AUTO) 0.2 10^3/uL (0.0-0.7); EOSINOPHILS % (AUTO) 2.4 %; LYMPHOCYTES # (AUTO) 0.8 10^3/uL (1.5-3.5); LYMPHOCYTES % (AUTO) 9.4 %; MEAN CORPUSCULAR HEMOGLOBIN 25.3 pg (27.0-31.0); MEAN CORPUSCULAR VOLUME 84.3 fL (81.0-99.0); MEAN PLATELET VOLUME 9.3 fL (7.9-10.8); MONOCYTES # (AUTO) 0.7 10^3/uL (0.0-1.0); MONOCYTES % (AUTO) 8.3 %; NEUTROPHILS # (AUTO) 6.7 10^3/uL (1.5-6.6); NEUTROPHILS % (AUTO) 79.1 %; PLT - PLATELET COUNT 332 10^3/uL (130-450); RED BLOOD COUNT 3.95 10^6/uL (4.20-5.40); RED CELL DISTRIBUTION WIDTH 17.8 % (12.0-15.0); WHITE BLOOD COUNT 8.4 x10^3/uL (4.8-10.8)
[2020-09-27 04:57] LABS: CALCIUM 8.1 mg/dL (8.5-10.3); CREATININE 1.6 mg/dL (0.4-1.0); PHOSPHORUS 3.4 mg/dL (2.5-4.6)
[2020-09-27] MEDS: SODIUM CHLORIDE 0.9% 1,000 ML IV SCH ×2 (05:15→16:39)
[2020-09-27] MEDS: metroNIDAZOLE 500 MG/100 ML 500 MG/100 ML BAG IV SCH ×3 (06:25→23:18)
[2020-09-27] MEDS: PANTOPRAZOLE 40 MG VIAL IVP SCH (06:47)
[2020-09-27] MEDS: SODIUM CHLORIDE FLUSH 0.9% 10 ML SYRINGE IVP PRN (06:47)
[2020-09-27] MEDS ORDERED: POTASSIUM CHLORIDE 20 MEQ TABLET PO ONE (08:00)
[2020-09-27 08:48] LABS: INR 2.4 (0.8-1.2); PT - PROTHROMBIN TIME 25.1 secs (9.9-12.6)
[2020-09-27] MEDS: carvediloL 3.125 MG TABLET PO SCH ×2 (09:21→20:15)
[2020-09-27] MEDS: cefTRIAXone 1 GM in SODIUM CHLORIDE 0.9% MINIBAG 100 ML IV SCH (09:22)
[2020-09-27 11:58] LABS: HGB - HEMOGLOBIN 9.5 g/dL (12.0-16.0)
--- NOTE | 2020-09-27 15:43 | PROVIDER PROGRESS NOTE ---
Assessment/Plan - Problem List (1) Diverticulitis Assessment/Plan: 102, patient reported abdominal pain is better, Resume patient's diet. Patient deny fever. Patient's WBC became normal. Continue antibiotics Rocephin and Flagyl, And pain control Patient has a history of diverticulitis, patient presented abdominal pain, CAT scan showed patient had a acute mild diverticulitis, patient was give the Roce phin and Flagyl, Continue pain control (2) Black stool Conclusion/Plan: 1028, patient denies any more black stool, will repeat check stool blood test. Patient hemoglobin slightly trended down, today hemoglobin is 9.5. We will continue to hold patient home Pradaxa, continue intravenous Protonix, Continue H&H. We also do anemia study, MCV is blow 90, start with iron pill. Patient reported she had a black stool, occult stool tested positive in the ER, patient had a hemoglobin 11.1 now. Patient reported she take Pradaxa in the home for her a fibrillation. will hold blood thinner Pradaxa, consult with general surgeon, H&H to monitor hemoglobin and Protonix intravenous. (3) ISABEL (acute kidney injury) Conclusion/Plan: 1028, improved, creatinine is 1.6 from yesterday 2.1. Continue IV hydration, continue cleaner laboratory equipment Patient creatinine 2.1 on today from 1.3 a few days ago. It is likely from patient nausea, vomiting and diarrhea, dehydration. We will continue IVF, Continue cleaner laboratory equipment (4) Ileus Conclusion/Plan: 09-27 Patient reported she had 2/3 times bowel movement on today, C.diff test is negative CAT scan of abdomen show ileus patter. Reduce opiates possible, Encourage patient ambulate safely as possible, Consult with GI surgeon. (5) Afib Conclusion/Plan: 1028, stable.Continue Coreg Patient has a history of H fibrillation, will resume home Coreg, continue telemetry, hold Pradaxa for GI bleed (6) Hypertension Conclusion/Plan: Stable, will resume patient home blood pressure medicine after confirmed, continue Coreg (7) UTI (urinary tract infection) Conclusion/Plan: 1028, Urine culture is pending, continue antibiotics Urinalysis indicated patient has UTI, patient is on Rocephin, urine culture is pending (8) Elevated troponin Conclusion/Plan: 1028, Troponin is flat and reduced. Patient is hemodynamic stable, no distress, Denies chest pain. Patient had elevated troponin of 31, patient denies chest pain, EKG review left bundle branch block. Patient is hemodynamic stable now. It is possible from patient worsening kidney function. We will repeat troponin in 6 hours. - Current Meds Current Meds: Current Medications Generic Name Dose Route Start Last Admin Trade Name Freq PRN Reason Stop Dose Admin Acetaminophen 650 mg 09/26/20 16:59 09/27/20 01:16 Tylenol PO 650 mg Q4HR PRN Administration Pain 1 to 4 Carvedilol 6.25 mg 09/26/20 21:00 09/27/20 09:21 Coreg PO 6.25 mg BID RAISA Administration Metronidazole 500 mg in 100 mls @ 100 mls/hr 09/26/20 23:00 09/27/20 15:05 Flagyl 500 Mg/100 Ml IV Infused Q8H RAISA Infusion Ceftriaxone Sodium 1 gm/ 100 mls @ 200 mls/hr 09/26/20 19:00 09/27/20 10:32 Sodium Chloride IV Infused DAILY RAISA Infusion Oxycodone HCl 5 mg 09/26/20 16:59 09/27/20 01:16 Roxicodone PO 5 mg Q4HR PRN Administration Pain 5 to 7 Pantoprazole Sodium 40 mg 09/26/20 18:00 09/27/20 06:47 Protonix IVP 40 mg QDAC RAISA Administration Sodium Chloride 10 ml 09/26/20 16:59 09/27/20 06:47 Normal Saline Flush 0.9% IVP 10 ml PRN PRN Administration NEEDED PER PROVIDER ORDERS Sodium Chloride 10 ml 09/26/20 17:00 09/27/20 09:06 Normal Saline Flush 0.9% IVP 10 ml 0100,0900,1700 RAISA Administration - Lab Result Fish Bone Diagrams: 09/27/20 11:52 09/27/20 04:30 - Additional Planning My Orders: My Active Orders 09/26/20 16:01 Code Status [OTHERS] Routine Condition of Patient [OTHERS] Routine DVT Prophylaxis [OTHERS] Routine 09/26/20 16:06 General Surgery Consult [CONS] Routine 09/26/20 16:59 Telemetry- [RC] Q4HR Acetaminophen [Tylenol] 650 mg PO Q4HR PRN Ondansetron Inj [Zofran Inj] 4 mg IVP Q6HR PRN Sodium Chloride Flush 0.9% [Normal Saline Flush 0.9%] 10 ml IVP PRN PRN oxyCODONE [Roxicodone] 5 mg PO Q4HR PRN 09/26/20 17:00 Activity Orders [RC] Q2HR IO [RC] IOSHIFT Initiate Bowel Care Protocol [RC] .protocol Initiate Line Care Protocol [RC] QSHIFT Initiate Personal Care Protoco [RC] .protocol Oxygen Therapy [RC] Routine Vital Signs [RC] Q4H Sodium Chloride Flush 0.9% [Normal Saline Flush 0.9%] 10 ml IVP 0100,0900,1700 Code Status [OTHERS] Routine Condition of Patient [OTHERS] Routine DVT Prophylaxis [OTHERS] Routine 09/26/20 17:02 SCDs [RC] QSHIFT 09/26/20 17:53 Code Status [OTHERS] Routine 09/26/20 18:00 Pantoprazole [Protonix] 40 mg IVP QDAC 09/26/20 18:30 Nebulizer/MDI Tx. [RC] .Q4 PRN Resp Teach Nebulizer/MDI [RC] .ONCE Levalbuterol [Xopenex] 1.25 mg INH Q4H PRN 09/26/20 18:38 Out of bed 3+ hours today [RC] TID 09/26/20 19:00 cefTRIAXone [Rocephin] 1 gm Sodium Chloride 0.9% Minibag [Normal Saline 0.9% Minibag] 100 ml IV DAILY 09/26/20 21:00 carvediloL [Coreg] 6.25 mg PO BID 09/26/20 23:00 metroNIDAZOLE 500 MG/100 ML [Flagyl 500 mg/100 ml] 500 mg in 100 ml IV Q8H 09/27/20 OCCULT BLOOD IN PAT. SINGLE [RAPID] Urgent Evaluate and Treat OT [OT] Routine Evaluate and Treat PT [PT] Routine 09/27/20 Lunch Soft (Low Fiber) Diet [DIET] 09/27/20 15:27 FERRITIN [IAI] Routine IRON TIBC PANEL [CHEM] Routine LDH - LACTATE DEHYDROGENASE [CHEM] Routine RETIC [HEME] Routine VITAMIN B12 [IAI] Routine 09/27/20 17:00 Ferrous Sulfate [Feosol] 325 mg PO BIDWM 09/27/20 20:00 H&H [HEMOGLOBIN AND HEMATOCRIT] [HEME] Q8H 09/28/20 05:00 BMP - BASIC METABOLIC PANEL [CHEM] DAILYLAB CBC - COMP BLD CT W/AUTO DIFF [HEME] DAILYLAB PT WITH INR [COAG] DAILYLAB 09/29/20 05:00 BMP - BASIC METABOLIC PANEL [CHEM] DAILYLAB CBC - COMP BLD CT W/AUTO DIFF [HEME] DAILYLAB PT WITH INR [COAG] DAILYLAB 09/30/20 05:00 BMP - BASIC METABOLIC PANEL [CHEM] DAILYLAB CBC - COMP BLD CT W/AUTO DIFF [HEME] DAILYLAB 10/01/20 05:00 BMP - BASIC METABOLIC PANEL [CHEM] DAILYLAB CBC - COMP BLD CT W/AUTO DIFF [HEME] DAILYLAB Subjective - Subjective Patient Reports: Feeling Better Objective Vital Signs: Vital Signs - 24 hr 09/26/20 09/26/20 09/26/20 16:00 16:30 17:00 Temperature 36.8 C Heart Rate 80 80 Heart Rate [ 76 Brachial] Respiratory 16 12 18 Rate Blood Pressure 144/130 H 143/84 H Blood Pressure 119/78 [Right Brachial artery] O2 Saturation 96 97 09/26/20 09/26/20 09/26/20 20:59 22:45 23:30 Temperature 36.7 C 36.7 C Heart Rate 72 Heart Rate [ 72 60 Brachial] Respiratory 18 18 18 Rate Blood Pressure Blood Pressure 98/58 L 120/68 [Right Brachial artery] O2 Saturation 96 92 09/27/20 09/27/20 09/27/20 05:37 07:50 08:05 Temperature 36.8 C 36.6 C Heart Rate 69 Heart Rate [ 76 76 Brachial] Respiratory 16 16 20 Rate Blood Pressure Blood Pressure 119/57 L 103/55 L [Right Brachial artery] O2 Saturation 94 94 09/27/20 13:00 Temperature Heart Rate Heart Rate [ 84 Brachial] Respiratory 20 Rate Blood Pressure Blood Pressure 121/63 [Right Brachial artery] O2 Saturation 95 Oxygen O2 Source [With Activity] Room air O2 Source Room air I&O (Last 24 Hrs): Intake and Output Totals x24h 09/25/20 09/26/20 09/27/20 23:59 23:59 23:59 Intake Total 1950 2443.000 Balance 1950 2443.000 General: Alert, Oriented x3, No acute distress HEENT: Atraumatic Neck: Supple Lymphatic: no adenopathy Neuro: Alert, Non Focal, Oriented Times 3 Cardiovascular: Regular rate, Normal S1, Normal S2 Respiratory: Chest non-tender, No respiratory distress Abdomen: Normal bowel sounds, Soft, No tenderness Extremities: Normal pulses - Results Results: Laboratory Results WBC 8.4 x10^3/uL (4.8-10.8) 09/27/20 04:30 RBC 3.95 10^6/uL (4.20-5.40) L 09/27/20 04:30 Hgb 9.5 g/dL (12.0-16.0) L 09/27/20 11:52 Hct 31.8 % (37.0-47.0) L 09/27/20 11:52 MCV 84.3 fL (81.0-99.0) 09/27/20 04:30 MCH 25.3 pg (27.0-31.0) L 09/27/20 04:30 MCHC 30.0 g/dL (32.0-36.0) L 09/27/20 04:30 RDW 17.8 % (12.0-15.0) H 09/27/20 04:30 Plt Count 332 10^3/uL (130-450) 09/27/20 04:30 MPV 9.3 fL (7.9-10.8) 09/27/20 04:30 Neut # (Auto) 6.7 10^3/uL (1.5-6.6) H 09/27/20 04:30 Lymph # (Auto) 0.8 10^3/uL (1.5-3.5) L 09/27/20 04:30 [place] # (Auto) 0.7 10^3/uL (0.0-1.0) 09/27/20 04:30 Eos # (Auto) 0.2 10^3/uL (0.0-0.7) 09/27/20 04:30 Baso # (Auto) 0.0 10^3/uL (0.0-0.1) 09/27/20 04:30 Absolute Nucleated RBC 0.00 x10^3/uL 09/27/20 04:30 Nucleated RBC % 0.0 /100WBC 09/27/20 04:30 PT 25.1 secs (9.9-12.6) H 09/27/20 08:19 INR 2.4 (0.8-1.2) H 09/27/20 08:19 APTT 34.8 secs (24.9-33.3) H 09/26/20 14:05 Sodium 133 mmol/L (135-145) L 09/27/20 04:30 Potassium 3.3 mmol/L (3.5-5.0) L 09/27/20 04:30 Chloride 97 mmol/L (101-111) L 09/27/20 04:30 Carbon Dioxide 26 mmol/L (21-32) 09/27/20 04:30 Anion Gap 10.0 (6-13) 09/27/20 04:30 BUN 27 mg/dL (6-20) H 09/27/20 04:30 Creatinine 1.6 mg/dL (0.4-1.0) H 09/27/20 04:30 Estimated GFR (MDRD) 30 (>89) L 09/27/20 04:30 Glucose 119 mg/dL (70-100) H 09/27/20 04:30 Lactic Acid 1.3 mmol/L (0.5-2.2) 09/26/20 14:05 Calcium 8.1 mg/dL (8.5-10.3) L 09/27/20 04:30 Phosphorus 3.4 mg/dL (2.5-4.6) 09/27/20 04:30 Magnesium 3.0 mg/dL (1.7-2.8) H 09/27/20 04:30 Total Bilirubin 1.1 mg/dL (0.2-1.0) H 09/26/20 14:05 AST 23 IU/L (10-42) 09/26/20 14:05 ALT 12 IU/L (10-60) 09/26/20 14:05 Alkaline Phosphatase 73 IU/L (42-121) 09/26/20 14:05 Troponin I High Sens 29.1 ng/L (2.3-14.8) H* 09/26/20 20:00 Total Protein 7.1 g/dL (6.7-8.2) 09/26/20 14:05 Albumin 3.4 g/dL (3.2-5.5) 09/26/20 14:05 Globulin 3.7 g/dL (2.1-4.2) 09/26/20 14:05 Albumin/Globulin Ratio 0.9 (1.0-2.2) L 09/26/20 14:05 Lipase 25 U/L (22-51) 09/26/20 14:05 Urine Color YELLOW 09/26/20 14:21 Urine Clarity CLOUDY (CLEAR) 09/26/20 14:21 Urine pH 7.0 PH (5.0-7.5) 09/26/20 14:21 Ur Specific [place] 1.015 (1.002-1.030) 09/26/20 14:21 Urine Protein TRACE mg/dL (NEGATIVE) 09/26/20 14:21 Urine Glucose (UA) NEGATIVE mg/dL (NEGATIVE) 09/26/20 14:21 Urine Ketones TRACE mg/dL (NEGATIVE) 09/26/20 14:21 Urine Occult Blood LARGE (NEGATIVE) H 09/26/20 14:21 Urine Nitrite NEGATIVE (NEGATIVE) 09/26/20 14:21 Urine Bilirubin NEGATIVE (NEGATIVE) 09/26/20 14:21 Urine Urobilinogen 0.2 (NORMAL) E.U./dL (NORMAL) 09/26/20 14:21 Ur Leukocyte Esterase LARGE (NEGATIVE) H 09/26/20 14:21 Urine RBC 0-5 /HPF (0-5) 09/26/20 14:21 Urine WBC 4-5 /HPF (0-5) 09/26/20 14:21 Ur Squamous Epith Cells NONE SEEN (<= Few) 09/26/20 14:21 Urine Bacteria Moderate /HPF (None Seen) H 09/26/20 14:21 Ur Microscopic Review INDICATED 09/26/20 14:21 Urine Culture Comments INDICATED 09/26/20 14:21 Stl C. diff Tox B Gene NEGATIVE (NEGATIVE) 09/27/20 01:00 ABX Reporting Has patient been on IV antibiotics over the past 48 hours?: Yes Current Medications - Current Medications Current Medications: Active Medications Acetaminophen (Tylenol) 650 mg PO Q4HR PRN PRN Reason: Pain 1 to 4 Last Admin: 09/27/20 01:16 Dose: 650 mg Documented by: Carvedilol (Coreg) 6.25 mg PO BID RAISA Last Admin: 09/27/20 09:21 Dose: 6.25 mg Documented by: Ferrous Sulfate (Feosol) 325 mg PO BIDWM [facility] Metronidazole (Flagyl 500 Mg/100 Ml) 500 mg in 100 mls @ 100 mls/hr IV Q8H [facility] Last Infusion: 09/27/20 15:05 Dose: Infused Documented by: Ceftriaxone Sodium 1 gm/ (Sodium Chloride) 100 mls @ 200 mls/hr IV DAILY [facility] Last Infusion: 09/27/20 10:32 Dose: Infused Documented by: Sodium Chloride (Normal Saline 0.9%) 1,000 mls @ 85 mls/hr IV .[id number] [facility] Stop: 09/28/20 15:31 Levalbuterol HCl (Xopenex) 1.25 mg INH Q4H PRN PRN Reason: Shortness of Air/Wheezing Ondansetron HCl (Zofran Inj) 4 mg IVP Q6HR PRN PRN Reason: Nausea / Vomiting Oxycodone HCl (Roxicodone) 5 mg PO Q4HR PRN PRN Reason: Pain 5 to 7 Last Admin: 09/27/20 01:16 Dose: 5 mg Documented by: Pantoprazole Sodium (Protonix) 40 mg IVP QDAC [facility] Last Admin: 09/27/20 06:47 Dose: 40 mg Documented by: Sodium Chloride (Normal Saline Flush 0.9%) 10 ml IVP PRN PRN PRN Reason: NEEDED PER PROVIDER ORDERS Last Admin: 09/27/20 06:47 Dose: 10 ml Documented by: Sodium Chloride (Normal Saline Flush 0.9%) 10 ml IVP 0100,0900,1700 [facility] Last Admin: 09/27/20 09:06 Dose: 10 ml Documented by: Aspirin [Aspir 81] 81 mg PO DAILY 01/11/14 Pantoprazole Sodium [Protonix] 40 mg PO DAILY 01/11/14 Atorvastatin Calcium 20 tab PO QPM 05/31/19 Carvedilol [Coreg] 6.25 mg PO BID 05/31/19 Estrogens, Conjugated Cream [Premarin Cream] 0.5 g VG .3XWEEKLY 05/31/19 Amiodarone [Pacerone] 200 mg PO DAILY 01/26/20 Diltiazem HCl [Diltiazem 24Hr ER] 120 mg PO DAILY 01/26/20 Gabapentin [Neurontin] 600 mg PO BID 01/26/20 Levalbuterol [Xopenex] 2 puffs INH Q4H PRN 01/26/20 Venlafaxine ER [Effexor ER] 75 mg PO DAILY 01/26/20 carvediloL [Coreg] 3.125 mg PO BID 01/26/20
[2020-09-27 15:49] LABS: ABSOLUTE RETICS # AUTO 0.057 10^6/uL (0.020-0.110); RED BLOOD COUNT 3.77 10^6/uL (4.20-5.40)
[2020-09-27 16:20] LABS: % IRON SATURATION 10 % (20-50); IRON 32 ug/dL (28-170); TOTAL IRON BINDING CAPACITY 326 ug/dL (250-450); TRANSFERRIN 233 mg/dL (192-382)
[2020-09-27 16:22] LABS: FERRITIN 15.3 ng/mL (11.0-306.8)
[2020-09-27] MEDS: FERROUS SULFATE 325 MG TABLET PO SCH (16:39)
[2020-09-27 20:04] LABS: HGB - HEMOGLOBIN 9.8 g/dL (12.0-16.0)
[2020-09-28] MEDS: SODIUM CHLORIDE FLUSH 0.9% 10 ML SYRINGE IVP SCH ×3 (01:00→17:16)
[2020-09-28] MEDS: SODIUM CHLORIDE 0.9% 1,000 ML IV SCH (04:40)
[2020-09-28] MEDS: oxyCODONE 5 MG TABLET PO PRN ×2 (04:41→18:03)
[2020-09-28 05:35] LABS: BASOPHILS % (AUTO) 0.3 %; EOSINOPHILS # (AUTO) 0.3 10^3/uL (0.0-0.7); EOSINOPHILS % (AUTO) 4.6 %; HGB - HEMOGLOBIN 9.8 g/dL (12.0-16.0); LYMPHOCYTES # (AUTO) 0.7 10^3/uL (1.5-3.5); LYMPHOCYTES % (AUTO) 10.3 %; MEAN CORPUSCULAR HEMOGLOBIN 25.8 pg (27.0-31.0); MEAN CORPUSCULAR HGB CONC 29.9 g/dL (32.0-36.0); MEAN CORPUSCULAR VOLUME 86.3 fL (81.0-99.0); MEAN PLATELET VOLUME 9.5 fL (7.9-10.8); MONOCYTES # (AUTO) 0.5 10^3/uL (0.0-1.0); MONOCYTES % (AUTO) 7.5 %; NEUTROPHILS # (AUTO) 5.5 10^3/uL (1.5-6.6); PLT - PLATELET COUNT 315 10^3/uL (130-450); RED CELL DISTRIBUTION WIDTH 18.1 % (12.0-15.0); WHITE BLOOD COUNT 7.2 x10^3/uL (4.8-10.8)
[2020-09-28 05:41] LABS: PT - PROTHROMBIN TIME 21.5 secs (9.9-12.6)
[2020-09-28 05:45] LABS: CALCIUM 8.4 mg/dL (8.5-10.3); CREATININE 1.3 mg/dL (0.4-1.0)
[2020-09-28] MEDS: metroNIDAZOLE 500 MG/100 ML 500 MG/100 ML BAG IV SCH ×3 (06:08→21:38)
[2020-09-28] MEDS: SODIUM CHLORIDE FLUSH 0.9% 10 ML SYRINGE IVP PRN (07:01)
[2020-09-28] MEDS: PANTOPRAZOLE 40 MG VIAL IVP SCH (07:01)
[2020-09-28] MEDS: cefTRIAXone 1 GM in SODIUM CHLORIDE 0.9% MINIBAG 100 ML IV SCH (08:23)
[2020-09-28] MEDS: FERROUS SULFATE 325 MG TABLET PO SCH (08:26)
[2020-09-28] MEDS: carvediloL 3.125 MG TABLET PO SCH ×2 (08:29→21:38)
[2020-09-28] MEDS ORDERED: FERROUS SULFATE 325 MG TABLET PO SCH (09:00)
[2020-09-28] MEDS ORDERED: CYANOCOBALAMIN 1,000 MCG/ML VIAL IM SCH (09:00)
[2020-09-28] MEDS ORDERED: SIMETHICONE CHEW 80 MG TABLET PO PRN (15:53)
--- NOTE | 2020-09-28 15:53 | PROVIDER PROGRESS NOTE ---
Assessment/Plan - Problem List (1) Diverticulitis Assessment/Plan: 103, Patient reported she still feel some abdominal pain today "lots of gas", Discomfort upon abdomen and feeling of fullness. add simethicone, continue antibiotics, pt might need report image study if she continue to have complaint. hold opiates for her ileus, Encourage the patient ambulate. 102, patient reported abdominal pain is better, Resume patient's diet. Patient deny fever. Patient's WBC became normal. Continue antibiotics Rocephin and Flagyl, And pain control Patient has a history of diverticulitis, patient presented abdominal pain, CAT scan showed patient had a acute mild diverticulitis, patient was give the Roce phin and Flagyl, Continue pain control (2) Black stool Conclusion/Plan: 103, Patient denies any black stool, patient hemoglobin stable. Continue hold patient home medication Pradaxa. 1028, patient denies any more black stool, will repeat check stool blood test. Patient hemoglobin slightly trended down, today hemoglobin is 9.5. We will continue to hold patient home Pradaxa, continue intravenous Protonix, Continue H&H. We also do anemia study, MCV is blow 90, start with iron pill. Patient reported she had a black stool, occult stool tested positive in the ER, patient had a hemoglobin 11.1 now. Patient reported she take Pradaxa in the home for her a fibrillation. will hold blood thinner Pradaxa, consult with general surgeon, H&H to monitor hemoglobin and Protonix intravenous. (3) ISABEL (acute kidney injury) Conclusion/Plan: 1029,Continue to improve, Creatinine 1.3 today, Continue laboratory manager 1028, improved, creatinine is 1.6 from yesterday 2.1. Continue IV hydration, continue laboratory manager Patient creatinine 2.1 on today from 1.3 a few days ago. It is likely from patient nausea, vomiting and diarrhea, dehydration. We will continue IVF, Continue laboratory manager (4) Ileus Conclusion/Plan: 1029, patient complain fullness of the abdomen, We will hold opiates pain medication, Encourage patient ambulate. Continue consult with GI surgeon 09-27 Patient reported she had 2/3 times bowel movement on today, C.diff test is negative CAT scan of abdomen show ileus patter. Reduce opiates possible, Encourage patient ambulate safely as possible, Consult with GI surgeon. (5) Afib Conclusion/Plan: 1029, stable.Continue Coreg Patient has a history of H fibrillation, will resume home Coreg, continue telemetry, hold Pradaxa for GI bleed (6) Hypertension Conclusion/Plan: Stable, will resume patient home blood pressure medicine after confirmed, continue Coreg (7)UTI Patient laboratory study show urine tract infection, Urine culture show gram- positive but no sensitive study finished yet. We will continue Rocephin, Waiting for sensitivity study and adjust antibiotics as needed - Current Meds Current Meds: Current Medications Generic Name Dose Route Start Last Admin Trade Name Freq PRN Reason Stop Dose Admin Acetaminophen 650 mg 09/26/20 16:59 09/27/20 01:16 Tylenol PO 650 mg Q4HR PRN Administration Pain 1 to 4 Carvedilol 6.25 mg 09/26/20 21:00 09/28/20 08:29 Coreg PO 6.25 mg BID RAISA Administration Metronidazole 500 mg in 100 mls @ 100 mls/hr 09/26/20 23:00 09/28/20 15:01 Flagyl 500 Mg/100 Ml IV Infused Q8H RAISA Infusion Ceftriaxone Sodium 1 gm/ 100 mls @ 200 mls/hr 09/26/20 19:00 09/28/20 08:53 Sodium Chloride IV Infused DAILY RAISA Infusion Oxycodone HCl 5 mg 09/26/20 16:59 09/28/20 04:41 Roxicodone PO 5 mg Q4HR PRN Administration Pain 5 to 7 Pantoprazole Sodium 40 mg 09/26/20 18:00 09/28/20 07:01 Protonix IVP 40 mg QDAC RAISA Administration Sodium Chloride 10 ml 09/26/20 16:59 09/28/20 07:01 Normal Saline Flush 0.9% IVP 10 ml PRN PRN Administration NEEDED PER PROVIDER ORDERS Sodium Chloride 10 ml 09/26/20 17:00 09/28/20 08:30 Normal Saline Flush 0.9% IVP Not Given 0100,0900,1700 RAISA - Lab Result Fish Bone Diagrams: 09/28/20 05:17 09/28/20 05:17 - Additional Planning My Orders: My Active Orders 09/29/20 05:00 BMP - BASIC METABOLIC PANEL [CHEM] DAILYLAB CBC - COMP BLD CT W/AUTO DIFF [HEME] DAILYLAB PT WITH INR [COAG] DAILYLAB 09/29/20 09:00 Ferrous Sulfate [Feosol] 325 mg PO DAILY 09/30/20 05:00 BMP - BASIC METABOLIC PANEL [CHEM] DAILYLAB CBC - COMP BLD CT W/AUTO DIFF [HEME] DAILYLAB 10/01/20 05:00 BMP - BASIC METABOLIC PANEL [CHEM] DAILYLAB CBC - COMP BLD CT W/AUTO DIFF [HEME] DAILYLAB Subjective - Subjective Patient Reports: Abdominal Pain Objective Vital Signs: Vital Signs - 24 hr 09/27/20 09/27/20 09/27/20 16:54 20:14 20:30 Temperature 36.3 C L 36.5 C Heart Rate 69 95 Heart Rate [ 95 Brachial] Respiratory 18 18 18 Rate Blood Pressure 133/71 H [Right Brachial artery] O2 Saturation 94 95 09/28/20 09/28/20 09/28/20 00:41 04:35 08:31 Temperature 36.8 C 36.5 C 36.2 C L Heart Rate Heart Rate [ 75 94 95 Brachial] Respiratory 18 18 18 Rate Blood Pressure 150/64 H 180/82 H 149/71 H [Right Brachial artery] O2 Saturation 95 96 94 09/28/20 09/28/20 08:51 13:00 Temperature 36.6 C Heart Rate 91 Heart Rate [ 71 Brachial] Respiratory 18 19 Rate Blood Pressure 159/96 H [Right Brachial artery] O2 Saturation 94 Oxygen O2 Source [With Activity] Room air O2 Source Room air I&O (Last 24 Hrs): Intake and Output Totals x24h 09/26/20 09/27/20 09/28/20 23:59 23:59 23:59 Intake Total 1950 2563.000 1400 Output Total 200 Balance 1950 2363.000 1400 General: Alert, Oriented x3, No acute distress HEENT: Atraumatic Neck: Supple Lymphatic: no adenopathy Neuro: Alert, Non Focal, Oriented Times 3 Cardiovascular: Regular rate, Normal S1, Normal S2 Respiratory: Chest non-tender, No respiratory distress Abdomen: Normal bowel sounds, Soft, No tenderness Extremities: Normal pulses - Results Results: Laboratory Results WBC 7.2 x10^3/uL (4.8-10.8) 09/28/20 05:17 RBC 3.80 10^6/uL (4.20-5.40) L 09/28/20 05:17 Hgb 9.8 g/dL (12.0-16.0) L 09/28/20 05:17 Hct 32.8 % (37.0-47.0) L 09/28/20 05:17 MCV 86.3 fL (81.0-99.0) 09/28/20 05:17 MCH 25.8 pg (27.0-31.0) L 09/28/20 05:17 MCHC 29.9 g/dL (32.0-36.0) L 09/28/20 05:17 RDW 18.1 % (12.0-15.0) H 09/28/20 05:17 Plt Count 315 10^3/uL (130-450) 09/28/20 05:17 MPV 9.5 fL (7.9-10.8) 09/28/20 05:17 Reticulocyte % (Auto) 1.51 % (0.5-2.3) 09/27/20 15:41 Neut # (Auto) 5.5 10^3/uL (1.5-6.6) 09/28/20 05:17 Lymph # (Auto) 0.7 10^3/uL (1.5-3.5) L 09/28/20 05:17 [place] # (Auto) 0.5 10^3/uL (0.0-1.0) 09/28/20 05:17 Eos # (Auto) 0.3 10^3/uL (0.0-0.7) 09/28/20 05:17 Baso # (Auto) 0.0 10^3/uL (0.0-0.1) 09/28/20 05:17 Absolute Nucleated RBC 0.00 x10^3/uL 09/28/20 05:17 Nucleated RBC % 0.0 /100WBC 09/28/20 05:17 Absolute Retic 0.057 10^6/uL (0.020-0.110) 09/27/20 15:41 PT 21.5 secs (9.9-12.6) H 09/28/20 05:17 INR 2.0 (0.8-1.2) H 09/28/20 05:17 APTT 34.8 secs (24.9-33.3) H 09/26/20 14:05 Sodium 137 mmol/L (135-145) 09/28/20 05:17 Potassium 3.7 mmol/L (3.5-5.0) 09/28/20 05:17 Chloride 104 mmol/L (101-111) 09/28/20 05:17 Carbon Dioxide 23 mmol/L (21-32) 09/28/20 05:17 Anion Gap 10.0 (6-13) 09/28/20 05:17 BUN 17 mg/dL (6-20) 09/28/20 05:17 Creatinine 1.3 mg/dL (0.4-1.0) H 09/28/20 05:17 Estimated GFR (MDRD) 39 (>89) L 09/28/20 05:17 Glucose 105 mg/dL (70-100) H 09/28/20 05:17 Lactic Acid 1.3 mmol/L (0.5-2.2) 09/26/20 14:05 Calcium 8.4 mg/dL (8.5-10.3) L 09/28/20 05:17 Phosphorus 3.4 mg/dL (2.5-4.6) 09/27/20 04:30 Magnesium 3.0 mg/dL (1.7-2.8) H 09/27/20 04:30 Iron 32 ug/dL (28-170) 09/27/20 15:41 TIBC 326 ug/dL (250-450) 09/27/20 15:41 % Saturation 10 % (20-50) L 09/27/20 15:41 Transferrin 233 mg/dL (192-382) 09/27/20 15:41 Ferritin 15.3 ng/mL (11.0-306.8) 09/27/20 15:41 Total Bilirubin 1.1 mg/dL (0.2-1.0) H 09/26/20 14:05 AST 23 IU/L (10-42) 09/26/20 14:05 ALT 12 IU/L (10-60) 09/26/20 14:05 Alkaline Phosphatase 73 IU/L (42-121) 09/26/20 14:05 Lactate Dehydrogenase 169 IU/L (91-225) 09/27/20 15:41 Troponin I High Sens 29.1 ng/L (2.3-14.8) H* 09/26/20 20:00 Total Protein 7.1 g/dL (6.7-8.2) 09/26/20 14:05 Albumin 3.4 g/dL (3.2-5.5) 09/26/20 14:05 Globulin 3.7 g/dL (2.1-4.2) 09/26/20 14:05 Albumin/Globulin Ratio 0.9 (1.0-2.2) L 09/26/20 14:05 Lipase 25 U/L (22-51) 09/26/20 14:05 Vitamin B12 158 pg/mL (180-914) L 09/27/20 15:41 Urine Color YELLOW 09/26/20 14:21 Urine Clarity CLOUDY (CLEAR) 09/26/20 14:21 Urine pH 7.0 PH (5.0-7.5) 09/26/20 14:21 Ur Specific [place] 1.015 (1.002-1.030) 09/26/20 14:21 Urine Protein TRACE mg/dL (NEGATIVE) 09/26/20 14:21 Urine Glucose (UA) NEGATIVE mg/dL (NEGATIVE) 09/26/20 14:21 Urine Ketones TRACE mg/dL (NEGATIVE) 09/26/20 14:21 Urine Occult Blood LARGE (NEGATIVE) H 09/26/20 14:21 Urine Nitrite NEGATIVE (NEGATIVE) 09/26/20 14:21 Urine Bilirubin NEGATIVE (NEGATIVE) 09/26/20 14:21 Urine Urobilinogen 0.2 (NORMAL) E.U./dL (NORMAL) 09/26/20 14:21 Ur Leukocyte Esterase LARGE (NEGATIVE) H 09/26/20 14:21 Urine RBC 0-5 /HPF (0-5) 09/26/20 14:21 Urine WBC 4-5 /HPF (0-5) 09/26/20 14:21 Ur Squamous Epith Cells NONE SEEN (<= Few) 09/26/20 14:21 Urine Bacteria Moderate /HPF (None Seen) H 09/26/20 14:21 Ur Microscopic Review INDICATED 09/26/20 14:21 Urine Culture Comments INDICATED 09/26/20 14:21 Stl C. diff Tox B Gene NEGATIVE (NEGATIVE) 09/27/20 01:00 ABX Reporting Has patient been on IV antibiotics over the past 48 hours?: Yes Current Medications - Current Medications Current Medications: Active Medications Acetaminophen (Tylenol) 650 mg PO Q4HR PRN PRN Reason: Pain 1 to 4 Last Admin: 09/27/20 01:16 Dose: 650 mg Documented by: Carvedilol (Coreg) 6.25 mg PO BID [facility] Last Admin: 09/28/20 08:29 Dose: 6.25 mg Documented by: Ferrous Sulfate (Feosol) 325 mg PO DAILY [facility] Metronidazole (Flagyl 500 Mg/100 Ml) 500 mg in 100 mls @ 100 mls/hr IV Q8H [facility] Last Infusion: 09/28/20 15:01 Dose: Infused Documented by: Ceftriaxone Sodium 1 gm/ (Sodium Chloride) 100 mls @ 200 mls/hr IV DAILY [facility] Last Infusion: 09/28/20 08:53 Dose: Infused Documented by: Levalbuterol HCl (Xopenex) 1.25 mg INH Q4H PRN PRN Reason: Shortness of Air/Wheezing Ondansetron HCl (Zofran Inj) 4 mg IVP Q6HR PRN PRN Reason: Nausea / Vomiting Pantoprazole Sodium (Protonix) 40 mg IVP QDAC [facility] Last Admin: 09/28/20 07:01 Dose: 40 mg Documented by: Simethicone (Mylicon) 80 mg PO 0900,1300,1800,2100 PRN PRN Reason: Gas Sodium Chloride (Normal Saline Flush 0.9%) 10 ml IVP PRN PRN PRN Reason: NEEDED PER PROVIDER ORDERS Last Admin: 09/28/20 07:01 Dose: 10 ml Documented by: Sodium Chloride (Normal Saline Flush 0.9%) 10 ml IVP 0100,0900,1700 [facility] Last Admin: 09/28/20 08:30 Dose: Not Given Documented by: Aspirin [Aspir 81] 81 mg PO DAILY 01/11/14 Atorvastatin Calcium 20 tab PO QPM 05/31/19 Estrogens, Conjugated Cream [Premarin Cream] 0.5 g VG .3XWEEKLY 05/31/19 Amiodarone [Pacerone] 200 mg PO DAILY 01/26/20 Diltiazem HCl [Diltiazem 24Hr ER] 120 mg PO DAILY 01/26/20 Gabapentin [Neurontin] 600 mg PO BID 01/26/20 Levalbuterol [Xopenex] 2 puffs INH Q4H PRN 01/26/20 Venlafaxine ER [Effexor ER] 75 mg PO DAILY 01/26/20 Clobetasol Propionate/Emoll [Clobetasol Emollient 0.05% Crm] 1 applic TOP .TWICEWEEKLY 09/28/20 Pantoprazole [Protonix] 40 mg PO QDAC 09/28/20 Rivaroxaban [Xarelto] 15 mg PO QDDINNER 09/28/20 Zolpidem [Ambien] 2.5 - 5 mg PO QPM PRN 09/28/20 carvediloL [Coreg] 12.5 mg PO BID 09/28/20
[2020-09-28] MEDS ORDERED: SIMETHICONE CHEW 80 MG TABLET PO ONE (16:00)
--- NOTE | 2020-09-28 17:59 | PHARMACY PROGRESS NOTE ---
- Best Possible Medication History Admit Date and Time: 09/26/20 1601 Processed by: Pharmacy Medication History completed: Yes Patient Interview: Completed Secondary Source(s): Physician records, Pharmacy records, Insurance records As the person ultimately responsible for medication therapy, providers are able to order a medication from an existing home medication list in [facility] via the "Reconcile Routine" prior to Confirmation of that medication by support services rep. Such practice is discouraged except when the physician, in their clinical judgment, deems that a medical need exists for a medication without regard to previous use.
[2020-09-28] MEDS: ACETAMINOPHEN 325 MG TABLET PO PRN (18:03)
[2020-09-29] MEDS: SODIUM CHLORIDE FLUSH 0.9% 10 ML SYRINGE IVP SCH ×4 (00:05→23:56)
[2020-09-29] MEDS: ACETAMINOPHEN 325 MG TABLET PO PRN ×2 (00:20→10:13)
[2020-09-29] MEDS: oxyCODONE 5 MG TABLET PO PRN (00:21)
[2020-09-29] MEDS: hydrALAZINE INJ 20 MG/ML VIAL IVP PRN ×2 (01:35→11:21)
[2020-09-29] MEDS: SODIUM CHLORIDE FLUSH 0.9% 10 ML SYRINGE IVP PRN ×3 (01:37→14:33)
[2020-09-29] MEDS ORDERED: LORazepam 0.5 MG TABLET PO STA (02:39)
[2020-09-29 05:16] LABS: BASOPHILS % (AUTO) 0.2 %; EOSINOPHILS # (AUTO) 0.2 10^3/uL (0.0-0.7); LYMPHOCYTES # (AUTO) 0.7 10^3/uL (1.5-3.5); MEAN CORPUSCULAR HEMOGLOBIN 24.8 pg (27.0-31.0); MEAN CORPUSCULAR HGB CONC 29.3 g/dL (32.0-36.0); MEAN CORPUSCULAR VOLUME 84.6 fL (81.0-99.0); MEAN PLATELET VOLUME 9.6 fL (7.9-10.8); MONOCYTES # (AUTO) 0.6 10^3/uL (0.0-1.0); MONOCYTES % (AUTO) 6.2 %; NEUTROPHILS # (AUTO) 7.9 10^3/uL (1.5-6.6); NEUTROPHILS % (AUTO) 84.2 %; PLT - PLATELET COUNT 333 10^3/uL (130-450); RED BLOOD COUNT 4.03 10^6/uL (4.20-5.40); RED CELL DISTRIBUTION WIDTH 17.8 % (12.0-15.0); WHITE BLOOD COUNT 9.4 x10^3/uL (4.8-10.8)
[2020-09-29 05:19] LABS: INR 1.7 (0.8-1.2); PT - PROTHROMBIN TIME 18.4 secs (9.9-12.6)
[2020-09-29 05:23] LABS: CALCIUM 8.7 mg/dL (8.5-10.3)
[2020-09-29] MEDS: metroNIDAZOLE 500 MG/100 ML 500 MG/100 ML BAG IV SCH ×3 (05:48→21:22)
[2020-09-29] MEDS: PANTOPRAZOLE 40 MG VIAL IVP SCH (05:48)
[2020-09-29] MEDS: ONDANSETRON 4 MG/2 ML VIAL IVP PRN ×2 (05:49→14:32)
[2020-09-29] MEDS ORDERED: POTASSIUM CHLORIDE 20 MEQ TABLET PO ONE (08:00)
[2020-09-29] MEDS: carvediloL 3.125 MG TABLET PO SCH (10:09)
[2020-09-29] MEDS: cefTRIAXone 1 GM in SODIUM CHLORIDE 0.9% MINIBAG 100 ML IV SCH (10:10)
[2020-09-29] MEDS: FERROUS SULFATE 325 MG TABLET PO SCH (10:10)
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
[2020-09-29] MEDS ORDERED: ZOLPIDEM 5 MG TABLET PO PRN (13:31)
[2020-09-29] MEDS ORDERED: AMIODARONE 200 MG TABLET PO SCH (14:00)
[2020-09-29] MEDS ORDERED: ATORVASTATIN 10 MG TABLET PO SCH (21:00)
[2020-09-29] MEDS: carvediloL 12.5 MG TABLET PO SCH (21:21)
[2020-09-29] MEDS: GABAPENTIN 300 MG CAPSULE PO SCH (21:22)
[2020-09-30 05:12] LABS: BASOPHILS % (AUTO) 0.3 %; EOSINOPHILS # (AUTO) 0.3 10^3/uL (0.0-0.7); EOSINOPHILS % (AUTO) 3.6 %; HGB - HEMOGLOBIN 10.2 g/dL (12.0-16.0); LYMPHOCYTES # (AUTO) 0.8 10^3/uL (1.5-3.5); LYMPHOCYTES % (AUTO) 9.6 %; MEAN CORPUSCULAR HGB CONC 30.4 g/dL (32.0-36.0); MEAN CORPUSCULAR VOLUME 85.5 fL (81.0-99.0); MONOCYTES # (AUTO) 0.6 10^3/uL (0.0-1.0); MONOCYTES % (AUTO) 7.8 %; NEUTROPHILS # (AUTO) 6.1 10^3/uL (1.5-6.6); NEUTROPHILS % (AUTO) 78.3 %; PLT - PLATELET COUNT 332 10^3/uL (130-450); RED BLOOD COUNT 3.92 10^6/uL (4.20-5.40); RED CELL DISTRIBUTION WIDTH 18.5 % (12.0-15.0); WHITE BLOOD COUNT 7.8 x10^3/uL (4.8-10.8)
[2020-09-30 05:21] LABS: CALCIUM 8.8 mg/dL (8.5-10.3); CREATININE 1.1 mg/dL (0.4-1.0); MAGNESIUM 1.9 mg/dL (1.7-2.8)
[2020-09-30] MEDS: SODIUM CHLORIDE FLUSH 0.9% 10 ML SYRINGE IVP PRN (05:21)
[2020-09-30] MEDS: metroNIDAZOLE 500 MG/100 ML 500 MG/100 ML BAG IV SCH (05:21)
[2020-09-30] MEDS: PANTOPRAZOLE 40 MG VIAL IVP SCH (05:21)
[2020-09-30] MEDS ORDERED: VENLAFAXINE ER 75 MG CAPSULE PO SCH (09:00)
[2020-09-30] MEDS ORDERED: CYANOCOBALAMIN 500 MCG TABLET PO SCH (09:00)
[2020-09-30] MEDS: GABAPENTIN 300 MG CAPSULE PO SCH (09:49)
[2020-09-30] MEDS: FERROUS SULFATE 325 MG TABLET PO SCH (09:49)
[2020-09-30] MEDS: carvediloL 12.5 MG TABLET PO SCH (09:50)
[2020-09-30] MEDS: cefTRIAXone 1 GM in SODIUM CHLORIDE 0.9% MINIBAG 100 ML IV SCH (10:18)
[2020-09-30] MEDS: SODIUM CHLORIDE FLUSH 0.9% 10 ML SYRINGE IVP SCH (10:18)
--- NOTE | 2020-09-30 12:47 | Discharge Plan ---
Discharge Plan Problem Reviewed?: Yes Disposition: Home, Self Care Condition: Fair Prescriptions: metroNIDAZOLE [Flagyl] 250 mg PO TID #6 tablet cephALEXin [Keflex] 250 mg PO QID #8 capsule Simethicone [Mylicon] 80 mg PO 0900,1300,1800,2100 PRN #12 tablet PRN Reason: Gas Diet: Soft Activity Restrictions: Activity as Tolerated Shower Restrictions: No Instruction Topics: Diverticulitis Dc Health Concerns: You were hospitalized because of abdominal pain and we found that you had diverticulitis, ileus (slowed down peristaltic motion of the intestines), and a urinary tract infection. You were treated with IV fluids, antibiotics and bowel rest, and you are now tolerating a diet and ready for discharge. You are being discharged home to finish several more days of treatment for the diverticulitis (using Flagyl) and the urinary tract infection (using Keflex). For excessive gas, a new prescription for Simethicone was prescribed. The new prescriptions were sent to your pharmacy in [place]. You should eat a soft diet that is easily digestible and avoid milk products if they give you gas. Remember to stay well-hydrated. Stop taking the Amiodarone, it is not keeping you in normal rhythm. It was stopped here. Dop not take Xarelto (the blood thinner), because you are currently having blood in the stools, possibly from the diverticulitis. Resume all your other pre-hospital medications. You need to see your PCP in 5 to 10 days for a hospital follow-up to check how you are doing, and to decide if Amiodarone or Xarelto could be resumed. Plan of Treatment: As above. Care Goals: Improvement in symptoms and stabilization are the goals. Assessment: The patient understands and is agreeable with the plan. Written instructions were provided as a reminder. Additional Instructions or Follow Up instructions: If you have new or worsening symptoms, call your PCP for advice or come to the ER. No Smoking: If you smoke, Please STOP! Call for help. Follow-up with: Robert Otoole MD [Primary Care Provider] -
--- NOTE | 2020-09-30 13:14 | DISCHARGE SUMMARY ---
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 Patient reported she started to have abdominal pain last Thursday then abdominal pain pain become worsening, not better. This morning she had nausea and vomiting, watery diarrhea. Especially she had nausea and vomiting when she take the pills. Also she reported she had a one-time black stool last night. She denied fever, cough, shortness of breathing, chest pain. Patient reported she had a previous GI bleed associated with diverticulitis and she was admitted to the hospital in January 2020. CT scan of the abdomen/pelvis showed an ileus pattern in small bowel and right colon. There is sigmoid diverticulosis and mild acute sigmoid diverticulitis, peridiverticular abscess is not seen. Routine laboratory tests show patient has an elevated WBC at 13, hemoglobin 11, BUN/creat of 36/2.1, troponin of 31. Urinalysis indicates possible UTI. Her stool occult blood test is positive. The General Surgeon was called and consulted. Discussed care goal with the patient, patient stated clearly she wants to be DNR, she reported she always asked for DNR, she signed a new POLST form to state comfort measures and DNR. - HOSPITAL COURSE Hospital Course: (1) Diverticulitis Patient has a history of diverticulitis, and she presented with abdominal pain. The CT scan showed acute mild diverticulitis, She was started on iv Rocephin and Flagyl. Her stool sample was C diff neg. She was started on clear liquids and diet was advanced. The abdominal pain was better, and no N/V/D. She was discharged to take several more days of Flagyl. (2) Ileus This was also reported on CT abdomen imaging. She had abdominal pain vs "gas" while here. Simethicone was ordered prn and she was encouraged to ambulate to help with the ileus. (3) UTI (urinary tract infection) Her U/A suggested a urinary tract infection, and urine culture grew Enterococcus species, sens to PCN and Ampicillin. We continued Rocephin, and she was discharged to take several more days of Keflex. (4) ISABEL (acute kidney injury) The admission BUN/creat of 36/2.1 resolved with IV hydration and was 9/1.1 at discharge. (5) Black stool Her stool sample came back guaiac negative. Patient denied any more black stool, and patient's hemoglobin was stable at 9.5-10. We did not give patient her home medication of Xarelto (which she is on for Afib; it is not Pradaxa, according to the newly-reconciled med list). At discharge, it was OKd to resume. (6) Anemia Hgb was stable at 9.5-10. Her iron studies showed that she is only low in percent saturation. Her serum B12 level was low. She received 1000 mcg im B12 replacement. We also resumed her oral home Iron dose. (7) Afib Her HR was controlled, but she was in Afib. Her med list stated she was on Amiodarone. The Amio was therefore not maintaining sinus rhythm. We continued Coreg, the Xarelto was resumed at discharge and whether Amiodarone should be continued, requires Cardiology follow-up. (8) HTN (hypertension) He blood pressure david when she got very irritated. Therefore, being irritated, at 2 AM she called her family and stated she wanted to be "transferred to her [facility]". The family did not consent. The Tip Fixer gave her iv Hydralazine and Ativan 1 dose. She was not "sundowning", was alert and oriented x3. Her BP was under control after that. (9) Hypokalemia Likely caused by potassium loss in vomiting and diarrhea. It was replaced (10) Hx of coronary artery disease We continued her statin and Coreg dose; the aspirin was Okd to resume. (11) Anxiety She was probably anxious which led to the 2 AM phone call. We resumed her home doses of her anxiety med SSRI and the sleeping med. - ALLERGIES Allergies/Adverse Reactions: Allergies Allergy/AdvReac Type Severity Reaction Status Date / Time No Known Drug Allergies Allergy Verified 09/26/20 13:39 - MEDICATIONS Home Medications: Ambulatory Orders Medication Instructions Recorded Confirmed Aspirin [Aspir 81] 81 mg PO DAILY 01/11/14 09/28/20 Docusate Sodium 250Mg Capsule 250 mg PO DAILY #30 capsule 07/07/17 09/28/20 [Colace 250Mg Capsule] Atorvastatin Calcium 20 tab PO QPM 05/31/19 09/28/20 Gabapentin [Neurontin] 600 mg PO BID 01/26/20 09/28/20 Venlafaxine ER [Effexor ER] 75 mg PO DAILY 01/26/20 09/28/20 Ferrous Gluconate 240 mg PO DAILY #30 tablet 01/28/20 09/28/20 Clobetasol Propionate/Emoll 1 applic TOP .TWICEWEEKLY 09/28/20 09/28/20 [Clobetasol Emollient 0.05% Crm] Pantoprazole [Protonix] 40 mg PO QDAC 09/28/20 09/28/20 Zolpidem [Ambien] 2.5 - 5 mg PO QPM PRN 09/28/20 09/28/20 carvediloL [Coreg] 12.5 mg PO BID 09/28/20 09/28/20 Simethicone [Mylicon] 80 mg PO 0900,1300,1800,2100 PRN 09/30/20 #12 tablet cephALEXin [Keflex] 250 mg PO QID #8 capsule 09/30/20 metroNIDAZOLE [Flagyl] 250 mg PO TID #6 tablet 09/30/20 - PHYSICAL EXAM AT DISCHARGE General Appearance: positive: No acute distress, Alert Eyes Bilateral: positive: Normal inspection, EOMI ENT: positive: ENT inspection nml, No signs of dehydration Neck: positive: Nml inspection, No JVD Respiratory: positive: No respiratory distress, Breath sounds nml Cardiovascular: positive: No murmur, Irregularly irregular Abdomen: positive: Non-tender, Nml bowel sounds, Other (Mildly distended) Skin: positive: Warm, Dry Extremities: positive: Non-tender, No pedal edema Neurologic/Psychiatric: positive: Oriented x3, Motor nml, Mood/affect nml - LABS Result Diagrams: 09/30/20 04:55 09/30/20 04:55 - DIAGNOSTIC IMAGING Diagnostic Imaging Results: Final report reviewed - FOLLOW UP Follow Up: See PCP in 5-10 days for hospital follow-up. - TIME SPENT Time Spent in Discharge (Minutes): 60
[2020-09-30 14:05] VITALS: BP 109/52
== END 2020-09-30 14:00 | disposition home or self-care (01) | DRG 378 ==
LOC: ED 13:26 → MS3 16:01 → ED 16:48
PROVIDERS: ADMIT Nurse Practitioner Gerontology; ATTEND Internal Medicine
DX: K57.33 Diverticulitis of large intestine without perforation or abscess with bleeding (principal); K56.7 Ileus, unspecified; N39.0 Urinary tract infection, site not specified; N17.9 Acute kidney failure, unspecified; B95.2 Enterococcus as the cause of diseases classified elsewhere; I48.91 Unspecified atrial fibrillation; E78.00 Pure hypercholesterolemia, unspecified; D51.9 Vitamin B12 deficiency anemia, unspecified; I10 Essential (primary) hypertension; K57.30 Diverticulosis of large intestine without perforation or abscess without bleeding; E87.6 Hypokalemia; I25.10 Atherosclerotic heart disease of native coronary artery without angina pectoris; F41.9 Anxiety disorder, unspecified; Z66 Do not resuscitate; E78.5 Hyperlipidemia, unspecified; Z95.5 Presence of coronary angioplasty implant and graft; G47.30 Sleep apnea, unspecified; G62.9 Polyneuropathy, unspecified; R77.8 Other specified abnormalities of plasma proteins; I44.7 Left bundle-branch block, unspecified; Z79.01 Long term (current) use of anticoagulants
CPT/HCPCS: 36415; 51701; 74176; 80048; 80053; 81001; 82272; 82607; 82728; 82746; 83540; 83605; 83615; 83690; 83735; 84100; 84466; 84484; 85014; 85018; 85025; 85045; 85610; 85730; 87077; 87086; 87181; 87493; 93005; 96374; 97116; 97161; 97165; 99284; 99285; A9270; 81003